=== PATIENT | female | born 1945 | race Caucasian/White ===

== ENCOUNTER → 2016-08-09 | Outpatient (CLI) | payer OTHER ==
[~2016-08-09] MED LIST: ALBUAER INH; ATV1 PO; BXN500 PO; CARB25TA12 PO; CARB50TA3 PO; CLAR500T34 PO; CYAN500T PO; DILT120C68 PO; ERGO500011 PO; ERGO50002 PO; FRS/40 PO; GABA-113 PO; LABE1TAB28 PO; LEVO175T PO; MELO7.5T5 PO; PANT40TA PO; RALO60TA30 PO; ROTI1DIS2 TOP; RXC5 PO
[2016-08-09 12:19] LABS: HEMATOCRIT 36.7 % (37-47); MEAN CELL VOLUME 94.8 fL (80-100); MEAN CORPUSCULAR HEMOGLOBIN 30.7 pg (25-34); MEAN CORPUSCULAR HGB CONC 32.4 g/dl (32-36); MEAN PLATELET VOLUME 9.1 fL (7.4-10.4); PLATELET COUNT 321 K/uL (130-400); RED BLOOD COUNT 3.87 M/uL (4.2-5.4); WHITE BLOOD COUNT 5.71 K/uL (4.8-10.8)
[2016-08-09 12:54] LABS: ALT/SGPT 15 U/L (12-78); BLOOD UREA NITROGEN 16 mg/dl (7-18); BUN/CREATININE RATIO 18.6 (10-20); CARBON DIOXIDE 28 mmol/L (21-32); CHLORIDE 107 mmol/L (98-107); CREATININE 0.88 mg/dl (0.60-1.20); GLUCOSE 87 mg/dl (70-99); POTASSIUM 3.5 mmol/L (3.5-5.1); SODIUM 144 mmol/L (136-145)
[2016-08-09 12:56] LABS: ALB/GLOB RATIO 1.1 (0.9-2); ALKALINE PHOSPHATASE 143 U/L (45-117); AST/SGOT 10 U/L (15-37)
[2016-08-09 13:05] LABS: URINE PROTIEN/CREAT RATIO 0.1 (0-0.2); URINE TOTAL PROTEIN 11.2 mg/dl (0-11.9)
[2016-08-09 13:06] LABS: CALCIUM 9.4 mg/dl (8.5-10.1)
[2016-08-09 13:30] LABS: URINE APPEARANCE CLEAR (CLEAR); URINE BILIRUBIN NEG (NEG); URINE COLOR YELLOW; URINE EPITHELIAL CELL AUTO >30 /lpf (0-5); URINE NITRITE NEG (NEG); URINE PH 5.5 (4.5-7.5); URINE SPECIFIC GRAVITY 1.018 (1.000-1.030); UROBILINOGEN NEG (NEG)
[2016-08-09 13:40] LABS: MANUAL MICROSCOPIC REQUIRED? NO; REVIEW REQ? NO
== END | disposition home or self-care (01) ==
LOC: C.LABBFT 08:54
PROVIDERS: ATTEND Internal Medicine Nephrology
DX: E21.3 Hyperparathyroidism, unspecified (principal); I10 Essential (primary) hypertension; N30.00 Acute cystitis without hematuria; N18.3 Chronic kidney disease, stage 3 (moderate); E55.9 Vitamin D deficiency, unspecified

== ENCOUNTER 2016-08-21 17:27 | Emergency (ER) | payer OTHER ==
[~2016-08-21 17:27] MED LIST changes: -CLAR500T34 PO; -ERGO500011 PO; -MELO7.5T5 PO
[2016-08-21 17:32] VITALS: TEMP 36.8
[2016-08-21] MEDS ORDERED: MELO7.5T5 PO (18:20)
[2016-08-21] MEDS ORDERED: ALBUAER INH (18:20)
[2016-08-21] MEDS ORDERED: ERGO500011 PO (18:20)
[2016-08-21] MEDS ORDERED: CLAR500T34 PO (18:20)
--- NOTE | 2016-08-21 18:20 | DIAGNOSTIC IMAGING REPORT ---
LEFT TIBIA AND FIBULA 2 VIEWS CLINICAL HISTORY: Twisting injury. Left leg pain. FINDINGS: AP and lateral views of the left tibia and fibula are obtained. No prior studies are available for comparison at the time of dictation. The skeletal structures are osteopenic. No fracture is seen. The knee and ankle joints are grossly maintained noting mild arthritic change. Mild soft tissue swelling is present around the ankle. IMPRESSION: There is no radiographic evidence of left tibial or fibular fracture. Electronically signed by: Gage Sr M.D. 08/21/2016 6:19 PM Dictated Date/Time: 08/21/2016 6:18 PM
--- NOTE | 2016-08-21 18:37 | EMERGENCY ROOM VISIT NOTE ---
ED Visit Note First contact with patient: 17:42 CHIEF COMPLAINT: Left lower leg injury last evening HISTORY OF PRESENT ILLNESS: Patient is a 70-year-old white female who presents the emergency department for evaluation of left lower leg pain after an injury last evening. She was kneeling on the ground, bathing her dog. She states that she leaned over the top, and pushed off on her left foot slightly. She states that she fell a pulling/tearing sensation in the anterior lateral aspect of the left lower leg. She describes pain in that same distribution, that is worse when she tries to bear weight. She applied ice, took Excedrin and used a walker. She is chronically on meloxicam for left shoulder disease. And has been taking this regularly for about 2 weeks. She reports that she is careful about what medications she takes because she has chronic kidney disease. She denies any knee or ankle joint pain. There is no numbness or tingling. She rates her discomfort an 8/10. She denies noticing any swelling or bruising. REVIEW OF SYSTEMS: Review of systems as per HPI. All other systems reviewed were negative. At least 6 systems reviewed. PMH: Electronic medical records are reviewed and summarized as above/below. See Problem List. SOCIAL HISTORY: Patient lives at home with her . Retired. Nonsmoker. PHYSICAL EXAM: Vital Signs: Reviewed Nurse's notes. MENTAL STATUS: Pleasant 70- year-old white female who is awake and alert and in no acute distress. Examination of the left lower leg does not demonstrate any obvious deformity. His skin is intact without ecchymosis or erythema. Trace pitting edema is noted in the dorsum of the foot and the ankle. She has some reproducible tenderness to palpation over the anterior and lateral aspect of the left lower leg. Posterior calf is soft and nontender. No palpable cords. The knee and ankle are normal to inspection and there is no swelling or tenderness of either. Knee and ankle range of motion are full. There is no pain or defect over the Achilles tendon insertion on the calcaneus. Distal pulses are easily palpable. Sensation light touch is intact. EMERGENCY DEPARTMENT COURSE: X-ray of the tibia/fibula does not show any fractures. Given the patient's described mechanism of injury and location of her discomfort, I suspect her injury is more muscle strain in nature. She was encouraged to continue to ice and rest the leg and use her walker for ambulation. She was offered, but declined prescription analgesia. She is encouraged to follow-up with orthopedics if her symptoms are not improving. Problem List Medical Problems: (1) CKD (chronic kidney disease), stage III Status: Chronic (2) Dyslipidemia Status: Chronic (3) Fibromyalgia Status: Chronic (4) GERD (gastroesophageal reflux disease) Status: Chronic (5) History of peptic ulcer Status: Chronic (6) HTN (hypertension) Status: Chronic (7) Hypothyroidism Status: Chronic (8) IBS (irritable bowel syndrome) Status: Chronic (9) Mild mitral regurgitation Status: Chronic (10) Mild pulmonary hypertension Status: Chronic (11) Moderate tricuspid regurgitation Status: Chronic (12) Multiple sclerosis Permanent Comment: optic neuropathy Status: Chronic (13) Osteoporosis Status: Chronic (14) Restless legs syndrome (RLS) Status: Chronic Surgical Problems: (1) H/O esophagogastroduodenoscopy Status: Chronic (2) H/O shoulder surgery Status: Chronic (3) S/P appendectomy Status: Chronic (4) S/p repair of cystocele and rectocele Status: Chronic (5) S/P STONEY-BSO Status: Chronic (6) S/P tonsillectomy Status: Chronic Current/Historical Medications Scheduled Carbidopa/Levodopa (Sinemet 25MG/100MG), 1 TAB PO TID Carbidopa/Levodopa (Sinemet Cr 50MG/200MG), 1 TAB PO HS Cyanocobalamin (Vitamin B-12), 500 MCG PO noon Ergocalciferol (Drisdol), PO MONTHLY Ergocalciferol (Vitamin D 58345 Unit), 1 TAB PO MONTHLY Furosemide (Lasix), 40 MG PO HS Gabapentin (Neurontin), 300 MG PO QID Labetalol (Normodyne), 400 MG PO BID Levothyroxine Sodium (Synthroid), 175 MCG PO DAILY Meloxicam (Mobic), 7.5 MG PO DAILY Pantoprazole (Protonix), 40 MG PO BID Raloxifene Hcl (Evista), 60 MG PO QAM Rotigotine (Neupro), TOP DAILY Scheduled PRN Albuterol Sulfate (Proventil Hfa), 2 PUFFS INH for Shortness of Breath Clarithromycin (Biaxin), 1 TAB PO for dental prophylaxis Allergies Coded Allergies: Penicillins (Verified Allergy, Severe, anaphylaxis, 08/21/16) Sulfa Antibiotics (Verified Allergy, Severe, ANAPHYLAXIS, 08/21/16) Pneumococcal Polysaccharides (Verified Allergy, Intermediate, rash at injection site, 08/21/16) Latex1 -Allergic Contact Dermititis (Verified Allergy, Unknown, , 08/21/16 ) Tetanus Toxoid (Verified Allergy, Unknown, redness at injection site, 08/21) age 10 SANIA Inhibitors (Verified Adverse Reaction, Mild, cough, 08/21/16) Aspirin (Verified Adverse Reaction, Mild, GI upset, 08/21/16) Vital Signs Date Time Temp Pulse Resp B/P Pulse Ox O2 Delivery O2 Flow Rate FiO2 08/21/16 18:52 73 16 167/98 97 08/21/16 17:32 36.8 78 20 159/94 95 Room Air Departure Information Impression Primary Impression: Leg strain Referrals Terrance Craig M.D. (PCP) Patient Instructions [facility] Additional Instructions Acetaminophen(Tylenol) may be used for fever or pain. Use 1000mg every six hours as needed. Avoid using more than 3000mg in a 24 hour period. This medication can be taken if you need to drive, work, or perform activities which may be dangerous when taking narcotic pain medication. Ice compresses for 20 minutes at a time four times daily for 2-3 days. Use your walker as instructed. Rest and elevate your injury. Continue current medications. Return to the ER immediately for any numbness, tingling, severe pain, extreme swelling in the extremity or as needed. Follow-up with your family doctor or with your orthopedic surgeon if your symptoms are not improving in the next 3-5 days.
[2016-08-21 18:52] VITALS: BP 167/98; PULSE 73; O2SAT 97
== END 2016-08-21 18:53 | disposition home or self-care (01) ==
LOC: C.EDB 17:29 → C.EDD 18:53
DX: S86.812A Strain of other muscle(s) and tendon(s) at lower leg level, left leg, initial encounter (principal); X50.9XXA Other and unspecified overexertion or strenuous movements or postures, initial encounter; M12.1 Kaschin-Beck disease; N18.3 Chronic kidney disease, stage 3 (moderate); E78.5 Hyperlipidemia, unspecified; M79.7 Fibromyalgia; K21.9 Gastro-esophageal reflux disease without esophagitis; Z87.11 Personal history of peptic ulcer disease; I10 Essential (primary) hypertension; E03.9 Hypothyroidism, unspecified; K58.9 Irritable bowel syndrome, unspecified; I34.0 Nonrheumatic mitral (valve) insufficiency; I07.1 Rheumatic tricuspid insufficiency; G35 Multiple sclerosis; M81.0 Age-related osteoporosis without current pathological fracture; G25.81 Restless legs syndrome

== ENCOUNTER → 2016-12-30 | Outpatient (CLI) | payer OTHER ==
[~2016-12-30] MED LIST changes: -ATV1 PO; -BXN500 PO; +CLAR500T3 PO; -DILT120C68 PO; +ERGO1CAP41 PO; +MELO7.5T5 PO; +RALO60TA12 PO; -RALO60TA30 PO; -RXC5 PO
== END | disposition home or self-care (01) ==
LOC: C.CPL 10:43
DX: G56.02 Carpal tunnel syndrome, left upper limb (principal)

== ENCOUNTER → 2017-07-11 | Outpatient (CLI) | payer OTHER ==
[~2017-07-11] MED LIST changes: -CLAR500T3 PO; +CLAR500T38 PO; -ERGO1CAP41 PO; +ERGO500011 PO; -RALO60TA12 PO; +RALO60TA30 PO
[2017-07-11 12:50] LABS: HEMATOCRIT 36.3 % (37-47); HEMOGLOBIN 11.9 g/dL (12.0-16.0); MEAN CELL VOLUME 91.2 fL (80-100); MEAN CORPUSCULAR HEMOGLOBIN 29.9 pg (25-34); MEAN CORPUSCULAR HGB CONC 32.8 g/dl (32-36); PLATELET COUNT 360 K/uL (130-400); RED CELL DISTRIBUTION WIDTH CV 14.7 % (11.5-14.5); WHITE BLOOD COUNT 6.63 K/uL (4.8-10.8)
[2017-07-11 14:27] LABS: ALBUMIN 3.9 gm/dl (3.4-5.0); ALT/SGPT 17 U/L (12-78); AST/SGOT 12 U/L (15-37); BLOOD UREA NITROGEN 17 mg/dl (7-18); CARBON DIOXIDE 27 mmol/L (21-32); CREATININE 0.91 mg/dl (0.60-1.20); GLUCOSE 91 mg/dl (70-99); POTASSIUM 3.6 mmol/L (3.5-5.1); SODIUM 140 mmol/L (136-145)
[2017-07-11 14:30] LABS: ALKALINE PHOSPHATASE 153 U/L (45-117); TOTAL PROTEIN 7.6 gm/dl (6.4-8.2)
== END | disposition home or self-care (01) ==
LOC: C.LABBFT 09:20
PROVIDERS: ATTEND Internal Medicine Nephrology
DX: E21.3 Hyperparathyroidism, unspecified (principal); I10 Essential (primary) hypertension; N18.3 Chronic kidney disease, stage 3 (moderate); E55.9 Vitamin D deficiency, unspecified

== ENCOUNTER 2019-05-22 07:05 | Observation (INO) ==
[2019-05-22] MEDS ORDERED: HEPARIN (PORCINE) 1000 UNIT/ML 10 ML (CATH LAB USE ONLY) ONE ×2 (08:10→10:27)
[2019-05-22] MEDS ORDERED: NiCARDipine HCL INJ 2.5 MG/ML 10 ML AMP ONE (08:10)
[2019-05-22] MEDS ORDERED: MIDAZOLAM HCL 1 MG/ML 2ML VIAL ONE ×2 (08:11→10:01)
[2019-05-22] MEDS ORDERED: fentaNYL citrate 100 MCG/2 ML VIAL ONE ×2 (08:11→10:01)
[2019-05-22] MEDS ORDERED: NITROGLYCERIN/D5W 100MCG/ML 20ML SYR ONE ×2 (08:11→09:58)
--- NOTE | 2019-05-22 08:35 | History & Physical Bridge Note ---
Date of Service May 22, 2019 History & Physical Bridge Note I have examined the patient, reviewed the History & Physical and in the interval since the performance of the History & Physical I have noted the following changes of clinical significance: no changes noted
--- NOTE | 2019-05-22 08:37 | Pre Anesthesia Assessment ---
Date of Service May 22, 2019 Pre Sedation Assessment Vital Signs Temp Pulse Pulse Resp BP Pulse Ox 05/23/19 11:06 36.6 C 67 17 115/77 98 05/23/19 08:00 98 H 05/23/19 07:50 36.5 C 76 12 145/82 H 99 05/23/19 03:15 36.7 C 73 18 152/82 H 96 05/22/19 23:24 36.4 C L 79 18 134/78 94 05/22/19 22:20 94 H 05/22/19 20:29 74 05/22/19 19:37 36.6 C 78 19 168/89 H 96 05/22/19 15:57 36.3 C L 66 16 160/76 H 97 05/22/19 14:45 65 05/22/19 13:44 36.4 C L 63 18 157/77 H 94 05/22/19 13:09 65 18 149/82 H 95 05/22/19 12:36 68 18 154/81 H 94 05/22/19 12:11 67 18 147/79 H 94 05/22/19 12:00 69 05/22/19 11:44 36.3 C L 67 18 147/82 H 92 05/22/19 11:28 68 18 133/72 94 Cardiovascular RRR, no murmur, no edema Respiratory normal respiratory effort, lungs clear to auscultation Pre-Sedation Airway Assessment Smoking Status: Never smoker Hx Sleep Apnea: No Short, Thick Neck: No Thyromental Distance: > or= 3.5 Finger Breadths Oral Cavity: + WNL Mallampati Class: II ASA: ASA3 NPO Status Date of Last Intake of Fluids: 05/21/19 Time of Last Intake of Fluids: 20:00 Date of Last Intake of Solid Food: 05/21/19 Time of Last Intake of Solid Foods: 20:00 Procedure Planning Contraindications for Sedation: none Current Medications Reviewed: Yes Notes The planned sedation has been discussed with the patient. Informed Consent was obtained. I have identified the patient, determined the appropriateness of sedation and have assessed the patient immediately prior to the procedure. All medicine(s) and interventions are by my order.
[2019-05-22] MEDS ORDERED: LIDOCAINE HCL 1% 20 ML VIAL ONE (08:41)
--- NOTE | 2019-05-22 09:48 | Post Anesthesia Assessment ---
Date of Service May 22, 2019 Post Sedation Assessment Vital Signs Temp Pulse Pulse Resp BP Pulse Ox 05/23/19 11:06 36.6 C 67 17 115/77 98 05/23/19 08:00 98 H 05/23/19 07:50 36.5 C 76 12 145/82 H 99 05/23/19 03:15 36.7 C 73 18 152/82 H 96 05/22/19 23:24 36.4 C L 79 18 134/78 94 05/22/19 22:20 94 H 05/22/19 20:29 74 05/22/19 19:37 36.6 C 78 19 168/89 H 96 05/22/19 15:57 36.3 C L 66 16 160/76 H 97 05/22/19 14:45 65 05/22/19 13:44 36.4 C L 63 18 157/77 H 94 05/22/19 13:09 65 18 149/82 H 95 05/22/19 12:36 68 18 154/81 H 94 05/22/19 12:11 67 18 147/79 H 94 05/22/19 12:00 69 05/22/19 11:44 36.3 C L 67 18 147/82 H 92 05/22/19 11:28 68 18 133/72 94 Recovery Score Activity: Moves 4 extremities Respiration: Deep Breath/Cough Circulation: +/-20% PreAnes Value Oxygen Saturation: > 92% On Room Air Discharge Sedation Level of Care: Phase I Post Sedation Plan On clinical assessment, the patient appears to have tolerated the sedation without complications. Patient is recovering as anticipated. Patient will continue to be monitored by nursing and may be discharged when sedation discharge criteria are met per below protocol. Upon Completions of procedure up to 15 minutes continue every 5 minute vital signs and the P.A.R. score; then discharge to a Phase I or Fast Track to Phase II per the following guidelines: * Discharge Patient to appropriate Phase II area if PAR is 8 or greater or return to pre- procedure baseline. The post - procedure orders will be as directed. * If PAR score is less than 8 or not return to pre-procedure baseline then patient will follow Phase I monitoring till PAR is reached for Phase II. The Phase I may be done in procedure room or may call to secure a Phase I area. * If naloxone or flumazenil are used for reversal, hold in Phase I for continued monitoring from when last reversal dose was given for a minimum of 60 minutes or longer pending the nurse and/or physician discretion of patient condition before discharge to Phase II. Please call the Sedation Physician to re-evaluate and complete post-note for discharge to Phase II area. Do NOT discharge from procedure sedation or Phase 1 until post- sedation evaluation note is complete by procedure /sedation MD Sedation Discharge Instructions to be given to the patient at discharge to home.
--- NOTE | 2019-05-22 09:59 | Cardiac Catheterization ---
Cardiac Cath Procedure Full Procedure Date May 22, 2019 Pre-Procedure Diagnosis Pre-Procedure Diagnosis: Angina and Positive Stress Test AUC Score AUC Score: 7 Post-Procedure Diagnosis Post-Procedure Diagnosis: Severe CAD and Elevated Intracardiac Pressures Procedure(s) Performed Procedure(s) Performed: Coronary Angiography and Left Heart Cath Loading Unit Operator Crimping Keny Nava DO Early [employer] Director(s) Bob GREEN COFFEE BLENDER Estimated Blood Loss Estimated Blood Loss: 5cc Medication(s) Medication(s): Fentanyl, Lidocaine 1% and Versed Summary of Findings Severe LAD and RCA stenosis. Hemodynamics Rest Ao:: 131/50/94 Final Ao: 126/56/87 LV: 131/-3/ Recommendations Recommendations: PCI without planned CABG Specimens Specimens: None Radiation Exposure (mGy) 750 Contrast (mls) 80 Fluids (cc crystalloids) Fluids (cc crystalloids): 50 Nss Anesthesia Moderate sedation. Start 0851. End 0935. Sedation Monitor: Ida THIBODEAUX Procedural Complication(s) None Disposition Patient remained in Cold Work Operator for PCI of the LAD and RCA I attest to the content of the Intraoperative Record and any orders documented therein. Any exceptions are noted below. ACC Data: Cold Work Operator Cardiac Status Clinical evaluation leading to the procedure CAD Presenation: Positive Stress Test Anginal Classification: CCS III Heart Failure: No Coronary Anatomy Dominant: Right Left Main (% Stenosis): Proximal (20%) LAD (% Stenosis): Proximal (diffuse 60%) and Mid (80%) D1 (% Stenosis): Ostial (50%) Circumflex (% Stenosis): Normal OM1 (% Stenosis): Proximal (50%) RCA (% Stenosis): Proximal (40%) and Mid (diffuse 40-50% followed by discrete 80%) R PDA (% Stenosis): Normal R PL1 (% Stenosis): Normal R PL2 (% Stenosis): Proximal Ramus (% Stenosis): Proximal (30%) Diagnostic Physicians Name: Keny Nava DO Status: Elective Closure Device Percutaneous Entry Location: Femoral (Unable to obtain access via radial approach due to spasm. Sheath could not be fully advanced with poor blood return.) Recommendations: PCI without planned CABG Intraprocedure Events Significant Disection: No Perforation: No
[2019-05-22] MEDS ORDERED: CLOPIDOGREL BISULFATE 300 MG TAB ONE (10:52)
[2019-05-22] MEDS ORDERED: NITROGLYCERIN SL 0.4 MG/TAB TAB SL PRN (10:59)
[2019-05-22] MEDS ORDERED: ONDANSETRON INJ 2 MG/ML 2 ML VIAL IV PRN (10:59)
[2019-05-22] MEDS ORDERED: ALBUTEROL HFA 8 GM INHALER INH PRN (11:08)
[2019-05-22] MEDS ORDERED: BENZONATATE 100 MG CAPSULE PO PRN (11:23)
[2019-05-22] MEDS ORDERED: SIMETHICONE 80 MG CHEW PO PRN (11:23)
--- NOTE | 2019-05-22 11:29 | Cardiac Catheterization ---
[facility] Data: Stone Gluer Cardiac Status Clinical evaluation leading to the procedure CAD Presenation: Positive Stress Test Anginal Classification: CCS III Heart Failure: No Cardiogenic Shock within 24 Hours: No Cardiac Arrest within 24 Hours: No Imaging Studies Past 6 Months: Yes Stress Studies Past 6 Months: Yes Stress Testing w/SPECT MPI: Yes - Positive and Risk/Extent of Ischemia (Low) Diagnostic Physicians Name: Juan Pablo Girard MD Closure Device Percutaneous Entry Location: Radial Closure Device: Radial Band Recommendations: PCI without planned CABG PCI Indication: + Stress Test Lesion Segment Name: Proximal to mid LAD Culprit Artery: Yes Stenosis Prior to Rx (%): 70 Chronic Total Occlusion: No IVUS: No Pre-Procedure CLARICE Flow: 3 Previously Treated Lesion: No Lesion Complexity: Non-High/Non-C Lesion Length (mm): 30 Thrombus Present: No Bifurcation Lesion: Yes Guidewire Across Lesion: Stenosis Post-Procedure (%): 0 Post-Procedure CLARICE Flow: 3 Devices(s) Deployed: Yes Yes Intraprocedure Events Significant Disection: No Perforation: No Cardiac Cath Procedure Full Procedure Date May 22, 2019 Pre-Procedure Diagnosis Pre-Procedure Diagnosis: Angina and Positive Stress Test AUC Score AUC Score: 7 Post-Procedure Diagnosis Post-Procedure Diagnosis: Severe CAD and Successful PCI Procedure(s) Performed Procedure(s) Performed: Drug Eluting Stent and IVUS Business Travel Consultant Juan Pablo Girard MD Estimated Blood Loss Estimated Blood Loss: 5c Medication(s) Medication(s): Clopidogrel, Fentanyl, Lidocaine 1% and Versed Summary of Findings Indication: Accelerating angina, abnormal stress test Access: 6 Fr right common femoral artery Catheters: EBU 3.5 guide Findings: For full details of patient's coronary angiography please cath report dictated by Dr. Nava. Briefly, patient found to have severe multi-vessel disease including diffuse proximal LAD disease and 70% focal mid LAD disease at takeoff of second diagonal. Decision to proceed with PCI. -- PCI -- Antithrombotic therapy: Heparin, clopidogrel Procedure: Left main cannulated with EBU 3.5 guide BMW wire passed across lesion into distal vessel IVUS used to assess severity of disease (MLA 2.4), degree of calcification and length of disease. Disease noted to extend almost back to LAD ostium. Mild calcification. Mid LAD stented with 2.5 x 18 mm Wero drug-eluting stent Second GABRIELA placed from ostium and overlapped with proximal aspect of initial stent (3.0 x 26 mm Inola). Stents post-dilated with 3.5 noncompliant balloon IC vasodilators administered for spasm Post procedure CLARICE 3 flow, stent well expanded with minimal residual stenosis and no apparent cardiac complications. Arterial Closure: TR band Summary: 1. Successful PCI of proximal to mid LAD with 2 overlapping drug-eluting stents (3.0 x 26, 2.5 x 18 Wero; postdilated with 3.5 NC) Recommendations: To PCU for continued monitoring Loaded with clopidogrel 600 mg in oven laborer Continue dual-antiplatelet therapy for at least 6 Continue statin, and ASCVD risk factor modification Consult cardiac Rehab Plan for staged PCI of RCA in the next week or 2. Hemodynamics Rest Ao:: 127/44/94 Final Ao: 125/51/86 LV: -- Recommendations Recommendations: PCI without planned CABG Specimens Specimens: None Radiation Exposure (mGy) 2323 Contrast (mls) 125 Fluids (cc crystalloids) Fluids (cc crystalloids): 150 Drains Drains: none Anesthesia Moderate sedation Procedural Complication(s) None Disposition PCU I attest to the content of the Intraoperative Record and any orders documented therein. Any exceptions are noted below. [facility] Card Cath Procedure Codes Therapeutic Services & Ancillary Proc Procedure 1: Cardiovascular Tx and Anc Procedures: 24258 IV Ultrasound (Coronary or Graft) Moderate Sedation Procedure 1: Sedation/Anesthesia: 60751 Mod Sedation by a different physician ;Init15 Min Child Age 5&Up Procedure 2: Sedation/Anesthesia: 90404 Mod Sedation by a different physician;Ea Additional 15 Minutes Stenting Procedure 1: Cardiovascular Stent Procedures: 20500 Perc transcatheter placement of intracoronary stent(s), with ang PG Care Time/CCT Total # of Minutes Spent Total Time Spent with Patient: Total time spent is greater than 50% in coordination of care (as documented) at patient's floor/unit and/or counseling patient:
[2019-05-22] MEDS ORDERED: SODIUM CHLORIDE 0.9% 1000ML 1,000 ML IV SCH (12:00)
[2019-05-22] MEDS: CARBIDOPA/LEVODOPA 25/100MG TAB PO SCH ×2 (14:13→20:40)
[2019-05-22] MEDS: PANTOprazole 40 MG TAB PO SCH (20:38)
[2019-05-22] MEDS: LABETALOL HCL 200 MG TAB PO SCH (20:39)
[2019-05-22] MEDS ORDERED: CARBIDOPA/LEVODOPA 50/200MG EXT REL TAB PO SCH (21:00)
[2019-05-22] MEDS ORDERED: GABAPENTIN 300 MG CAP PO SCH (21:00)
[2019-05-22] MEDS ORDERED: ROTIGOTINE TD SCH (21:00)
[2019-05-23] MEDS ORDERED: LEVOTHYROXINE SODIUM 175 MCG TABLET PO SCH (06:30)
[2019-05-23] MEDS: CARBIDOPA/LEVODOPA 25/100MG TAB PO SCH (07:49)
[2019-05-23] MEDS: PANTOprazole 40 MG TAB PO SCH (07:49)
[2019-05-23] MEDS: LABETALOL HCL 200 MG TAB PO SCH (07:49)
[2019-05-23 07:55] LABS: Basophils # (auto) 0.04 K/uL (0-0.2); Basophils % (auto) 0.6 %; Eosinophils % (auto) 4.2 %; Hematocrit (blood only) 33.7 % (37-47); Hemoglobin 11.2 g/dL (12.0-16.0); Immature Granulocytes # (auto) 0.01 K/uL (0.00-0.02); Immature Granulocytes % (auto) 0.1 %; Lymphocytes # (auto) 1.96 K/uL (1.2-3.4); Lymphocytes % (auto) 27.6 %; Mean Corpuscular Hemoglobin 29.9 pg (25-34); Mean Corpuscular Hgb Conc 33.2 g/dL (32-36); Mean Corpuscular Volume 90.1 fL (80-100); Mean Platelet Volume 9.1 fL (7.4-10.4); Monocytes # (auto) 0.64 K/uL (0.11-0.59); Neutrophils # (auto) 4.16 K/uL (1.4-6.5); Neutrophils % (auto) 58.5 %; Platelet Count 294 K/uL (130-400); RDW Coefficient of Variation 13.7 % (11.5-14.5); RDW Standard Deviation 45.5 fL (36.4-46.3); Red Blood Count 3.74 M/uL (4.2-5.4); White Blood Count 7.11 K/uL (4.8-10.8)
[2019-05-23 08:21] LABS: BUN Creatinine Ratio 14.5 (10-20); Calcium 9.4 mg/dl (8.5-10.1); Creatinine Clr Calc Pharmacy 64.4 ml/min; Est GFR (African American) 88.9; Est GFR (Non-African American) 76.7; Potassium 3.2 mmol/L (3.5-5.1)
[2019-05-23] MEDS ORDERED: CLOPIDOGREL BISULFATE 75 MG TAB PO SCH (09:00)
[2019-05-23] MEDS ORDERED: ASPIRIN 81 MG ECTAB PO SCH (09:00)
[2019-05-23] MEDS ORDERED: FUROSEMIDE 40 MG TAB PO SCH (09:00)
[2019-05-23] MEDS ORDERED: CYANOCOBALAMIN 500 MCG TABLET (VITAMIN B-12) PO SCH (09:00)
[2019-05-23] MEDS ORDERED: RALOXIFENE HCL 60 MG TAB PO SCH (09:00)
[2019-05-23] MEDS ORDERED: GABAPENTIN 300 MG CAP PO SCH (09:00)
[2019-05-23] MEDS ORDERED: AMLODIPINE BESYLATE 5 MG TAB PO SCH (09:00)
[2019-05-23] MEDS ORDERED: ATORVASTATIN 40 MG TAB PO SCH (10:45)
[2019-05-23] MEDS ORDERED: POTASSIUM CHLORIDE 20 MEQ TABCR PO STA (10:46)
[2019-05-23] MEDS ORDERED: ENOXAPARIN INJ 40 MG/0.4 ML SYR SQ SCH (11:00)
--- NOTE | 2019-05-23 11:23 | Cardiology Progress Note ---
Date of Service May 23, 2019 Assessment & Plan (1) Status post insertion of drug-eluting stent into left anterior descending (LAD) artery: (2) Abnormal nuclear stress test: (3) CAD (coronary artery disease), eagle coronary artery: (4) Chronic kidney disease, stage II (mild): (5) Dyslipidemia: (6) Hypokalemia: (7) Statin intolerance: Recommend dual antiplatelet therapy for minimum of 6 months post percutaneous intervention. Residual RCA stenosis noted. Patient will be discha rged home and scheduled for staged PCI of the right coronary artery within the next week. Continue isosorbide monohydrate as previously ordered. Post catheterization activity restrictions discussed. Patient reports history of statin intolerance including simvastatin, atorvastatin, and rosuvastatin. Agreeable to rechallenge with pravastatin 20 mg daily. Supplement potassium with 40 mEq x 1 now. I will add 20 KCL mEq daily due to use of Lasix for control of chronic lower extremity edema. Repeat basic metabolic panel in 1 week. All questions answered to patient satisfaction. Subjective Patient seen and examined the bedside. Feeling well this morning. No dysrhythmias on telemetry. Reports soreness and ecchymosis of her right wrist and forearm. Mild groin discomfort noted. Denies chest pain or unusual shortness of breath. Tolerating current medications. A.m. labs demonstrate mild hypokalemia. Review of Systems Review of Systems: All systems reviewed & are unremarkable except as noted in HPI & below Physical Exam Constitutional: well developed, well nourished and + obese Respiratory: normal respiratory effort, lungs clear to auscultation Cardiovascular: Rate/Rhythm: regular rate and regular rhythm Heart Sounds: normal S1 and normal S2; no murmur and no cardiac rub Vessels: no JVD Extremities: + edema (1+ bilateral pedal and ankle edema) Musculoskeletal: no cyanosis or clubbing, extremities motor strength 5/5 Right anterior wrist ecchymosis. Radial pulses palpable. Mild right groin ecchymosis. No hematoma Skin: no rashes, warm and dry Neurologic: CN's II-XI intact bilaterally and moves all extremities; no focal motor deficits Psychiatric: A+Ox3, euthymic affect Results & Data Vital Signs (Past 12 Hours) Vital Signs Temp Pulse Pulse Resp BP Pulse Ox 05/23/19 11:06 36.6 C 67 17 115/77 98 05/23/19 08:00 98 H 05/23/19 07:50 36.5 C 76 12 145/82 H 99 05/23/19 03:15 36.7 C 73 18 152/82 H 96 05/22/19 23:24 36.4 C L 79 18 134/78 94 (1) CAD (coronary artery disease), eagle coronary artery Associated angina: with stable angina Elim Ira vs. transplanted heart: eagle heart Qualified Code(s): I25.118 - Atherosclerotic heart disease of eagle coronary artery with other forms of angina pectoris
--- NOTE | 2019-05-23 11:40 | Discharge Summary ---
Date of Service May 23, 2019 Admission HPI Per Admitting Provider Abnormal Lexiscan nuclear stress test. Diagnostic left heart catheterization recommended. Patient referred by Dr. Bolivar. Principal Diagnosis Coronary artery disease involving left anterior descending and right coronary artery. Discharge Exam Constitutional well developed, well nourished and + obese ENMT Mallampati Class: II Respiratory normal respiratory effort, lungs clear to auscultation Cardiovascular RRR, no murmur, no edema Rate/Rhythm: regular rate and regular rhythm Heart Sounds: normal S1 and normal S2; no murmur and no cardiac rub Vessels: no JVD Extremities: + edema (1+ bilateral pedal and ankle edema) Musculoskeletal no cyanosis or clubbing, extremities motor strength 5/5 Skin no rashes, warm and dry Neurologic CN's II-XI intact bilaterally and moves all extremities; no focal motor deficits Psychiatric A+Ox3, euthymic affect Discharge Data Allergies Allergy/AdvReac Type Severity Reaction Status Date / Time Penicillins Allergy Severe anaphylaxis Verified 03/31/19 01:20 Sulfa (Sulfonamide Allergy Severe ANAPHYLAXIS Verified 03/31/19 01:20 Antibiotics) pneumococcal vaccine Allergy Intermediate rash at Verified 03/31/19 01:20 injection site adhesive tape Allergy Mild redness/pru Verified 03/31/19 01:20 ritis latex Allergy Unknown Verified 03/31/19 01:20 tetanus toxoid, adsorbed Allergy Unknown redness at Verified 03/31/19 01:20 injection site SANIA Inhibitors AdvReac Mild cough Verified 03/31/19 01:20 aspirin AdvReac Mild GI upset Verified 03/31/19 01:20 Consultations 05/22/19 11:00 Consult Cardiac Rehabilitation Routine Procedures Performed Operation Date: 05/22/19 08:00 Actual Procedures s Cineradiography w/Routine Exam - Keny Nava, DO p Cath, Left with Cors and Vent - Keny Nava, DO s IVUS Coronary Single Vessel - Sudhakar Girard MD s Drug Eluting Stent SGl Vessel - Sudhakar Girard MD s Placement Art Occlusive Device - Sudhakar Girard MD Ordered Studies 05/22/19 07:53 CL Cath Imgs for PACS use only Routine 05/22/19 12:24 CL IVUS Coronary Single Vessel Routine Hospital Course (1) Status post insertion of drug-eluting stent into left anterior descending (LAD) artery: (2) Abnormal nuclear stress test: (3) CAD (coronary artery disease), [place] coronary artery: (4) Chronic kidney disease, stage II (mild): (5) Dyslipidemia: (6) Hypokalemia: (7) Statin intolerance: Recommend dual antiplatelet therapy for minimum of 6 months post percutaneous intervention. Residual RCA stenosis noted. Patient will be discharged home and scheduled for staged PCI of the right coronary artery within the next week. Continue isosorbide monohydrate as previously ordered. Post catheterization activity restrictions discussed. Patient reports history of statin intolerance including simvastatin, atorvastatin, and rosuvastatin. Agreeable to rechallenge with pravastatin 20 mg daily. Supplement potassium with 40 mEq x 1 now. I will add 20 KCL mEq daily due to use of Lasix for control of chronic lower extremity edema. Repeat basic metabolic panel in 1 week. All questions answered to patient satisfaction. Total Time Total Time Spent Total Time Spent (In Minutes): 30 Total Time Includes: Examination of the Patient, Discharge Planning and Medication Reconciliation Discharge Plan Discharge Items Reason For Visit: PST PCI Discharge Diagnosis: Abnormal nuclear stress test status post drug-eluting stent to the left anterior descending artery x2. Residual RCA stenosis for planned staged percutaneous intervention within the next week. Condition on Discharge: Good Activity: Per Instructions section Non-emergency contact: Staff Pharmacist Call non-emergency contact if: your symptoms worsen, your pain is worsening and your pain is unusual for you Follow-up/Referrals: Terrance Craig MD [Primary Care Provider] - Diet: Heart Healthy Addtl Attending Provider Instructions: ACTIVITY RECOMMENDATIONS: It is common to feel weak and fatigue for a few days. * Do not drive or operate any motorized equipment for the next three days. * Limit stair usage (2 or 3 trips a day only) for the next three days. * Do not lift anything heavier than 10 pounds for the next three days. * Do not engage in vigorous exercise or any sports for the next five days. * You may shower the day after your procedure, but do not immerse the area for three days. Cleanse the site gently with soap and water. SPECIAL CARE INSTRUCTIONS: * You may replace the pressure dressing or band-aid the morning after the procedure. * After your procedure, it is normal to have a small bruise or small lump at the site. Examine your site daily for any change in the bruise or lump, redness, swelling, drainage or numbness. Notify your doctor if any change. BLEEDING: * If there is a small amount of bleeding at the site, lie down and apply firm pressure with a clean cloth for ten minutes. When the bleeding stops, lie quietly keeping the procedure limb straight for six hours. Notify your doctor as soon as possible. * If the bleeding does not stop after ten minutes or if there is a large amount of bleeding or spurting, call 911 immediately. Continue to lie down and hold firm pressure until help arrives. SKIN IRRITATION: * You may experience some redness and/or swelling in the area where radiation was administered. If any skin irritation occurs, please contact your family physician. FOLLOW UP VISIT: Keep any scheduled doctor appointments. Pending Studies at Discharge: Yes Studies:: Repeat basic metabolic panel in 1 week. Stand-Alone Forms: My [facility] [employer], Smoking Cessation Medications and DC Order Prescriptions: New isosorbide mononitrate 30 mg Tablet Extended Release 24 Hr 30 mg PO QAM Qty: 30 RF: 0 pravastatin 20 mg Tablet 20 mg PO DAILY@1700 Qty: 30 RF: 1 potassium chloride [Klor-Con M20] 20 mEq Tablet,Er Particles/Crystals 20 meq PO QAM Qty: 30 RF: 1 clopidogrel 75 mg Tablet 75 mg PO QAM Qty: 30 RF: 1 aspirin [Ecotrin Low Strength] 81 mg Tablet,Delayed Release (Dr/Ec) 81 mg PO QAM Qty: 30 RF: 2 Continued clarithromycin 500 mg tablet 500 mg PO .COMPLEX RF: 0 raloxifene 60 mg tablet 60 mg PO DAILY RF: 0 furosemide 40 mg tablet 40 mg PO DAILY Qty: 180 RF: 0 labetalol 200 mg tablet 400 mg PO BID Qty: 360 RF: 0 carbidopa-levodopa 50-200 mg tablet extended release 1 tab PO HS RF: 0 carbidopa-levodopa 25-100 mg tablet 1 tab PO TID RF: 0 gabapentin 300 mg capsule 300 mg PO DIRECTED RF: 0 pantoprazole 40 mg tablet,delayed release (DR/EC) 40 mg PO BID RF: 0 cyanocobalamin (vitamin B-12) 100 mcg tablet 1,000 mcg PO DAILY RF: 0 rotigotine 4 mg/24 hour patch 24 hour 1 patch TD DAILY RF: 0 levothyroxine 175 mcg Tablet 175 mcg PO DAILY RF: 0 amlodipine 2.5 mg Tablet 10 mg PO DAILY RF: 0 albuterol sulfate 90 mcg/actuation Hfa Aerosol Inhaler 2 puff INHALATION QID PRN (Reason: sob/wheezing) RF: 0 ergocalciferol (vitamin D2) 50,000 unit capsule 50,000 units PO WK RF: 0 benzonatate 100 mg Capsule 100 mg PO TID PRN (Reason: Cough) RF: 0 Premarin 0.625 mg/gram Cream 0.625 mg VAGINAL DAILY RF: 0 simethicone 80 mg Tablet,Chewable 80 mg PO BID PRN (Reason: Abdominal Distention) RF: 0 Krames/Other Patient Handouts: CAD Admission Data Admit Date/Time: 05/22/19 10:58 Attending Provider: Keny Nava Admit Provider: Sudhakar Girard Primary Care Provider: Terrance Craig
[2019-05-23] MEDS ORDERED: PRAVASTATIN SOD 20 MG TAB PO SCH (17:00)
[2019-05-24] MEDS ORDERED: POTASSIUM CHLORIDE 20 MEQ TABCR PO SCH (09:00)
[2019-05-24] MEDS ORDERED: ISOSORBIDE MONO EXTENDED REL 30 MG TABCR PO SCH (09:00)
== END 2019-05-23 13:00 | disposition home or self-care (01) ==
LOC: 2S 07:05 → CC 07:05

== ENCOUNTER 2021-01-18 20:04 | Inpatient (IN) ==
[2021-01-18 21:23] LABS: Hematocrit (blood only) 36.9 % (37-47); Hemoglobin 12.4 g/dL (12.0-16.0); Mean Corpuscular Hemoglobin 29.6 pg (25-34); Mean Corpuscular Hgb Conc 33.6 g/dL (32-36); Mean Corpuscular Volume 88.1 fL (80-100); Mean Platelet Volume 8.7 fL (7.4-10.4); Platelet Count 394 K/uL (130-400); RDW Coefficient of Variation 15.4 % (11.5-14.5); RDW Standard Deviation 49.9 fL (36.4-46.3); Red Blood Count 4.19 M/uL (4.2-5.4); White Blood Count 12.15 K/uL (4.8-10.8)
[2021-01-18 21:25] LABS: Appearance Urine Clear (Clear); Bacteria Urine Automated Negative (Negative); Bilirubin Urine Negative (Negative); Blood Urine Negative (Negative); Color Urine Yellow; Glucose Urine UA Negative (Negative); Ketones Urine Negative (Negative); Leukocyte Esterase Urine 2+ (Negative); Nitrite Urine Negative (Negative); Protein Urine Negative (Negative); RBC Urine Automated 0-4 /hpf (0-4); Specific Gravity Urine 1.007 (1.000-1.030); Urobilinogen Urine Negative (Negative); WBC Urine Automated >30 /hpf (0-5); pH Urine 7.5 (4.5-7.5)
[2021-01-18 21:39] LABS: BUN Creatinine Ratio 13.6 (10-20); Blood Urea Nitrogen 15 mg/dl (7-18); Calcium 9.5 mg/dl (8.5-10.1); Carbon Dioxide 29 mmol/L (21-32); Chloride 104 mmol/L (98-107); Est GFR (African American) 56.1 ml/min; Est GFR (Non-African American) 48.4 ml/min; Glucose 136 mg/dl (70-99); Potassium 3.3 mmol/L (3.5-5.1); Sodium 140 mmol/L (136-145)
[2021-01-18] MEDS ORDERED: cefTRIAXone SODIUM 1,000 MG/50 ML BAG IV STA (22:10)
[2021-01-18] MEDS ORDERED: SODIUM CHLORIDE 0.9% 500 ML IV ONE (22:10)
[2021-01-18] MEDS ORDERED: ACETAMINOPHEN 1,000 MG/100 ML VIAL IV STA (22:15)
--- NOTE | 2021-01-18 22:45 | Emergency Department Note ---
History of Present Illness General Chief complaint: Flank Pain Stated complaint: L SIDE FLANK PAIN Time Seen by Provider: 01/18/21 22:08 History of Present Illness Maximum Pain Intensity: 10 This 75-year-old presents to the ER complaining of urinary symptoms and left flank pain Location: Left flank and abdomen Quality: Achy Severity: Moderate Duration: Today Timing: Today Context: Patient was concerned and came in Modifying factors: better with rest; worse with activity Patient denies chest pain, dyspnea, fevers, nausea, vomiting, diarrhea. Home Medications Medication Instructions Recorded Confirmed Type carbidopa 25 mg-levodopa 100 mg 1 tab PO TID tab 01/16/19 11/06/20 History tablet carbidopa ER 50 mg-levodopa 200 mg 1 tab PO HS tab 01/16/19 11/06/20 History tablet,extended release clarithromycin 500 mg tablet 500 mg PO .COMPLEX tab 01/16/19 11/06/20 History furosemide 40 mg tablet 40 mg PO BID #180 tab 01/16/19 11/06/20 History gabapentin 300 mg capsule 300 mg PO DIRECTED cap 01/16/19 11/06/20 History pantoprazole 40 mg tablet,delayed 40 mg PO BID tab 01/16/19 11/06/20 History release raloxifene 60 mg tablet 60 mg PO DAILY tab 01/16/19 11/06/20 History rotigotine 4 mg/24 hour 1 patch TD DAILY ea 01/16/19 11/06/20 History transdermal 24 hour patch albuterol sulfate 90 mcg/actuation 2 puff INHALATION QID PRN 03/31/19 11/06/20 History aerosol inhaler levothyroxine 175 mcg tablet 175 mcg PO DAILY 03/31/19 11/06/20 History conjugated estrogens 0.625 mg/gram 0.625 mg VAGINAL DAILY 05/22/19 11/06/20 History vaginal cream (Premarin) aspirin 81 mg tablet,delayed 81 mg PO QAM #30 tab 05/23/19 11/06/20 Rx release (Ecotrin Low Strength) isosorbide mononitrate 30 mg 30 mg PO QAM #30 tab 05/23/19 11/06/20 Rx tablet,extended release 24 hr pravastatin 20 mg tablet 20 mg PO DAILY@1700 #30 tab 05/23/19 11/06/20 Rx ergocalciferol (vitamin D2) 1,250 50,000 unit PO .COMPLEX #21 cap 03/27/20 11/06/20 Rx mcg (50,000 unit) capsule labetalol 200 mg tablet 400 mg PO BID #360 tab 08/01/20 11/06/20 Rx alirocumab 75 mg/mL subcutaneous 75 mg SUBCUT Q14D 10/07/20 11/06/20 History pen injector (Praluent Pen) amlodipine 5 mg tablet 5 mg PO DAILY #90 tab 10/08/20 11/06/20 Rx spironolactone 25 mg tablet 25 mg PO DAILY tab 11/06/20 11/06/20 History Allergies Allergy/AdvReac Type Severity Reaction Status Date / Time Penicillins Allergy Severe anaphylaxis Verified 11/06/20 13:19 Sulfa (Sulfonamide Allergy Severe ANAPHYLAXIS Verified 11/06/20 13:19 Antibiotics) pneumococcal vaccine Allergy Intermediate rash at Verified 11/06/20 13:19 injection site adhesive tape Allergy Mild redness/pru Verified 11/06/20 13:19 ritis latex Allergy Unknown Verified 11/06/20 13:19 tetanus toxoid, adsorbed Allergy Unknown redness at Verified 11/06/20 13:19 injection site SANIA Inhibitors AdvReac Mild cough Verified 11/06/20 13:19 aspirin AdvReac Mild GI upset Verified 11/06/20 13:19 Past Med/Surg History Medical History (Updated 01/19/21 @ 01:18 by Anna Santana PA-C) Chronic kidney disease, stage II (mild) Dyslipidemia Fibromyalgia GERD (gastroesophageal reflux disease) History of peptic ulcer HTN (hypertension) Hypothyroidism IBS (irritable bowel syndrome) Mild mitral regurgitation Moderate tricuspid regurgitation Multiple sclerosis "optic neuropathy" Osteoporosis Vitamin D deficiency Surgical History History of heart artery stent S/P appendectomy S/P STONEY-BSO Family History Other No pertinent family history in first degree relatives Social History Smoking Status: Never smoker Second Hand Exposure: No; Hx Alcohol Use: No Hx Substance Use: No Preferred Language: [place] Communication Ability: Effective Beliefs That Will Affect Care: None Current Living Situation: Spouse current occupation: N/A Feels Safe at Home: Yes Assistive Devices: Glasses Review of Systems A total of 10 systems reviewed and were otherwise negative Physical Exam Vital Signs Vital Signs - 24 hr 01/18/21 20:18 01/18/21 22:33 01/19/21 00:30 Temperature 36.5 C Temperature Source Temporal Artery Scan Pulse Rate 76 Pulse Rate [Finger] 67 66 Respiratory Rate 16 16 20 Blood Pressure 142/84 H Blood Pressure [Right Arm] 156/84 H 154/92 H Blood Pressure Mean 103 Blood Pressure Mean [Right Arm] 108 112 Blood Pressure Position Sitting Blood Pressure Position [Right Arm] Lying Pulse Oximetry 97 96 98 Oxygen Delivery Method Room Air Sepsis Recent Fever Within 48 Hours No Sepsis New/Unexplained Change in Mental Status No Sepsis Action Taken by Nursing No Action Required 01/19/21 01:12 Temperature Temperature Source Pulse Rate Pulse Rate [Finger] 78 Respiratory Rate 16 Blood Pressure Blood Pressure [Right Arm] 173/82 H Blood Pressure Mean Blood Pressure Mean [Right Arm] 112 Blood Pressure Position Blood Pressure Position [Right Arm] Pulse Oximetry 98 Oxygen Delivery Method Room Air Sepsis Recent Fever Within 48 Hours Sepsis New/Unexplained Change in Mental Status Sepsis Action Taken by Nursing VITALS: Vitals are noted on the nurse's note and reviewed by myself. Vital signs stable. GENERAL: Pleasant female ambulating without difficulties, in no acute distress, nondiaphoretic, well-developed well-nourished. SKIN: The skin was without rashes, erythema, edema, or bruising. There is no tenting of the skin. Capillary reflex less than 2 seconds. HEAD: Normocephalic atraumatic. EARS: External auditory canals clear, EYES: Pupils equal round and reactive to light and accommodation. Conjunctivae without injection, sclerae without icterus. Extraocular movements intact. NOSE: Patent, turbinates without inflammation or discharge. MOUTH: Mucous membranes moist. Pharynx without erythema or exudate. Uvula midline. Airway patent. Tongue does not deviate. NECK: Supple without nuchal rigidity. No lymphadenopathy. No thyromegaly. Cervical spine is nontender. No JVD. HEART: Regular rate and rhythm LUNGS: Clear to auscultation bilaterally without wheezes, rales or rhonchi. No retractions or accessory muscle use. ABDOMEN: Positive bowel sounds x 4. Normal tympanic percussion. Soft, nontender, without masses or organomegaly. Ulna sign negative. No guarding or rebound tenderness. Left CVA tenderness MUSCULOSKELETAL: No muscle atrophy, erythema, or edema noted. NEURO: Patient was alert and oriented to person place and time. Normal sensation to light and sharp touch. No focal neurological deficits. Course Administered Medications Discontinued Medications Carbidopa/Levodopa (Carbidopa/Levodopa 50/200mg Ext Rel Tab) 1 tab PO NOW STA Stop: 01/19/21 00:23 Last Admin: 01/19/21 01:10 Dose: 1 tab Documented by: [id number] Ceftriaxone Sodium (Rocephin) 1,000 mg in 50 mls @ 100 mls/hr IV NOW STA Stop: 01/18/21 22:39 Last Infusion: 01/18/21 23:36 Dose: 0 mls/hr Documented by: [id number] Admin: 01/18/21 23:06 Dose: 100 mls/hr Documented by: [id number] Sodium Chloride (Nss) 500 mls @ 999 mls/hr IV .Q31M ONE Stop: 01/18/21 22:40 Last Infusion: 01/18/21 23:52 Dose: 0 mls/hr Documented by: [id number] Admin: 01/18/21 22:26 Dose: 999 mls/hr Documented by: [id number] Acetaminophen (Ofirmev) 1,000 mg in 100 mls @ 400 mls/hr IV NOW STA Stop: 01/18/21 22:29 Last Infusion: 01/18/21 23:00 Dose: 0 mls/hr Documented by: [id number] Admin: 01/18/21 22:26 Dose: 400 mls/hr Documented by: [id number] Ioversol (Optiray 320 100ml) 94 ml IV ONCE ONE Stop: 01/18/21 22:51 Last Admin: 01/18/21 22:50 Dose: 1 ml Documented by: [id number] Labetalol HCl (Labetalol Hcl 100 Mg Tab) 400 mg PO NOW ONE Stop: 01/19/21 00:23 Last Admin: 01/19/21 01:09 Dose: 400 mg Documented by: [id number] Potassium Chloride (Potassium Chloride Crtab 20 Meq Tabcr) 40 meq PO NOW STA Stop: 01/19/21 00:49 Last Admin: 01/19/21 01:10 Dose: 40 meq Documented by: [id number] Medical Decision Making Medical Records Attestation: I reviewed the patient's medical records. Home Medications Current Medication List: was personally reviewed by me Laboratory Data Attestation: I reviewed the patient's lab results. Result diagrams: 01/18/21 21:10 01/18/21 21:10 Lab Results 01/18/21 01/18/21 01/18/21 Range/Units 21:10 21:10 21:10 WBC 12.15 H (4.8-10.8) K/uL RBC 4.19 L (4.2-5.4) M/uL Hgb 12.4 (12.0-16.0) g/dL Hct 36.9 L (37-47) % MCV 88.1 (80-100) fL MCH 29.6 (25-34) pg MCHC 33.6 (32-36) g/dL RDW Std Deviation 49.9 H (36.4-46.3) fL RDW Coeff of Clari 15.4 H (11.5-14.5) % Plt Count 394 (130-400) K/uL MPV 8.7 (7.4-10.4) fL Sodium 140 (136-145) mmol/L Potassium 3.3 L (3.5-5.1) mmol/L Chloride 104 (98-107) mmol/L Carbon Dioxide 29 (21-32) mmol/L Anion Gap 7.0 (3-11) BUN 15 (7-18) mg/dl Creatinine 1.10 (0.6-1.2) mg/dl Est Cr Clr Drug Dosing Not Reportable Est GFR ( Amer) 56.1 ml/min Est GFR (Non-Af Amer) 48.4 ml/min BUN/Creatinine Ratio 13.6 (10-20) Glucose 136 H (70-99) mg/dl Lactate (0.4-2.0) mmol/L Calcium 9.5 (8.5-10.1) mg/dl Magnesium 2.6 H (1.8-2.4) mg/dl Urine Color Yellow Urine Appearance Clear (Clear) Urine pH 7.5 (4.5-7.5) Ur Specific Hundred 1.007 (1.000-1.030) Urine Protein Negative (Negative) Urine Glucose (UA) Negative (Negative) Urine Ketones Negative (Negative) Urine Blood Negative (Negative) Urine Nitrite Negative (Negative) Urine Bilirubin Negative (Negative) Urine Urobilinogen Negative (Negative) Ur Leukocyte Esterase 2+ H (Negative) Urine WBC (Auto) >30 H (0-5) /hpf Urine RBC (Auto) 0-4 (0-4) /hpf U Hyaline Cast (Auto) 1-5 (0-5) /lpf U Epithel Cells (Auto) 5-10 H (0-5) /lpf Urine Bacteria (Auto) Negative (Negative) COVID-19 Eval Order 01/19/21 01/19/21 Range/Units 00:13 00:28 WBC (4.8-10.8) K/uL RBC (4.2-5.4) M/uL Hgb (12.0-16.0) g/dL Hct (37-47) % MCV (80-100) fL MCH (25-34) pg MCHC (32-36) g/dL RDW Std Deviation (36.4-46.3) fL RDW Coeff of Clari (11.5-14.5) % Plt Count (130-400) K/uL MPV (7.4-10.4) fL Sodium (136-145) mmol/L Potassium (3.5-5.1) mmol/L Chloride (98-107) mmol/L Carbon Dioxide (21-32) mmol/L Anion Gap (3-11) BUN (7-18) mg/dl Creatinine (0.6-1.2) mg/dl Est Cr Clr Drug Dosing Est GFR ( Amer) ml/min Est GFR (Non-Af Amer) ml/min BUN/Creatinine Ratio (10-20) Glucose (70-99) mg/dl Lactate 0.8 (0.4-2.0) mmol/L Calcium (8.5-10.1) mg/dl Magnesium (1.8-2.4) mg/dl Urine Color Urine Appearance (Clear) Urine pH (4.5-7.5) Ur Specific Hundred (1.000-1.030) Urine Protein (Negative) Urine Glucose (UA) (Negative) Urine Ketones (Negative) Urine Blood (Negative) Urine Nitrite (Negative) Urine Bilirubin (Negative) Urine Urobilinogen (Negative) Ur Leukocyte Esterase (Negative) Urine WBC (Auto) (0-5) /hpf Urine RBC (Auto) (0-4) /hpf U Hyaline Cast (Auto) (0-5) /lpf U Epithel Cells (Auto) (0-5) /lpf Urine Bacteria (Auto) (Negative) COVID-19 Eval Order Covid19 at [facility] Imaging Data Attestation: I personally reviewed and interpreted this imaging study as follows: MDM Narrative Prior records/ancillary studies reviewed. Triage Nursing notes reviewed. Additional history obtained from family. The patient's history was concerning for abdominal pain. Differential diagnosis: Etiologies such as appendicitis, diverticulitis, PUD, biliary pathology, UTI, pancreatitis, obstruction, mesenteric ischemia, aortic pathology, infections, inflammatory bowel disease, renal colic, as well as others were entertained. Physical examination findings: As above. ER treatment provided: An order was placed for continuous cardiac monitoring. The monitor shows a rate of 60-100 with a sinus rhythm. IV fluids, Tylenol, Rocephin On reassessment the patient felt better. Diagnostics interpreted by me: The labs revealed leukocytosis, urine concerning for infection and sent for culture. Prior urine culture was reviewed NUSRAT CASPER (Sylvie) 75 F 1945 [place] [address] / Director: Jovan Greene M.D. Clinical Laboratory Report Name: NUSRAT CASPER Acct: [id number] Status: [place]P [place] 1945 [facility] [place]: [place]11[place]18 Age: 75 Sex: F Dis Date: Loc: Lab [place] Spec: [id number] Collected: 09/11/18 Received: 09/11/[address]: Lobo Wagner MD Copy To: Terrance Craig MD Source: Urine,Clean Catch OV Order: Ordered: Urine Culture Queries: [facility] Req Number [id number] Procedure Result Verified Site Urine Culture Final 09/13/18 Organism 1 Escherichia coli [place] Count >100,000 CFU/ml Sens Sensitivities to Follow E coli RX M.I.C. --- --------- Amikacin S <=16 Ampicillin S <=8 Amp/Sul S <=8/4 Cefazolin S <=8 Cefepime S <=4 Cefotaxime S <=2 Cefoxitin S <=8 Ceftriaxone S <=1 Cefuroxime S <=4 Ciprofloxacin S <=1 Ertapenem S <=1 Gentamicin S <=4 Imipenem S <=1 Levofloxacin S <=2 Nitrofurantoin S <=32 Tobramycin S <=4 Trimeth/Sulfa S <=2/38 Pip/Tazo S <=16 S = SENSITIVE I = INTERMEDIATE R = RESISTANT Imaging studies: Preliminary Findings Only See Final Report For Complete Findings CT ABDOMEN & PELVIS With Contrast: Stone measuring 10 x 4 mm within the left mid ureter. Moderate to severe hydronephrosis in the left kidney which is atrophic. Hiatal hernia. Hysterectomy. Radiologist: Conrad Delgado MD Consultation: A consultation was placed with the hospitalist. The case was discussed and diagnostics were reviewed. The patient was evaluated in the ER for further treatment. Exam and history seem consistent with pyelonephritis with infected stone. Patient was started on antibiotics. Medicine was consulted. She will be admitted. Prior urine culture was reviewed. Patient is agreeable. By the evaluation outlined above emergent etiologies such as appendicitis, diverticulitis, PUD, biliary pathology, pancreatitis, obstruction, mesenteric ischemia, aortic pathology, inflammatory bowel disease, as well as others were deemed relatively unlikely. The pt informed about the findings as listed above. All questions were answered and pleased with the treatment. The chart was completed utilizing [employer] Speech voice recognition software. Grammatical errors, random word insertions, pronoun errors, and incomplete sentences are an occassional consequence of this system due to software limitations, ambient noise, and hardware issues. Any formal questions or concerns about the content, text, or information contained within the body of this dictation should be directly addressed to the physician resident assistant for clarification. Impression & Plan Acute pyelonephritis, Renal colic on left side Discharge Plan Visit Data Chief Complaint: Flank Pain Stated Complaint: L SIDE FLANK PAIN ED Provider: Sushil Hayden ED Midlevel Provider: Anna Santana Discharge Problem: Acute pyelonephritis, Renal colic on left side Patient Disposition: Admitted As Inpatient Condition: Good Forms Stand Alone Forms: [facility], Virtual Emergency Department, Important Visit Information Prescriptions Prescriptions: No Action labetalol 200 mg tablet 400 mg PO BID Qty: 360 RF: 3 amlodipine 5 mg tablet 5 mg PO DAILY Qty: 90 RF: 3 clarithromycin 500 mg tablet 500 mg PO .COMPLEX RF: 0 raloxifene 60 mg tablet 60 mg PO DAILY RF: 0 furosemide 40 mg tablet 40 mg PO BID Qty: 180 RF: 0 carbidopa-levodopa 50-200 mg tablet extended release 1 tab PO HS RF: 0 carbidopa-levodopa 25-100 mg tablet 1 tab PO TID RF: 0 gabapentin 300 mg capsule 300 mg PO DIRECTED RF: 0 pantoprazole 40 mg tablet,delayed release (DR/EC) 40 mg PO BID RF: 0 rotigotine 4 mg/24 hour patch 24 hour 1 patch TD DAILY RF: 0 ergocalciferol (vitamin D2) 1,250 mcg (50,000 unit) capsule 50,000 unit PO .COMPLEX Qty: 21 RF: 0 Praluent Pen 75 mg/mL pen injector 75 mg subcut Q14D RF: 0 spironolactone 25 mg tablet 25 mg PO DAILY RF: 0 levothyroxine 175 mcg Tablet 175 mcg PO DAILY RF: 0 albuterol sulfate 90 mcg/actuation Hfa Aerosol Inhaler 2 puff INHALATION QID PRN (Reason: sob/wheezing) RF: 0 Premarin 0.625 mg/gram Cream 0.625 mg VAGINAL DAILY RF: 0 isosorbide mononitrate 30 mg Tablet Extended Release 24 Hr 30 mg PO QAM Qty: 30 RF: 0 pravastatin 20 mg Tablet 20 mg PO DAILY@1700 Qty: 30 RF: 1 aspirin [Ecotrin Low Strength] 81 mg Tablet,Delayed Release (Dr/Ec) 81 mg PO QAM Qty: 30 RF: 2 Referrals Referrals: Terrance Craig MD [Primary Care Provider] -
[2021-01-18] MEDS ORDERED: OPTIRAY 320 100ml IV ONE (22:50)
--- NOTE | 2021-01-18 23:51 | Emergency Department Note ---
ED Visit Note Patient was seen and evaluated at the bedside w/ Elida Santaan PA-C. Please see their note for history, physical, details, and disposition. Patient did present with flank plain and pyelonephritis associated ureteral stone. Patient was admitted to the medicine service. .
[2021-01-19] MEDS ORDERED: CARBIDOPA/LEVODOPA 50/200MG EXT REL TAB PO STA (00:22)
[2021-01-19] MEDS ORDERED: LABETALOL HCL 100 MG TAB PO ONE (00:22)
[2021-01-19] MEDS ORDERED: POTASSIUM CHLORIDE CRTAB 20 MEQ TABCR PO STA (00:48)
[2021-01-19 01:11] LABS: Magnesium 2.6 mg/dl (1.8-2.4)
[2021-01-19] MEDS ORDERED: MoRPHine SULFATE 4 MG/ML 1 ML CARP\\VIAL IV STA (01:18)
[2021-01-19 01:43] LABS: Alanine Aminotransferase 12 U/L (12-78); Alkaline Phosphatase 148 U/L (45-117); Aspartate Aminotransferase 11 U/L (15-37); Bilirubin Direct 0.1 mg/dl (0-0.2); Bilirubin,Total 0.6 mg/dl (0.2-1); Total Protein 7.9 gm/dl (6.4-8.2)
--- NOTE | 2021-01-19 01:57 | History & Physical Report ---
Date of Service January 19, 2021 Assessment & Plan (1) Asymptomatic hypertensive urgency: Plan: Secondary to left renal colic secondary to obstructive uropathy (possible predisposition by hyperparathyroidism) No sepsis for now hx CAD status post stent hyperlipidemia on statin Rx hypothyroidism, recent outpatient TSH noted to be low multiple sclerosis/restless leg syndrome, at baseline Hyperglycemia rule out DM Medical telemetry given uncontrolled BP Facilitate home BP meds Analgesia Strain urine Urology consult Re: Obstructive uropathy N.p.o. until patient seen by urology in a.m. 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 Recheck TSH Check hemoglobin A1c DVT prophylaxis. Lovenox subcu Full code Patient requests for her to be updated of plan of care. Mr. Jd Wang, contact #[phone]. Text document was generated using [employer] voice recognition software. It may contain grammatical or spelling errors. Kindly contact undersigned for clarification of any documentation item in question. History of Present Illness Chief Complaint: Left flank pain Primary Care Provider: Terrance Craig MD History obtained from patient and records. Medical history significant for CAD status post stent, hypertension, hype rlipidemia, hyperparathyroidism, hypothyroidism, multiple sclerosis, restless leg syndrome, fibromyalgia. Last confinement under cardiology service last May 2019 abnormal nuclear stress test. Drug-eluting stent placed with note of LAD lesion on cardiac catheterization. Last week, patient noted intermittent achiness on the left flank which patient ignored. No fever, no chills, no hematuria. Last night after dinner patient noted more intense discomfort of the left flank. No chest pain, no shortness of breath. Patient brought by to the ER for evaluation. Patient given Ceftriaxone for possible UTI. SBP 170s at the highest at 1 point at the ER. 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 Allergies Allergy/AdvReac Type Severity Reaction Status Date / Time Penicillins Allergy Severe anaphylaxis Verified 01/19/21 01:43 Sulfa (Sulfonamide Allergy Severe ANAPHYLAXIS Verified 01/19/21 01:43 Antibiotics) pneumococcal vaccine Allergy Intermediate rash at Verified 01/19/21 01:43 injection site adhesive tape Allergy Mild redness/pru Verified 01/19/21 01:43 ritis latex Allergy Unknown Verified 01/19/21 01:43 tetanus toxoid, adsorbed Allergy Unknown redness at Verified 01/19/21 01:43 injection site SANIA Inhibitors AdvReac Mild cough Verified 01/19/21 01:43 aspirin AdvReac Mild GI upset Verified 01/19/21 01:43 Home Medications Medication Instructions Recorded Confirmed Type carbidopa 25 mg-levodopa 100 mg 1 tab PO TID tab 01/16/19 01/19/21 History tablet carbidopa ER 50 mg-levodopa 200 mg 1 tab PO HS tab 01/16/19 01/19/21 History tablet,extended release clarithromycin 500 mg tablet 500 mg PO .COMPLEX tab 01/16/19 01/19/21 History furosemide 40 mg tablet 40 mg PO BID #180 tab 01/16/19 01/19/21 History pantoprazole 40 mg tablet,delayed 40 mg PO BID tab 01/16/19 01/19/21 History release raloxifene 60 mg tablet 60 mg PO DAILY tab 01/16/19 01/19/21 History albuterol sulfate 90 mcg/actuation 2 puff INHALATION QID PRN 03/31/19 01/19/21 History aerosol inhaler levothyroxine 175 mcg tablet 175 mcg PO DAILY 03/31/19 01/19/21 History conjugated estrogens 0.625 mg/gram 0.625 mg VAGINAL .MON & THUR 05/22/19 01/19/21 History vaginal cream (Premarin) aspirin 81 mg tablet,delayed 81 mg PO QAM #30 tab 05/23/19 01/19/21 Rx release (Ecotrin Low Strength) isosorbide mononitrate 30 mg 30 mg PO QAM #30 tab 05/23/19 01/19/21 Rx tablet,extended release 24 hr pravastatin 20 mg tablet 20 mg PO DAILY@1700 #30 tab 05/23/19 01/19/21 Rx ergocalciferol (vitamin D2) 1,250 50,000 unit PO .COMPLEX #21 cap 03/27/20 01/19/21 Rx mcg (50,000 unit) capsule labetalol 200 mg tablet 400 mg PO BID #360 tab 08/01/20 01/19/21 Rx alirocumab 75 mg/mL subcutaneous 75 mg SUBCUT Q14D 10/07/20 01/19/21 History pen injector (Praluent Pen) amlodipine 5 mg tablet 5 mg PO DAILY #90 tab 10/08/20 01/19/21 Rx spironolactone 25 mg tablet 25 mg PO DAILY tab 11/06/20 01/19/21 History rotigotine 6 mg/24 hour 1 patch TOPICAL DAILY 01/19/21 01/19/21 History transdermal 24 hour patch (Neupro) Past Med/Surg History Medical History (Updated 01/19/21 @ 11:52 by Rodney Irizarry MD) Chronic kidney disease, stage II (mild) Dyslipidemia Fibromyalgia GERD (gastroesophageal reflux disease) History of peptic ulcer HTN (hypertension) Hypothyroidism IBS (irritable bowel syndrome) Mild mitral regurgitation Moderate tricuspid regurgitation Multiple sclerosis "optic neuropathy" Osteoporosis Vitamin D deficiency Surgical History History of heart artery stent S/P appendectomy S/P STONEY-BSO Family History Other No pertinent family history in first degree relatives Social History Smoking Status: Never smoker Second Hand Exposure: No; Hx Alcohol Use: No Hx Substance Use: No Preferred Language: Pashto Communication Ability: Effective Beliefs That Will Affect Care: None Current Living Situation: Spouse current occupation: N/A Other Information That Helps Us Care for You: No Feels Safe at Home: Yes Assistive Devices: Cane Review of Systems Review of Systems: As per HPI, all 10 systems reviewed, all other ROS negative Physical Exam Physical Exam: GENERAL: Comfortable, pleasant, obese, no respiratory distress SKIN: Normal color, warm HEENT: [place] palpebral conjunctivae, no ptosis, dry buccal mucosa NECK : Supple, no tenderness CHEST : CTA, no tenderness HEART : RRR, no obvious murmurs ABDOMEN: Some distention, no abdominal tenderness BACK : Minimal left flank tenderness EXTREMITIES : Minimal LE swelling, no LE tenderness, no other conspicuous deformities noted NEUROLOGIC : Coherent, no facial asymmetry, no other gross focality Results & Data Results & Data ([facility]) Vital Signs (Past 12 Hours) Vital Signs Temp Pulse Pulse Resp BP BP Pulse Ox 01/19/21 01:12 78 16 173/82 H 98 01/19/21 00:30 66 20 154/92 H 98 01/18/21 22:33 67 16 156/84 H 96 01/18/21 20:18 36.5 C 76 16 142/84 H 97 Laboratory Results Laboratory Results WBC 12.15 K/uL (4.8-10.8) H 01/18/21 21:10 RBC 4.19 M/uL (4.2-5.4) L 01/18/21 21:10 Hgb 12.4 g/dL (12.0-16.0) 01/18/21 21:10 Hct 36.9 % (37-47) L 01/18/21 21:10 MCV 88.1 fL (80-100) 01/18/21 21:10 MCH 29.6 pg (25-34) 01/18/21 21:10 MCHC 33.6 g/dL (32-36) 01/18/21 21:10 RDW Std Deviation 49.9 fL (36.4-46.3) H 01/18/21 21:10 RDW Coeff of Clari 15.4 % (11.5-14.5) H 01/18/21 21:10 Plt Count 394 K/uL (130-400) 01/18/21 21:10 MPV 8.7 fL (7.4-10.4) 01/18/21 21:10 Sodium 140 mmol/L (136-145) 01/18/21 21:10 Potassium 3.3 mmol/L (3.5-5.1) L 01/18/21 21:10 Chloride 104 mmol/L (98-107) 01/18/21 21:10 Carbon Dioxide 29 mmol/L (21-32) 01/18/21 21:10 Anion Gap 7.0 (3-11) 01/18/21 21:10 BUN 15 mg/dl (7-18) 01/18/21 21:10 Creatinine 1.10 mg/dl (0.6-1.2) 01/18/21 21:10 Est Cr Clr Drug Dosing Not Reportable 01/18/21 21:10 Est GFR ( Amer) 56.1 ml/min 01/18/21 21:10 Est GFR (Non-Af Amer) 48.4 ml/min 01/18/21 21:10 BUN/Creatinine Ratio 13.6 (10-20) 01/18/21 21:10 Glucose 136 mg/dl (70-99) H 01/18/21 21:10 Lactate 0.8 mmol/L (0.4-2.0) 01/19/21 00:13 Calcium 9.5 mg/dl (8.5-10.1) 01/18/21 21:10 Magnesium 2.6 mg/dl (1.8-2.4) H 01/18/21 21:10 Total Bilirubin 0.6 mg/dl (0.2-1) 01/18/21 21:10 Direct Bilirubin 0.1 mg/dl (0-0.2) 01/18/21 21:10 AST 11 U/L (15-37) L 01/18/21 21:10 ALT 12 U/L (12-78) 01/18/21 21:10 Alkaline Phosphatase 148 U/L (45-117) H 01/18/21 21:10 Total Protein 7.9 gm/dl (6.4-8.2) 01/18/21 21:10 Albumin 4.0 gm/dl (3.4-5.0) 01/18/21 21:10 Urine Color Yellow 01/18/21 21:10 Urine Appearance Clear (Clear) 01/18/21 21:10 Urine pH 7.5 (4.5-7.5) 01/18/21 21:10 Ur Specific [place] 1.007 (1.000-1.030) 01/18/21 21:10 Urine Protein Negative (Negative) 01/18/21 21:10 Urine Glucose (UA) Negative (Negative) 01/18/21 21:10 Urine Ketones Negative (Negative) 01/18/21 21:10 Urine Blood Negative (Negative) 01/18/21 21:10 Urine Nitrite Negative (Negative) 01/18/21 21:10 Urine Bilirubin Negative (Negative) 01/18/21 21:10 Urine Urobilinogen Negative (Negative) 01/18/21 21:10 Ur Leukocyte Esterase 2+ (Negative) H 01/18/21 21:10 Urine WBC (Auto) >30 /hpf (0-5) H 01/18/21 21:10 Urine RBC (Auto) 0-4 /hpf (0-4) 01/18/21 21:10 U Hyaline Cast (Auto) 1-5 /lpf (0-5) 01/18/21 21:10 U Epithel Cells (Auto) 5-10 /lpf (0-5) H 01/18/21 21:10 Urine Bacteria (Auto) Negative (Negative) 01/18/21 21:10 COVID-19 Eval Order Covid19 at [facility] 01/19/21 00:28 SARS-CoV-2 (PCR) NEGATIVE (Negative) 01/19/21 00:[address] abdomen pelvis initial read: Stone measuring 10 x 4 mmwithin the left mid ureter. Moderate to severe hydronephrosis in the left kidneywhich is atrophic. Hiatal hernia. Hysterectomy.
[2021-01-19 02:03] LABS: Thyroid Stimulating Hormone 0.158 uIu/ml (0.300-4.500)
[2021-01-19] MEDS ORDERED: MoRPHine SULFATE 4 MG/ML 1 ML CARP\\VIAL IV PRN (02:03)
[2021-01-19] MEDS ORDERED: PROMETHAZINE HCL 12.5 MG in SODIUM CHLORIDE 0.9% 50 ML IV PRN (02:03)
[2021-01-19 02:17] LABS: T4 Free Thyroxine 1.58 ng/dl (0.8-1.6)
[2021-01-19] MEDS ORDERED: ACETAMINOPHEN 325 MG TAB PO PRN (03:20)
[2021-01-19] MEDS: oxyCODONE HCL IR 5 MG TAB (IMMEDIATE RELEASE) PO PRN ×2 (04:13→09:23)
[2021-01-19] MEDS ORDERED: PROMETHAZINE 12.5 MG/50.5 ML NSS IV ONE (04:16)
[2021-01-19] MEDS: POTASSIUM CHLORIDE 40 MEQ in LACTATED RINGER'S 1,000 ML IV SCH ×2 (04:32→23:18)
[2021-01-19] MEDS: LEVOTHYROXINE SODIUM 175 MCG TABLET PO SCH (06:08)
[2021-01-19 06:09] LABS: Basophils # (auto) 0.04 K/uL (0-0.2); Basophils % (auto) 0.3 %; Eosinophils % (auto) 2.5 %; Hematocrit (blood only) 34.2 % (37-47); Hemoglobin 11.1 g/dL (12.0-16.0); Immature Granulocytes # (auto) 0.02 K/uL (0.00-0.02); Immature Granulocytes % (auto) 0.2 %; Lymphocytes # (auto) 2.67 K/uL (1.2-3.4); Lymphocytes % (auto) 22.3 %; Mean Corpuscular Hemoglobin 29.1 pg (25-34); Mean Corpuscular Hgb Conc 32.5 g/dL (32-36); Mean Corpuscular Volume 89.8 fL (80-100); Mean Platelet Volume 8.7 fL (7.4-10.4); Monocytes % (auto) 8.4 %; Neutrophils # (auto) 7.93 K/uL (1.4-6.5); Neutrophils % (auto) 66.3 %; Platelet Count 307 K/uL (130-400); RDW Coefficient of Variation 15.4 % (11.5-14.5); RDW Standard Deviation 50.7 fL (36.4-46.3); Red Blood Count 3.81 M/uL (4.2-5.4); White Blood Count 11.96 K/uL (4.8-10.8)
[2021-01-19 06:28] LABS: BUN Creatinine Ratio 13.5 (10-20); Creatinine Clr Calc Pharmacy 47.2 ml/min; Est GFR (African American) 70.5 ml/min; Est GFR (Non-African American) 60.9 ml/min; Potassium 3.7 mmol/L (3.5-5.1)
[2021-01-19 08:12] LABS: Estimated Average Glucose 128 mg/dl; Hemoglobin A1C 6.1 % (4.5-5.6)
--- NOTE | 2021-01-19 08:48 | CT Scan Report ---
ABDOMEN AND PELVIS CT WITH IV CONTRAST CT DOSE: 298.56 mGy.cm HISTORY: flank pain uti TECHNIQUE: Multiaxial CT images of the abdomen and pelvis were performed following the use of intrave nous contrast. A dose lowering technique was utilized adhering to the principles of ALARA. COMPARISON STUDY: None. FINDINGS: Bibasilar linear densities consistent with subsegmental atelectasis. L5-S1 posterior decomp ression and fusion with pedicle screws and rods. Levoscoliosis of the lumbar spine. There is a large hiatus hernia containing the majority of the stomach. The liver, spleen, adrenal glands, and pancreas are unremarkable. The main portal vein is patent. No retroperitoneal lymphadenopathy. Calcified plaq ue within the normal caliber abdominal aorta. Mild pelvic floor collapse. Normal right kidney. Modera te atrophy/scarring seen within the left kidney with a punctate cortical calcification. There is a 10 x 4 mm obstructing stone within the mid left ureter on image 188 resulting in moderate left hydronep hrosis. Mild pelvic floor collapse. Prior hysterectomy. The bladder is unremarkable. No bowel wall th ickening or obstruction. The appendix is surgically absent. No retroperitoneal lymphadenopathy. IMPRESSION: 1. A 10 x 4 mm projecting stent within the mid left ureter resulting in moderate left hydronephrosis. 2. No bowel wall thickening or obstruction. 3. Large hiatus hernia. 4. Additional findings as described above ACT 112: Negative or not required by law. Electronically signed by: Rodney Ramirez M.D. 01/19/2021 8:47 AM
[2021-01-19] MEDS: CARBIDOPA/LEVODOPA 25/100MG TAB PO SCH ×3 (09:23→22:38)
[2021-01-19] MEDS: ISOSORBIDE MONO EXTENDED REL 30 MG TABCR PO SCH (09:24)
[2021-01-19] MEDS: PANTOprazole 40 MG TAB PO SCH ×2 (09:24→22:39)
[2021-01-19] MEDS: LABETALOL HCL 200 MG TAB PO SCH ×2 (09:24→23:16)
[2021-01-19] MEDS: ENOXAPARIN INJ 40 MG/0.4 ML SYR SQ SCH (09:25)
[2021-01-19] MEDS: ASPIRIN 81 MG ECTAB PO SCH (09:25)
[2021-01-19] MEDS: amLODIPine BESYLATE 5 MG TAB PO SCH (09:25)
[2021-01-19] MEDS ORDERED: ePHEDrine sulfate 50 MG/ML AMP IV PRN (09:43)
[2021-01-19] MEDS ORDERED: ATROPINE SULFATE 0.1 MG/ML 10ML SYR IV PRN (09:43)
[2021-01-19] MEDS ORDERED: PHENYLEPHRINE 100MCG/ML 5ML SYR IV PRN (09:43)
[2021-01-19] MEDS ORDERED: ONDANSETRON INJ 2 MG/ML 2 ML VIAL IV PRN (09:43)
[2021-01-19] MEDS ORDERED: fentaNYL citrate 100 MCG/2 ML VIAL IV PRN (09:43)
[2021-01-19] MEDS ORDERED: HYDROmorphone INJ 1 MG/ML SYRINGE IV PRN (09:43)
[2021-01-19] MEDS ORDERED: LABETALOL HCL IV 5 MG/ML 20ML IV PRN (09:43)
--- NOTE | 2021-01-19 09:43 | Urology Consultation ---
Date of Consultation January 19, 2021 Assessment & Plan (1) Left ureteral calculus: (2) Renal colic on left side: 75 year-old female patient, with multiple comorbidities, admitted with intractable left flank pain secondary to obstructing 10 mm calculus within the mid left ureter. -Patient afebrile. -Labs reviewed - white count mildly elevated, creatinine normal. -Urinalysis not overly suspicious for infection, culture pending. -Continue with supportive care and pain control. -Strain all urine. -Keep NPO. Findings reviewed with Dr. Valerio. Given her intractable left flank pain in the context of an obstructing 10 mm left mid ureteral stone, will proceed with OR for cystoscopy, left retrograde pyelogram and left stent placement. Risks and benefits of procedure discussed and to be reviewed with patient by Dr. Valerio. OR notified. Preoperative CXR and EKG ordered. COVID-19 negative. Will cover with IV Ciprofloxacin preoperatively. ATTENDING NOTE: independently evaluated and assessed. Agree with above. Risks and benefits discussed at length for procedure. These include bleeding, infection, injury to surrounding tissues or organs, and risks associated with anesthesia. Patient states understanding and agrees to proceed. Will sign consent and pr oceed. Plan for cystoscopy with left stent. History of Present Illness Reason for Consultation: obstructing ureteral calculus Attending Physician: Fabio Scales MD History of Present Illness 75 year-old female patient, with past medical history significant for CAD status post stent, hypertension, hyperlipidemia, hyperparathyroidism, hypothyroidism, multiple sclerosis, restless leg syndrome, renal stones, and fibromyalgia, presented to the emergency room with acute left flank pain. She reports pain in her back has been present for several months but acutely worsening over the past week, localized to left flank area. Denies associated fevers or chills. No reported nausea or vomiting. Imaging in ER noted obstructing left ureteral calculus and she was admitted to medicine service for further evaluation. Urology consulted for management of obstructing left ureteral calculus. Patient did follow with urology "many years ago". Denies known history of stones. Does note history of cystocele with repair. Chart review: Afebrile Wbc 11.96 Hgb 11.1 Creatinine 0.91 Urinalysis +2 leukocytes, >30 wbc, 0-4 rbc, negative bacteria, negative nitrates Urine culture pending Patient received IV Rocephin 01/18 at 2306 Imaging - CT abd/pelvis IMPRESSION: 1. A 10 x 4 mm obstructing stone within the mid left ureter resulting in moderate left hydronephrosis. 2. No bowel wall thickening or obstruction. 3. Large hiatus hernia. Patient seen and examined at bedside. She is awake, alert, appears mildly uncomfortable. Currently rates pain in left flank 8 out of 10. Does report dysuria. Denies hematuria. States she has been experiencing urinary frequency/urgency. Feels she does not always empty her bladder. Does note pessary is not currently in place. Denies nausea or vomiting. Denies fevers or chills. No stone passage since she has been in ER. Has been NPO since midnight. Denies additional urologic concerns today. Allergies Allergy/AdvReac Type Severity Reaction Status Date / Time Penicillins Allergy Severe anaphylaxis Verified 01/19/21 01:43 Sulfa (Sulfonamide Allergy Severe ANAPHYLAXIS Verified 01/19/21 01:43 Antibiotics) pneumococcal vaccine Allergy Intermediate rash at Verified 01/19/21 01:43 injection site adhesive tape Allergy Mild redness/pru Verified 01/19/21 01:43 ritis latex Allergy Unknown Verified 01/19/21 01:43 tetanus toxoid, adsorbed Allergy Unknown redness at Verified 01/19/21 01:43 injection site SANIA Inhibitors AdvReac Mild cough Verified 01/19/21 01:43 aspirin AdvReac Mild GI upset Verified 01/19/21 01:43 Home Medications Medication Instructions Recorded Confirmed Type carbidopa 25 mg-levodopa 100 mg 1 tab PO TID tab 01/16/19 01/19/21 History tablet carbidopa ER 50 mg-levodopa 200 mg 1 tab PO HS tab 01/16/19 01/19/21 History tablet,extended release clarithromycin 500 mg tablet 500 mg PO .COMPLEX tab 01/16/19 01/19/21 History furosemide 40 mg tablet 40 mg PO BID #180 tab 01/16/19 01/19/21 History pantoprazole 40 mg tablet,delayed 40 mg PO BID tab 01/16/19 01/19/21 History release raloxifene 60 mg tablet 60 mg PO DAILY tab 01/16/19 01/19/21 History albuterol sulfate 90 mcg/actuation 2 puff INHALATION QID PRN 03/31/19 01/19/21 History aerosol inhaler levothyroxine 175 mcg tablet 175 mcg PO DAILY 03/31/19 01/19/21 History conjugated estrogens 0.625 mg/gram 0.625 mg VAGINAL .MON & THUR 05/22/19 01/19/21 History vaginal cream (Premarin) aspirin 81 mg tablet,delayed 81 mg PO QAM #30 tab 05/23/19 01/19/21 Rx release (Ecotrin Low Strength) isosorbide mononitrate 30 mg 30 mg PO QAM #30 tab 05/23/19 01/19/21 Rx tablet,extended release 24 hr pravastatin 20 mg tablet 20 mg PO DAILY@1700 #30 tab 05/23/19 01/19/21 Rx ergocalciferol (vitamin D2) 1,250 50,000 unit PO .COMPLEX #21 cap 03/27/20 01/19/21 Rx mcg (50,000 unit) capsule labetalol 200 mg tablet 400 mg PO BID #360 tab 08/01/20 01/19/21 Rx alirocumab 75 mg/mL subcutaneous 75 mg SUBCUT Q14D 10/07/20 01/19/21 History pen injector (Praluent Pen) amlodipine 5 mg tablet 5 mg PO DAILY #90 tab 10/08/20 01/19/21 Rx spironolactone 25 mg tablet 25 mg PO DAILY tab 11/06/20 01/19/21 History rotigotine 6 mg/24 hour 1 patch TOPICAL DAILY 01/19/21 01/19/21 History transdermal 24 hour patch (Neupro) Patient History Medical History (Updated 01/19/21 @ 11:52 by Rodney Irizarry MD) Chronic kidney disease, stage II (mild) Dyslipidemia Fibromyalgia GERD (gastroesophageal reflux disease) History of peptic ulcer HTN (hypertension) Hypothyroidism IBS (irritable bowel syndrome) Mild mitral regurgitation Moderate tricuspid regurgitation Multiple sclerosis "optic neuropathy" Osteoporosis Vitamin D deficiency Surgical History History of heart artery stent S/P appendectomy S/P STONEY-BSO Family History Other No pertinent family history in first degree relatives Social History Smoking Status: Never smoker Second Hand Exposure: No; Hx Alcohol Use: No Hx Substance Use: No Preferred Language: Kittitian Communication Ability: Effective Beliefs That Will Affect Care: None Current Living Situation: Spouse current occupation: N/A Other Information That Helps Us Care for You: No Feels Safe at Home: Yes Assistive Devices: Cane Review of Systems Constitutional: as per Subjective / HPI; no fever and no chills Eyes: no problem reported Ear, Nose, Mouth, Throat: no dizziness Respiratory: no cough and no dyspnea Cardiovascular: no chest pain and no edema Gastrointestinal: as per Subjective / HPI Musculoskeletal: as per Subjective / HPI Neurologic: no dizziness Endocrine: no fatigue Hematologic / Lymphatic: no easy bleeding and no easy bruising Physical Exam Constitutional: well developed and well nourished; not ill appearing and + uncomfortable ENMT: Ears: no external ear abnormality Nose: no external nose abnormality Neck: normal visual inspection and trachea midline Respiratory: normal respiratory effort and able to speak in complete sentences; no respiratory distress and no audible wheezes Cardiovascular: Extremities: no calf tenderness and no edema Gastrointestinal (Abdomen): Inspection/Auscultation: abdomen normal to inspection; abdomen not distended Percussion/Palpation: abdomen soft; abdomen nontender and no guarding Musculoskeletal: Moves all extremities without difficulty. Skin: No visible rashes, lesions, or wounds noted. Neurologic: moves all extremities and awake Psychiatric: Orientation: alert, oriented x 3 and cooperative Genitourinary: no CVA tenderness Results & Data ([facility]) Vital Signs (Past 12 Hours) Vital Signs Temp Pulse Resp BP Pulse Ox Pulse Ox 01/19/21 08:00 36.5 C 64 18 135/69 95 95 01/19/21 04:33 62 20 145/89 H 97 01/19/21 04:32 97 01/19/21 04:30 36.8 C 60 16 145/89 H 96 01/19/21 03:22 62 14 128/73 96 01/19/21 01:12 78 16 173/82 H 98 01/19/21 00:30 66 20 154/92 H 98 01/18/21 22:33 67 16 156/84 H 96 PG Care Time/CCT Total # of Minutes Spent Total Time Spent with Patient: Total time spent is greater than 50% in coordination of care (as documented) at patient's floor/unit and/or counseling patient: Coding Level of Care Code 06737 Initial Inpt Care Lvl 3 Diagnoses Renal colic on left side N23 Left ureteral calculus N20.1
--- NOTE | 2021-01-19 10:25 | XRay Report ---
XR chest 2V PA/lateral HISTORY: 75 years-old Female preop preoperative exam. No acute chest complaints COMPARISON: CT abdomen and pelvis 01/18/2021, chest radiograph 03/31/2019, 10/15/2015. TECHNIQUE: PA and lateral views of the chest FINDINGS: Cardiac silhouette is mildly enlarged. Coronary arterial stent. Moderate hiatal hernia. Mild linear s ubsegmental linear scarring/atelectasis of the left lung base. No pneumothorax, pleural effusion or o vert pulmonary edema. Degenerative changes of the shoulders and spine. Mild mid thoracic compression deformities are favored to be chronic. Sigmoidal thoracolumbar scoliosis. IMPRESSION: 1. No acute processes of the chest. 2. Moderate hiatal hernia. ACT 112: Negative or not required by law. The above report was generated using voice recognition software. It may contain grammatical, syntax o r spelling errors. Electronically signed by: Flavio Valero M.D. 01/19/2021 10:23 AM
[2021-01-19] MEDS ORDERED: PROPOFOL IV EMULSION 10 MG/ML 20 ML VIAL IV ONE (11:49)
[2021-01-19] MEDS ORDERED: MIDAZOLAM HCL 1 MG/ML 2ML VIAL ONE (11:49)
[2021-01-19] MEDS ORDERED: ONDANSETRON INJ 2 MG/ML 2 ML VIAL ONE (11:49)
[2021-01-19] MEDS ORDERED: fentaNYL citrate 100 MCG/2 ML VIAL ONE (11:50)
--- NOTE | 2021-01-19 11:52 | Anesthesiology Consultation ---
Date of Service January 19, 2021 Assessment & Plan (1) Encounter for pre-operative examination: Chart Review Chart Review: Acceptable Risk for Surgery and Patient NOT seen in Pre Admission Testing Consults Requested none History Surgery Operation Date: 01/19/21 11:50 Proposed Procedures p Cystoscopy, Left Retrograde Pyelogram, Stent Placement - Lobo Valerio, Height/Weight Height: 5 ft 1 in Weight: 72.6 kg Allergies Allergy/AdvReac Type Severity Reaction Status Date / Time Penicillins Allergy Severe anaphylaxis Verified 01/19/21 01:43 Sulfa (Sulfonamide Allergy Severe ANAPHYLAXIS Verified 01/19/21 01:43 Antibiotics) pneumococcal vaccine Allergy Intermediate rash at Verified 01/19/21 01:43 injection site adhesive tape Allergy Mild redness/pru Verified 01/19/21 01:43 ritis latex Allergy Unknown Verified 01/19/21 01:43 tetanus toxoid, adsorbed Allergy Unknown redness at Verified 01/19/21 01:43 injection site SANIA Inhibitors AdvReac Mild cough Verified 01/19/21 01:43 aspirin AdvReac Mild GI upset Verified 01/19/21 01:43 Medications Home Medications Medication Instructions Recorded Confirmed Last Taken carbidopa 25 mg-levodopa 100 mg 1 tab PO TID tab 01/16/19 01/19/21 05/31/19 tablet carbidopa ER 50 mg-levodopa 200 mg 1 tab PO HS tab 01/16/19 01/19/21 05/30/19 tablet,extended release clarithromycin 500 mg tablet 500 mg PO .COMPLEX tab 01/16/19 01/19/21 Unknown furosemide 40 mg tablet 40 mg PO BID #180 tab 01/16/19 01/19/21 05/30/19 pantoprazole 40 mg tablet,delayed 40 mg PO BID tab 01/16/19 01/19/21 05/31/19 release raloxifene 60 mg tablet 60 mg PO DAILY tab 01/16/19 01/19/21 05/31/19 albuterol sulfate 90 mcg/actuation 2 puff INHALATION QID PRN 03/31/19 01/19/21 Unknown aerosol inhaler levothyroxine 175 mcg tablet 175 mcg PO DAILY 03/31/19 01/19/21 05/31/19 conjugated estrogens 0.625 mg/gram 0.625 mg VAGINAL .MON & THUR 05/22/19 01/19/21 05/30/19 vaginal cream (Premarin) aspirin 81 mg tablet,delayed 81 mg PO QAM #30 tab 05/23/19 01/19/21 05/31/19 release (Ecotrin Low Strength) isosorbide mononitrate 30 mg 30 mg PO QAM #30 tab 05/23/19 01/19/21 05/31/19 tablet,extended release 24 hr pravastatin 20 mg tablet 20 mg PO DAILY@1700 #30 tab 05/23/19 01/19/21 05/30/19 ergocalciferol (vitamin D2) 1,250 50,000 unit PO .COMPLEX #21 cap 03/27/20 01/19/21 Unknown mcg (50,000 unit) capsule labetalol 200 mg tablet 400 mg PO BID #360 tab 08/01/20 01/19/21 Unknown alirocumab 75 mg/mL subcutaneous 75 mg SUBCUT Q14D 10/07/20 01/19/21 Unknown pen injector (Praluent Pen) amlodipine 5 mg tablet 5 mg PO DAILY #90 tab 10/08/20 01/19/21 Unknown spironolactone 25 mg tablet 25 mg PO DAILY tab 11/06/20 01/19/21 Unknown rotigotine 6 mg/24 hour 1 patch TOPICAL DAILY 01/19/21 01/19/21 Unknown transdermal 24 hour patch (Neupro) Active Medications Generic Name Dose Route Start Last Admin Trade Name Eladioq PRN Reason Stop Dose Admin Amlodipine Besylate 5 mg 01/19/21 09:00 01/19/21 09:25 Amlodipine Besylate 5 Mg Tab PO 02/18/21 08:59 5 mg DAILY MELLISSA Administration Aspirin 81 mg 01/19/21 09:00 01/19/21 09:25 Aspirin 81 Mg Ectab PO 02/18/21 08:59 81 mg QAM MELLISSA Administration Carbidopa/Levodopa 1 tab 01/19/21 08:00 01/19/21 09:23 Carbidopa/Levodopa 25/100mg Tab PO 02/18/21 07:59 1 tab TIDM MELLISSA Administration Enoxaparin Sodium 40 mg 01/19/21 09:00 01/19/21 09:25 Enoxaparin Inj 40 Mg/0.4 Ml Syr SQ 02/18/21 08:59 40 mg QAM MELLISSA Administration Potassium Chloride 40 meq/ 1,020 mls @ 75 mls/hr 01/19/21 02:03 01/19/21 04:32 Lactated Ringer's IV 02/18/21 02:02 75 mls/hr .[id number] MELLISSA Administration Promethazine HCl 12.5 mg/ 50.5 mls @ 202 mls/hr 01/19/21 02:03 01/19/21 04:34 Sodium Chloride IV 02/18/21 02:02 Infused Q6H PRN Infusion Nausea And Vomiting Isosorbide Mononitrate 30 mg 01/19/21 09:00 01/19/21 09:24 Isosorbide [place] Extended Rel 30 Mg Tabcr PO 02/18/21 08:59 30 mg QAM MELLISSA Administration Labetalol HCl 400 mg 01/19/21 09:00 01/19/21 09:24 Labetalol Hcl 200 Mg Tab PO 02/18/21 08:59 400 mg BID MELLISSA Administration Levothyroxine Sodium 175 mcg 01/19/21 06:30 01/19/21 06:08 Levothyroxine Sodium 175 Mcg Tablet PO 02/18/21 06:29 175 mcg DAILYBB MELLISSA Administration Miscellaneous 1 ea 01/19/21 08:00 01/19/21 09:25 Neupro~Order Awaiting Action N/A 02/18/21 07:59 1 ea QS MELLISSA Administration Oxycodone HCl 5 - 10 mg 01/19/21 02:03 01/19/21 09:23 Oxycodone Hcl Ir 5 Mg Tab (Immediate Release) PO 02/02/21 02:02 10 mg QID PRN Administration Pain Pantoprazole Sodium 40 mg 01/19/21 09:00 01/19/21 09:24 Pantoprazole 40 Mg Tab PO 02/18/21 08:59 40 mg BID MELLISSA Administration NPO Date Last Intake of Fluids: 01/19/21 Time Last Intake of Fluids: 09:00 Last Intake of Fluids Comment: water Date Last Intake of Solids: 01/18/21 Time Last Intake of Solids: 15:00 Past Medical History Medical History (Updated 01/19/21 @ 11:52 by Rodney Irizarry MD) Chronic kidney disease, stage II (mild) Dyslipidemia Fibromyalgia GERD (gastroesophageal reflux disease) History of peptic ulcer HTN (hypertension) Hypothyroidism IBS (irritable bowel syndrome) Mild mitral regurgitation Moderate tricuspid regurgitation Multiple sclerosis "optic neuropathy" Osteoporosis Vitamin D deficiency Past Family History Family History Other No pertinent family history in first degree relatives Past Surgical History Surgical History History of heart artery stent S/P appendectomy S/P STONEY-BSO Social History Smoking Status: Never smoker Hx Alcohol Use: No Hx Substance Use: No substance use type: does not use Physical Exam Vital Signs Last Vital Signs Temp 36.5 C 01/19/21 08:00 Pulse 64 01/19/21 08:00 Resp 18 01/19/21 08:00 BP 135/69 01/19/21 08:00 Pulse Ox 95 01/19/21 08:00 Testing Laboratory Results 01/19/21 05:46 01/19/21 05:46 Hemoglobin A1c 6.1 % (4.5-5.6) H 01/18/21 21:10 Urine Color Yellow 01/18/21 21:10 Urine Appearance Clear (Clear) 01/18/21 21:10 Urine pH 7.5 (4.5-7.5) 01/18/21 21:10 Ur Specific Hernandez 1.007 (1.000-1.030) 01/18/21 21:10 Urine Protein Negative (Negative) 01/18/21 21:10 Urine Glucose (UA) Negative (Negative) 01/18/21 21:10 Urine Ketones Negative (Negative) 01/18/21 21:10 Urine Nitrite Negative (Negative) 01/18/21 21:10 Ur Leukocyte Esterase 2+ (Negative) H 01/18/21 21:10 Urine WBC (Auto) >30 /hpf (0-5) H 01/18/21 21:10 Urine RBC (Auto) 0-4 /hpf (0-4) 01/18/21 21:10 U Hyaline Cast (Auto) 1-5 /lpf (0-5) 01/18/21 21:10 U Epithel Cells (Auto) 5-10 /lpf (0-5) H 01/18/21 21:10 Urine Bacteria (Auto) Negative (Negative) 01/18/21 21:10 Chest X-Ray Date: 01/19/21 XR chest 2V PA/lateral HISTORY: 75 years-old Female preop preoperative exam. No acute chest complaints COMPARISON: CT abdomen and pelvis 01/18/2021, chest radiograph 03/31/2019, 10/15/2015. TECHNIQUE: PA and lateral views of the chest FINDINGS: Cardiac silhouette is mildly enlarged. Coronary arterial stent. Moderate hiatal hernia. Mild linear subsegmental linear scarring/atelectasis of the left lung base. No pneumothorax, pleural effusion or overt pulmonary edema. Degenerative changes of the shoulders and spine. Mild mid thoracic compression deformities are favored to be chronic. Sigmoidal thoracolumbar scoliosis. IMPRESSION: 1. No acute processes of the chest. 2. Moderate hiatal hernia. ACT 112: Negative or not required by law. The above report was generated using voice recognition software. It may contain grammatical, syntax or spelling errors. Electronically signed by: Flavio Valero M.D. 01/19/2021 10:23 AM Dictated: 01/19/21 1021Transcribed: 01/19/21 1021
[2021-01-19] MEDS ORDERED: CIPROFLOXACIN 400MG / 200ML D5W IV ONE (11:59)
--- NOTE | 2021-01-19 13:22 | Operative Report ---
PG Post Operative Report Pre & Post Diagnosis Left Ureteral Stone Same Operation Date: 01/19/21 11:50 <No data on this case meets the specified criteria> I identified the patient and participated in the time-out.: Yes Procedure Cystoscopy with left retrograde pyelogram, aspiration of urine, and stent placement. Operation Date: 01/19/21 11:50 <No data on this case meets the specified criteria> Surgeon Lobo Valerio, II, DO Custom Protection Officer None Estimated Blood Loss 1 Findings Consistent with Post-Op Diagnosis Stent placed in good position. Specimens Urine Left renal pelvis. Drains 6 Fr Multilength Anesthesia Type MAC Complications none Disposition Disposition: Recovery Room Indications Patient with obstruction. Risks and benefits discussed at length. Description of Procedure Patient was consented and brought back to the operating room. Patient was placed under anesthesia in the supine position and moved to the dorsal lithotomy position. Patient was prepped and draped in the regular sterile fashion. A time out was completed. A 30degree Cystoscope was placed into the bladder and the entire bladder was examined. The UO's were identified. The UO was cannulized with a catheter, urine was aspirated, and a retrograde pyelogram was completed. A wire was then placed. With the wire in place, a 6 Fr Double J stent was placed. It was confirmed with fluoroscopy. With the stent in place, the bladder was emptied. The scope was removed. The patient was cleaned, aroused from anesthesia, and transferred to the pacu in stable condition having tolerated the procedure well with no complications. I was present and participated in all aspects of the procedure. The patient will be monitored in the PACU until transferred. Plan to maintain stent until treatment. Likely treat in 1-2 weeks. Transfer back to floor. I attest to the content of the Intraoperative Record and any orders documented therein. Any exceptions are noted below.
[2021-01-19] MEDS ORDERED: DIATRIZOATE MEGLUMINE 30% 100ML VIAL INSTIL ONE (13:30)
--- NOTE | 2021-01-19 13:59 | Anesthesiology Progress Note ---
Date of Service January 19, 2021 Anesthesia Post Procedure Vital Signs Vital Signs: Temp Pulse Pulse Pulse Resp BP BP 01/19/21 13:45 37.1 C 66 16 102/54 L 01/19/21 13:35 58 L 12 94/51 L 01/19/21 13:28 36.4 C L 62 12 104/55 L 01/19/21 11:34 36.5 C 66 18 115/59 L 01/19/21 08:00 36.5 C 64 18 135/69 01/19/21 04:33 62 20 145/89 H 01/19/21 04:32 01/19/21 04:30 36.8 C 60 16 145/89 H 01/19/21 03:22 62 14 128/73 01/19/21 01:12 78 16 173/82 H 01/19/21 00:30 66 20 154/92 H 01/18/21 22:33 67 16 156/84 H 01/18/21 20:18 36.5 C 76 16 142/84 H Pulse Ox Pulse Ox 01/19/21 13:45 97 01/19/21 13:35 99 01/19/21 13:28 94 01/19/21 11:34 96 01/19/21 08:00 95 95 01/19/21 04:33 97 01/19/21 04:32 97 01/19/21 04:30 96 01/19/21 03:22 96 01/19/21 01:12 98 01/19/21 00:30 98 01/18/21 22:33 96 01/18/21 20:18 97 Transfer of Care Handoff Completed per policy Notes Mental Status: alert / awake / arousable Patient Amnestic to Procedure: Yes Nausea / Vomiting: adequately controlled Pain: adequately controlled Airway Patency, RR, SpO2: stable & adequate BP & HR: stable & adequate Hydration State: stable & adequate Anesthetic Complications: no major complications apparent and Pt Satisfied with anesthetic care
--- NOTE | 2021-01-19 14:08 | Fluoroscopy Report ---
FL retrograde includes kub CLINICAL HISTORY: LT CYSTO/RETRO/STENT COMPARISON STUDY: None. FLUOROSCOPY TIME: 17 seconds. FINDINGS: 2 fluoroscopic spot images of the abdomen and pelvis demonstrate retrograde opacification o f the left renal collecting system followed by placement of a ureteral stent. The stent appears in go od position. IMPRESSION: Fluoroscopy provided for left ureteral stent placement which appears in good position. ACT 112: Negative or not required by law. Electronically signed by: Rodney Ramirez M.D. 01/19/2021 2:07 PM
[2021-01-19] MEDS ORDERED: PRAVASTATIN SOD 20 MG TAB PO SCH (17:00)
--- NOTE | 2021-01-19 18:23 | Communication Note ---
Date of Service: January 19, 2021 75-year-old lady with PMH of CAD s/p stent, HTN, HLD, hyperparathyroidism, hypothyroidism, multiple sclerosis, restless leg syndrome and fibromyalgia pr esented 01/18 to our ED with left flank pain. CT abdomen pelvis in the ED showed 10 to 4 mm obstructing stone within the mid left ureter. Urology was consulted, status post cystoscopy with left retrograde pyelogram, aspiration of urine and stent placement 01/19. Patient reporting improvement in her left flank pain. Patient denied any history of burning or pain while passing urine prior to this episode. Will monitor over [employer] with no telemetry. Blood pressure under control. Patient will need outpatient follow-up with urology in 1 to 2 weeks upon discharge. Upon examination GENERAL: Alert and oriented x3. NAD, on RA. HEENT: No pallor, no icterus. Pupils equal, round and reactive to light. Oral mucosa moist. NECK: No JVD, no neck masses. HEART: S1 and S2 heard. Regular rate and rhythm. Systolic murmur over aortic and pulmonic area, no gallop. RESPIRATORY SYSTEM: Normal AP diameter. No accessory muscle use. No wheezing, no crackles. ABDOMEN: Soft, bowel sounds present, nontender, no distention. CENTRAL NERVOUS SYSTEM: Alert and oriented x3. No facial droop. Speech is clear. Obeys simple commands. Moves extremities. EXTREMITIES: 1+ edema, no erythema seen.
[2021-01-19] MEDS ORDERED: CARBIDOPA/LEVODOPA 50/200MG EXT REL TAB PO SCH (21:00)
[2021-01-20] MEDS ORDERED: CIPROFLOXACIN / D5W 400 MG/200 ML BAG IV SCH (06:00)
[2021-01-20] MEDS: LEVOTHYROXINE SODIUM 175 MCG TABLET PO SCH (06:24)
[2021-01-20 07:10] LABS: Hematocrit (blood only) 32.5 % (37-47); Hemoglobin 10.4 g/dL (12.0-16.0); Mean Corpuscular Hemoglobin 29.3 pg (25-34); Mean Corpuscular Volume 91.5 fL (80-100); Mean Platelet Volume 8.6 fL (7.4-10.4); Platelet Count 284 K/uL (130-400); RDW Coefficient of Variation 15.8 % (11.5-14.5); RDW Standard Deviation 53.2 fL (36.4-46.3); Red Blood Count 3.55 M/uL (4.2-5.4); White Blood Count 9.85 K/uL (4.8-10.8)
--- NOTE | 2021-01-20 08:21 | Urology Progress Note ---
Date of Service January 20, 2021 Assessment & Plan (1) Left ureteral calculus: (2) Renal colic on left side: Plan: 75 year-old female patient, with multiple comorbidities, admitted with intractable left flank pain secondary to obstructing 10 mm calculus within the m id left ureter. -POD#1 cystoscopy with left retrograde pyelogram, aspiration of urine, and left stent placement. -Patient clinically progressing as expected. -She remains afebrile. -Labs reviewed - white count returned to normal, creatinine stable. -Urine culture 10/10 with three types of organisms present, all moderate counts. -Repeat urine culture from kidney aspirate pending. -Patient did pass a large stone overnight, stone analysis ordered. -KUB ordered for this AM. -Okay to discharge home from perspective. -Recommend home with pain control, Flomax, PRN Pyridium, and short course ant ibiotic therapy. Await final culture. -Will arrange outpatient follow-up with urology service for continued care/stone management/stent removal. -Expected clinical course reviewed with patient, all questions answered. Thank you for allowing us to participate in the acute care of Mrs. Wang. Please reconsult us with additional questions, concerns or changes in patient status. Admission and Anticipated Discharge Date Admission Date: January 19, 2021 Subjective POD#1 cystoscopy with left retrograde pyelogram, aspiration of urine, and left stent placement. Patient with clinical improvement post procedure. Left flank pain has improved although she does have some continued discomfort. Pain tolerable with PO pain medication. She did pass a large stone overnight, will be sent for analysis. Notes dysuria, denies hematuria. Reports urinary urgency/frequency. Denies abdominal pain. Denies fevers or chills. Denies nausea or vomiting. Has been on clear liquid diet, requesting to be advanced to solid foods. Chart review: Afebrile Wbc 9.85 Hgb 10.4 Creatinine 0.91 Urine culture 10/10 with three types of organisms present, all moderate counts. Repeat collection recommended. Repeat culture from aspirate during procedure pending. Patient not currently on antibiotic therapy. Denies additional urologic concerns today. Review of Systems Constitutional: as per Subjective / HPI; no fever and no chills Gastrointestinal: as per Subjective / HPI; no nausea and no vomiting Genitourinary: as per Subjective / HPI Physical Exam Constitutional: well developed and well nourished; no acute distress and not ill appearing Respiratory: normal respiratory effort and able to speak in complete sentences; no respiratory distress and no audible wheezes Gastrointestinal (Abdomen): Inspection/Auscultation: abdomen normal to inspection; abdomen not distended Psychiatric: Orientation: alert, oriented x 3 and cooperative Affect: euthymic affect Genitourinary: Large elongated stone in specimen cup noted. Results & Data ([facility]) Vital Signs (Past 12 Hours) Vital Signs Temp Pulse Pulse Resp BP Pulse Ox 01/20/21 07:46 36.9 C 67 18 125/76 96 01/20/21 02:37 36.7 C 62 16 114/71 95 01/19/21 22:00 36.9 C 69 16 134/72 95 01/19/21 21:00 36.9 C 75 16 133/76 97 PG Care Time/CCT Total # of Minutes Spent Total Time Spent with Patient: Total time spent is greater than 50% in coordination of care (as documented) at patient's floor/unit and/or counseling patient: Coding Level of Care Code 64506 Subseq Hosp Care Lvl 2 Diagnoses Left ureteral calculus N20.1 Renal colic on left side N23
[2021-01-20] MEDS: LABETALOL HCL 200 MG TAB PO SCH (09:00)
[2021-01-20] MEDS: PANTOprazole 40 MG TAB PO SCH (09:00)
[2021-01-20] MEDS: CARBIDOPA/LEVODOPA 25/100MG TAB PO SCH ×2 (09:00→11:36)
[2021-01-20] MEDS: ASPIRIN 81 MG ECTAB PO SCH (09:00)
[2021-01-20] MEDS: amLODIPine BESYLATE 5 MG TAB PO SCH (09:01)
[2021-01-20] MEDS: ISOSORBIDE MONO EXTENDED REL 30 MG TABCR PO SCH (09:01)
[2021-01-20] MEDS: ENOXAPARIN INJ 40 MG/0.4 ML SYR SQ SCH (09:01)
--- NOTE | 2021-01-20 11:21 | XRay Report ---
KUB CLINICAL HISTORY: Left ureteral stone, assess for passage COMPARISON STUDY: CT of the abdomen and pelvis January 18, 2021. FINDINGS: 4 mm calculus within the upper pole of the left kidney is noted. A left ureteral stent is i n place. There is a possible 3 mm calculus/fragment within the proximal left ureter adjacent to the s tent. Evaluation difficult given stool. No evidence for a bowel obstruction. Postoperative findings w ithin the lumbosacral spine are noted. IMPRESSION: 1. Left ureteral stent in place. Possible 3 mm calculus/fragment within the proximal left ureter. 2. 4 mm left renal calculus. ACT 112: Negative or not required by law. Electronically signed by: Estevan Menjivar M.D. 01/20/2021 11:19 AM
--- NOTE | 2021-01-20 18:54 | Discharge Summary ---
Date of Service January 20, 2021 Admission HPI Per Admitting Provider History obtained from patient and records. Medical history significant for CAD status post stent, hypertension, hyperlipidemia, hyperparathyroidism, hypothyroidism, multiple sclerosis, restless leg syndrome, fibromyalgia. Last confinement under cardiology service last May 2019 abnormal nuclear stress test. Drug-eluting stent placed with note of LAD lesion on cardiac catheterization. Last week, patient noted intermittent achiness on the left flank which patient ignored. No fever, no chills, no hematuria. Last night after dinner patient noted more intense discomfort of the left flank. No chest pain, no shortness of breath. Patient brought by to the ER for evaluation. Patient given Ceftriaxone for possible UTI. SBP 170s at the highest at 1 point at the ER. 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 Admission Exam Per Admitting Provider GENERAL: Comfortable, pleasant, obese, no respiratory distress SKIN: Normal color, warm HEENT: [place] palpebral conjunctivae, no ptosis, dry buccal mucosa NECK : Supple, no tenderness CHEST : CTA, no tenderness HEART : RRR, no obvious murmurs ABDOMEN: Some distention, no abdominal tenderness BACK : Minimal left flank tenderness EXTREMITIES : Minimal LE swelling, no LE tenderness, no other conspicuous deformities noted NEUROLOGIC : Coherent, no facial asymmetry, no other gross focality Principal Diagnosis Left ureteral stone Left ureteral colic Discharge Exam GENERAL: Alert and oriented x3. NAD, on RA. HEENT: No pallor, no icterus. Pupils equal, round and reactive to light. Oral mucosa moist. NECK: No JVD, no neck masses. HEART: S1 and S2 heard. Regular rate and rhythm. Systolic murmur over aortic and pulmonic area, no gallop. RESPIRATORY SYSTEM: Normal AP diameter. No accessory muscle use. No wheezing, no crackles. ABDOMEN: Soft, bowel sounds present, nontender, no distention. CENTRAL NERVOUS SYSTEM: Alert and oriented x3. No facial droop. Speech is clear. Obeys simple commands. Moves extremities. EXTREMITIES: 1+ edema, no erythema seen. Discharge Data Allergies Allergy/AdvReac Type Severity Reaction Status Date / Time Penicillins Allergy Severe anaphylaxis Verified 01/19/21 01:43 Sulfa (Sulfonamide Allergy Severe ANAPHYLAXIS Verified 01/19/21 01:43 Antibiotics) pneumococcal vaccine Allergy Intermediate rash at Verified 01/19/21 01:43 injection site adhesive tape Allergy Mild redness/pru Verified 01/19/21 01:43 ritis latex Allergy Unknown Verified 01/19/21 01:43 tetanus toxoid, adsorbed Allergy Unknown redness at Verified 01/19/21 01:43 injection site SANIA Inhibitors AdvReac Mild cough Verified 01/19/21 01:43 aspirin AdvReac Mild GI upset Verified 01/19/21 01:43 Consultations 01/19/21 00:27 ED Decision to Admit Stat 01/19/21 03:20 Consult Urology Routine Procedures Performed Operation Date: 01/19/21 11:50 Actual Procedures p Left Ureteral Stent Placement(Left) - Lobo Valerio DO s Cystoscopy, Left Retrograde Pyelogram,(Left) - Lobo Valerio DO Ordered Studies 01/18/21 22:05 CT abd pelvis IV con only Urgent 01/19/21 [place] retrograde includes kub Routine Hospital Course (1) Left ureteral calculus: (2) Renal colic on left side: 75-year-old lady with PMH of CAD s/p stent, HTN, HLD, hyperparathyroidism, hypothyroidism, multiple sclerosis, restless leg syndrome and fibromyalgia presented 01/18 to our ED with left flank pain. CT abdomen pelvis in the ED showed 10 to 4 mm obstructing stone within the mid left ureter. Urology was consulted, underwent cystoscopy with left retrograde pyelogram, aspiration of urine and stent placement on 01/19. Patient reporting improvement in her left flank pain. Patient denied any history of burning or pain while passing urine prior to this episode. Because of urological intervention, patient discharged on short course of antibiotic and advised to follow-up with primary care physician on the results of kidney aspirate urinary culture. Also patient advised to follow-up with primary care physician within a week time. Patient will need outpatient follow-up with urology in 1 to 2 weeks upon discharge. At the time of discharge, patient reported significant improvement in her left flank pain and developed no acute events while in hospital stay. Following instructions were communicated to the patient at time discharge: Follow-up with your urinary culture [from kidney aspirate] results with your PCP in 2 to 3 days. You will be discharged on antibiotic for 5 days pending evaluation and dose readjustment upon final results of a urinary culture. Follow-up with your PCP within a week time. Follow-up with urology in 1 to 2 weeks. Take medications as prescribed. Total Time Total Time Spent Total Time Spent (In Minutes): 40 Discharge Plan Discharge Items Patient Disposition: Home - Self-Care Reason For Visit: HTN URG, OBSTRUCTIVE UROPATHY Discharge Diagnosis: Left renal colic Left ureteral calculus Condition on Discharge: Good Activity: Resume your previous activity Non-emergency contact: Primary Care Provider Call non-emergency contact if: you have any medication questions, your symptoms worsen, your pain is worsening and your rectal temperature is above 100.4 Follow-up/Referrals: Lobo Valerio DO [Physician] - (Office will call the patient for hospital f/u visit per Pilar.) Terrance Craig MD [Primary Care Provider] - (Date & Time 01/27/2021 11:00 AM Provider Terrance Craig MD [facility] ) Diet: Regular Addtl Attending Provider Instructions: Follow-up with your urinary culture [from kidney aspirate] results with your PCP in 2 to 3 days. You will be discharged on antibiotic for 5 days pending evaluation and dose readjustment upon final results of a urinary culture. Follow-up with your PCP within a week time. Follow-up with urology in 1 to 2 weeks. Take medications as prescribed. Pending Studies at Discharge: Yes (Kidney aspirate urine culture results pending.) Stand-Alone Forms: My [place] [facility], Opioid Pain Management, Smoking Cessation Medications and DC Order Prescriptions: New acetaminophen 325 mg Tablet 650 mg PO Q6H PRN (Reason: pain) 7 Days Qty: 56 RF: 0 tamsulosin [Flomax] 0.4 mg capsule 0.4 mg PO DAILY Qty: 30 RF: 0 ciprofloxacin HCl [Cipro] 500 mg tablet 500 mg PO BID 5 Days Qty: 10 RF: 0 Continued labetalol 200 mg tablet 400 mg PO BID Qty: 360 RF: 3 amlodipine 5 mg tablet 5 mg PO DAILY Qty: 90 RF: 3 clarithromycin 500 mg tablet 500 mg PO .COMPLEX RF: 0 raloxifene 60 mg tablet 60 mg PO DAILY RF: 0 furosemide 40 mg tablet 40 mg PO BID Qty: 180 RF: 0 carbidopa-levodopa 50-200 mg tablet extended release 1 tab PO HS RF: 0 carbidopa-levodopa 25-100 mg tablet 1 tab PO TID RF: 0 pantoprazole 40 mg tablet,delayed release (DR/EC) 40 mg PO BID RF: 0 ergocalciferol (vitamin D2) 1,250 mcg (50,000 unit) capsule 50,000 unit PO .COMPLEX Qty: 21 RF: 0 Praluent Pen 75 mg/mL pen injector 75 mg subcut Q14D RF: 0 spironolactone 25 mg tablet 25 mg PO DAILY RF: 0 levothyroxine 175 mcg Tablet 175 mcg PO DAILY RF: 0 albuterol sulfate 90 mcg/actuation Hfa Aerosol Inhaler 2 puff INHALATION QID PRN (Reason: sob/wheezing) RF: 0 Premarin 0.625 mg/gram Cream 0.625 mg VAGINAL .MON & THUR RF: 0 isosorbide mononitrate 30 mg Tablet Extended Release 24 Hr 30 mg PO QAM Qty: 30 RF: 0 pravastatin 20 mg Tablet 20 mg PO DAILY@1700 Qty: 30 RF: 1 aspirin [Ecotrin Low Strength] 81 mg Tablet,Delayed Release (Dr/Ec) 81 mg PO QAM Qty: 30 RF: 2 Neupro 6 mg/24 hour patch 24 hour 1 patch topical DAILY RF: 0 Discharge Orders: Discharge Order (Routine); Ordered 01/20/21 Ordered By: Fabio Bravo/Other Patient Handouts: A1C, Prediabetes, 5 Steps for Eating Healthier Admission Data Admit Date/Time: 01/19/21 12:51 Attending Provider: Fabio Scales Admit Provider: Rafa Tomlin Primary Care Provider: Terrance Craig Other Providers: Rafa Tomlin ; Tan Stewart ; Blake Hagen ; Sudhakar Hearn ; Alma Prince ; Lobo Valerio ; Yancy Garner ; Arline Daigle ; Jacqui Diaz ; Jake Alonso ; Keny Sharma ; Chana Bush ; Marianne Diaz ; Steve Meyer Other Interventions: Discharge Summary Assessment (RN) Last Done: 01/20/21 13:07
[2021-01-25 05:45] LABS: Component 2 DNR; Source URETERAL STONE
== END 2021-01-20 14:47 | disposition home or self-care (01) | DRG 661 ==
LOC: ED 20:04 → EDINP 01-19 01:59 → PACUINP 01-19 12:52 → 3E 01-19 19:19

== ENCOUNTER 2023-06-08 06:28 | Inpatient (IN) ==
--- NOTE | 2023-05-25 10:32 | PAT Medication Instructions ---
Medication Instructions Date of Service May 25, 2023 Home Medications Medication Instructions Recorded aspirin 81 mg tablet,delayed 81 mg PO QAM #30 tabs 05/23/19 release (Ecotrin Low Strength) isosorbide mononitrate 30 mg 30 mg PO QAM #30 tabs 05/23/19 tablet,extended release 24 hr pravastatin 20 mg tablet 20 mg PO DAILY@1700 #30 tabs 05/23/19 labetalol 200 mg tablet 400 mg (2 x 200 mg) PO BID #360 02/02/23 tabs carbidopa 25 mg-levodopa 100 mg tablet 1 tab PO TID clarithromycin 500 mg tablet 500 mg PO UD PRN dental procedures furosemide 40 mg tablet 40 mg PO BID pantoprazole 40 mg tablet,delayed release 40 mg PO BID raloxifene 60 mg tablet (Evista) 60 mg PO QDL albuterol sulfate 90 mcg/actuation aerosol inhaler 2 puff inhalation QID PRN sob/wheezing conjugated estrogens 0.625 mg/gram vaginal cream (Premarin) 0.625 mg vaginal 2XWK aspirin 81 mg tablet,delayed release (Ecotrin Low Strength) 81 mg PO QAM isosorbide mononitrate 30 mg tablet,extended release 24 hr 30 mg PO QAM pravastatin 20 mg tablet 20 mg PO DAILY@1700 spironolactone 25 mg tablet 25 mg PO QAM rotigotine 6 mg/24 hour transdermal 24 hour patch (Neupro) 1 patch topical HS carbidopa ER 50 mg-levodopa 200 mg tablet,extended release 1 tab PO HS epinephrine 0.3 mg/0.3 mL injection, auto-injector (EpiPen) 0.3 mg IM Q4H PRN Other levothyroxine 150 mcg capsule 150 mcg PO UD nitroglycerin 0.4 mg sublingual tablet 0.4 mg sublingual Q5M PRN labetalol 200 mg tablet 400 mg (2 x 200 mg) PO BID amlodipine 2.5 mg tablet 2.5 mg PO QAM calcitriol 0.25 mcg capsule 0.25 mcg PO QAM evolocumab 140 mg/mL subcutaneous pen injector (Repatha SureClick) 140 mg subcut UD gabapentin 600 mg tablet 600 mg PO BID Continue as directed clarithromycin 500 mg tablet 500 mg PO UD PRN dental procedures (if needed) epinephrine 0.3 mg/0.3 mL injection, auto-injector (EpiPen) 0.3 mg IM Q4H PRN (if needed) levothyroxine 150 mcg capsule 150 mcg PO UD nitroglycerin 0.4 mg sublingual tablet 0.4 mg sublingual Q5M PRN (if needed) ASK your prescriber and surgeon conjugated estrogens 0.625 mg/gram vaginal cream (Premarin) 0.625 mg vaginal 2XWK evolocumab 140 mg/mL subcutaneous pen injector (Repatha SureClick) 140 mg subcut UD raloxifene 60 mg tablet (Evista) 60 mg PO QDL DO NOT take the morning of surgery furosemide 40 mg tablet 40 mg PO BID spironolactone 25 mg tablet 25 mg PO QAM calcitriol 0.25 mcg capsule 0.25 mcg PO QAM Take morning of surgery With a small sip of water, OTHERWISE NOTHING TO EAT OR DRINK AFTER MIDNIGHT: carbidopa 25 mg-levodopa 100 mg tablet 1 tab PO TID pantoprazole 40 mg tablet,delayed release 40 mg PO BID albuterol sulfate 90 mcg/actuation aerosol inhaler 2 puff inhalation QID PRN sob/wheezing (use if needed; please bring with you to hospital day of surgery if possible) aspirin 81 mg tablet,delayed release (Ecotrin Low Strength) 81 mg PO QAM (unless surgeon directed otherwise) isosorbide mononitrate 30 mg tablet,extended release 24 hr 30 mg PO QAM labetalol 200 mg tablet 400 mg (2 x 200 mg) PO BID amlodipine 2.5 mg tablet 2.5 mg PO QAM gabapentin 600 mg tablet 600 mg PO BID Take evening before surgery carbidopa 25 mg-levodopa 100 mg tablet 1 tab PO TID furosemide 40 mg tablet 40 mg PO BID pantoprazole 40 mg tablet,delayed release 40 mg PO BID albuterol sulfate 90 mcg/actuation aerosol inhaler 2 puff inhalation QID PRN sob/wheezing (if needed) pravastatin 20 mg tablet 20 mg PO DAILY@1700 rotigotine 6 mg/24 hour transdermal 24 hour patch (Neupro) 1 patch topical HS carbidopa ER 50 mg-levodopa 200 mg tablet,extended release 1 tab PO HS labetalol 200 mg tablet 400 mg (2 x 200 mg) PO BID gabapentin 600 mg tablet 600 mg PO BID Other Notes If you have any questions please call us at [phone] or [phone] or [phone] or [phone]
--- NOTE | 2023-05-30 08:46 | Anesthesiology Consultation ---
Date of Service May 30, 2023 Assessment & Plan (1) Encounter for pre-operative examination: - patient states is always given nebulizer treatment prior to surgery. - cardiology office visit 02/09/23 [facility]: "...CAD S/P PCI with GABRIELA to the prox/mid LAD x2 on 05/22/19, with repeat PCI to the RCA on 05/31 with 1 GABRIELA with diffuse coronary athero sclerosus...Main issues from a cardiac standpoint in her mid day edema of the lower extremities. No fevers chills or unexplained infections no acute weight gain no dyspnea. No orthopnea...Reduce amlodipine to 2.5 mg per day. Increase isosorbide mononitrate to 60 mg per day for additional blood pressure control and aid in pulmonary pressures..." Case discussed in detail with Dr. Berger including reported no dyspnea at cardio visit. He advised patient is acceptable to proceed at current status not requiring further evaluation or testing from his standpoint. - Outpatient joint assessment: Patient is currently scheduled for inpatient pathway. If re-evaluated and patient/surgeon requests outpatient pathway, p atient is not recommended candidate for outpatient joint program from anesthesia standpoint. Chart Review Chart Review: Acceptable Risk for Surgery and Patient seen in Pre Admission Testing Teaching & Discussion Pre-Anesthesia Teaching/Discussion Notes: Instructed NPO after midnight before surgery, except medications with 15 cc of water. Medication instructions provided according to the PAT guidelines. History Surgery Operation Date: 06/08/23 13:00 Proposed Procedures p Left Total Hip Arthroplasty - David Betancourt MD Height/Weight Height: 5 ft Weight: 62.596 kg Allergies Allergy/AdvReac Type Severity Reaction Status Date / Time bee venom protein (honey bee) Allergy Severe Verified 05/30/23 09:02 Penicillins Allergy Severe Anaphylaxis Verified 05/25/23 09:05 Sulfa (Sulfonamide Allergy Severe Anaphylaxis Verified 05/25/23 09:05 Antibiotics) latex Allergy Intermediate Localized Verified 05/25/23 09:05 rash pneumococcal vaccine Allergy Intermediate Rash at Verified 05/25/23 09:05 injection site [id number] Reductase Allergy Intermediate muscle Verified 05/25/23 09:05 Inhibitor pain/sick to stomach tetanus toxoid, adsorbed Allergy Intermediate Redness at Verified 05/25/23 09:05 injection site adhesive tape Allergy Mild Redness, Verified 05/25/23 09:05 pruritis atorvastatin AdvReac Intermediate myalgias Verified 05/30/23 10:37 SANIA Inhibitors AdvReac Mild Cough Verified 05/25/23 09:05 aspirin AdvReac Mild GI upset Verified 05/30/23 09:01 salicylates AdvReac Mild nausea/vomi Verified 05/25/23 09:05 tting Medications Home Medications Medication Instructions Recorded Confirmed Last Taken carbidopa 25 mg-levodopa 100 mg 1 tab PO TID 01/16/19 05/25/23 02/16/21 05:30 tablet clarithromycin 500 mg tablet 500 mg PO UD PRN dental procedures 01/16/19 05/25/23 Unknown furosemide 40 mg tablet 40 mg PO BID #180 tabs 01/16/19 05/25/23 02/15/21 18:00 pantoprazole 40 mg tablet,delayed 40 mg PO BID 01/16/19 05/25/23 02/16/21 05:30 release raloxifene 60 mg tablet (Evista) 60 mg PO QDL 01/16/19 05/25/23 02/15/21 12:00 albuterol sulfate 90 mcg/actuation 2 puff inhalation QID PRN 03/31/19 05/25/23 Unknown aerosol inhaler sob/wheezing conjugated estrogens 0.625 mg/gram 0.625 mg vaginal 2XWK 05/22/19 05/25/23 05/30/19 vaginal cream (Premarin) aspirin 81 mg tablet,delayed 81 mg PO QAM #30 tabs 05/23/19 05/25/23 02/15/21 08:00 release (Ecotrin Low Strength) isosorbide mononitrate 30 mg 30 mg PO QAM #30 tabs 05/23/19 05/25/23 02/16/21 05 :30 tablet,extended release 24 hr pravastatin 20 mg tablet 20 mg PO DAILY@1700 #30 tabs 05/23/19 05/25/23 02/15/21 18:00 spironolactone 25 mg tablet 25 mg PO QAM 11/06/20 05/25/23 02/15/21 12:00 rotigotine 6 mg/24 hour 1 patch topical HS 01/19/21 05/25/23 02/15/21 21:00 transdermal 24 hour patch (Neupro) carbidopa ER 50 mg-levodopa 200 mg 1 tab PO HS 11/10/21 05/25/23 Unknown tablet,extended release epinephrine 0.3 mg/0.3 mL 0.3 mg IM Q4H PRN Other 11/10/21 05/25/23 Unknown injection, auto-injector (EpiPen) levothyroxine 150 mcg capsule 150 mcg PO UD 11/10/21 05/25/23 Unknown nitroglycerin 0.4 mg sublingual 0.4 mg sublingual Q5M PRN Other 11/10/21 05/25/23 Unknown tablet labetalol 200 mg tablet 400 mg (2 x 200 mg) PO BID #360 02/02/23 05/25/23 Unkno wn tabs amlodipine 2.5 mg tablet 2.5 mg PO QAM 05/25/23 05/25/23 Unknown calcitriol 0.25 mcg capsule 0.25 mcg PO QAM 05/25/23 05/25/23 Unknown evolocumab 140 mg/mL subcutaneous 140 mg subcut UD 05/25/23 05/25/23 Unknown pen injector (Lenore Ramirezick) gabapentin 600 mg tablet 600 mg PO BID 05/25/23 05/25/23 Unknown Past Medical History Medical History Moderate pulmonary hypertension Allergy to perfume Atrophic kidney, acquired Asthma Kidney disease, chronic, stage III (GFR 30-59 ml/min) History of kidney stones Chronic anemia CAD (coronary artery disease) Hiatal hernia Spinal stenosis Moderate tricuspid regurgitation Dyslipidemia Restless legs syndrome (RLS) Multiple sclerosis GERD (gastroesophageal reflux disease) Osteoporosis Fibromyalgia History of peptic ulcer IBS (irritable bowel syndrome) HTN (hypertension) Hypothyroidism Patient denies h/o stroke, seizures, heart failure, DM, blood clots/DVTs or blood transfusions. Exercise / Class Metabolic Activity III < 4 Walking/Shop/Light housework (occasional shortness of breath with usual activities on flat surfaces-ongoing x years-gradually worsening over the past year; denies chest discomfort; ambulates with rolling walker) Past Family History Family History Sister FHx: colon cancer Uncle FHx: colon cancer Other No family history of adverse response to anesthesia No pertinent family history in first degree relatives Past Surgical History Surgical History History of bladder surgery History of cystoscopy History of colonoscopy History of carpal tunnel release S/P epidural steroid injection S/P lumbar spinal fusion S/P arthroscopy of right shoulder S/P shoulder replacement History of cardiac cath S/P ureteral stent placement History of heart artery stent H/O esophagogastroduodenoscopy S/P tonsillectomy S/P appendectomy S/P STONEY-BSO Past Anesthesia History No Family Hx of Anesthesia Complications and Other (patient reports is always administered nebulizer treatment prior to surgery) History of PONV No Hx of Motion Sickness and History of PONV (denies needing scop patch) Social History Smoking Status: Never smoker Do You Dip or Chew Tobacco: No Hx Alcohol Use: Yes alcohol intake frequency: holidays/special occasions only substance use type: does not use Review of Systems Patient denies chest pain, snoring, witnessed apneas, fever, chills, cough, wheezing, or palpitations. Physical Exam Vital Signs Vitals BP 162/81 P 68 TEMP 98.3 SP02 96% on RA RESP 17 Physical Patient resting comfortably in chair in no acute distress, alert and oriented, responding appropriately throughout visit Full cervical extension range of motion without pain TMD 3.5 finger breadths Mallampati Score 2 Dentition: one broken tooth-left lower side and right upper side permanent bridge; denies loose teeth, caps/crowns, or implants Lungs: normal respiratory effort. Good air movement, clear throughout to auscultation, no adventitious breath sounds Cardiac: regular rate and rhythm, no murmurs noted Carotid arteries: negative bruit bilat Lab Results Anesthesia Preop Results Results Anesthesia Widget: WBC 7.81 K/ul (4.8-10.8) 05/30/23 Hgb 10.6 g/dl (12.0-16.0) L 05/30/23 Hct 32.8 % (37.0-47.0) L 05/30/23 Plt 342 K/uL (130-400) 05/30/23 Na 140 mmol/L (136-145) 05/23/23 K 3.7 mmol/L (3.5-5.1) 05/23/23 Cl 103 mmol/L (98-107) 05/23/23 CO2 31 mmol/L (21-32) 05/23/23 BUN 15 mg/dl (6-23) 05/23/23 Creat 0.87 mg/dl (0.6-1.2) 05/23/23 Glucose Level 93 mg/dl (70-99(Fasting)) 05/23/23 PT 10.8 Seconds (9.0-12.0) 05/30/23 PTT 26 Seconds (21-31) 05/30/23 INR 1.0 (0.9-1.1) 05/30/23 Urine Color Yellow 05/23/23 Urine Appearance Clear (Clear) 05/23/23 Urine pH 6.5 (4.5-7.5) 05/23/23 Urine Specific [place] 1.012 (1.000-1.030) 05/23/23 Urine Protein Negative (Negative) 05/23/23 Urine Glucose (UA) Negative (Negative) 05/23/23 Urine Ketones Negative (Negative) 05/23/23 Urine Blood Negative (Negative) 05/23/23 Urine Nitrite Negative (Negative) 05/23/23 Urine Bilirubin Negative (Negative) 05/23/23 Urine Urobilinogen Negative (Negative) 05/23/23 Urine Leukocyte Esterase Trace (Negative) H 05/23/23 Urine WBC (Auto) 1-5 /hpf (0-5) 05/23/23 Urine RBC (Auto) 0-4 /hpf (0-4) 05/23/23 Urine Hyaline Casts (Auto) 1-5 /lpf (0-5) 05/23/23 Urine Epithelial Cells (Auto) 20-30 /lpf (0-5) H 05/23/23 Urine Bacteria (Auto) Negative (Negative) 05/23/23 Blood Type B Positive 05/30/23 Antibody Screen NEGATIVE 05/30/23 Testing Electrocardiogram Date: 08/18/22 NSR, rate 68 bpm Chest X-Ray Date: 01/18/23 No acute cardiopulmonary findings. Hiatal hernia. Echocardiogram Date: 01/12/23 EF 60-64% Borderline cLVH Normal LV wall motion Severely enlarged LA Moderately enlarged RA Moderate mitral regurgitation Moderate to severe tricuspid regurgitation Moderate pulmonary hypertension, PASP 48 mmHg
[2023-06-08] MEDS ORDERED: BUPIVACAINE 0.5 % 5 MG/1 ML PF 10ML VIAL ONE (06:32)
--- NOTE | 2023-06-08 06:54 | History & Physical Bridge Note ---
Date of Service June 08, 2023 History & Physical Bridge Note I have examined the patient, reviewed the History & Physical and in the interval since the performance of the History & Physical I have noted the following changes of clinical significance: no changes noted
[2023-06-08] MEDS: VANCOMYCIN HCL 1,000 MG/270 ML BAG IV SCH (07:27)
[2023-06-08] MEDS: LR 60ML/HR IV SCH (07:27)
[2023-06-08] MEDS: LR 500ML BOLUS, THEN 15ML/HR IV SCH (07:27)
[2023-06-08] MEDS: ACETAMINOPHEN 500 MG TAB PO SCH ×2 (07:43→15:09)
[2023-06-08] MEDS: dexAMETHasone**PF** 10 MG/ML VIAL IV SCH (07:43)
[2023-06-08] MEDS: CeleBREX 200 MG CAP PO SCH (07:43)
[2023-06-08] MEDS: METOCLOPRAMIDE HCL 10 MG TABLET PO SCH (07:44)
[2023-06-08] MEDS: FAMOTIDINE 20 MG TAB PO SCH (07:44)
[2023-06-08] MEDS: Scopolamine 1 MG TDSY TD SCH (07:45)
[2023-06-08] MEDS ORDERED: PROPOFOL IV EMULSION 10 MG/ML 20 ML VIAL IV ONE (08:01)
[2023-06-08] MEDS ORDERED: DEXAMETHASONE SOD INJ 4 MG/ML VIAL ONE (08:01)
[2023-06-08] MEDS ORDERED: ONDANSETRON INJ 2 MG/ML 2 ML VIAL ONE ×2 (08:01→09:50)
[2023-06-08] MEDS ORDERED: MIDAZOLAM HCL 1 MG/ML 2ML VIAL ONE (08:02)
[2023-06-08] MEDS ORDERED: fentaNYL citrate PF 100 MCG/2 ML VIAL ONE (08:02)
[2023-06-08] MEDS: ALBUTEROL 0.083% NEBU SOLN 3 ML VIAL INH STA (08:13)
[2023-06-08] MEDS ORDERED: ATROPINE SULFATE 0.1 MG/ML 10ML SYR IV PRN (08:20)
[2023-06-08] MEDS ORDERED: PROMETHAZINE HCL 6.25 MG in SODIUM CHLORIDE 0.9% 50 ML IV PRN (08:20)
[2023-06-08] MEDS ORDERED: ePHEDrine sulfate 50 MG/ML AMP IV PRN (08:20)
[2023-06-08] MEDS ORDERED: HYDROmorphone INJ 1 MG/ML SYRINGE IV PRN (08:20)
[2023-06-08] MEDS: TRANEXAMIC ACID 1,000 MG **IV Pre-op IV SCH (08:25)
[2023-06-08] MEDS: ONDANSETRON INJ 2 MG/ML 2 ML VIAL ONE (08:29)
[2023-06-08] MEDS: ONDANSETRON INJ 2 MG/ML 2 ML VIAL IV STA (08:30)
[2023-06-08] MEDS ORDERED: DexMEDEtomidine HCL IV 100 MCG/ML VIAL IV ONE (09:10)
[2023-06-08] MEDS: BUPIVACAINE/EPINEPHRINE 0.5% MPF 1:200,000 30 ML VIAL ONE (10:13)
[2023-06-08] MEDS: VANCOMYCIN HCL 1000MG/20ML VIAL ONE (10:14)
--- NOTE | 2023-06-08 11:08 | Operative Report ---
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 She had a bunch of cartilage and fibrous debris in her acetabulum. Moderate-sized joint effusion. Diffuse osteopenia. Specimens Left femoral head sent for pathology. Anesthesia Type Spinal MAC Complications none Disposition Accompanied Patient To Recovery: No Indications Patient is a 68-year-old female is had a several month history of a markedly progressive left hip pain discomfort unresponsive conservative measures. X-rays show complete collapse of her femoral head. She was markedly debilitated by the pain and discomfort having trouble to be mobilizing with assistance devices. She elected proceed with total hip arthroplasty. Description of Procedure Operative implants consist of: 1 Biomet G7 size 50 mm acetabular shell. 2. 6.5 cancellous acetabular screws 1 of 35 mm in length and 1 of 25 mm length. 3. Reydon hole hi lo driver. 4. Highly cross-linked polyethylene liner with a 50 mm outer diameter and 36 mm inner diameter. 5. DePuy [place] size 2 standard offset cemented femoral stem. 6. +5/36 mm ceramic articular ball. The patient was taken the operating, identified, placed on the operating table in the supine position. All contact areas were appropriately padded. IV antibiotics 5 by anesthesia team. Spinal anesthetic had been implemented holding area. A Silverman catheter was placed in sterile fashion. The patient then placed in the right lateral decubitus position. An axillary roll was placed. Distal Birkett position was used for positioning. Left hip and leg were then prepped and draped in usual sterile fashion. A posterolateral approach to the left hip was then performed to a curvilinear incision centered over the greater trochanter. Sharp dissection was carried through subcutaneous tissue down to level the IT band gluteal fascia. The IT band gluteal fascia incised longitudinally in line with skin incision. The underlying greater bursa was excised. The piriformis Rotators along with the posterior hip joint capsule were then released from the posterior aspect the hip as a single layer. Hip was internally rotated and dislocated. Femoral neck osteotomy cut was made with Final Cut about a centimeter above the lesser trochanter. Femoral head was removed and sent for pathology. The femur was retracted anteriorly. Attention drawn to the acetabulum. The acetabular labrum was excised. The pulmonary fat was excised. There was a bunch debris in the acetabular was needed to be excised. Sequential reaming the acetabular was then performed again with size 43 and progressing up to 49. We reamed a little bit with a 50 reamer and then placed a 50 mm Biomet G7 acetabular shell in about 40 degrees lateral opening and 20 degrees of anteversion. It was fixed with two 6.5 cancellous acetabular screws. Trial liner was placed. Attention drawn the femur. The proximal femur was entered with a ESCAPESwithYOU cutter followed by canal finder. I then broached beginning with size 1 and progressing to a 2. We got pretty good fit in the 2. We trialed the hip and the +5 articular ball provide full stability in full extension and external rotation and flexion to 90 degrees int marlee Pena over 50 degrees. Soft tissue tension seemed appropriate. Her leg lengths seemed equal. We elect to place these implants. All trial implants were removed. An apex hole hi lo driver was placed. Highly cross-linked polyethylene liner was placed. I cement restrictor was placed 14 cm down the canal. The canal was irrigated and cleaned. A double batch [place] G cement was mixed and injected in the canal. A size 2 standard offset cemented femoral stem was placed. Once the cement hardened a +5/36 mm ceramic articular ball was placed. Hip was located and once again found to be stable. Attention drawn after closing. Wound was irrigated coconuts pulsatile lavage solution. I did did inject locally with 60 cc of half percent Marcaine with epinephrine. The posterior capsule and extra rotators were then repaired through drill holes in the posterior trochanter with #2 Tycron suture. The IT band gluteal fascia then closed in 1 PDS suture in a running fashion. Subcutaneous tissues then closed with 2 layers the deep layer #1 Vicryl suture and subcutaneous tissues with 2 Dexon suture in a buried interrupted fashion. Skin was closed skin grayson. The leg was then cleaned and dried and a Prevena VAC dressing was applied. Patient was then transferred to the recovery room in stable condition. Patient tolerated the procedure well and there were no complications. Huy Melendez, my physician video production assistant, was present for the entire procedure. His assistance was essential and required for appropriate patient positioning, prepping and draping, surgical exposure, performing the technical details of the operation, placement the implants, closure of the wound, and placement of the sterile bandage. I attest to the content of the Intraoperative Record and any orders documented therein. Any exceptions are noted below.
[2023-06-08] MEDS ORDERED: MAGNESIUM HYDROXIDE SUSP 30 ML UDC PO PRN (13:03)
[2023-06-08] MEDS ORDERED: ONDANSETRON INJ 2 MG/ML 2 ML VIAL IV PRN (13:03)
[2023-06-08] MEDS ORDERED: NO NSAIDS SCH (13:03)
[2023-06-08] MEDS ORDERED: CLARITHROMYCIN 500 MG TAB PO PRN (13:03)
[2023-06-08] MEDS ORDERED: VANCOMYCIN CONSULT ACTIVE PRN (13:03)
[2023-06-08] MEDS ORDERED: bisacodyL 10 MG SUPP PR PRN (13:03)
[2023-06-08] MEDS ORDERED: NALOXONE HCL 0.4 MG/1 ML VIAL/CARP IV PRN (13:03)
[2023-06-08] MEDS ORDERED: NON-FORMULARY MEDICATION (Evolocumab [Repatha Sureclick] 140 mg/mL Pen Injector) SQ SCH (13:03)
[2023-06-08] MEDS ORDERED: ALUMINUM/MAGNESIUM SUSP 30 ML UDC PO PRN (13:03)
[2023-06-08] MEDS ORDERED: ALBUTEROL HFA 8 GM INHALER INH PRN (13:03)
[2023-06-08] MEDS ORDERED: NITROGLYCERIN SL 0.4 MG/TAB TAB SL PRN (13:03)
[2023-06-08] MEDS ORDERED: METOCLOPRAMIDE HCL INJ 5 MG/ML 2 ML VIAL IV PRN (13:03)
[2023-06-08] MEDS ORDERED: EPINEPHrine ADULT AUTO-INJECT 0.3 MG SYR IM PRN (13:03)
[2023-06-08] MEDS: SODIUM CHLORIDE 0.9% 1,000 ML IV SCH (13:47)
[2023-06-08] MEDS: [UNRECOGNIZED DRUG - OTHER] SCH (13:55)
--- OUTSIDE RECORDS SUMMARY | 2023-06-08 14:32 | External Medical Summary | Summary of Care ---
Author Name Unknown Organization [facility] Address [address] [place] [address] Phone [phone] Care Team Providers Care Sap Senior Developer Name Role Phone Terrance Craig MD Primary Care Provider [phone] Reason for Visit * Reason Comments eRx-Medication Refill Encounter Details Date Type Department Care Team (Late st Contact Info) Description 06/07/2023 Refill Neurology [facility] [address] [place] [address] Valentina Gilbert MD [address] [place] [address] RLS (restless legs syndrome) Allergies Active Allergy Reactions Criticality Noted Date Comments Laron Inhibitors Cough 09/04/2009 lisinopril Atorvastatin Muscle pain 05/17/2019 Latex Rash Medium 11/07/2018 Penicillins Edema airway,Hives High 01/07/1999 Pneumococcal Polysaccharides Edema Other 08/29/2008 Local swelling at injection site only Rosuvastatin Muscle pain 05/17/2019 Salicylates Nausea/vomiting 01/07/1999 Simvastatin Muscle pain 05/17/2019 Sulfa Antibiotics Hives 01/07/1999 Tetanus Toxoid Edema airway High 09/09/2010 Wound Dressing Adhesive 02/26/2022 Bandaids Yellow Jacket Venom 12/08/2020 documented as of this encounter (statuses as of 06/07/2023) Medications Medication Sig Dispensed Refills Start Date End Date Status LABETALOL HCL 200 MG PO TABSIndications:Hy pertensive heart disease 2 tablets twice daily 360 Tab 3 1 Active aspirin enteric coated 81 MG TBEC Take 1 Tablet by mouth in the morning. 0 Active Albuterol Sulfate (ALBUTEROL HFA) 108 (90 BASE) MCG/ACT inhaler Inhale 2 Puffs by mouth 4 times a day. 54 g 3 0 Active Premarin 0.625 MG/GM Vaginal Cream (Estrogens, Conjugated) Administer 0.5 g into the vagina once a day Tuesday and only. Use 0.5 g with applicator at bedtime 42.5 g 6 1 Active Calcitriol 0.25 MCG Oral Capsule (Rocaltrol) Take 1 Capsule by mouth in the morning. 0 Active Raloxifene HCl 60 MG Oral Tablet (Evista)Indication s:Generalized osteoarthritis TAKE 1 TABLET DAILY 90 Tablet 3 3 Active Nitroglycerin 0.4 MG Sublingual Tablet Sublingual (Nitrostat)Indicat ions:S/P angioplasty with stent,Coronary artery disease involving tanana coronary artery of tanana heart without angina pectoris,HTN, goal below 140/90 Place 1 Tablet under the tongue every 5 minutes as needed for Pain, Chest. up to 3 doses in 15 minutes 100 Tablet 5 3 Active Spironolactone 25 MG Oral Tablet (Aldactone)Indicat ions:HTN, goal below 140/90,S/P angioplasty with stent,Coronary artery disease involving tanana coronary artery of tanana heart without angina pectoris Take 1 Tablet by mouth in the morning. 90 Tablet 3 3 Active Gabapentin 300 MG Oral Capsule (Neurontin) Take 2 Capsules by mouth 2 times a day. Take 600mg at noon and 600mg 90 minutes before bed. 360 Capsule 3 3 Active Levothyroxine Sodium 150 MCG Oral Tablet (Levoxyl)Indicatio ns:Hypothyroidism, unspecified type TAKE 1 TABLET DAILY; AT LEAST 30 MINUTES PRIOR TO BREAKFAST OR OTHER MEDICATIONS. 90 Tablet 3 3 Active Pantoprazole Sodium 40 MG Oral Tablet Delayed Release (Protonix) TAKE 1 TABLET EVERY MORNINGAND 1 TABLET BEFORE BEDTIME 180 Tablet 1 3 Active Naloxone HCl 4 MG/0.1ML Nasal Liquid (Narcan Nasal) Administer 1 spray into 1 nostril for suspected opioid overdose. Seek immediate medical attention. [email or web address] 1 Each 3 3 Active Isosorbide Mononitrate ER 30 MG Oral Tablet Extended Release 24 Hour (Imdur)Indications :Dyslipidemia, goal LDL below 70,HTN, goal below 140/90,S/P angioplasty with stent,Coronary artery disease involving tanana coronary artery of tanana heart without angina pectoris Take 2 Tablets by mouth in the morning. 180 Tablet 3 3 Active amLODIPine Besylate 2.5 MG Oral Tablet (Norvasc) Take 1 Tablet by mouth in the morning. 90 Tablet 11 3 Active Furosemide 40 MG Oral Tablet (Lasix) TAKE 1 TABLET TWICE A DAY 180 Tablet 1 3 Active Clarithromycin 500 MG Oral Tablet (Biaxin)Indication s:Mitral valve disorder TAKE 1 TABLET 1 HOUR BEFORE DENTIST 3 Tablet 2 3 Active oxyCODONE HCl 5 MG Oral Tablet (Oxy IR)Indications:Ost eoarthrosis, hip,Avascular necrosis (HCC) Take 1 Tablet by mouth every 6 hours as needed for Pain, Breakthrough. 12 Tablet 0 3 Active traMADol HCl 50 MG Oral Tablet (Ultram)Indication s:Osteoarthrosis, hip,Avascular necrosis (HCC) Take 1 Tablet by mouth every 6 hours as needed for Pain, Severe. Alternating with oxy for pain control 30 Tablet 0 3 Active Nirmatrelvir&Riton avir 300/100 20 x 150 MG & 10 x 100MG Oral Tablet Therapy Pack (Paxlovid (300/100)) Take 2 pink tablets of Nirmatrelvir and 1 white tablet of Ritonavir two times a day by mouth. 30 Tablet 0 3 Active Nirmatrelvir&Riton avir 300/100 20 x 150 MG & 10 x 100MG Oral Tablet Therapy Pack (Paxlovid (300/100))Indicati ons:COVID-19 virus infection Take 2 pink tablets of Nirmatrelvir and 1 white tablet of Ritonavir two times a day by mouth. 30 Tablet 0 3 Active Repatha SureClick 140 MG/ML Subcutaneous Solution Auto-injector (evolocumab) Inject 140 mg (1 pen) under the skin every 14 days. Remove from refrigerator 30 minutes prior to injection. 6 mL 3 4 Active EPINEPHrine 0.3 MG/0.3ML Injection Solution Auto-injector (Autoinjector) FOR A SEVERE REACTION: PLACE ORANGE END AGAINST THE OUTER THIGH, PRESS FIRMLY, HOLD IN PLACE FOR 10 SECONDS AND GO TO THE EMERGENCY ROOM. 2 Each 2 4 Active Carbidopa-Levodopa ER 50-200 MG Oral Tablet Extended Release (Sinemet CR) TAKE 1 TABLET DAILY 90 Tablet 3 4 Active Carbidopa-Levodopa 25-100 MG Oral Tablet (Sinemet) Take 1 Tablet by mouth in the morning and 1 Tablet at noon and 1 Tablet before bedtime. 270 Tablet 1 4 Active Pravastatin Sodium 20 MG Oral Tablet (Pravachol)Indicat ions:Dyslipidemia, goal LDL below 70,HTN, goal below 140/90,S/P angioplasty with stent,Coronary artery disease involving tanana coronary artery of tanana heart without angina pectoris Take 1 Tablet by mouth in the morning. 90 Tablet 3 4 Active Neupro 6 MG/24HR Transdermal Patch 24 Hour (Rotigotine)Indica tions:RLS (restless legs syndrome) APPLY 1 PATCH ONCE DAILY 90 Patch 1 4 Active Neupro 6 MG/24HR Transdermal Patch 24 Hour (Rotigotine)Indica tions:RLS (restless legs syndrome) APPLY 1 PATCH ONCE DAILY 90 Patch 1 3 06/07/19 24 Discontinued Hospital, Clinic, or Other Facility Administered Medication Ordered Dose Route Frequency Start Date End Date Status albuterol sulfate (PROVENTIL) (2.5 MG/3ML) 0.083% inhalation solution 2.5 mgIndications:Wheeze,BRIONES (dyspnea on exertion) 2.5 mg NEBULIZER Q4H PRN 03/27/2017 Act anthony documented as of this encounter (statuses as of 06/07/2023) Active Problems Problem Noted Date Diagnosed Date ANDRÉS (stress urinary incontinence, female) 2021 Advanced directives, counseling/discussion 10/31 Chronic kidney disease, stage 3a 10/20/2020 Overview: Per CKD protocol Coronary artery disease invo lving tanana coronary artery of tanana heart without angina pectoris 06/11/2019 S/P angioplasty with stent 06/11/2019 Vaginal vault prolapse, posthysterectomy 019 Cystocele, lateral 11/08/2018 Hyperparathyroidism, unspecified 10/24/2018 HTN, goal below 140/90 10/24/2018 Fibromyalgia 10/03/2016 Restless leg syndrome 03/24/2012 Dyslipidemia, goal LDL below 70 09/23/2011 Esophageal reflux 02/27/2007 Multiple sclerosis 02/27/2007 Osteoporosis 05/25/2004 GENERAL OSTEOARTHROSIS 09/18/2002 Chronic allergic rhinitis 09/22/1999 Hypothyroidism CLASSICAL MIGRAINE WITHOU MENTION OF INTRACTABLE MIGRAINE documented as of this encounter (statuses as of 06/07/2023) Resolved Problems Problem Noted Date Diagnosed Date Resolved Date Prediabetes 03/23/2021 09/24/2021 Overview: Per Prediabetes protocol Coronary artery disease invo lving tanana coronary artery of tanana heart with angina pectoris 06/16/2020 05/28/2022 Stage 2 chronic kidney disease 10/08/2019 10/23/2020 Overview: Per CKD protocol Rectocele 11/08/2018 12/08/2018 Hypertensive kidney disease with chronic kidney disease stage III 10/24/2018 10/08/2019 ADVANCE DIRECTIVE INFORMATION 08/11/2018 10/24/2018 Overview: No, Advance Directive brochure given to patient at prior appointment. Kidney disease, chronic, sta ge III (GFR 30-59 ml/min) 02/24/2015 04/22/2016 Overview: Per CKD protocol #1 HTN, goal below 150/90 06/18/201410/24 Senile cataract 09/09/2010 10/24/2018 Adverse reaction to tetanus vaccine 09/09/2010 09/17/2016 Examination following surgery 11/10/2009 09/17/2016 HTN, goal below 130/80 03/04/200906/18 Overview: Modified per HTN protocol #16. Multiple sclerosis 11/13/2007 9 Overview: Resolved per Duplicate Protocol #2. 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 DYSFUNCT EUSTACHIAN TUBE, BILATERAL 09/22/1999 09/10/2016 HYPERTENSION NOS 03/04/2009 Overview: Modified per HTN protocol #16. Irritable bowel syndrome 12/2016 documented as of this encounter (statuses as of 06/07/2023) Immunizations Name Administration Dates Next Due COVID-19 mRNA, LNP-s, No Pre serve, 2-Dose Series (Moderna) 03/11/2021,06/12/2020,05/17/2020 Covid-19, Mrna, Lnp-s, Pf, B ivalent, 30 Mcg, IM, 12 yrs and above (Pfizer) 02/17/2022 Pneumococcal Conjugate Vacc, 13 Valent (Prevnar) 03/26/2015 Pneumococcal Polysaccharide PPV23 (Pneumovax) 08/27/2008 Season Influenza, Quad, PF, Adjuvanted, 65+ Yrs, IM (FLUAD) 01/25/2020 Seasonal Influenza, PF, 6 M & above, IM , (FluLaval or Fluzone) 01/09/2019,12/26/2017 Seasonal Influenza, Quadriva lent Hd (Fluzone Hd) 01/03/2023,12/17/2021,01/05/2021 Seasonal Influenza, Quadriva lent, No Preserve, IM 12/27/2016,01/14/2016,01/23/2015 01/13/2017 Seasonal Influenza, Split, I IV3, With Preserve, Inj 01/07/2014,01/25/2013,12/25/2011,01/09,01/19/2010,01/22/2009,02/09/20 07,02/10/2006 Varicella Zoster Vaccine (Adult) 09/13/2007 Zoster Vaccine Recombinant (Shingrix) 12/30/2019 ,10/27/2019 documented as of this encounter Social History Tobacco Use Types Packs/Day Years Used Date Smoking Tobacco: Never Smokeless Tobacco: Never Comments:No passive smoke ex posures Alcohol Use Standard Drinks/Week Comments No 0 (1 standard drink = 0.6 oz pur e alcohol) PHQ-2 Answer Date Recorded PHQ Adult Total Score 0 09/16/2022 Hunger Vital Sign Answer Date Recorded Within the past 12 months, y ou worried that your food would run out before you got the money to buy more. Never true 09/17/19 23 Within the past 12 months, t he food you bought just didn't last and you didn't have money to get more. Never true 09/16/2022 Sex and Gender Information Value Date Recorded Sex Assigned at Female 10/08/2021 7:46 PM EDT Gender Identity Female 10/08/2021 7:46 PM EDT Sexual Orientation Straight 10/24/2018 8: 15 AM EDT Job Start Date Occupation Industry Not on file Not on file Not on file documented as of this encounter Functional Status Functional Status Response Date of Assess ment Are you deaf or do you have serious difficulty h earing? No 03/02/2022 Are you blind or do you have serious difficulty seeing, even when wearing glasses? No 03/02/2022 Do you have serious difficul ty walking or climbing stairs? (5 years old or older) No 03/03/2022 Do you have difficulty dress ing or bathing? (5 years old or older) No 03/02/2022 Because of a physical, menta l, or emotional condition, do you have difficulty doing errands alone such as visiting a doctor s office or shopping? (15 years old or older) No 03/02/20 Cognitive Status Response Date of Assessm ent Because of a physical, menta l, or emotional condition, do you have serious difficulty concentrating, remembering, or making decisions? (5 years old or older) No 03/02/2022 documented as of this encounter Miscellaneous Notes * Telephone Encounter - Jai Nelson, [facility] - 06/07/2023 11:31 AM EST Signed Prescriptions: Disp Refills Neupro 6 MG/24HR Transdermal Patch 24 Hour*90 Pat*1 Sig: APPLY 1PATCH ONCE DAILYAuthorizing Provider: VALENTINA GILBERT User: JAI NELSON-------- * Telephone Encounter - Ophelia Falk two - 06/07/2023 4:14 AM ESTPending Prescriptions: Disp Refills Neupro 6 MG/24HR Transdermal Patch 24 Hour*90 Pat*1 Sig: APPLY 1 PATCH ONCE DAILY * Telephone Encounter - Ophelia Falk two - 06/07/2023 4:11 AM EST Did you pend patient's preferred pharmacy and medication before forwarding?yes [facility]acy[id number] Pending Prescriptions: Disp Refills Neupro 6 MG/24HR Transdermal Patch 24 Layo*90 Pat*1 Sig: APPLY 1 PATCH ONCE DAILY Last Visit: 01/03/2023 (in office), Visit date not found (telemedicine) Next Visit: 01/05/2024 If no future appointments scheduled, and last appointment is greater than a year ago, please schedule patient for a follow-up appointment Last date the medication was ordered: 12/27/2022 Is this request for a controlled substance?No Urine Drug Screen: Results for orders placed or performed in visit on 03/19/23 TOXICOLOGY, URINE SCREEN W/ CONFIRMATION Result Value Amphetamines Screen, U Negative Benzodiazepines Screen, U Negative Cannabinoids Screen, U Negative Cocaine Metabolite Screen, U Negative Fentanyl Screen, U Negative Hydrocodone Screen, U Negative Methadone Metabolite Screen, U Negative Morphine/Codeine Screen, U Negative Oxycodone Screen, U Negative Narrative Cutoff Concentrations: Drug Level Amphetamines 500 ng/mL Benzodiazepines 100 ng/mL Cannabinoids 50 ng/mL Cocaine Metabolite 150 ng/mL Fentanyl 1 ng/mL Hydrocodone / Hydromorphone 300 ng/mL Methadone Metabolite 100 ng/mL Morphine / Codeine 300 ng/mL Oxycodone / Oxymorphone 100 ng/mL Screening results are presumptive and can only be used for medical purposes. Positive screening results are reflexed to confirmatory testing. *Note: Due to a large number of results and/or encounters for the requested time period, some results have not been displayed. A complete set of results can be found in Results Review. Patient Phone Numbers Labs: Lab Results Component Value Date/Time CREAT 0.9 01/28/2023 01:32 PM CREAT 1.00 05/10/2022 12:00 AM CREAT 1.0 02/08/2020 11:37 AM POTASSIUM 4.3 01/28/2023 01:32 PM POTASSIUM 3.9 05/10/2022 12:00 AM POTASSIUM 4.1 02/08/2020 11:37 AM TSH 0.53 08/18/2022 02:16 PM TSH 0.27 01/01/2020 04:36 PM LDLCALC 56 09/28/2022 10:15 AM LDLCALC 141 (H) 03/28/2020 10:24 AM LDLDIRECT 64 08/18/2022 02:16 PM LDLDIRECT NOT APPLICABLE 03/28/2020 10:24 AM LDLDIRECT 161 (H) 11/14/2019 02:20 PM ALT 9 (L) 01/28/2023 01:32 PM ALT 13 02/08/2020 11:37 AM HGBA1C 5.5 08/18/2021 08:24 AM documented in this encounter Plan of Treatment Upcoming Encounters Date Type Department Care Team (Late st Contact Info) Description 08/11/2023 9:30 AM EDT Office Visit Cardiology, [address] [place] [address] Lani Ling, [place] [address] [place] [address] 08/16/2023 1:00 PM EDT Office Visit [facility] [address] [place] [phone] Pau Coyle DO [address] [place] [address] 10/07/2023 9:20 AM EDT Office Visit [facility] [address] [facility] [place] [phone] Terrance Craig MD [address] [place] [address] 01/05/2024 10:00 AM EDT Office Visit Neurology [facility] [address] [facility] [place], [place] [address] Valentina Gilbert MD [address] [facility] [place], [place] [address] Scheduled Procedures Name Priority Associated Diagnoses Date/Ti me COLONOSCOPY FLEXIBLE PROXIMA L DIAGNOSTIC Recall Family history of colorectal cancer Health Maintenance Due Date Last Done Comments Hepatitis C Screening 08/25/1963 COVID-19 Vaccine ( season) 2022 02/17/2022, 03/11/2021, 06/12/2020, Additional history exists COLONOSCOPY-EVERY 5 YRS AGES 18-100 01/23/2023 01/23/2018, 01/23/2018, 12/29/2012, Additional history exists *NEPHROLOGY REFERRAL DUE TO RESISTANT HTN 03/27/2023 CKD PHOS USE SMARTSET 29412 05/10/202304/13, 12/11/2019, 09/11/2018, Additional history exists GFR 07/30/2023 01/28/2023, 01/09, 11/03/2022, Additional history exists Albumin/Creatinine Ratio 08/19/2023 023, 03/13/2018, 01/22/2009 TSH 08/19/2023 08/18/2022, 08/09, 06/30/2021, Additional history exists Depression Screening 09/17/2023 09/16/2022 CKD HGB USE SMARTSET 26821 01/29/202401/28, 01/28/2023, 05/10/2022, Additional history exists Pneumococcal Vaccine: 65+ Years Completed 03/26/2015, 08/27/2008, 03/26/2003, Additional history exists Zoster Vaccines Completed 12/30/2019, 10/09, 09/13/2007 Influenza Vaccine (FLU shot) Completed , 12/17/2021, 01/05/2021, Additional history exists GARDASIL-HPV IMMUNIZATION SERIES Aged Out No longer eligible based on patient's age to complete this topic Hepatitis B Aged Out No longer eligi ble based on patient's age to complete this topic MENINGOCOCCAL (MENACTRA/MENVEO) Aged Out No longer eligible based on patient's age to complete this topic documented as of this encounter Medical Devices Implanted Type Area Business Specialist Device Identifier Shelf Expiration Date Model / Serial / Lot Yunior Jang [id number] - [id number] Implanted:Qty: 1 on 11/10/2009 at OR [facility] Right: Shoulder [employer] 09/09/2010 [id number] / / [id number] System Anchorsure 2 Sutures - [id number] Implanted:Qty: 1 on 11/07/2018 by Lobo Sweeney, DO at OR [facility] N/A: Vagina [employer] 04/12/2020 A-SURE / / [id number] Suture Anchorsure 2pk - [id number] Implanted:Qty: 1 on 11/07/2018 by Lobo Sweeney, DO at OR [facility] N/A: Vagina [employer] 06/26/2020 [id number] / / [id number] 8cm X 12cm Alpha Dermis Implanted:Qty: 1 on 11/07/2018 by Lobo Sweeney, DO at OR [facility] N/A: Vagina [employer] SWE[employer] MAY 03/10/2023 [id number] / [id number] / [id number] Sling Desara 1.1cm X 45cm - [id number] Implanted:Qty: 1 on 03/02/2022 by Milagros Olguin MD at OR [facility] [place] N/A: Urethra [employer] 10/22/2024 WAYLON-[id number] / / [id number] Y-Mesh 26 X 4 X 3 Cm - [id number] Implanted:Qty: 1 on 03/02/2022 by Milagros Olguin MD at OR [facility] [place] N/A: Pelvis [employer] 10/06/2026 [id number] / / [id number] Description:used for sacroco lpopexy documented as of this encounter Visit Diagnoses Diagnosis RLS (restless legs syndrome) Restless legs syndrome (RLS) documented in this encounter Advance Directives Latest Code Status on File Code Status Date Activated Date Inactivated Comments Full Code 03/02/2022 3:34 PM 03/03/2022 4:53 PM Thi s order reflects the patients wishes and were consensually agreed upon. Question Answer Comments Discussion of Advance Directives occurred with: Patient Code Status History Code Status Date Activated Date Inactivated Comments Full Code 11/07/2018 11:26 AM 11/08/2018 3:05 PM This order reflects the patients wishes and were consensually agreed upon. Full Code 11/10/2009 8:57 AM 11/10/2009 4:30 PM This or gladys reflects the patients wishes and were consensually agreed upon. Full Code 11/10/2009 7:03 AM 11/10/2009 8:57 AM This o rder reflects the patients wishes and were consensually agreed upon. Care Teams Sap Senior Developer Relationship Specialty Start Date End Date Terrance Craig MD [address] [place] [address] PCP - General 06/06/03 documented as of this encounter
--- OUTSIDE RECORDS SUMMARY | 2023-06-08 14:33 | External Medical Summary | Summary of Care ---
Author Name Unknown Organization [facility] Address [address] [place] [address] Phone [phone] Care Team Providers Care B2B Sales Representative Name Role Phone Terrance Craig MD Primary Care Provider [phone]- [phone] Reason for Visit * Reason Comments Status Check Return in 6 months Encounter Details Date Type Department Care Team (Latest Contact Info) Description 03/24/2023 2:20 PM EST Office Visit [facility] [address] [place] [address] Terrance Craig MD [address] [place] [address] Primary osteoarthritis of one hip, left*; Acquired hypothyroidism; Coronary artery disease involving [place] coronary artery of [place] heart without angina pectoris; HTN, goal below 140/90; Chronic kidney disease, stage 3a ([facility]); Age-related osteoporosis without current pathological fracture; Multiple sclerosis ([facility]) Allergies Active Allergy Reactions Criticality Noted Date [...] as of this encounter (statuses as of 06/06/2023) Medications Medication Sig Dispensed Refills Start Date [...] ions:S/P angioplasty with stent,Coronary artery disease involving [place] coronary artery of [place] heart without angina pectoris,HTN, goal below 140/90 Place 1 Tablet under the tongue every 5 minutes as needed for Pain, Chest. up to 3 doses in 15 minutes 100 Tablet 5 3 Active Spironolactone 25 MG Oral Tablet (Aldactone)Indicat ions:HTN, goal below 140/90,S/P angioplasty with stent,Coronary artery disease involving [place] coronary artery of [place] heart without angina pectoris Take 1 Tablet [...] OTHER MEDICATIONS. 90 Tablet 3 3 Active Neupro 6 MG/24HR Transdermal Patch 24 Hour (Rotigotine)Indica tions:RLS (restless legs syndrome) APPLY 1 PATCH ONCE DAILY 90 Patch 1 3 Active Pantoprazole Sodium 40 MG Oral Tablet Delayed Release (Protonix) TAKE 1 TABLET EVERY MORNINGAND 1 TABLET BEFORE BEDTIME 180 Tablet 1 3 Active Naloxone HCl 4 MG/0.1ML Nasal Liquid (Narcan Nasal) Administer 1 spray into 1 nostril for suspected opioid overdose. Seek immediate medical attention. [email or web address]? [email or web address] 1 Each 3 3 Active Isosorbide Mononitrate ER 30 MG Oral Tablet Extended Release 24 Hour (Imdur)Indications :Dyslipidemia, goal LDL below 70,HTN, goal below 140/90,S/P angioplasty with stent,Coronary artery disease involving [place] coronary artery of [place] heart without angina pectoris Take 2 Tablets [...] pain control 30 Tablet 0 3 Active Pravastatin Sodium 20 MG Oral Tablet (Pravachol)Indicat ions:Dyslipidemia, goal LDL below 70,HTN, goal below 140/90,S/P angioplasty with stent,Coronary artery disease involving [place] coronary artery of [place] heart without angina pectoris Take 1 Tablet by mouth in the morning. 90 Tablet 3 3 024 Discontinued(Re fill) Carbidopa-Levodopa ER 50-200 MG Oral Tablet Extended Release (Sinemet CR) TAKE 1 TABLET DAILY 90 Tablet 3 3 024 Discontinued Praluent 150 MG/ML Subcutaneous Solution Auto-injector (Alirocumab) INJECT UNDER THE SKIN 1 SYRINGE EVERY 14 DAYS . 6 mL 3 3 024 Discontinued(Fo rmulary/Cost) EpiPen 2-Evan 0.3 MG/0.3ML Injection Solution Auto-injector For a severe reaction: Place orange end against the outer thigh, press firmly, hold in place for 10 seconds and go to the Emergency room. 2 Each 2 3 024 Discontinued Carbidopa-Levodopa 25-100 MG Oral Tablet (Sinemet) TAKE 1 TABLET 3 TIMES A DAY 270 Tablet 1 3 024 Discontinued Hospital, Clinic, or Other Facility Administered Medication Ordered Dose Route Frequency Start Date End Date Status albuterol sulfate (PROVENTIL) (2.5 MG/3ML) 0.083% inhalation solution 2.5 mgIndications:Wheeze,BRIONES (dyspnea on exertion) 2.5 mg NEBULIZER Q4H PRN 03/27/2017 Act anthony documented as of this encounter (statuses as of 06/06/2023) Active Problems Problem Noted Date Diagnosed Date ANDRÉS (stress urinary incontinence, female) 2021 Advanced directives, counseling/discussion 10/31 Chronic kidney disease, stage 3a 10/20/2020 Overview: Per CKD protocol Coronary artery disease invo lving [place] coronary artery of [place] heart without angina pectoris 06/11/2019 S/P angioplasty [...] as of this encounter (statuses as of 06/06/2023) Resolved Problems Problem Noted Date Diagnosed Date Resolved Date Prediabetes 03/23/2021 09/24/2021 Overview: Per Prediabetes protocol Coronary artery disease invo lving [place] coronary artery of [place] heart with angina pectoris 06/16/2020 05/28/2022 Stage [...] HYPERTENSIVE CEREBROVASC DISEASE NEC 12/08/2004 02/27/2007 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 DYSFUNCT EUSTACHIAN TUBE, BILATERAL 09/22/1999 09/10/2016 HYPERTENSION NOS 03/04/2009 Overview: Modified per HTN protocol #16. Irritable bowel syndrome 12/2016 documented as of this encounter (statuses as of 06/06/2023) Immunizations Name Administration Dates Next Due COVID-19 mRNA, LNP-s, No Pre serve, 2-Dose Series (Moderna) 03/11/2021,06/12/2020,05/17/2020 Covid-19, Mrna, Lnp-s, Pf, B ivalent, 30 Mcg, IM, 12 yrs and above (Pfizer) 02/17/2022 Pneumococcal Conjugate Vacc, 13 Valent (Prevnar) 03/26/2015 Pneumococcal Polysaccharide PPV23 (Pneumovax) 08/27/2008,03/26/2003,06/06/1990 Season Influenza, Quad, PF, Adjuvanted, 65+ Yrs, IM (FLUAD) 01/25/2020 Seasonal Influenza, PF, 6 M & above, IM , (FluLaval or Fluzone) 01/09/2019,12/26/2017 Seasonal Influenza, Quadriva lent Hd (Fluzone Hd) 01/03/2023,12/17/2021,01/05/2021 Seasonal Influenza, Quadriva lent, No Preserve, IM 12/27/2016,01/14/2016,01/23/2015 01/13/2017 Seasonal Influenza, Split, I IV3, With Preserve, Inj 01/07/2014,01/25/2013,12/25/2011,01/09,01/19/2010,01/22/2009,02/09/20 07,02/10/2006,02/02/2005,02/19/2002,1 04/11/2000 Varicella Zoster Vaccine (Adult) 09/13/2007 Zoster Vaccine Recombinant (Shingrix) 12/30/2019 ,10/27/2019 documented as of this encounter Social History Tobacco Use Types Packs/Day Years Used Date Smoking Tobacco: Never Smokeless Tobacco: Never Tobacco Cessation:Counseling Given: Not Answered Comments:No passive smoke exposures Alcohol Use Standard Drinks/Week Comments No 0 (1 standard drink = 0.6 oz pur e alcohol) PHQ-2 Answer Date Recorded PHQ Adult Total Score 0 09/16/2022 Hunger Vital Sign Answer Date Recorded Within the past 12 months, y ou worried that your food would run out before you got the money to buy more. Never true 09/17/19 Within the past 12 months, t he [...] on file documented as of this encounter Last Filed Vital Signs Vital Sign Reading Time Taken Comments Blood Pressure 148/80 03/24/2023 2:05 PM EST Pulse 73 03/24/2023 2:05 PM EST Temperature 36.4 C (97.5 F) 03/24/2023 2:05 PM ES T Respiratory Rate 18 03/24/2023 2:05 PM EST Oxygen Saturation 97% 03/24/2023 2:05 PM EST Inhaled Oxygen Concentration - - Weight 65.3 kg (144 lb) 03/24/2023 2:05 PM EST Height 152.4 cm (5') 03/24/2023 2:05 PM EST Body Mass Index 28.12 03/24/2023 2:05 PM EST documented in this encounter Functional Status Functional Status Response [...] No 03/02/2022 documented as of this encounter Progress Notes * Terrance Craig MD - 03/24/2023 2:53 PM EST [facility] - [facility] - back, PT Subjective: Sylvie Wang is a 77 year old female here today for Chief Complaint Patient presents with Status Check Return in 6 months Pt presents for routine recheck. She has been found to have changes in the left hip with OA and femoral head collapse. She is scheduled to see Dr Betancourt in a week. Started on pain meds over the weekend. She reports some improvement with back pain with dry needling from PT. She is scheduled for interventional pain management procedure in Apr. Reviewed most recent cardiology notes. 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 COLONOSCOPY, DIAGNOSTIC (RECTUM) 12/29/2012 COLONOSCOPY FLEXIBLE PROXIMAL DIAGNOSTIC performed by Jose Moe MD at ENDOSCOPY [facility] COLONOSCOPY, DIAGNOSTIC (RECTUM) 01/23/2018 normal, repeat 5 yrs/COLONOSCOPY FLEXIBLE PROXIMAL DIAGNOSTIC performed by Jose Moe MD at ENDOSCOPY [facility] EGD, FLEXIBLE, DIAGNOSTIC 10/09/2014 Mildly tortouous distal esophagus/ESOPHAGOGASTRODUODENOSCOPY (EGD), FLEXIBLE, TRANSORAL, DIAGNOSTICperformed by Rosa Maria Sanchez MD at ENDOSCOPY [facility] EGD, FLEXIBLE, W/BIOPSY 03/23/07 mild stomach irritation INJECT DX/THER SUBSTANCE INTERLAMINAR LUMBAR/SACRAL W IMAGE GUIDE 03/20/2018 INJECTION SPINE LUMBAR OR SACRAL performed by Shiraz B Cousins, DO at OR [facility] INJECT DX/THER SUBSTANCE INTERLAMINAR LUMBAR/SACRAL W IMAGE GUIDE 06/19/2020 INJECTION SPINE LUMBAR OR SACRAL performed by Shiraz Lay, DO at OR [facility] INJECT DX/THER SUBSTANCE INTERLAMINAR LUMBAR/SACRAL W IMAGE GUIDE 08/07/2020 INJECTION SPINE LUMBAR OR SACRAL performed by Shiraz Lay, DO at OR [facility] INJECT DX/THER SUBSTANCE INTERLAMINAR LUMBAR/SACRAL W IMAGE GUIDE 01/08/2021 INJECTION SPINE LUMBAR OR SACRAL performed by Shiraz Lay, DO at OR [facility] INJECT DX/THER SUBSTANCE INTERLAMINAR LUMBAR/SACRAL W IMAGE GUIDE 11/11/2021 INJECTION SPINE LUMBAR OR SACRAL performed by Shiraz Lay, DO at OR [facility] INJECT DX/THER SUBSTANCE INTERLAMINAR LUMBAR/SACRAL W IMAGE GUIDE 07/21/2022 INJECTION SPINE LUMBAR OR SACRAL performed by Shiraz Lay, DO at OR [facility] INJECTION LUMBAR/SACRAL 03/25/2015 INJECTION SPINE LUMBAR OR SACRAL performed by Shiraz Lay, DO at OR [facility] INJECTION LUMBAR/SACRAL 04/08/2015 INJECTION SPINE LUMBAR OR SACRAL [facility] LAPAROSCOPY,SURG,COLPOPEXY N/A 03/02/2022 ROBOTIC LAPAROSCOPY SURGICAL COLPOPEXY performed by Milagros Olguin MD at OR [facility] LUMBAR / SACRAL EPIDURAL, SINGLE LEVEL 10/20/2022 INJECTION TRANSFORAMINAL EPIDURAL LUMBAR OR SACRAL performed by Shiraz Lay DO at OR [facility] PARAVAGINAL DEFECT REPAIR, VAGINAL N/A 11/07/2018 PARAVAGINAL DEFECT REPAIR VAGINAL APPROACH performed by Lobo Sweeney DO at OR [facility] PELVIC FLOOR DEFECT RPR,MESH,EACH N/A 11/07/2018 INSERTION OF MESH FOR REPAIR PELVIC FLOOR DEFECT performed by Lobo Sweeney DO at OR [facility] REMOVAL OF APPENDIX REMOVAL OF TONSILS, UNDER AGE 12 AGE 5 REPAIR BLADDER & VAGINA, CYSTOCELE N/A 03/02/2022 ANTERIOR COLPORRAPHY, REPAIR CYSTOCELE, CYSTO performed by Milagros Olguin MD at OR [facility] REPAIR BLADDER DEFECT N/A 03/02/2022 VAGINAL SLING PROCEDURE FOR STRESS INCONTINENCE performed by Milagros Olguin MD at OR [facility] REPAIR OF VAGINA CYSTOCELE AND RECTOCELE REPAIR OF VAGINAL PROLAPSE N/A 11/07/2018 COLPOPEXY VAGINAL EXTRA PERITONEAL APPROACH performed by Lobo Sweeney DO at OR [facility] REPAIR RECTUM & VAGINA, RECTOCELE N/A 11/07/2018 POSTERIOR COLPORRHAPHY performed by Lobo Sweeney DO at OR [facility] SACROILIAC JOINT INJECT W/GUIDANCE 01/27/2022 INJECTION SACROILIAC JOINT performed by Shiraz Lay DO at OR [facility] SHOULDER ARTHROSCOPY SURGERY 11/10/2009 ARTHROSCOPY SHOULDER DISTAL CLAVICLE RESECTION performed by iNchole LLOYD at OR [facility] SHOULDER ARTHROSCOPY/DECOMPRESSION 11/10/2009 ARTHROSCOPY SHOULDER SUBACROMIAL DECOMPRESSION performed by Nichole LLOYD at OR [facility] SPINE SURGERY PROCEDURE NEC 2015 TOTAL HYSTERECTOMY 1969 STONEY, BSO Review of patient's allergies indicates: Allergen Reactions Penicillins Edema airway and Hives Tetanus Toxoid Edema airway Latex Rash Laron Inhibitors Cough lisinopril Atorvastatin Muscle pain Pneumovax [Pneumococcal Polysaccharides] Edema Other Local swelling at injection site only Rosuvastatin Muscle pain Salicylates Nausea/vomiting Simvastatin Muscle pain Sulfa Antibiotics Hives Wound Dressing Adhesive Bandaids Yellow Jacket Venom Current Outpatient Medications Medication Sig Dispense Refill LABETALOL HCL 200 MG PO TABS 2 tablets twice daily 360 Tab 3 aspirin enteric coated 81 MG TBEC Take 1 Tablet by mouth in the morning. Albuterol Sulfate (ALBUTEROL HFA) 108 (90 BASE) MCG/ACT inhaler Inhale 2 Puffs by mouth 4 times a day. 54 g 3 Premarin 0.625 MG/GM Vaginal Cream (Estrogens, Conjugated) Administer 0.5 g into the vagina once a day Tuesday and only. Use 0.5 g with applicator at bedtime 42.5 g 6 Calcitriol 0.25 MCG Oral Capsule (Rocaltrol) Take 1 Capsule by mouth in the morning. Pravastatin Sodium 20 MG Oral Tablet (Pravachol) Take 1 Tablet by mouth in the morning. 90 Tablet 3 Carbidopa-Levodopa ER 50-200 MG Oral Tablet Extended Release (Sinemet CR) TAKE 1 TABLET DAILY 90 Tablet 3 Praluent 150 MG/ML Subcutaneous Solution Auto-injector (Alirocumab) INJECT UNDER THE SKIN 1 SYRINGEEVERY 14 DAYS . 6 mL 3 Raloxifene HCl 60 MG Oral Tablet (Evista) TAKE 1 TABLET DAILY 90 Tablet 3 EpiPen 2-Evan 0.3 MG/0.3ML Injection Solution Auto-injector For a severe reaction: Place orange end against the outer thigh, press firmly, hold in place for 10 seconds and go to the Emergency room. 2 Each 2 Nitroglycerin 0.4 MG Sublingual Tablet Sublingual (Nitrostat) Place 1 Tablet under the tongue every5 minutes as needed for Pain, Chest. up to 3 doses in 15 minutes 100 Tablet 5 Spironolactone 25 MG Oral Tablet (Aldactone) Take 1 Tablet by mouth in the morning. 90 Tablet 3 Gabapentin 300 MG Oral Capsule (Neurontin) Take 2 Capsules by mouth 2 times a day. Take 600mg at noon and 600mg 90 minutes before bed. 360 Capsule 3 Carbidopa-Levodopa 25-100 MG Oral Tablet (Sinemet) TAKE 1 TABLET 3 TIMES A DAY 270 Tablet 1 Levothyroxine Sodium 150 MCG Oral Tablet (Levoxyl) TAKE 1 TABLET DAILY; AT LEAST 30 MINUTES PRIOR TO BREAKFAST OR OTHER MEDICATIONS. 90 Tablet 3 Neupro 6 MG/24HR Transdermal Patch 24 Hour (Rotigotine) APPLY 1 PATCH ONCE DAILY 90 Patch 1 Pantoprazole Sodium 40 MG Oral Tablet Delayed Release (Protonix) TAKE 1 TABLET EVERY MORNINGAND 1 TABLET BEFORE BEDTIME 180 Tablet 1 Naloxone HCl 4 MG/0.1ML Nasal Liquid (Narcan Nasal) Administer 1 spray into 1 nostril for suspectedopioid overdose. Seek immediate medical attention. [email or web address]://[email or web address]/[email or web address]?[email or web address] 1 Each 3 Isosorbide Mononitrate ER 30 MG Oral Tablet Extended Release 24 Hour (Imdur) Take 2 Tablets by mouth in the morning. 180 Tablet 3 amLODIPine Besylate 2.5 MG Oral Tablet (Norvasc) Take 1 Tablet by mouth in the morning. 90 Tablet 11 Furosemide 40 MG Oral Tablet (Lasix) TAKE 1 TABLET TWICE A DAY 180 Tablet 1 Clarithromycin 500 MG Oral Tablet (Biaxin) TAKE 1 TABLET 1 HOUR BEFORE DENTIST 3 Tablet 2 oxyCODONE HCl 5 MG Oral Tablet (Oxy IR) Take 1 Tablet by mouth every 6 hours as needed for Pain, Breakthrough. 12 Tablet 0 traMADol HCl 50 MG Oral Tablet (Ultram) Take 1 Tablet by mouth every 6 hours as needed for Pain, Severe. Alternating with oxy for pain control 30 Tablet 0 Current Facility-Administered Medications Medication Dose Route Frequency Provider Last Rate Last Admin albuterol sulfate (PROVENTIL) (2.5 MG/3ML) 0.083% inhalation solution 2.5 mg 2.5 mg Nebulizer Q4H PRN Terrance Craig MD 2.5 mg at 04/22/17 1349 Objective: BP 148/80 | Pulse 73 | Temp 36.4 C (97.5 F) (Temporal Artery) | Resp 18 | Ht 1.524 m(5') | Wt 65.3 kg (144 lb) | SpO2 97% | BMI 28.12 kg/m | BSA 1.66 m GEN: NAD HEENT: Benign NECK: Supple with no LAD, TM, JVD CHEST: CTA B CV: RRR ABD: Soft, NT/ND, No HSM, NABS EXT: No c,c,e Assessment and Plan: Primary osteoarthritis of one hip, left (Primary) -upcoming eval by orthopaedics. -pt is anticipating upcoming hip replacement. She is requesting a hospital bed for the post-operative period. Her surgery will require position of the left leg to alleviate pain in a manner that is not feasible in an ordinary bed. Acquired hypothyroidism Coronary artery disease involving [place] coronary artery of [place] heart without angina pectoris HTN, goal below 140/90 Chronic kidney disease, stage 3a (HCC) Age-related osteoporosis without current pathological fracture Multiple sclerosis (HCC) -stable, continue current treatments Follow Up: Return in about 6 months (around 09/23/2023) for recheck. | For: recheck 36 min with pt and documentation Terrance Craig MD documented in this encounter Nursing Notes * Yarelis Smith LPN - 03/24/2023 2:05 PM EST The patient has been properly identified by confirmation of name and date of . Chief Complaint Patient presents with Status Check Return in 6 months documented in this encounter Plan of Treatment Upcoming Encounters Date Type Department Care Team (Late st Contact Info) Description 06/07/2023 10:40 AM EST Office Visit [facility] [address] [place] [facility] [place] [address] Toy Marrero MD [address] [place] [address] 08/11/2023 9:30 AM EDT Office Visit Cardiology, [facility] [address] [place] [address] Lani Ling PA-C [address] [place] [address] 08/16/2023 1:00 PM EDT Office Visit Sleep Disorders [facility] [address] [facility] [phone] Pau Coyle DO [address] [place] [address] 10/07/2023 9:20 AM EDT Office Visit [facility] [address] [place] [facility] [place] [address] Terrance Craig MD [address] [place] [address] 01/05/2024 10:00 AM EDT Office Visit Neurology [facility] [address] [facility] [place], [place] [address] Valentina Gilbert MD [address] [place] [address] Scheduled Procedures Name Priority Associated Diagnoses Date/Ti me COLONOSCOPY FLEXIBLE PROXIMA L DIAGNOSTIC Recall Family history of colorectal cancer Health Maintenance Due Date Last Done Comments Hepatitis C Screening 08/25/1963 COVID-19 Vaccine (2022- season) 2022 02/17/2022, 03/11/2021, 06/12/2020, Additional history exists COLONOSCOPY-EVERY 5 YRS AGES 18-100 01/23/2023 01/23/2018, 01/23/2018, 12/29/2012, Additional history exists *NEPHROLOGY REFERRAL DUE TO RESISTANT HTN 03/27/2023 CKD PHOS USE SMARTSET 99506 05/10/202304/13, 12/11/2019, 09/11/2018, Additional history exists GFR 07/30/2023 01/28/2023, 01/09, 11/03/2022, Additional history exists Albumin/Creatinine Ratio 08/19/2023 023, 03/13/2018, 01/22/2009 TSH 08/19/2023 08/18/2022, 08/09, 06/30/2021, Additional history exists Depression Screening 09/17/2023 09/16/2022 CKD HGB USE SMARTSET 80722 01/29/202401/28, 01/28/2023, 05/10/2022, Additional history exists Pneumococcal [...] this encounter Medical Devices Implanted Type Area Store Receiver Device Identifier Shelf Expiration Date Model / Serial / Lot Corkscrew Aut Anch [id number] - [id number] Implanted:Qty: 1 on 11/10/2009 at OR [facility] Right: Shoulder [employer] 09/09/2010 [id number] / / [id number] System Anchorsure 2 Sutures - [id number] Implanted:Qty: 1 on 11/07/2018 by Lobo Sweeney DO at OR [facility] N/A: Vagina [employer] 04/12/2020 A-SURE / / [id number] Suture Anchorsure 2pk - [id number] Implanted:Qty: 1 on 11/07/2018 by Lobo Sweeney DO at OR [facility] N/A: Vagina [employer] 06/26/2020 [id number] / / [id number] 8cm X 12cm [place] Dermis Implanted:Qty: 1 on 11/07/2018 by Lobo Sweeney DO at OR [facility] N/A: Vagina [employer] SWE[employer] MAY 03/10/2023 [id number] / [id number] / [id number] Sling Desara 1.1cm X 45cm - [id number] Implanted:Qty: 1 on 03/02/2022 by Milagros Olguin MD at OR [facility] N/A: Urethra [employer] 10/22/2024 [id number] / / [id number] Y-Mesh 26 X 4 X 3 Cm - [id number] Implanted:Qty: 1 on 03/02/2022 by Milagros Olguin MD at OR [facility] N/A: Pelvis [employer] 10/06/2026 [id number] / / [id number] Description:used for [place] lpopexy documented as of this encounter Visit Diagnoses Diagnosis Primary osteoarthritis of one hip, left- Primary Acquired hypothyroidism Unspecified hypothyroidism Coronary artery disease involving [place] coronary artery of [place] heart without angina pectoris HTN, goal below 140/90 Unspecified essential hypertension Chronic kidney disease, stage 3a (HCC) Age-related osteoporosis without current pathological fracture Senile osteoporosis Multiple sclerosis (HCC) Multiple sclerosis documented in this encounter Advance Directives Latest [...] 11/10/2009 7:03 AM 11/10/2009 8:57 AM This or gladys reflects the patients wishes and were consensually agreed upon. Care Teams B2B Sales Representative Relationship Specialty Start Date End Date Terrance Craig MD [address] [place] [address] PCP - General 06/06/03 documented as of this encounter"
--- OUTSIDE RECORDS SUMMARY | 2023-06-08 14:33 | External Medical Summary | Summary of Care ---
Author Name Unknown Organization [facility] Address [address] [place] [address] Phone [phone] Care Team Providers Care Communications Supervisor Name Role Phone Terrance Craig MD Primary Care Provider [phone]- [phone] Reason for Visit * Reason Onset Date Comments Medication Refill 05/31/2023 Encounter Details Date Type Department Care Team (Late st Contact Info) Description 05/31/2023 Refill Neurology [facility] [place] [address] [place] [address] Valentina Gilbert MD [address] [place] [facility] [place] [address] Allergies Active Allergy Reactions Criticality Noted Date [...] as of this encounter (statuses as of 06/01/2023) Medications Medication Sig Dispensed Refills Start Date End Date Status LABETALOL HCL 200 MG PO TABSIndications:Hyp ertensive heart disease 2 tablets twice daily 360 [...] Active Raloxifene HCl 60 MG Oral Tablet (Evista)Indications :Generalized osteoarthritis TAKE 1 TABLET DAILY 90 Tablet 3 3 Active Nitroglycerin 0.4 MG Sublingual Tablet Sublingual (Nitrostat)Indicati ons:S/P angioplasty with stent,Coronary artery disease involving [place] coronary artery of [place] heart without angina pectoris,HTN, goal below 140/90 Place 1 Tablet under the tongue every 5 minutes as needed for Pain, Chest. up to 3 doses in 15 minutes 100 Tablet 5 3 Active Spironolactone 25 MG Oral Tablet (Aldactone)Indicati ons:HTN, goal below 140/90,S/P angioplasty with stent,Coronary artery disease involving [place] coronary artery of [place] heart without angina pectoris Take 1 Tablet by mouth in the morning. 90 Tablet 3 3 Active Gabapentin 300 MG Oral Capsule (Neurontin) Take 2 Capsules by mouth 2 times a day. Take 600mg at noon and 600mg 90 minutes before bed. 360 Capsule 3 3 Active Levothyroxine Sodium 150 MCG Oral Tablet (Levoxyl)Indication s:Hypothyroidism, unspecified type TAKE 1 TABLET DAILY; AT LEAST 30 MINUTES PRIOR TO BREAKFAST OR OTHER MEDICATIONS. 90 Tablet 3 3 Active Neupro 6 MG/24HR Transdermal Patch 24 Hour (Rotigotine)Indicat ions:RLS (restless legs syndrome) APPLY 1 PATCH ONCE DAILY 90 Patch 1 3 Active Pantoprazole Sodium 40 MG Oral Tablet Delayed Release (Protonix) TAKE 1 TABLET EVERY MORNINGAND 1 TABLET BEFORE BEDTIME 180 Tablet 1 3 Active Naloxone HCl 4 MG/0.1ML Nasal Liquid (Narcan Nasal) Administer 1 spray into 1 nostril for suspected opioid overdose. Seek immediate medical attention. [email or web address] 1 Each 3 3 Active Isosorbide Mononitrate ER 30 MG Oral Tablet Extended Release 24 Hour (Imdur)Indications: Dyslipidemia, goal LDL below 70,HTN, goal below 140/90,S/P angioplasty with stent,Coronary artery disease involving [place] coronary artery of [place] heart without angina pectoris Take 2 Tablets by mouth in the morning. 180 Tablet 3 3 Active amLODIPine Besylate 2.5 MG Oral Tablet (Norvasc) Take 1 Tablet by mouth in the morning. 90 Tablet 11 3 Active Furosemide 40 MG Oral Tablet (Lasix) TAKE 1 TABLET TWICE A DAY 180 Tablet 1 3 Active Clarithromycin 500 MG Oral Tablet (Biaxin)Indications :Mitral valve disorder TAKE 1 TABLET 1 HOUR BEFORE DENTIST 3 Tablet 2 3 Active oxyCODONE HCl 5 MG Oral Tablet (Oxy IR)Indications:Oste oarthrosis, hip,Avascular necrosis (HCC) Take 1 Tablet by mouth every 6 hours as needed for Pain, Breakthrough. 12 Tablet 0 3 Active traMADol HCl 50 MG Oral Tablet (Ultram)Indications :Osteoarthrosis, hip,Avascular necrosis (HCC) Take 1 Tablet by mouth every 6 hours as needed for Pain, Severe. Alternating with oxy for pain control 30 Tablet 0 3 Active Nirmatrelvir&Ritona vir 300/100 20 x 150 MG & 10 x 100MG Oral Tablet Therapy Pack (Paxlovid (300/100)) Take 2 pink tablets of Nirmatrelvir and 1 white tablet of Ritonavir two times a day by mouth. 30 Tablet 0 3 Active Nirmatrelvir&Ritona vir 300/100 20 x 150 MG & 10 x 100MG Oral Tablet Therapy Pack (Paxlovid (300/100))Indicatio ns:COVID-19 virus infection Take 2 pink tablets of [...] Active Pravastatin Sodium 20 MG Oral Tablet (Pravachol)Indicati ons:Dyslipidemia, goal LDL below 70,HTN, goal below 140/90,S/P angioplasty with stent,Coronary artery disease involving [place] coronary artery of [place] heart without angina pectoris Take 1 Tablet by mouth in the morning. 90 Tablet 3 4 Active Carbidopa-Levodopa 25-100 MG Oral Tablet (Sinemet) TAKE 1 TABLET 3 TIMES A DAY 270 Tablet 1 4 05/31/19 24 Discontinu ed(Refill) Hospital, Clinic, or Other Facility Administered Medication Ordered Dose Route Frequency Start Date End Date Status albuterol sulfate (PROVENTIL) (2.5 MG/3ML) 0.083% inhalation solution 2.5 mgIndications:Wheeze,BRIONES (dyspnea on exertion) 2.5 mg NEBULIZER Q4H PRN 03/27/2017 Act anthony documented as of this encounter (statuses as of 06/01/2023) Active Problems Problem Noted Date Diagnosed Date ANDRÉS (stress urinary incontinence, female) 2021 Advanced directives, counseling/discussion 10/31 Chronic kidney disease, stage 3a 10/20/2020 Overview: Per CKD protocol Coronary artery disease invo lving yering[place] coronary artery of [place] heart without angina pectoris 06/11/2019 S/P angioplasty [...] as of this encounter (statuses as of 06/01/2023) Resolved Problems Problem Noted Date Diagnosed Date Resolved Date Prediabetes 03/23/2021 09/24/2021 Overview: Per Prediabetes protocol Coronary artery disease invo lving y[place] coronary artery of [place] heart with angina pectoris 06/16/2020 05/28/2022 Stage [...] HYPERTENSIVE CEREBROVASC DISEASE NEC 12/08/2004 02/27/2007 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 DYSFUNCT EUSTACHIAN TUBE, BILATERAL 09/22/1999 09/10/2016 HYPERTENSION NOS 03/04/2009 Overview: Modified per HTN protocol #16. Irritable bowel syndrome 12/2016 documented as of this encounter (statuses as of 06/01/2023) Immunizations Name Administration Dates Next Due COVID-19 [...] encounter Miscellaneous Notes * Telephone Encounter - Valentina Gilbert MD - 06/01/2023 10:02 AM ESTSigned Prescriptions: Disp Refills Carbidopa-Levodopa 25-100 MG Oral Tablet (*270 Ta*1 Sig: Take 1 Tablet by mouth in the morning and 1 Tablet at noon and 1 Tablet before bedtime. Authorizing Provider: VALENTINA GILBERT * Telephone Encounter - Brenda Dennison, ApnaPaisa - 06/01/2023 9:30 AM EST Pending Prescriptions: Disp Refills Carbidopa-Levodopa 25-100 MG Oral Tablet (*270 Ta*1 Sig: Take 1Tablet by mouth in the morning and 1 Tablet at noon and 1 Tablet before bedtime. documented in this encounter Plan of Treatment Upcoming Encounters Date Type Department Care Team (Late st Contact Info) Description 06/03/2023 9:00 AM EST Telemedicine [facility], [facility] [address] [address] Kristine Pinzon PA-C [address] [address] 08/11/2023 9:30 AM EDT Office Visit Cardiology, [facility] [address] [address] Lani Ling PA-C [address] [place] [address] 08/16/2023 1:00 PM EDT Office Visit Sleep Disorders Ctr [facility] [address] [phone] Pau Coyle, DO [address] [place] [address] 10/07/2023 9:20 AM EDT Office Visit [facility] [address] [place] [facility] [place] [phone] Terrance Craig MD [address] [place] [address] 01/05/2024 10:00 AM EDT Office Visit Neurology [facility] [address] [facility] [place] [address] Valent[facility] [address] [facility] [address] Scheduled Procedures Name Priority Associated Diagnoses Date/Ti [...] RESISTANT HTN 03/27/2023 CKD PHOS USE SMARTSET 34770 05/10/202304/13, 12/11/2019, 09/11/2018, Additional history exists GFR 07/30/2023 01/28/2023, 01/09, 11/03/2022, Additional history exists Albumin/Creatinine Ratio 08/19/2023 023, 03/13/2018, 01/22/2009 TSH 08/19/2023 08/18/2022, 08/09, 06/30/2021, Additional history exists Depression Screening 09/17/2023 09/16/2022 CKD HGB USE SMARTSET 80016 01/29/202401/28, 01/28/2023, 05/10/2022, Additional history exists Pneumococcal [...] this encounter Medical Devices Implanted Type Area Speeder Operator Device Identifier Shelf Expiration Date Model / Serial / Lot Yunior Jang [id number] - [id number] Implanted:Qty: 1 on 11/10/2009 at OR [facility] Right: Shoulder [employer] 09/09/2010 [id number] / / [id number] System Anchorsure 2 Sutures - [id number] Implanted:Qty: 1 on 11/07/2018 by Lobo Sweeney DO at OR [facility] N/A: Vagina [employer] 04/12/2020 A-SURE / / [id number] Suture Anchorsure 2pk - [id number] Implanted:Qty: 1 on 11/07/2018 by Lobo Sweeney DO at OR [facility] N/A: Vagina [employer] 06/26/2020 A-SURE02 / / [id number] 8cm X 12cm [place] Dermis Implanted:Qty: 1 on 11/07/2018 by Lobo Sweeney DO at OR [facility] N/A: Vagina COLOPLAST SWEEN MAY 03/10/2023 [id number] / [id number] / [id number] Sling Desara 1.1cm X 45cm - [id number] Implanted:Qty: 1 on 03/02/2022 by Milagros Olguin MD at [place] [facility] N/A: Urethra [employer] 10/22/2024 WAYLON-DS01 / / [id number] Y-Mesh 26 X 4 X 3 Cm - [id number] Implanted:Qty: 1 on 03/02/2022 by Milagros Olguin MD at [place] [facility] N/A: Pelvis [employer] 10/06/2026 [id number] / / [id number] Description:used for sacroco lpopexy documented as of this encounter Advance Directives Latest Code Status [...] and were consensually agreed upon. Care Teams Communications Supervisor Relationship Specialty Start Date End Date Terrance Craig MD [address] [place] [address] PCP - General 06/06/03 documented as of this encounter
--- OUTSIDE RECORDS SUMMARY | 2023-06-08 14:33 | External Medical Summary | Summary of Care ---
Author Name Unknown Organization [facility] Address [address] [place] [address] Phone [phone] Care Team Providers Care Horse Doctor Name Role Phone Terrance Craig MD Primary Care Provider [phone]- [phone] Reason for Visit * Reason Onset Date Comments Order Request 06/01/2023 Encounter Details Date Type Department Care Team (Late st Contact Info) Description 06/01/2023 Telephone [facility] [address] [place] [address] Terrance Craig MD [address] [place] [address] Order Request Allergies Active Allergy Reactions Criticality Noted Date [...] as of this encounter (statuses as of 06/03/2023) Medications Medication Sig Dispensed Refills Start Date End Date Status LABETALOL HCL 200 MG PO TABSIndications:Hype rtensive heart disease 2 tablets twice daily 360 Tab 3 09/04/2010 Active aspirin enteric coated 81 MG TBEC Take 1 Tablet by mouth in the morning. 0 Active Albuterol Sulfate (ALBUTEROL HFA) 108 (90 BASE) MCG/ACT inhaler Inhale 2 Puffs by mouth 4 times a day. 54 g 3 10/08/2019 Active Premarin 0.625 MG/GM Vaginal Cream (Estrogens, Conjugated) Administer 0.5 g into the vagina once a day Tuesday and only. Use 0.5 g with applicator at bedtime 42.5 g 6 12/29/2020 Active Calcitriol 0.25 MCG Oral Capsule (Rocaltrol) Take 1 Capsule by mouth in the morning. 0 Active Raloxifene HCl 60 MG Oral Tablet (Evista)Indications: Generalized osteoarthritis TAKE 1 TABLET DAILY 90 Tablet 3 07/05/2022 Active Nitroglycerin 0.4 MG Sublingual Tablet Sublingual (Nitrostat)Indicatio ns:S/P angioplasty with stent,Coronary artery disease involving [place] coronary artery of [place] heart without angina pectoris,HTN, goal below 140/90 Place 1 Tablet under the tongue every 5 minutes as needed for Pain, Chest. up to 3 doses in 15 minutes 100 Tablet 5 09/16/2022 Active Spironolactone 25 MG Oral Tablet (Aldactone)Indicatio ns:HTN, goal below 140/90,S/P angioplasty with stent,Coronary artery disease involving mechoop[place] coronary artery of [place] heart without angina pectoris Take 1 Tablet by mouth in the morning. 90 Tablet 3 10/18/2022 Active Gabapentin 300 MG Oral Capsule (Neurontin) Take 2 Capsules by mouth 2 times a day. Take 600mg at noon and 600mg 90 minutes before bed. 360 Capsule 3 11/19/2022 Active Levothyroxine Sodium 150 MCG Oral Tablet (Levoxyl)Indications :Hypothyroidism, unspecified type TAKE 1 TABLET DAILY; AT LEAST 30 MINUTES PRIOR TO BREAKFAST OR OTHER MEDICATIONS. 90 Tablet 3 12/21/2022 Active Neupro 6 MG/24HR Transdermal Patch 24 Hour (Rotigotine)Indicati ons:RLS (restless legs syndrome) APPLY 1 PATCH ONCE DAILY 90 Patch 1 12/27/2022 Active Pantoprazole Sodium 40 MG Oral Tablet Delayed Release (Protonix) TAKE 1 TABLET EVERY MORNINGAND 1 TABLET BEFORE BEDTIME 180 Tablet 1 01/07/2023 Active Naloxone HCl 4 MG/0.1ML Nasal Liquid (Narcan Nasal) Administer 1 spray into 1 nostril for suspected opioid overdose. Seek immediate medical attention. [email or web address] 1 Each 3 01/28/2023 Active Isosorbide Mononitrate ER 30 MG Oral Tablet Extended Release 24 Hour (Imdur)Indications:D yslipidemia, goal LDL below 70,HTN, goal below 140/90,S/P angioplasty with stent,Coronary artery disease involving mechoop[place] coronary artery of [place]op[place] heart without angina pectoris Take 2 Tablets by mouth in the morning. 180 Tablet 3 02/09/2023 Active amLODIPine Besylate 2.5 MG Oral Tablet (Norvasc) Take 1 Tablet by mouth in the morning. 90 Tablet 11 02/09/2023 Active Furosemide 40 MG Oral Tablet (Lasix) TAKE 1 TABLET TWICE A DAY 180 Tablet 1 02/16/2023 Active Clarithromycin 500 MG Oral Tablet (Biaxin)Indications: Mitral valve disorder TAKE 1 TABLET 1 HOUR BEFORE DENTIST 3 Tablet 2 02/24/2023 Active oxyCODONE HCl 5 MG Oral Tablet (Oxy IR)Indications:Osteo arthrosis, hip,Avascular necrosis (HCC) Take 1 Tablet by mouth every 6 hours as needed for Pain, Breakthrough. 12 Tablet 0 03/19/2023 Active traMADol HCl 50 MG Oral Tablet (Ultram)Indications: Osteoarthrosis, hip,Avascular necrosis (HCC) Take 1 Tablet by mouth every 6 hours as needed for Pain, Severe. Alternating with oxy for pain control 30 Tablet 0 03/19/2023 Active Nirmatrelvir&Ritonav ir 300/100 20 x 150 MG & 10 x 100MG Oral Tablet Therapy Pack (Paxlovid (300/100)) Take 2 pink tablets of Nirmatrelvir and 1 white tablet of Ritonavir two times a day by mouth. 30 Tablet 0 04/01/2023 Active Nirmatrelvir&Ritonav ir 300/100 20 x 150 MG & 10 x 100MG Oral Tablet Therapy Pack (Paxlovid (300/100))Indication s:COVID-19 virus infection Take 2 pink tablets of Nirmatrelvir and 1 white tablet of Ritonavir two times a day by mouth. 30 Tablet 0 04/01/2023 Active Repatha SureClick 140 MG/ML Subcutaneous Solution Auto-injector (evolocumab) Inject 140 mg (1 pen) under the skin every 14 days. Remove from refrigerator 30 minutes prior to injection. 6 mL 3 04/13/2023 Active EPINEPHrine 0.3 MG/0.3ML Injection Solution Auto-injector (Autoinjector) FOR A SEVERE REACTION: PLACE ORANGE END AGAINST THE OUTER THIGH, PRESS FIRMLY, HOLD IN PLACE FOR 10 SECONDS AND GO TO THE EMERGENCY ROOM. 2 Each 2 04/23/2023 Active Carbidopa-Levodopa ER 50-200 MG Oral Tablet Extended Release (Sinemet CR) TAKE 1 TABLET DAILY 90 Tablet 3 05/16/2023 Active Carbidopa-Levodopa 25-100 MG Oral Tablet (Sinemet) Take 1 Tablet by mouth in the morning and 1 Tablet at noon and 1 Tablet before bedtime. 270 Tablet 1 06/01/2023 Active Pravastatin Sodium 20 MG Oral Tablet (Pravachol)Indicatio ns:Dyslipidemia, goal LDL below 70,HTN, goal below 140/90,S/P angioplasty with stent,Coronary artery disease involving [place] coronary artery of [place] heart without angina pectoris Take 1 Tablet by mouth in the morning. 90 Tablet 3 05/31/2023 Active Hospital, Clinic, or Other Facility Administered Medication Ordered Dose Route Frequency Start Date End Date Status albuterol sulfate (PROVENTIL) (2.5 MG/3ML) 0.083% inhalation solution 2.5 mgIndications:Wheeze,BRIONES (dyspnea on exertion) 2.5 mg NEBULIZER Q4H PRN 03/27/2017 Act anthony documented as of this encounter (statuses as of 06/03/2023) Active Problems Problem Noted Date Diagnosed Date ANDRÉS (stress urinary incontinence, female) 2021 Advanced directives, counseling/discussion 10/31 Chronic kidney disease, stage 3a 10/20/2020 Overview: Per CKD protocol Coronary artery disease invo lving mechoop[place] coronary artery of [place] heart without angina pectoris 06/11/2019 S/P angioplasty [...] as of this encounter (statuses as of 06/03/2023) Resolved Problems Problem Noted Date Diagnosed Date Resolved Date Prediabetes 03/23/2021 09/24/2021 Overview: Per Prediabetes protocol Coronary artery disease invo lving [place]cho[place] coronary artery of [place] heart with angina pectoris 06/16/2020 05/28/2022 Stage [...] per HTN protocol #16. Multiple sclerosis 11/13/2007 Overview: Resolved per Duplicate Protocol #2. 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 DYSFUNCT EUSTACHIAN TUBE, BILATERAL 09/22/1999 09/10/2016 HYPERTENSION NOS 03/04/2009 Overview: Modified per HTN protocol #16. Irritable bowel syndrome 12/2016 documented as of this encounter (statuses as of 06/03/2023) Immunizations Name Administration Dates Next Due COVID-19 [...] encounter Miscellaneous Notes * Telephone Encounter - Alma Villegas OSA - 06/03/2023 8:48 AM EST Done. 06/03/2023 * Telephone Encounter - Fabby Herman OSA - 06/02/2023 5:44 PM EST Patient called and I gave her the message there are no appt showing. She is having the surgery on and needs the bed by then. Please call her with an appt time if that is what she needs. * Telephone Encounter - Anita Tipton LPN - 06/02/2023 12:30 PM EST Please assist pt with scheduling appt to discuss * Telephone Encounter - Terrance Craig MD - 06/01/2023 5:20 PM EST She will need OV to discuss. Will need to provide the [facility] office notes that indicate that she meets medicare guidelines. * Telephone Encounter - Anita Tipton LPN - 06/01/2023 3:09 PM EST Okay for DME? * Telephone Encounter - Smitha Martinez OSA - 06/01/2023 2:50 PM EST An order was requested for this patient. Name of Requesting Provider: Patient Order Requested: hospital bed Diagnosis/Reason for Request: surgery If order request is for Mammogram: Is the patient having any breast symptoms? N/A Is there a chance of ? N/A Has the patient had any breast problems in the past? NA What location AND department does the patient wish to have their order completed at? [facility] Fax Number, if applicable: If the caller is not a current patient, please advise the patient to call their current PCP to havethe order's prior to being seen in our office. The patient was informed that our providers would not order anything (medication, labs, etc.) prior to being seen. documented in this encounter Plan of Treatment Upcoming Encounters Date Type Department Care Team (Late st Contact Info) Description 06/07/2023 10:40 AM EST [facility] [place] [address] [facility] [phone] Toy Marrero MD [address] [place] [facility] [place] [address] 08/11/2023 9:30 AM EDT Office Visit Cardiology, [facility] [address] [facility] [place] [address] Lani Ling PA-C [address] [place] [address] 08/16/2023 1:00 PM EDT Office Visit Sleep Disorders Ctr [facility] [address] [place] [phone] Pau Coyle DO [address] [place] [address] 10/07/2023 9:20 AM EDT [facility] [place] [address] [facility] [address] Terrance Craig MD [address] [facility] [id number] 01/05/2024 10:00 AM EDT Office Visit Neurology [place] [address] [facility] [address] [place] [address] Valentina Gilbert MD [address] [place] [address] Scheduled Procedures Name Priority Associated Diagnoses Date/Ti [...] RESISTANT HTN 03/27/2023 CKD PHOS USE SMARTSET 05306 05/10/202304/13, 12/11/2019, 09/11/2018, Additional history exists GFR 07/30/2023 01/28/2023, 01/09, 11/03/2022, Additional history exists Albumin/Creatinine Ratio 08/19/2023 023, 03/13/2018, 01/22/2009 TSH 08/19/2023 08/18/2022, 08/09, 06/30/2021, Additional history exists Depression Screening 09/17/2023 09/16/2022 CKD HGB USE SMARTSET 37394 01/29/202401/28, 01/28/2023, 05/10/2022, Additional history exists Pneumococcal [...] this encounter Medical Devices Implanted Type Area Customer Service Sales Consultant Device Identifier Shelf Expiration Date Model / Serial / Lot Yunior Jang [id number] - [id number] Implanted:Qty: 1 on 11/10/2009 at OR [facility] Right: Shoulder [employer] 09/09/2010 AR-1925BF / / [id number] System Anchorsure 2 Sutures - [id number] Implanted:Qty: 1 on 11/07/2018 by Lobo Sweeney, DO at OR [facility] N/A: Vagina [employer] 04/12/2020 A-SURE / / [id number] Suture Anchorsure 2pk - [id number] Implanted:Qty: 1 on 11/07/2018 by Lobo Sweeney, DO at OR [facility] N/A: Vagina [employer] 06/26/2020 A-SURE02 / / [id number] 8cm X 12cm [place] Dermis Implanted:Qty: 1 on 11/07/2018 by Lobo Sweeney, DO at OR [facility] N/A: Vagina COLOPLAST SWEEN MAY 03/10/2023 [id number] / [id number] / [id number] Sling Desara 1.1cm X 45cm - [id number] Implanted:Qty: 1 on 03/02/2022 by Milagros Olguin MD at OR [facility] N/A: Urethra [employer] 10/22/2024 WAYLON-DS01 / / [id number] Y-Mesh 26 X 4 X 3 Cm - [id number] Implanted:Qty: 1 on 03/02/2022 by Milagros Olguin MD at OR [facility] N/A: Pelvis [employer] 10/06/2026 WAYLON-VLY26 [id number] / / [id number] Description:used for sacroco lpopexy documented as of [...] and were consensually agreed upon. Care Teams Horse Doctor Relationship Specialty Start Date End Date Terrance Craig MD [address] [place] [address] PCP - General 06/06/03 documented as of this encounter
--- OUTSIDE RECORDS SUMMARY | 2023-06-08 14:33 | External Medical Summary | Summary of Care ---
Author Name Unknown Organization [facility] Address [address] [place] [address] Phone [phone] Care Team Providers Care On Car Supervisor Name Role Phone Terrance Craig MD Primary Care Provider [phone] Reason for Visit * Reason Comments Lumbar Pain W/radiation Encounter Details Date Type Department Care Team (Late st Contact Info) Description 06/03/2023 9:00 AM [facility] Telemedicine Interventional [facility], [facility] [address] [place] [id number] Kristine Pinzon PA-C [address] [place] [phone] Lumbar radicular pain*; Spinal stenosis of lumbar region with neurogenic claudication; History of lumbar fusion Allergies Active Allergy Reactions Criticality Noted Date [...] ns:S/P angioplasty with stent,Coronary artery disease involving red [place] coronary artery of [place] heart without angina pectoris,HTN, goal below 140/90 Place 1 Tablet under the tongue every 5 minutes as needed for Pain, Chest. up to 3 doses in 15 minutes 100 Tablet 5 09/16/2022 Active Spironolactone 25 MG Oral Tablet (Aldactone)Indicatio ns:HTN, goal below 140/90,S/P angioplasty with stent,Coronary artery disease involving red lake coronary artery of [place] heart without angina pectoris Take 1 Tablet [...] suspected opioid overdose. Seek immediate medical attention. [email or web address] 1 Each 3 01/28/2023 Active Isosorbide Mononitrate ER 30 MG Oral Tablet Extended Release 24 Hour (Imdur)Indications:D yslipidemia, goal LDL below 70,HTN, goal below 140/90,S/P angioplasty with stent,Coronary artery disease involving red [place] coronary artery of [place] heart without angina pectoris Take 2 Tablets [...] 140/90,S/P angioplasty with stent,Coronary artery disease involving [place] coronary artery of [place] heart without angina pectoris Take 1 Tablet [...] CKD protocol Coronary artery disease invo lving red lake coronary artery of [place] heart without angina pectoris 06/11/2019 S/P angioplasty [...] Prediabetes protocol Coronary artery disease invo lving red lake coronary artery of [place] heart with angina pectoris 06/16/2020 05/28/2022 Stage [...] HYPERTENSIVE CEREBROVASC DISEASE NEC 12/08/2004 02/27/2007 ABN TRAFFIC SIGNAL SUPERVISOR MAINTENANCE FUNCT STUDY NOS 12/08/200402/09 FIBROMYALGIA 09/18/2002 10/03/2016 [...] as of this encounter Progress Notes * Kristine Pinzon PA-C - 06/03/2023 9:04 AM EST Name: Sylvie Wang Date: 06/03/2023 After connecting to the patient via telephone, the patient was identified by name and date of . Patient was then informed that this was a telephone call only visit. The patient agreed to participate. Visit Disposition: Routine follow-up Total call duration seven minutes. HPI: Sylvie Wang is a 77 year old female known to the Pain Management clinic presents for follow up after left L4 TF MARY on 04/22/23. Admits no pain reduction and unfortunately felt the injection was very painful. She does not want to pursue further injections. Also notes upcoming XI next week with Dr. Betancourt. Notes soreness in lumbosacral area when sitting. Baseline LE weakness. Denies progressive LE radicular pain or paresthesia. Denies bowel/bladder dysfunction. Hx TF MARY, caudal MARY and SI joint injections. 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 ([facility])06/16/2020 Cystocele, lateral 11/08/2018 Dyslipidemia, goal LDL below 70 09/23/2011 FIBROMYALGIA Generalized osteoarthritis GERD (gastroesophageal reflux disease) HTN, goal to be determined Hyperparathyroidism, unspecified ([facility]) 10/24/2018 Hypothyroidism Irritable bowel syndrome Migraine with aura Multiple sclerosis ([facility]) Optic neuropathy Osteoporosis Other cataract 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 COLONOSCOPY, DIAGNOSTIC (RECTUM) 12/29/2012 COLONOSCOPY FLEXIBLE PROXIMAL DIAGNOSTIC performed by Jose Moe MD at ENDOSCOPY [facility] COLONOSCOPY, DIAGNOSTIC (RECTUM) 01/23/2018 normal, repeat 5 yrs/COLONOSCOPY FLEXIBLE PROXIMAL DIAGNOSTIC performed by Jose Moe MD at ENDOSCOPY [facility] EGD, FLEXIBLE, DIAGNOSTIC 10/09/2014 Mildly tortouous distal esophagus/ESOPHAGOGASTRODUODENOSCOPY (EGD), FLEXIBLE, TRANSORAL, DIAGNOSTICperformed by Rosa Maria Sanchez MD at ENDOSCOPY [facility] EGD, FLEXIBLE, W/BIOPSY 03/23/07 mild stomach [...] by Shiraz Lay, DO at OR [facility] LAPAROSCOPY,SURG,COLPOPEXY N/A 03/02/2022 ROBOTIC LAPAROSCOPY SURGICAL COLPOPEXY performed by Milagros Olguin MD at OR [facility] LUMBAR / SACRAL EPIDURAL, SINGLE LEVEL 10/20/2022 INJECTION TRANSFORAMINAL EPIDURAL LUMBAR OR SACRAL performed by Shiraz Lay, DO at OR [facility] LUMBAR / SACRAL EPIDURAL, SINGLE LEVEL 04/22/2023 INJECTION TRANSFORAMINAL EPIDURAL LUMBAR OR SACRAL performed by Cuong Schwarz DO at OR [facility] PARAVAGINAL DEFECT REPAIR, VAGINAL N/A 11/07/2018 PARAVAGINAL DEFECT REPAIR VAGINAL APPROACH performed by Lobo Sweeney DO at OR [facility] PELVIC FLOOR DEFECT RPR,MESH,EACH N/A 11/07/2018 INSERTION OF MESH FOR REPAIR PELVIC FLOOR DEFECT performed by Lobo Sweeney DO at OR [facility] REMOVAL OF APPENDIX REMOVAL OF TONSILS, UNDER AGE 12 AGE 3 REPAIR BLADDER & VAGINA, CYSTOCELE N/A 03/02/2022 ANTERIOR COLPORRAPHY, REPAIR CYSTOCELE, CYSTO performed by Milagros Olguin MD at OR [facility] REPAIR BLADDER DEFECT N/A 03/02/2022 VAGINAL SLING PROCEDURE FOR STRESS INCONTINENCE performed by Milagros Olguin MD at OR [facility] REPAIR OF VAGINA CYSTOCELE AND RECTOCELE REPAIR OF VAGINAL PROLAPSE N/A 11/07/2018 COLPOPEXY VAGINAL EXTRA PERITONEAL APPROACH performed by Lobo Sweeney DO at OR [facility] REPAIR RECTUM & VAGINA, RECTOCELE N/A 11/07/2018 POSTERIOR COLPORRHAPHY performed by Lobo Sweeney DO at OR [facility] SACROILIAC JOINT INJECT W/GUIDANCE 01/27/2022 INJECTION SACROILIAC JOINT performed by Shiraz Lay DO at OR [facility] SHOULDER ARTHROSCOPY SURGERY 11/10/2009 ARTHROSCOPY SHOULDER DISTAL CLAVICLE RESECTION performed by Nichole LLOYD at OR [facility] SHOULDER ARTHROSCOPY/DECOMPRESSION 11/10/2009 ARTHROSCOPY SHOULDER SUBACROMIAL DECOMPRESSION performed by Nichole LLOYD at OR [facility] SPINE SURGERY PROCEDURE NEC 2015 TOTAL HYSTERECTOMY 1970 STONEY, BSO Current Outpatient Medications Medication Sig Dispense Refill [...] 1 Capsule by mouth in the morning. Raloxifene HCl 60 MG Oral Tablet (Evista) TAKE 1 TABLET DAILY 90 Tablet 3 Nitroglycerin 0.4 MG Sublingual Tablet Sublingual (Nitrostat) [...] 90 minutes before bed. 360 Capsule 3 Levothyroxine Sodium 150 MCG Oral Tablet (Levoxyl) [...] for suspectedopioid overdose. Seek immediate medical attention. [email or web address] 1 Each 3 Isosorbide Mononitrate ER 30 [...] oxy for pain control 30 Tablet 0 Nirmatrelvir&Ritonavir 300/100 20 x 150 MG & 10 x 100MG Oral Tablet Therapy Pack (Paxlovid (300/100)) Take 2 pink tablets of Nirmatrelvir and 1 white tablet of Ritonavir two times a day by mouth. 30 Tablet 0 Nirmatrelvir&Ritonavir 300/100 20 x 150 MG & 10 x 100MG Oral Tablet Therapy Pack (Paxlovid (300/100)) Take 2 pink tablets of Nirmatrelvir and 1 white tablet of Ritonavir two times a day by mouth. 30 Tablet 0 Repatha SureClick 140 MG/ML Subcutaneous Solution Auto-injector (evolocumab) Inject 140 mg (1 pen) under the skin every 14 days. Remove from refrigerator 30 minutes prior to injection. 6 mL 3 EPINEPHrine 0.3 MG/0.3ML Injection Solution Auto-injector (Autoinjector) FOR A SEVERE REACTION: PLACE ORANGE END AGAINST THE OUTER THIGH, PRESS FIRMLY, HOLD IN PLACE FOR 10 SECONDS AND GO TO THE EMERGENCY ROOM. 2 Each 2 Carbidopa-Levodopa ER 50-200 MG Oral Tablet Extended Release (Sinemet CR) TAKE 1 TABLET DAILY 90 Tablet 3 Carbidopa-Levodopa 25-100 MG Oral Tablet (Sinemet) Take 1 Tablet by mouth in the morning and 1 Tablet at noon and 1 Tablet before bedtime. 270 Tablet 1 Pravastatin Sodium 20 MG Oral Tablet (Pravachol) Take 1 Tablet by mouth in the morning. 90 Tablet 3 Current Facility-Administered Medications Medication Dose Route Frequency Provider Last Rate Last Admin albuterol sulfate (PROVENTIL) (2.5 MG/3ML) 0.083% inhalation solution 2.5 mg 2.5 mg Nebulizer Q4H PRN Terrance Craig MD 2.5 mg at 04/22/17 1349 Review of patient's allergies indicates: Allergen Reactions Penicillins Edema airway and Hives Tetanus Toxoid Edema airway Latex Rash Laron Inhibitors Cough lisinopril Atorvastatin Muscle pain Pneumovax [Pneumococcal Polysaccharides] Edema Other Local swelling at injection site only Rosuvastatin Muscle pain Salicylates Nausea/vomiting Simvastatin Muscle pain Sulfa Antibiotics Hives Wound Dressing Adhesive Bandaids Yellow Jacket Venom ASSESSMENT: Lumbar radicular pain Spinal stenosis with neurogenic claudication S/P lumbar decompression and fusion RECOMMENDATION: No relief with left L4 TF MARY. Declines further injections, unfortunately fel this last procedure as very painful. Denies progressive LE radicular pain, paresthesia or weakness. Upcoming XI due to AVN. Declines scheduling follow up. Total call duration seven minutes. Kristine Pinzon PA-C 06/03/2023 documented in this encounter Plan of Treatment Upcoming Encounters Date Type Department Care Team (Late st Contact Info) Description 06/07/2023 10:40 AM EST Office Visit [facility] Ana Padillaefonte [address] [place] [phone] Toy Marrero MD [address] [place] [phone] 08/11/2023 9:30 AM EDT Office Visit Cardiology, [facility] [address] [facility] [place] [address] Lani Ling, PAClaireC [address] [place] [address] 08/16/2023 1:00 PM EDT Office Visit [facility] [address] [place] [phone] Pau Coyle DO [address] [place] [phone] 10/07/2023 9:20 AM EDT Office Visit [facility] [address] [place] [phone] Terrance Craig MD [address] [place] [address] 01/05/2024 10:00 AM EDT Office Visit Neurology [facility] [address] [facility] [place] [address] Valentina Gilbetr MD [address] [facility] [place] [address] Scheduled Procedures Name Priority Associated Diagnoses Date/Ti [...] RESISTANT HTN 03/27/2023 CKD PHOS USE SMARTSET 97074 05/10/202304/13, 12/11/2019, 09/11/2018, Additional history exists GFR 07/30/2023 01/28/2023, 01/09, 11/03/2022, Additional history exists Albumin/Creatinine Ratio 08/19/2023 023, 03/13/2018, 01/22/2009 TSH 08/19/2023 08/18/2022, 08/09, 06/30/2021, Additional history exists Depression Screening 09/17/2023 09/16/2022 CKD HGB USE SMARTSET 57209 01/29/202401/28, 01/28/2023, 05/10/2022, Additional history exists Pneumococcal [...] this encounter Medical Devices Implanted Type Area Tractor Trailer Driver Device Identifier Shelf Expiration Date Model / Serial / Lot Yunior Jang [id number] - [id number] Implanted:Qty: 1 on 11/10/2009 at OR [facility] Right: Shoulder [employer] 09/09/2010 [id number] / / [id number] System Anchorsure 2 Sutures - [id number] Implanted:Qty: 1 on 11/07/2018 by Lobo Sweeney, DO at OR [facility] N/A: Vagina [employer] 04/12/2020 A-SURE / / [id number] Suture Anchorsure 2pk - [id number] Implanted:Qty: 1 on 11/07/2018 by Lobo Seweney, DO at OR [facility] N/A: Vagina [employer] 06/26/2020 [id number] / / [id number] 8cm X 12cm [place] Dermis Implanted:Qty: 1 on 11/07/2018 by Lobo Sweeney, DO at OR [facility] N/A: Vagina [employer] SWE[employer] MAY 03/10/2023 [id number] / [id number] / [id number] Sling Desara 1.1cm X 45cm - [id number] Implanted:Qty: 1 on 03/02/2022 by Milagros Olguin MD at OR [facility] N/A: Urethra [employer] 10/22/2024 [id number] / / [id number] Y-Mesh 26 X 4 X 3 Cm - [id number] Implanted:Qty: 1 on 03/02/2022 by Milagros Olguin MD at OR [facility] N/A: Pelvis [employer] 10/06/2026 [id number] / / [id number] Description:used for sacroco lpopexy documented as of this encounter Visit Diagnoses Diagnosis Lumbar radicular pain- Primary Thoracic or lumbosacral neuritis or radiculitis, unspecified Spinal stenosis of lumbar region with neurogenic claudication Spinal stenosis, lumbar region, with neurogenic claudication History of lumbar fusion documented in this encounter Advance Directives Latest [...] and were consensually agreed upon. Care Teams On Car Supervisor Relationship Specialty Start Date End Date Terrance Craig MD [address] [place] [address] PCP - General 06/06/03 documented as of this encounter
--- NOTE | 2023-06-08 15:28 | XRay Report ---
SINGLE VIEW PELVIS; SINGLE VIEW LEFT HIP CLINICAL HISTORY: Postoperative examination. FINDINGS: An AP portable view of the hips and pelvis with a crosstable lateral portable view of the l eft hip are compared to study dated 10/06/2021. A bipolar left hip arthroplasty is in near-anatomic al ignment. At least 2 cortical lag screws transfix the acetabular cup. No acute fracture is identified. There are expected postoperative changes overlying the left hip including skin clips, subcutaneous g as, and soft tissue swelling. Fusion hardware is noted at the lumbosacral junction. A Silverman catheter is in place. IMPRESSION: Expected postoperative findings status post left hip arthroplasty. No acute fracture is s een. ACT 112: Negative or not required by law. Electronically signed by: Gage Sr M.D. 06/08/2023 3:27 PM
[2023-06-08] MEDS: traMADol HCL 50 MG TABLET PO PRN (16:35)
[2023-06-08] MEDS: Scopolamine CHECK PATCH PLACEMENT SCH (16:39)
[2023-06-08] MEDS: TRANEXAMIC ACID / 0.7% NACL 1,000 MG/100 ML BAG IV SCH (17:21)
[2023-06-08] MEDS: ASCORBIC ACID 500 MG TAB PO SCH (17:27)
[2023-06-08] MEDS: FUROSEMIDE 40 MG TAB PO SCH (17:28)
[2023-06-08] MEDS: CARBIDOPA/LEVODOPA 25/100MG TAB PO SCH (17:28)
[2023-06-08] MEDS: PRAVASTATIN SOD 20 MG TAB PO SCH (17:28)
[2023-06-08] MEDS: [UNRECOGNIZED DRUG - REMARK] SCH (20:00)
[2023-06-08] MEDS: SENNA 8.6 MG TAB PO SCH (20:05)
[2023-06-08] MEDS: GABAPENTIN 600 MG TAB PO SCH (20:05)
[2023-06-08] MEDS: PANTOprazole 40 MG TAB PO SCH (20:05)
[2023-06-08] MEDS: LABETALOL HCL 200 MG TAB PO SCH (20:05)
[2023-06-08] MEDS: DOCUSATE SODIUM 100 MG CAP PO SCH (20:05)
[2023-06-08] MEDS: ASPIRIN 81 MG ECTAB PO SCH (20:06)
[2023-06-08] MEDS: ROTIGOTINE PATCH TD SCH (20:06)
[2023-06-08] MEDS: CARBIDOPA/LEVODOPA 50/200MG EXT REL TAB PO SCH (20:06)
[2023-06-08] MEDS: VANCOMYCIN HCL 1,000 MG in SODIUM CHLORIDE 0.9% 250 ML IV SCH (20:09)
[2023-06-08] MEDS: HYDROmorphone INJ 0.5 MG/0.5 ML SYR IV PRN ×2 (20:16→23:21)
[2023-06-08] MEDS ORDERED: SENNA 8.6 MG TAB PO SCH (21:00)
[2023-06-09] MEDS: LEVOTHYROXINE SODIUM 150 MCG TABLET PO SCH (06:19)
--- NOTE | 2023-06-09 07:14 | Surgery Progress Note ---
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 She is doing okay. Intermittent bouts of pain but that responds the pain medicine. Her hips located. She is neurologically intact. Plan: 1. DVT prophylaxis including thigh-high teds, SCDs, aspirin twice a day. 2. PT/OT. As she can fully weight-bear as tolerated. Needs to obey hip precautions. 3. Pain control doing okay with current pain regimen. 4. Disposition she is decided she wants to go to rehab. Will start working on that. She is orthopedically okay anytime for rehab once arrangements can be made. Admission and Anticipated Discharge Date Admission Date: June 08, 2023 Subjective 77-year-old female postop day 1 from a left hybrid total hip replacement. She is doing pretty well. Evidence of moderate amount of pain intermittently but the pain medicine seems to be working. No chest pain or shortness of breath. Not feeling dizzy or lightheaded. She is decided she wants to try to look into going to rehab. Physical Exam Physical Exam: Physical exam shows a pleasant elderly female. She is sitting up in her bedside chair and looks pretty comfortable. Examination left hip reveals the Prevena VAC dressing in place. Thigh is soft and supple. She is neurologically intact. Respiratory: normal respiratory effort, lungs clear to auscultation Cardiovascular: RRR, no murmur, no edema Gastrointestinal (Abdomen): normal bowel sounds, soft, nontender, no hepatosplenomegaly Results & Data Vital Signs (Past 12 Hours) Vital Signs Temp Pulse Resp BP Pulse Ox O2 Del Method 06/09/23 03:38 36.3 C L 67 18 150/79 H 94 Room Air 06/08/23 23:51 Room Air 06/08/23 23:16 36.3 C L 71 18 148/71 H 96 Room Air 06/08/23 19:43 36.5 C 72 18 154/79 H 94 Room Air Laboratory Results Lab results are pending PG Care Time/CCT Total # of Minutes Spent Total Time Spent with Patient: Total time spent is greater than 50% in coordination of care (as documented) at patient's floor/unit and/or counseling patient: Coding Level of Care Code 85294 Post Operative Follow-Up Diagnoses Status post left hip replacement Z96.642
[2023-06-09 07:17] LABS: Basophils # (auto) 0.03 K/uL (0.00-0.20); Basophils % (auto) 0.2 %; Eosinophils # (auto) 0.02 K/uL (0.00-0.50); Eosinophils % (auto) 0.2 %; Hematocrit (blood only) 28.3 % (37.0-47.0); Immature Granulocytes # (auto) 0.07 K/uL (0.01-0.20); Immature Granulocytes % (auto) 0.5 %; Lymphocytes % (auto) 21.4 %; Mean Corpuscular Hemoglobin 27.9 pg (25.0-34.0); Mean Corpuscular Hgb Conc 31.8 g/dL (32.0-36.0); Mean Corpuscular Volume 87.6 fL (80.0-100.0); Mean Platelet Volume 8.8 fL (9.4-12.4); Monocytes # (auto) 1.18 K/uL (0.11-0.59); Neutrophils % (auto) 68.7 %; Platelet Count 276 K/uL (130-400); RDW Coefficient of Variation 15.5 % (11.5-14.5); Red Blood Count 3.23 M/uL (4.20-5.40)
[2023-06-09 07:47] LABS: Calcium 8.8 mg/dl (8.6-10.3); Est GFR (African American) 87.9 ml/min; Est GFR (Non-African American) 75.8 ml/min; Potassium 3.6 mmol/L (3.5-5.1)
[2023-06-09] MEDS: amLODIPine BESYLATE 5 MG TAB PO SCH (08:02)
[2023-06-09] MEDS: CALCITRIOL 0.25 MCG CAPSULE PO SCH (08:03)
[2023-06-09] MEDS: MULTIVITAMIN TAB PO SCH (08:03)
[2023-06-09] MEDS: SPIRONOLACTONE 25 MG TAB PO SCH (08:03)
[2023-06-09] MEDS: ISOSORBIDE MONO EXTENDED REL 30 MG TABCR PO SCH (08:03)
[2023-06-09] MEDS: PREMARIN VAG CRM 14 APPLN/30 GM TUBE PV SCH (08:05)
--- OUTSIDE RECORDS SUMMARY | 2023-06-09 16:25 | External Medical Summary | Summary of Care ---
Author Name Unknown Organization [facility] Address [address] [place] [address] Phone [phone] Care Team Providers Care Universal Banker Name Role Phone Sonja Braun MD Primary Care Provider [phone] Reason for Visit * Reason Comments eRx-Medication Refill Encounter Details Date Type Department Care Team (Late st Contact Info) Description 06/07/2023 Refill [facility] [address] [place] [address] Sonja Braun MD [address] [place] [address] GENERAL OSTEOARTHROSIS Allergies Active Allergy Reactions Criticality Noted Date [...] as of this encounter (statuses as of 06/08/2023) Medications Medication Sig Dispensed Refills Start Date [...] by mouth in the morning. 0 Active Nitroglycerin 0.4 MG Sublingual Tablet Sublingual (Nitrostat)Indicat ions:S/P angioplasty with stent,Coronary artery disease involving [place] coronary artery of [place] heart without angina pectoris,HTN, goal below 140/90 Place 1 Tablet under the tongue every 5 minutes as needed for Pain, Chest. up to 3 doses in 15 minutes 100 Tablet 5 3 Active Spironolactone 25 MG Oral Tablet (Aldactone)Indicat ions:HTN, goal below 140/90,S/P angioplasty with stent,Coronary artery disease involving [place] coronary artery of [place] heart without angina pectoris Take 1 Tablet [...] suspected opioid overdose. Seek immediate medical attention. [email or web address] 1 Each 3 3 Active Isosorbide Mononitrate ER 30 MG Oral Tablet Extended Release 24 Hour (Imdur)Indications :Dyslipidemia, goal LDL below 70,HTN, goal below 140/90,S/P angioplasty with stent,Coronary artery disease involving [place] coronary artery of [place] heart without angina pectoris Take 2 Tablets [...] 140/90,S/P angioplasty with stent,Coronary artery disease involving [place] coronary artery of [place] heart without angina pectoris Take 1 Tablet by mouth in the morning. 90 Tablet 3 4 Active Raloxifene HCl 60 MG Oral Tablet (Evista)Indication s:Generalized osteoarthritis TAKE 1 TABLET DAILY 90 Tablet 3 4 Active Neupro 6 MG/24HR Transdermal Patch 24 Hour (Rotigotine)Indica tions:RLS (restless legs syndrome) APPLY 1 PATCH ONCE DAILY 90 Patch 1 4 Active Raloxifene HCl 60 MG Oral Tablet (Evista)Indication s:Generalized osteoarthritis TAKE 1 TABLET DAILY 90 Tablet 3 3 06/08/19 24 Discontinued Hospital, Clinic, or Other Facility Administered Medication Ordered Dose Route Frequency Start Date End Date Status albuterol sulfate (PROVENTIL) (2.5 MG/3ML) 0.083% inhalation solution 2.5 mgIndications:Wheeze,BRIONES (dyspnea on exertion) 2.5 mg NEBULIZER Q4H PRN 03/27/2017 Act anthony documented as of this encounter (statuses as of 06/08/2023) Active Problems Problem Noted Date Diagnosed Date ANDRÉS (stress urinary incontinence, female) 2021 Advanced directives, counseling/discussion 10/31 Chronic kidney disease, stage 3a 10/20/2020 Overview: Per CKD protocol Coronary artery disease invo lving [place] coronary artery of [place] heart without angina pectoris 06/11/2019 S/P angioplasty [...] as of this encounter (statuses as of 06/08/2023) Resolved Problems Problem Noted Date Diagnosed Date Resolved Date Prediabetes 03/23/2021 09/24/2021 Overview: Per Prediabetes protocol Coronary artery disease invo lving [place] coronary artery of [place] heart with angina pectoris 06/16/2020 05/28/2022 Stage [...] HYPERTENSIVE CEREBROVASC DISEASE NEC 12/08/2004 02/27/2007 ABN ICE CREAM SCOOPER FUNCT STUDY NOS 12/08/200402/09 FIBROMYALGIA 09/18/2002 10/03/2016 Mixed dyslipidemia 07/04/2002 12/200 9 Overview: Per Lipid Taxonomy. DYSFUNCT EUSTACHIAN TUBE, BILATERAL 09/22/1999 09/10/2016 HYPERTENSION NOS 03/04/2009 Overview: Modified per HTN protocol #16. Irritable bowel syndrome 12/2016 documented as of this encounter (statuses as of 06/08/2023) Immunizations Name Administration Dates Next Due COVID-19 [...] 7:46 PM EDT Sexual Orientation Straight 10/24/2018 8 :15 AM EDT Job Start Date Occupation Industry [...] encounter Miscellaneous Notes * Telephone Encounter - Sonja Braun MD - 06/08/2023 12:45 PM ESTSigned Prescriptions: Disp Refills Raloxifene HCl 60 MG Oral Tablet (Evista) 90 Tab*3 Sig: TAKE 1 TABLET DAILYAuthorizing Provider: SONJA BRAUN * Telephone Encounter - Anita Tipton LPN - 06/08/2023 9:04 AM ESTPending Prescriptions: Disp Refills Raloxifene HCl 60 MG Oral Tablet [Pharmacy*90 Tab*3 Sig: TAKE 1 TABLET DAILY * Telephone Encounter - Ophelia Falk - 06/07/2023 2:21 PM ESTPending Prescriptions: Disp Refills Raloxifene HCl 60 MG Oral Tablet [Pharmacy*90 Tab*3 Sig: TAKE 1TABLET DAILY documented in this encounter Plan of Treatment Upcoming Encounters Date Type Department Care Team (Late st Contact Info) Description 08/11/2023 9:30 AM EDT Office Visit Cardiology, [facility] [address] [address] Lani Ling PA-C [address] [address] 08/16/2023 1:00 PM EDT [facility] Visit [facility] [place] [address] [place] [phone] Pau Coyle, [address] [place] [address] 10/07/2023 9:20 AM EDT Office Visit [facility] [address] [place] [phone] Sonja Braun MD [address] [place] [address] 01/05/2024 10:00 AM EDT [facility] [address] [facility] [place] [address] Valentina Gilbert MD [address] [facility] [place] [address] Scheduled Procedures Name Priority Associated Diagnoses Date/Ti [...] RESISTANT HTN 03/27/2023 CKD PHOS USE SMARTSET 98966 05/10/202304/13, 12/11/2019, 09/11/2018, Additional history exists GFR 07/30/2023 01/28/2023, 01/09, 11/03/2022, Additional history exists Albumin/Creatinine Ratio 08/19/2023 023, 03/13/2018, 01/22/2009 TSH 08/19/2023 08/18/2022, 08/09, 06/30/2021, Additional history exists Depression Screening 09/17/2023 09/16/2022 CKD HGB USE SMARTSET 37901 01/29/202401/28, 01/28/2023, 05/10/2022, Additional history exists Pneumococcal [...] this encounter Medical Devices Implanted Type Area Handmade Tile Artist Device Identifier Shelf Expiration Date Model / Serial / Lot Yunior Hal Jang [id number] - [id number] Implanted:Qty: 1 on 11/10/2009 at OR [facility] Right: Shoulder [employer] 09/09/2010 [id number] / / [id number] System Anchorsure 2 Sutures - [id number] Implanted:Qty: 1 on 11/07/2018 by Lobo Sweeney DO at OR [facility] N/A: Vagina [employer] 04/12/2020 A-SURE / / [id number] Suture Anchorsure 2pk - [id number] Implanted:Qty: 1 on 11/07/2018 by Lobo Sweeney DO at OR [facility] N/A: Vagina [employer] 06/26/2020 [id number] / / [id number] 8cm X 12cm Angora Dermis Implanted:Qty: 1 on 11/07/2018 by Lobo Sweeney DO at OR [facility] N/A: Vagina [employer] MAY 03/10/2023 [id number] / [id number] / [id number] Sling Desara 1.1cm X 45cm - [id number] Implanted:Qty: 1 on 03/02/2022 by Milagros Olguin MD at OR [facility] [place] [facility] N/A: Urethra [employer] 10/22/2024 WAYLON-[id number] / / [id number] Y-Mesh 26 X 4 X 3 Cm - [id number] Implanted:Qty: 1 on 03/02/2022 by Milagros Olguin MD at OR [facility] [place] N/A: Pelvis [employer] 10/06/2026 [id number] / / [id number] Description:used for sacroco lpopexy documented as of this encounter Visit Diagnoses Diagnosis GENERAL OSTEOARTHROSIS Generalized osteoarthrosis, unspecified site documented in this encounter Advance Directives Latest [...] and were consensually agreed upon. Care Teams Universal [employer]er Relationship Specialty Start Date End Date Sonja Braun MD [address] [place] [address] PCP - General 06/06/03 documented as of this encounter
[2023-06-10 09:01] LABS: Basophils # (auto) 0.06 K/uL (0.00-0.20); Basophils % (auto) 0.5 %; Eosinophils # (auto) 0.24 K/uL (0.00-0.50); Eosinophils % (auto) 2.1 %; Hematocrit (blood only) 27.8 % (37.0-47.0); Hemoglobin 8.8 g/dl (12.0-16.0); Immature Granulocytes # (auto) 0.07 K/uL (0.01-0.20); Immature Granulocytes % (auto) 0.6 %; Lymphocytes # (auto) 2.62 K/uL (1.20-3.40); Lymphocytes % (auto) 22.6 %; Mean Corpuscular Hemoglobin 27.3 pg (25.0-34.0); Mean Corpuscular Hgb Conc 31.7 g/dL (32.0-36.0); Mean Corpuscular Volume 86.3 fL (80.0-100.0); Mean Platelet Volume 8.9 fL (9.4-12.4); Monocytes # (auto) 1.08 K/uL (0.11-0.59); Monocytes % (auto) 9.3 %; Neutrophils # (auto) 7.54 K/uL (1.40-6.50); Neutrophils % (auto) 64.9 %; Platelet Count 285 K/uL (130-400); RDW Coefficient of Variation 16.1 % (11.5-14.5); Red Blood Count 3.22 M/uL (4.20-5.40); White Blood Count 11.61 K/ul (4.8-10.8)
--- NOTE | 2023-06-10 11:10 | Surgery Progress Note ---
Date of Service June 10, 2023 Assessment & Plan (1) Status post left hip replacement: Plan: 77-year-old female postop day 2 from a left hybrid total hip replacement. She is doing pretty well. Pain seems to be controlled. She is neurologically intact. Hips located. Just, waiting for placement at this time. Plan: 1. DVT prophylaxis including thigh-high teds, SCDs, aspirin twice a day. 2. PT/OT. She can fully weight-bear as tolerated. Needs to obey hip precautions. 3. Pain control doing pretty well with current pain regimen. 4. Disposition plan to discharge to rehab. She is open to go to rehab or intermediate facility for a brief stay. manager environmental services working on this. She is medically stable for discharge once arrangements can be made. Admission and Anticipated Discharge Date Admission Date: June 08, 2023 Subjective 77-year-old female postop day 2 from a left hybrid total hip replacement. She is doing pretty well. Pains is stable. Is manageable. She is getting up and walking. No chest pain or shortness of breath. Not feeling dizzy or lightheaded. Physical Exam Physical Exam: Physical exam shows a pleasant elderly female. She is sitting up in her bedside chair looks pretty comfortable this morning. Examination left hip reveals the Prevena VAC dressing to be in place. Her thigh is soft and supple. Leg lengths are equal. Hips located. She is neurologically intact. Results & Data Vital Signs (Past 12 Hours) Vital Signs Temp Pulse Resp BP Pulse Ox O2 Del Method 06/10/23 07:44 36.9 C 68 17 105/61 94 Room Air Laboratory Results Hemoglobin is 8.8. Hematocrit 27.8. PG Care Time/CCT Total # of Minutes Spent Total Time Spent with Patient: Total time spent is greater than 50% in coordination of care (as documented) at patient's floor/unit and/or counseling patient: Coding Level of Care Code 33987 Post Operative Follow-Up Diagnoses Status post left hip replacement Z96.642
[2023-06-11 07:19] LABS: Basophils # (auto) 0.04 K/uL (0.00-0.20); Basophils % (auto) 0.5 %; Eosinophils # (auto) 0.24 K/uL (0.00-0.50); Eosinophils % (auto) 2.8 %; Hematocrit (blood only) 26.4 % (37.0-47.0); Hemoglobin 8.4 g/dl (12.0-16.0); Immature Granulocytes # (auto) 0.05 K/uL (0.01-0.20); Immature Granulocytes % (auto) 0.6 %; Lymphocytes # (auto) 1.95 K/uL (1.20-3.40); Lymphocytes % (auto) 23.1 %; Mean Corpuscular Hemoglobin 27.5 pg (25.0-34.0); Mean Corpuscular Hgb Conc 31.8 g/dL (32.0-36.0); Mean Corpuscular Volume 86.3 fL (80.0-100.0); Mean Platelet Volume 9.2 fL (9.4-12.4); Monocytes # (auto) 0.89 K/uL (0.11-0.59); Monocytes % (auto) 10.5 %; Neutrophils # (auto) 5.27 K/uL (1.40-6.50); Neutrophils % (auto) 62.5 %; Platelet Count 282 K/uL (130-400); RDW Standard Deviation 50.8 fL (36.4-46.3); Red Blood Count 3.06 M/uL (4.20-5.40); White Blood Count 8.44 K/ul (4.8-10.8)
--- NOTE | 2023-06-11 07:39 | Surgery Progress Note ---
Date of Service June 11, 2023 Assessment & Plan (1) Status post left hip replacement: Plan: 77-year-old female postop day 3 from a left total hip replacement. She is continue to gradually improve. She is anemic but without symptoms. Hips located. She is neurologically intact. We have been waiting for placement. Unfortunately she has been denied to rehab. No [facility] facility [facility] over the weekend. Plan: 1. DVT prophylaxis including thigh-high teds, SCDs, aspirin twice a day. 2. PT/OT. Weight-bear as tolerated. Left total hip protocol. 3. Pain control doing well with current pain regimen. 4. To wound management. She got a Prevena VAC dressing in place. That will stay on a total of 7 days. 5. Disposition we will wait for placement. She got denied rehab. No [place] facility beds over the weekend. I did discuss with her about going home with some home health. She is less painful than she was before surgery and get along okay then. I think she is getting along better now and she thinks she did before surgery. She is going to discuss with her family and make a decision. If she is discharged home she will be need to set up for some home health. Admission and Anticipated Discharge Date Admission Date: June 08, 2023 Subjective 77-year-old female postop day 3 from a left hybrid total hip replacement. She is doing quite bit better today. Pains continue to improve. She is mobilizing little bit better. Unfortunately she got denied to rehab. Physical Exam Physical Exam: Physical exam shows a pleasant elderly female. He is sitting up in her bedside chair looks comfortable. Examination left hip and leg reveals the Prevena VAC dressing to be in place. Leg lengths are equal. Thigh is soft and supple. She is neurologically intact. Results & Data Vital Signs (Past 12 Hours) Vital Signs Temp Pulse Pulse Resp BP Pulse Ox O2 Del Method 06/11/23 07:05 36.7 C 70 16 117/61 94 Room Air 06/10/23 21:25 Room Air 06/10/23 19:41 36.6 C 73 16 120/69 95 Room Air Laboratory Results Hemoglobin is 8.4. Hematocrit 26.4. PG Care Time/CCT Total # of Minutes Spent Total Time Spent with Patient: Total time spent is greater than 50% in coordination of care (as documented) at patient's floor/unit and/or counseling patient: Coding Level of Care Code 26956 Post Operative Follow-Up Diagnoses Status post left hip replacement Z96.642
[2023-06-12] MEDS ORDERED: LEVOTHYROXINE SODIUM 75 MCG TABLET PO SCH (06:30)
== END 2023-06-11 17:30 | disposition home health service (06) | DRG 470 ==
LOC: 3N 06:28 → ASU 06:28

== ENCOUNTER 2024-06-16 10:25 | Observation (INO) ==
[2024-06-16 11:15] LABS: Basophils # (auto) 0.05 K/uL (0.00-0.20); Basophils % (auto) 0.6 %; Eosinophils # (auto) 0.35 K/uL (0.00-0.50); Eosinophils % (auto) 3.9 %; Hemoglobin 12.2 g/dl (12.0-16.0); Immature Granulocytes # (auto) 0.04 K/uL (0.01-0.20); Immature Granulocytes % (auto) 0.4 %; Lymphocytes # (auto) 3.11 K/uL (1.20-3.40); Lymphocytes % (auto) 34.7 %; Mean Corpuscular Hemoglobin 30.8 pg (25.0-34.0); Mean Corpuscular Volume 93.4 fL (80.0-100.0); Mean Platelet Volume 9.4 fL (9.4-12.4); Monocytes # (auto) 0.65 K/uL (0.11-0.59); Monocytes % (auto) 7.3 %; Neutrophils # (auto) 4.75 K/uL (1.40-6.50); Neutrophils % (auto) 53.1 %; Platelet Count 250 K/uL (130-400); RDW Coefficient of Variation 13.6 % (11.5-14.5); RDW Standard Deviation 46.1 fL (36.4-46.3); Red Blood Count 3.96 M/uL (4.20-5.40); White Blood Count 8.95 K/ul (4.8-10.8)
[2024-06-16 11:33] LABS: Albumin Globulin Ratio 1.8 (0.9-2); Albumin Level 4.4 gm/dl (3.4-5.0); BUN Creatinine Ratio 39.8 (10-20); Calcium 9.5 mg/dl (8.6-10.3); Creatinine Clr Calc Pharmacy 42.7 ml/min; Globulin 2.5 gm/dl (2.5-4.0); Potassium 3.5 mmol/L (3.5-5.1); Total Protein 6.9 gm/dl (6.0-8.3)
[2024-06-16] MEDS: FAMOTIDINE 20MG IV PUSH 20 MG/5 ML SYR IV STA (11:46)
[2024-06-16] MEDS: OPTIRAY 320 100ml IV ONE (12:00)
[2024-06-16 12:04] LABS: Partial Thromboplastin Time 26 Seconds (21-31); Prothrombin Time 10.8 Seconds (9.0-12.0)
--- NOTE | 2024-06-16 12:06 | Emergency Department Note ---
Impression & Plan Acute upper gastrointestinal bleeding ED Provider Note NAME: NUSRAT CASPER AGE: 78 SEX: Female INFORMANT: Patient ED PROVIDER(S): Song Roblero MD CHIEF COMPLAINT: Melanotic stool PLAN: Disposition: Admitted Outpatient prescription management: none Referral: None MEDICAL DECISION MAKING: Patient presented because of melanotic stool. Rectal examination was heme positive. She had unremarkable CBC but chemistry panel did reveal an elevated BUN. The combination of the elevated BUN and her melanotic stool that was heme positive raise concerns for upper GI bleed. Patient was treated with Protonix bolus and drip as well as Pepcid. She underwent CT imaging which did not reveal any acute pathology. On reassessment the patient was doing well. Discussed further management in the hospital. Patient and in agreement. [facility] Patient was evaluated in the ER and admitted for further management. Care/management discussed with: none Level of care consideration(s): After review of the information above and other included data, I feel the patient requires escalation of care to admission Triage Nursing notes: reviewed and agree them. Vital Signs: reviewed and remarkable for mild hypertension Additional History obtained from: Patient's Chronic Medical/Social Conditions affecting care: CAD, aspirin use Prior/ Outside/ External records reviewed: none Differential Diagnosis: Diverticulosis, AVM, coagulopathy, colitis, inflammatory bowel disease, malignancy, Helga-Kincaid tear, esophagitis, peptic ulcer disease, variceal bleed, gastritis, epistaxis, fissure, hemorrhoids, as well as other pathologies. Diagnostics, independently interpreted by me: ECG: Twelve-lead ECG reveals a normal sinus rhythm at 66 bpm. Poor R wave progression anteriorly. No ST elevation. Cardiac Monitoring: Cardiac monitoring ordered by me: The patient was placed on continuous cardiac monitoring and observed. It revealed a normal sinus rhythm at 68 beats per minute without ectopy or evidence of dysrhythmia. Medical decision rules: none Imaging studies: CT scan of the abdomen pelvis is negative for any emergent pathology. No obstruction. HPI: 78 year old Female arrives for evaluation of melanotic stool. This started last night and is described as black stools. The patient also notes the following associated symptoms, right sided abdominal pain. The patient has taken no medication for relieving factors. Current pain is rated as moderate with palpation but much better at rest. Patient does take aspirin. Pt denies LOC, headache, fevers, chills, diaphoresis, visual changes, neck pain, chest pain, breathing difficulties, nausea, vomiting, back pain, hematochezia, urinary symptoms, numbness, weakness, lymphadenopathy, rash, or other complaints. PAST MEDICAL HISTORY: See Below, CAD, CKD PAST SURGICAL HISTORY: See Below, SOCIAL HISTORY: See Below, HOME MEDICATIONS: See Below ALLERGIES: See Below VITALS: See Below PHYSICAL EXAMINATION: GENERAL: Awake, alert, well-appearing, in no distress HENT: Normocephalic, atraumatic. Oropharynx unremarkable. EYES: Normal conjunctiva. Sclera non-icteric. NECK: Inspection normal. Non-tender. Supple. No nuchal rigidity. FROM. No masses. RESPIRATORY: Clear to auscultation. No wheezes. No rales. Normal respiratory effort. CARDIAC: Normal rate. Normal rhythm. No murmurs. No rubs. Extremities warm and well perfused. Pulses equal. No JVD. GI: Soft, non-distended. Right sided tenderness to palpation. No rebound or guarding. No masses. RECTAL: Melanotic stool. Hemoccult positive. MUSCULOSKELETAL: Atraumatic. Chest examination reveals no tenderness. The back is symmetrical on inspection without obvious abnormality. There is no CVA tenderness to palpation. No joint edema. LOWER EXTREMITIES: Calves are equal size bilaterally and non-tender. No edema. No discoloration. NEURO: Normal sensorium. No sensory or motor deficits noted. SKIN: No rash or jaundice noted. PROCEDURES: none CRITICAL CARE: none OBSERVATION NOTE: none Past Med/Surg History Problem List (Updated 06/16/24 @ 14:07 by Lindy Good PA-C) Acute upper gastrointestinal bleeding (Acute) Solitary kidney Statin intolerance CAD (coronary artery disease), [place] coronary artery Vitamin D deficiency Chronic kidney disease, stage II (mild) Lumbar stenosis with neurogenic claudication Mild pulmonary hypertension (Chronic) Moderate tricuspid regurgitation (Chronic) moderate-severe tricuspid regurgitation Mild mitral regurgitation (Chronic) Restless legs syndrome (RLS) (Chronic) S/P ureteral stent placement Dyslipidemia (Chronic) Multiple sclerosis (Chronic) Optic neuropathy, stable per pt GERD (gastroesophageal reflux disease) (Chronic) controlled, stable per pt Osteoporosis (Chronic) Fibromyalgia (Chronic) History of peptic ulcer (Chronic) IBS (irritable bowel syndrome) (Chronic) HTN (hypertension) (Chronic) controlled, stable per pt Hypothyroidism (Chronic) Medical History (Updated 06/16/24 @ 14:07 by Lindy Good PA-C) Pelvic floor dysfunction Encounter for pre-operative examination Moderate pulmonary hypertension Allergy to perfume Atrophic kidney, acquired left d/t hypertensive disease Asthma "mild">has not used inhaler in a while Kidney disease, chronic, stage III (GFR 30-59 ml/min) History of kidney stones over 1 yr ago Chronic anemia CAD (coronary artery disease) x 4 stents (05/2019) @ [place], Follows with Dr. Starks-nitro never used. Hiatal hernia Spinal stenosis Surgical History (Updated 06/16/24 @ 14:07 by Lindy Good PA-C) H/O esophagogastroduodenoscopy S/P tonsillectomy Status post left hip replacement Status post insertion of drug-eluting stent into left anterior descending (LAD) artery S/P appendectomy S/P STONEY-BSO History of bladder surgery bladder/rectal prolapse repair History of cystoscopy History of colonoscopy History of carpal tunnel release Left S/P epidural steroid injection S/P lumbar spinal fusion Dr Juares S/P arthroscopy of right shoulder S/P shoulder replacement left History of cardiac cath 05/22/19, 05/31/19 ([facility]) History of heart artery stent x 4 stents (05/2019) Family History Sister FHx: colon cancer Uncle FHx: colon cancer Other No family history of adverse response to anesthesia No pertinent family history in first degree relatives Social History Smoking Status: Never smoker Second Hand Exposure: Yes (as a child); Do You Dip or Chew Tobacco: No; Hx Alcohol Use: Yes Preferred Language: Mongolian Communication Ability: Effective Visual Impairment: No Limitations Hearing Ability: Normal Hotel Administrative Assistant Required: No Beliefs That Will Affect Care: None marital status: Current Living Situation: Spouse current occupational status: retired current occupation: N/A How many Children do You have: 4 Feels Safe at Home: Yes Diet: regular caffeine: Yes Physical Activity Frequency: Does not Exercise Seatbelt Use: always Do you think of yourself as: straight/heterosexual Gender Identity: Female Assistive Devices: Cane and Glasses Allergies Allergies Allergy/AdvReac Type Severity Reaction Status Date / Time bee venom protein (honey bee) Allergy Severe Anaphylaxis Verified 06/16/24 13:38 Penicillins Allergy Severe Anaphylaxis Verified 06/16/24 13:37 Sulfa (Sulfonamide Allergy Severe Anaphylaxis Verified 06/16/24 13:37 Antibiotics) latex Allergy Intermediate Localized Verified 06/16/24 13:37 rash pneumococcal vaccine Allergy Intermediate Rash at Verified 06/16/24 13:37 injection site [id number] Reductase Allergy Intermediate muscle Verified 06/16/24 13:37 Inhibitor pain/sick to stomach tetanus toxoid, adsorbed Allergy Intermediate Redness at Verified 06/16/24 13:37 injection site adhesive tape Allergy Mild Redness, Verified 06/16/24 13:37 pruritis atorvastatin AdvReac Intermediate myalgias Verified 06/16/24 13:37 SANIA Inhibitors AdvReac Mild Cough Verified 06/16/24 13:37 aspirin AdvReac Mild GI upset Verified 06/16/24 13:37 salicylates AdvReac Mild nausea/vomi Verified 06/16/24 13:37 tting Home Meds Home Medications Medication Instructions Recorded Confirmed carbidopa 25 mg-levodopa 100 mg 1 tab PO TID 01/16/19 06/16/24 tablet pantoprazole 40 mg tablet,delayed 40 mg PO BID 01/16/19 06/16/24 release raloxifene 60 mg tablet (Evista) 60 mg PO QDL 01/16/19 06/16/24 rotigotine 6 mg/24 hour 1 patch topical HS 01/19/21 06/16/24 transdermal 24 hour patch (Neupro) carbidopa ER 50 mg-levodopa 200 mg 1 tab PO HS 11/10/21 06/16/24 tablet,extended release epinephrine 0.3 mg/0.3 mL 0.3 mg IM Q4H PRN Other 11/10/21 06/16/24 injection, auto-injector (EpiPen) levothyroxine 150 mcg capsule See Rx Instructions .Route .COMPLEX 11/10/21 06/16/24 nitroglycerin 0.4 mg sublingual 0.4 mg sublingual Q5M PRN Chest 11/10/21 06/16/24 tablet Pain evolocumab 140 mg/mL subcutaneous 140 mg subcut Q14D 05/25/23 06/16/24 pen injector (Repatha SureClick) furosemide 40 mg tablet See Rx Instructions .Route 03/28/24 06/16/24 .COMPLEX #180 tabs acetaminophen 500 mg tablet 1,000 mg PO TID PRN pain 06/16/24 06/16/24 (Tylenol Extra Strength) aspirin 81 mg tablet,delayed 81 mg PO QAM 06/16/24 06/16/24 release (Chepe Low Dose Aspirin) gabapentin 300 mg capsule 600 mg PO BID 06/16/24 06/16/24 isosorbide mononitrate 30 mg 90 mg PO QAM 06/16/24 06/16/24 tablet,extended release 24 hr Previous Rx's Medication Instructions Recorded spironolactone 25 mg tablet 25 mg PO QAM #90 tabs 03/28/24 labetalol 200 mg tablet 400 mg (2 x 200 mg) PO BID #360 04/24/24 tabs Results & Data (ED) Vital Signs Vital Signs - 24 hr 06/16/24 10:32 06/16/24 10:47 06/16/24 10:54 Temperature 36.2 C L Temperature Source Temporal Artery Scan Pulse Rate 79 68 Pulse Rate [Apical] 77 Respiratory Rate 16 23 Respiratory Effort / Characteristics Non-Labored Spontaneous Respiratory Depth Normal Blood Pressure 193/93 H Blood Pressure [Right Arm] 181/81 H Blood Pressure Mean 126 Blood Pressure Mean [Right Arm] 114 Blood Pressure Position Sitting Blood Pressure Position [Right Arm] Pulse Oximetry 98 97 Oxygen Delivery Method Room Air Room Air Sepsis Recent Fever Within 48 Hours No Sepsis New/Unexplained Change in Mental Status N/A Sepsis Action Taken by Nursing No Action Required 06/16/24 11:42 06/16/24 12:33 06/16/24 13:00 Temperature Temperature Source Pulse Rate 71 67 74 Pulse Rate [Apical] Respiratory Rate 17 16 15 Respiratory Effort / Characteristics Respiratory Depth Blood Pressure 153/72 H 158/86 H 121/78 Blood Pressure [Right Arm] Blood Pressure Mean 99 110 101 Blood Pressure Mean [Right Arm] Blood Pressure Position Blood Pressure Position [Right Arm] Pulse Oximetry 97 96 97 Oxygen Delivery Method Room Air Room Air Room Air Sepsis Recent Fever Within 48 Hours Sepsis New/Unexplained Change in Mental Status Sepsis Action Taken by Nursing 06/16/24 14:00 06/16/24 14:44 Temperature Temperature Source Pulse Rate 65 Pulse Rate [Apical] 70 Respiratory Rate 16 16 Respiratory Effort / Characteristics Non-Labored Spontaneous Respiratory Depth Normal Blood Pressure 154/71 H Blood Pressure [Right Arm] 160/82 H Blood Pressure Mean 119 Blood Pressure Mean [Right Arm] 108 Blood Pressure Position Blood Pressure Position [Right Arm] Sitting Pulse Oximetry 97 97 Oxygen Delivery Method Room Air Room Air Sepsis Recent Fever Within 48 Hours Sepsis New/Unexplained Change in Mental Status Sepsis Action Taken by Nursing Laboratory Data 06/16/24 10:49 06/16/24 10:49 Lab Results 06/16/24 06/16/24 Range/Units 10:49 11:36 WBC 8.95 (4.8-10.8) K/ul RBC 3.96 L (4.20-5.40) M/uL Hgb 12.2 (12.0-16.0) g/dl Hct 37.0 (37.0-47.0) % MCV 93.4 (80.0-100.0) fL MCH 30.8 (25.0-34.0) pg MCHC 33.0 (32.0-36.0) g/dL RDW Std Deviation 46.1 (36.4-46.3) fL RDW Coeff of Clari 13.6 (11.5-14.5) % Plt Count 250 (130-400) K/uL MPV 9.4 (9.4-12.4) fL Immature Gran % (Auto) 0.4 % Neut % (Auto) 53.1 % Lymph % (Auto) 34.7 % Aurora % (Auto) 7.3 % Eos % (Auto) 3.9 % Baso % (Auto) 0.6 % Neut # (Auto) 4.75 (1.40-6.50) K/uL Lymph # (Auto) 3.11 (1.20-3.40) K/uL Aurora # (Auto) 0.65 H (0.11-0.59) K/uL Eos # (Auto) 0.35 (0.00-0.50) K/uL Baso # (Auto) 0.05 (0.00-0.20) K/uL Immature Gran # (Auto) 0.04 (0.01-0.20) K/uL PT 10.8 (9.0-12.0) Seconds INR 1.0 (0.9-1.1) APTT 26 (21-31) Seconds PTT Ratio 1.0 Sodium 141 (136-145) mmol/L Potassium 3.5 (3.5-5.1) mmol/L Chloride 106 (98-107) mmol/L Carbon Dioxide 27 (21-32) mmol/L Anion Gap 8 (3-11) BUN 33 H (6-23) mg/dl Creatinine 0.83 (0.6-1.2) mg/dl Est Cr Clr Drug Dosing 42.7 ml/min eGFR 71.22 BUN/Creatinine Ratio 39.8 H (10-20) Glucose 92 (70-99(Fasting)) mg/dl Calcium 9.5 (8.6-10.3) mg/dl Total Bilirubin 1.0 (0.2-1.0) mg/dl AST 19 (13-39) U/L ALT 4 L (7-52) U/L Alkaline Phosphatase 124 H (34-104) U/L Total Protein 6.9 (6.0-8.3) gm/dl Albumin 4.4 (3.4-5.0) gm/dl Globulin 2.5 (2.5-4.0) gm/dl Albumin/Globulin Ratio 1.8 (0.9-2) POC Stool Occult Blood Positive A (Negative) Blood Type B Positive Antibody Screen NEGATIVE Administered Medications Pantoprazole Sodium 40 mg/ (Dextrose) 100 mls @ 20 mls/hr IV Q5H [facility] Stop: 07/16/24 11:59 Last Admin: 06/16/24 13:06 Dose: 8 mg/hr, 20 mls/hr Documented By: BS Discontinued Medications Carbidopa/Levodopa (Carbidopa/Levodopa 25/100mg Tab) 1 tab PO NOW STA Stop: 06/16/24 13:11 Last Admin: 06/16/24 13:23 Dose: 1 tab Documented By: ENRICO Famotidine (Pepcid 20mg Iv Push) 20 mg in 5 mls @ 2.5 mls/min IV NOW STA Stop: 06/16/24 11:42 Last Admin: 06/16/24 11:46 Dose: 2.5 mls/min Documented By: ENRICO Pantoprazole Sodium 80 mg/ (Dextrose) 120 mls @ 480 mls/hr IV NOW ONE Stop: 06/16/24 11:55 Last Infusion: 06/16/24 13:06 Dose: Infused Documented By: Admin: 06/16/24 12:29 Dose: 480 mls/hr Documented By: ENRICO Ioversol (Optiray 320 100ml) 94 ml IV ONCE ONE Stop: 06/16/24 12:01 Last Admin: 06/16/24 12:00 Dose: 94 ml Documented By: AZAM Pantoprazole Sodium (Pantoprazole Bolus/Drip) 1 each IV NOW STA Stop: 06/16/24 11:42 Last Admin: 06/16/24 13:08 Dose: Not Given Documented By: MICAH Imaging Data Radiologist's Impression: Abdomen/Pelvis CT 06/16/24 11:[address] WITH IV CONTRAST CT DOSE: 531.31 mGy.cm HISTORY: upper gi bleed TECHNIQUE: Multiaxial CT images of the abdomen and pelvis were performed following the IV administration of 90 cc of Optiray, A dose lowering technique was utilized adhering to the principles of ALARA. COMPARISON STUDY: 01/19/2024 FINDINGS: There is a large hiatal hernia. ABDOMEN: Liver, gallbladder, spleen, pancreas, and adrenal glands are unremarkable. Stable atrophy of the left kidney. Kidneys show no hydronephrosis or calculi. There are scattered atherosclerotic calcifications. No abdominal aortic aneurysm. Pelvis: Urinary bladder is mildly distended. There is mild retained stool. No bowel inflammation or obstruction. No significant colonic diverticulosis or acute diverticulitis. No free fluid, free air, or abscess. No enlarged adenopathy. Osseous structures: Stable lumbar scoliosis and degenerative changes. There is instrumented fusion of L5-S1. Stable left hip prosthesis. No acute osseous findings. IMPRESSION: No acute findings. ACT 112: Negative or not required by law. The above report was generated using voice recognition software. It may contain grammatical, syntax or spelling errors. Electronically signed by: Blake Fuentes M.D. 06/16/2024 12:13 PM Discharge Plan Visit Data Chief Complaint: Rectal Bleed Stated Complaint: BLACK STOOL AND BLACK DIARRHEA, LUMP ON CHEST ED Provider: Song Roblero Discharge Problem: Acute upper gastrointestinal bleeding Discharge Instructions Interventions: ED Discharge Assessment Last Done: 06/16/24 14:45 Forms Stand Alone Forms: [employer] Prescriptions Prescriptions: No Action labetalol 200 mg tablet 400 mg PO BID Qty: 360 3RF raloxifene [Evista] 60 mg tablet 60 mg PO QDL carbidopa-levodopa 25-100 mg tablet 1 tab PO TID pantoprazole 40 mg tablet,delayed release (DR/EC) 40 mg PO BID carbidopa-levodopa 50-200 mg tablet extended release 1 tab PO HS levothyroxine 150 mcg capsule See Rx Instructions .ROUTE .COMPLEX Patient Comments: takes Tuesday thr Tuesday, on Tuesday takes 0.5 tablet Rx Instructions: Take 75mcg by mouth on Tuesday and 150mcg by mouth all other days nitroglycerin 0.4 mg tablet, sublingual 0.4 mg sublingual Q5M PRN (Reason: Chest Pain) Rx Instructions: do not exceed 3 doses per episode epinephrine [EpiPen] 0.3 mg/0.3 mL auto-injector 0.3 mg IM Q4H PRN (Reason: Other) furosemide 40 mg tablet See Rx Instructions .ROUTE .COMPLEX Qty: 180 Rx Instructions: Take 80mg by mouth every morning and 40mg by mouth around supper time (5:00pm - 6:00pm) spironolactone 25 mg tablet 25 mg PO QAM Qty: 90 3RF Neupro 6 mg/24 hour patch 24 hour 1 patch topical HS Rx Instructions: changes HS Repatha SureClick 140 mg/mL Pen Injector 140 mg SUBCUT Q14D Patient Comments: every 2 weeks>last took 05/24/23 Rx Instructions: Due Tuesday - gabapentin 300 mg capsule 600 mg PO BID Rx Instructions: Noon and before bedtime isosorbide mononitrate 30 mg tablet extended release 24 hr 90 mg PO QAM aspirin [Chepe Low Dose Aspirin] 81 mg tablet,delayed release (DR/EC) 81 mg PO QAM Patient Comments: post op Rx Instructions: Take to prevent blood clots. acetaminophen [Tylenol Extra Strength] 500 mg tablet 1,000 mg PO TID PRN (Reason: pain) Patient Comments: post op Referrals Referrals: Terrance Craig MD [Primary Care Provider] -
--- OUTSIDE RECORDS SUMMARY | 2024-06-16 12:09 | External Medical Summary | Summary of Care ---
Author Name Unknown Organization [facility] Address [address] [place] [address] Phone [phone] Care Team Providers Care Exhibits Manager Name Role Phone Terrance Craig MD Primary Care Provider [phone] Reason for Visit * Reason Comments Follow Up Patient is here for a 6 month follow up. Patient reports her blood pressure has been rising. She also reports she hears a swishing sound when walking on occasion. Has noticed it for about 6-8 months. Patient has an aching-like pain in L shoulder that has been occurring for 6-8 months. Has been using aspercreme with no relief. Patient reports she has also been feeling weak in her arms and legs. She would like to discuss skin tears and purple terry on her arms. Encounter Details Date Type Department Care Team (Late st Contact Info) Description 05/02/2024 12:00 PM EST Office Visit [facility] [address] [facility] [place] [id number] Terrance Craig MD [address] [facility] [place] [address] Chronic kidney disease, stage 3a (HCC)*; Risk and functional assessment; Bruit of left carotid artery; Myalgia; Purpura (HCC); Encounter for long-term (current) use of medications; Multiple sclerosis (HCC); Chronic heart failure with preserved ejection fraction (HCC); Coronary artery disease involving telida coronary artery of telida heart without angina pectoris; HTN, goal below 140/90; Fibromyalgia; GENERAL OSTEOARTHROSIS Allergies Active Allergy Reactions Criticality Noted Date Comments Laron Inhibitors Cough 09/04/2009 lisinopril Adhesive Tape Low 05/25/2023 Other Reaction(s): Redness, pruritis Atorvastatin Muscle pain 05/17/2019 Latex Rash Medium 11/07/2018 Penicillins Edema airway,Hives High 01/07/1999 Pneumococcal Polysaccharides Edema Other 08/29/2008 Local swelling at injection site only Rosuvastatin Muscle pain 05/17/2019 Salicylates Nausea/vomiting 01/07/1999 Simvastatin Muscle pain 05/17/2019 Sulfa Antibiotics Hives 01/07/1999 Tetanus Toxoid Edema airway High 09/09/2010 Wound Dressing Adhesive 02/26/2022 Bandaids Yellow Jacket Venom 12/08/2020 documented as of this encounter (statuses as of 05/21/2024) Medications LABETALOL HCL 200 MG PO TABSIndications:H ypertensive heart disease 2 tablets twice daily 360 Tab 3 011 Active aspirin enteric coated 81 MG TBEC Take 1 Tablet by mouth in the morning. Active Albuterol Sulfate (ALBUTEROL HFA) 108 (90 BASE) MCG/ACT inhaler Inhale 2 Puffs by mouth 4 times a day. 54 g 3 020 Active Calcitriol 0.25 MCG Oral Capsule (Rocaltrol) Take 1 Capsule by mouth in the morning. Active Naloxone HCl 4 MG/0.1ML Nasal Liquid (Narcan Nasal) Administer 1 spray into 1 nostril for suspected opioid overdose. Seek immediate medical attention. [email or web address] I 1 Each 3 023 Active Additional Information Patient not taking.Reported on 05/02/2024 Clarithromycin 500 MG Oral Tablet (Biaxin)Indicatio ns:Mitral valve disorder TAKE 1 TABLET 1 HOUR BEFORE DENTIST 3 Tablet 2 023 Active Additional Information Patient not taking.Reported on 05/02/2024 EPINEPHrine 0.3 MG/0.3ML Injection Solution Auto-injector (Autoinjector) FOR A SEVERE REACTION: PLACE ORANGE END AGAINST THE OUTER THIGH, PRESS FIRMLY, HOLD IN PLACE FOR 10 SECONDS AND GO TO THE EMERGENCY ROOM. 2 Each 2 024 Active Repatha SureClick 140 MG/ML Subcutaneous Solution Auto-injector (evolocumab)Indic ations:Hyperlipem ia, mixed Inject 140 mg (1 pen) under the skin every 14 days. 6 mL 3 4 3:14 PM EST Active Furosemide 40 MG Oral Tablet (Lasix) Take 2 tablets in the morning. Take 1 tablet in the afternoon 270 Tablet 3 024 Active Isosorbide Mononitrate ER 30 MG Oral Tablet Extended Release 24 Hour (Imdur)Indication s:Coronary artery disease involving telida coronary artery of telida heart without angina pectoris,Dyslipid emia, goal LDL below 70,HTN, goal below 140/90,S/P angioplasty with stent Take 3 Tablets by mouth in the morning. 270 Tablet 3 024 Active Spironolactone 25 MG Oral Tablet (Aldactone)Indica tions:HTN, goal below 140/90,S/P angioplasty with stent,Coronary artery disease involving telida coronary artery of telida heart without angina pectoris Take 1 Tablet by mouth in the morning. 90 Tablet 3 024 Active Raloxifene HCl 60 MG Oral Tablet (Evista)Indicatio ns:Generalized osteoarthritis TAKE 1 TABLET DAILY 90 Tablet 1 024 Active Pantoprazole Sodium 40 MG Oral Tablet Delayed Release (Protonix) TAKE 1 TABLET EVERY MORNINGAND 1 TABLET BEFORE BEDTIME 180 Tablet 1 024 Active Pravastatin Sodium 20 MG Oral Tablet (Pravachol)Indica tions:Dyslipidemi a, goal LDL below 70,HTN, goal below 140/90,S/P angioplasty with stent,Coronary artery disease involving telida coronary artery of telida heart without angina pectoris Take 1 Tablet by mouth in the morning. 90 Tablet 3 024 Active Levothyroxine Sodium 150 MCG Oral Tablet (Levoxyl)Indicati ons:Hypothyroidis m, unspecified type Take one half tab by mouth one day per week and a full tab all other days of the week 90 Tablet 3 024 Active Carbidopa-Levodop a 25-100 MG Oral Tablet (Sinemet) Take 1 Tablet by mouth in the morning and 1 Tablet at noon and 1 Tablet before bedtime. May take an additional pill once a day as needed. 360 Tablet 1 Active Gabapentin 300 MG Oral Capsule (Neurontin)Indica tions:RLS (restless legs syndrome) Take 2 Capsules by mouth 2 times a day. Take 600mg at noon and 600mg 90 minutes before bed. 360 Capsule Active Tobramycin 0.3 % Ophthalmic Solution (Aktob)Indication s:Bacterial conjunctivitis of both eyes Use 1 drop each eye 4-6 times throughout the day for at least 5 days. If redness is gone after that may use drops 3x daily for another 2 days then stop. Try to extend drops for 1-2 days past the redness/draina ge going away. 5 mL Active Additional Information Patient not taking.Reported on 05/02/2024 Neupro 6 MG/24HR Transdermal Patch 24 Hour (Rotigotine)Indic ations:RLS (restless legs syndrome) APPLY 1 PATCH ONCE DAILY 90 Patch 1 Active Nitroglycerin 0.4 MG Sublingual Tablet Sublingual (Nitrostat)Indica tions:S/P angioplasty with stent,Coronary artery disease involving telida coronary artery of telida heart without angina pectoris,HTN, goal below 140/90 DISSOLVE 1 TABLET UNDER THETONGUE EVERY 5 MINUTES NEEDED FOR CHEST PAIN, UP TO 3 DOSES IN 15 MINUTES 100 Tablet 1 024 Active predniSONE 10 MG Oral Tablet (Deltasone)Indica tions:Rash and nonspecific skin eruption Take 4 tabs for 2 days, 3 tabs for 2 days, 2 tabs for 2 days 1 tab for 2 days 20 Tablet Active Additional Information Patient not taking.Reported on 05/02/2024 Carbidopa-Levodop a ER 50-200 MG Oral Tablet Extended Release (Sinemet CR) TAKE 1 TABLET DAILY 90 Tablet 3 024 2024 Discontinued Hospital, Clinic, or Other Facility Administered Medication Ordered Dose Route Frequency Start Date End Date Status albuterol sulfate (PROVENTIL) (2.5 MG/3ML) 0.083% inhalation solution 2.5 mgIndications:Wheeze,BRIONES (dyspnea on exertion) 2.5 mg NEBULIZER Q4H PRN 03/27/2017 Act anthony documented as of this encounter (statuses as of 05/21/2024) Active Problems Problem Noted Date Diagnosed Date Chronic heart failure with preserved ejection fr action 09/29/2023 ANDRÉS (stress urinary incontinence, female) 2021 Advanced directives, counseling/discussion 10/31 Chronic kidney disease, stage 3a 10/20/2020 Overview: Per CKD protocol Coronary artery disease invo lving telida coronary artery of telida heart without angina pectoris 06/11/2019 S/P angioplasty [...] as of this encounter (statuses as of 05/21/2024) Resolved Problems Problem Noted Date Diagnosed Date Resolved Date Prediabetes 03/23/2021 09/24/2021 Overview: Per Prediabetes protocol Coronary artery disease invo lving telida coronary artery of telida heart with angina pectoris 06/16/2020 05/28/2022 Stage 2 chronic kidney disease 10/08/2019 10/23/2020 Overview: Per CKD protocol Rectocele 11/08/2018 12/08/2018 Hypertensive kidney disease with chronic kidney disease stage III 10/24/2018 10/08/2019 ADVANCE DIRECTIVE INFORMATION 08/11/2018 10/24/2018 Overview (11/13/2004): No, Advance Directive brochure given to patient at prior appointment. Kidney disease, chronic, sta ge III (GFR 30-59 ml/min) 02/24/2015 04/22/2016 Overview: Per CKD protocol #1 HTN, goal below 150/90 06/18/201410/24 Senile cataract 09/09/2010 10/24/2018 Adverse reaction to tetanus vaccine 09/09/2010 09/17/2016 Examination following surgery 11/10/2009 09/17/2016 HTN, goal below 130/80 03/04/200906/18 Overview (03/04/2009): Modified per HTN protocol #16. Multiple sclerosis 11/13/2007 9 Overview (05/09/2008): Resolved per Duplicate Protocol #2. Kidney disease, chronic, sta ge III (GFR 30-59 ml/min) 02/27/2007 07/25/2014 HYPERTENSIVE CEREBROVASC DISEASE NEC 12/08/2004 02/27/2007 ABN DATE NIGHT CAREGIVER FUNCT STUDY NOS 12/08/200402/09 FIBROMYALGIA 09/18/2002 10/03/2016 Mixed dyslipidemia 07/04/2002 9 Overview (03/26/2009): Per Lipid Taxonomy. DYSFUNCT EUSTACHIAN TUBE, BILATERAL 09/22/1999 09/10/2016 HYPERTENSION NOS 03/04/2009 Overview (03/04/2009): Modified per HTN protocol #16. Irritable bowel syndrome 12/2016 documented as of this encounter (statuses as of 05/21/2024) Immunizations Name Administration Dates Next Due COVID-19 mRNA, LNP-s, No Pre serve, 2-Dose Series (Moderna) 03/11/2021,06/12/2020,05/17/2020 Covid-19, Mrna, Lnp-s, Pf, B ivalent, 30 Mcg, IM, 12 yrs and above (Pfizer) 02/17/2022 Pneumococcal Conjugate Vacc, 13 Valent (Prevnar) 03/26/2015 Pneumococcal Polysaccharide PPV23 (Pneumovax) 08/27/2008 Season Influenza, Quad, PF, Adjuvanted, 65+ Yrs, IM (FLUAD) 01/25/2020 Seasonal Influenza Vac., MDV , IM, 0.5 mL (Fluzone) 01/07/2014,01/25/2013,12/25/2011,01/09,01/19/2010,01/22/2009,02/09/20 07,02/10/2006 Seasonal Influenza, High Dos e, Trivalent, PF, IM (Fluzone HD) 01/05/2024 Seasonal Influenza, PF, 6 M & above, IM , (FluLaval or Fluzone) 01/09/2019,12/26/2017 Seasonal Influenza, Quadriva lent Hd (Fluzone Hd) 01/03/2023,12/17/2021,01/05/2021 Seasonal Influenza, Quadriva lent, No Preserve, IM 12/27/2016,01/14/2016,01/23/2015 01/13/2017 Varicella Zoster Vaccine (Adult) 09/13/2007 Zoster Vaccine Recombinant (Shingrix) 12/30/2019 ,10/27/2019 documented as of this encounter Social History Tobacco Use Types Packs/Day Years Used Date Smoking Tobacco: Never Smokeless Tobacco: Never Comments:No passive smoke ex posures Alcohol Use Standard Drinks/Week Comments No 0 (1 standard drink = 0.6 oz pur e alcohol) PHQ-2 Answer Date Recorded PHQ Adult Total Score 0 05/02/2024 Hunger Vital Sign Answer Date Recorded Within the past 12 months, y ou worried that your food would run out before you got the money to buy more. Never true 09/17/19 23 Within the past 12 months, t he food you bought just didn't last and you didn't have money to get more. Never true 09/16/2022 Comments No Sex and Gender Information Value Date Recorded Sex Assigned at Female 10/08/2021 7:46 PM EDT Legal Sex Female 5:10 AM EST Gender Identity Female 10/08/2021 7:46 PM EDT Sexual Orientation Straight 10/24/2018 8: 15 AM EDT documented as of this encounter Last Filed Vital Signs Vital Sign Reading Time Taken Comments Blood Pressure 178/94 05/02/2024 12:29 PM EST Pulse 68 05/02/2024 12:29 PM EST Temperature 36.5 C (97.7 F) 05/02/2024 12:[address] Respiratory Rate 16 05/02/2024 12:29 PM EST Oxygen Saturation 98% 05/02/2024 12:29 PM EST Inhaled Oxygen Concentration - - Weight 63 kg (138 lb 14.4 oz) 05/02/2024 12:29 P M EST Height 162.6 cm (5' 4") 05/02/2024 12:29 PM EST Body Mass Index 23.84 05/02/2024 12:29 PM EST documented in this encounter Functional Status * Are you deaf or do you have serious difficulty hearing? Answer Date of Assessment Author No 03/02/2022 5:59 PM EST Oj Correa RN * Are you blind or do you have serious difficulty seeing, even when wearing glasses? Answer Date of Assessment Author No 03/02/2022 5:59 PM EST Oj Correa RN * Do you have serious difficulty walking or climbing stairs? (5 years old or older) Answer Date of Assessment Author No 03/03/2022 10:00 AM EST Drew Roberts RN * Do you have difficulty dressing or bathing? (5 years old or older) Answer Date of Assessment Author No 03/02/2022 5:59 PM EST Oj Correa RN * Because of a physical, mental, or emotional condition, do you have difficulty doing errands alone such as visiting a doctors office or shopping? (15 years old or older) Answer Date of Assessment Author No 03/02/2022 5:59 PM Oj Carrillo RN documented as of this encounter Mental Status * Because of a physical, mental, or emotional condition, do you have serious difficulty concentrating, remembering, or making decisions? (5 years old or older) Answer Entry Date Author No 03/02/2022 5:59 PM Oj Carrillo RN documented in this encounter Patient Instructions * Patient Instructions* Jacqui Villar, MED ASSIST - 05/02/2024 12:37 PM EST Patient Instructions - Fall Prevention (This education is for all patients over 65 regardless of symptoms) Remember to take your current medications as prescribed. In order to prevent falls, you are encouraged to: Exercise Utilize assistive/adaptive devices Avoid multifocal lenses when walking Avoid hazards in home Maintain a regular toileting schedule Any questions please contact our office. Preventing Falls in the Home (This education is for all patients over 65 regardless of symptoms) As you get older, falls are more likely. Thats because your reaction time slows. Your muscles and joints may also get stiffer, making them less flexible. Illness, medications, and vision changes can also affect your balance. A fall could leave you unable to live on your own. To make your home safer, follow these tips: Floors Put nonskid pads under area rugs Remove throw rugs Replace worn floor coverings Tack carpets firmly to each step on carpeted stairs. Put nonskid strips on the edges of uncarpeted stairs Keep floors and stairs free of clutter and cords Arrange furniture so there are clear pathways Clean up any spills right away Bathrooms Install grab bars in the tub or shower Apply nonskid strips or put a nonskid rubber mat in the tub or shower Sit on a bath chair to bathe Use bathmats with nonskid backing Lighting Keep a flashlight in each room Put a nightlight along the pathway between the bedroom and the bathroom [employer] Patient Education Copyright 2008 - 2010 [employer] except where otherwise noted Preventing Falls: Exercises to Improve Balance, Flexibility, Strength, and Staying Power (This education is for all patients over 65 regardless of symptoms) Certain types of exercises may help make you less likely to fall. Try the ones below. Or do other exercises that your healthcare provider suggests. Depending on your health, you may need to start slowly. Dont let that stop you. Even small amounts of exercise can help you. Be sure to talk to yourhealthcare provider before starting any exercise program. Improve Balance Many types of exercise can help improve balance. Nasir chi and yoga are good examples. Heres another one to try. You can do it anytime and almost anywhere. Stand next to a counter or solid support. Push yourself up onto your tiptoes. Hold for 5 seconds. If you start to lose your balance, hold on to the counter. Rest and repeat 5 times. Work up to holding for 20 to 30 seconds, if you can. Increase Flexibility Being more flexible makes it easier for you to move around safely. Try exercises like the seated hamstring stretch. Sit in a chair and put one foot on a stool. Straighten your leg and reach with both hands down either side of your leg. Reach as far down your leg as you can. Hold for about 20 seconds. Go back to the starting position. Then repeat 5 times. Switch legs. Build Strength Resistance exercises help build strength. You can do them without equipment. Or you can use weights, elastic bands, or special machines. One such exercise is called the biceps curl. You can hold a 1 pound weight or even a can of soup. Do this exercise at least 3 times a week. Strive for everyday. Sit up straight in a chair. Keep your elbow close to your body and your wrist straight. Bend your arm, moving your hand up to your shoulder. Then slowly lower your arm. Repeat 5 times. Switch to the other arm. Build Your Staying Power Aerobic exercises make your heart and lungs stronger so you can keep moving longer. Walking and swimming are two of the best types of exercises you can do. Using a stationary bike is great, too. Find an aerobic exercise that you enjoy. Start slowly and build up. Even 5 minutes is helpful. Aimfor a goal of 30 minutes, at least 3 times a week. You dont have to do 30 minutes in one session. Break it up and walk a little throughout the day. More Helpful Tips Start easy. Slowly work up to doing more. Talk with your healthcare provider about the best exercises for you. Call senior centers or health clubs about exercise programs. If needed, have a family member watch you walk every so often to check your stability. Exercise with a friend. Choose an activity you both enjoy. Try exercises that you can do anytime, anywhere. Here are two examples. Have someone with you when you first try these: Practice walking by placing one foot right in front of the other. Stand up and sit down 10 times. Repeat this throughout the day. [employer] Patient Education Copyright 2009 - 2010 [employer] except where otherwise noted. Preventing Falls: Moving Safely Using a Cane or Walker (This education is for all patients over 65 regardless of symptoms) Keep the cane away from your feet so you dont trip. A walking aid, such as a cane or walker, can help you stay more independent and avoid falls. Remember to keep your walking aid within easy reach when youre in a chair or in bed. And learn how to use it safely so you dont injure yourself. Using a Cane If you have a stronger side, hold the cane on that side. Get your balance. Move the cane and your weaker leg forward. Support your weight on both the cane and your weaker side. Step with your stronger leg. Start again from step 1. If youre using a folding walker, be sure you know how to lock it open. Check that its locked open before each use. Using a Walker Roll the walker (or lift it, if youre using one without wheels) forward about 12 inches. Step forward with your weaker leg first. Use the walker to help keep your balance. Bring your other foot forward to the center of the walker. Start again from step 1. Helpful Tips Check with your healthcare provider about the right walking aid to use. Ask about a walker with a seat attached. Check the tips of your cane or walker to make sure they have nonskid covers. Move slowly from room to room. Dont humphrey. Sit down to get dressed. Use a joanne pack or backpack to keep your hands free. Get help for jobs that mean climbing, even on a stepstool. [employer] Patient Education Copyright 2008 - 2010 [employer] except where otherwise noted. Urinary Incontinence Plan of Care Documentation: (This education is for all patients over 65 regardless of symptoms) Current medications reconciled. Patient encouraged to: Practice kegal exercises Provide education materials Use the restroom every 2 hours throughout the day Limit caffeine, alcohol, spicy foods and acidic foods Keep a bladder diary Limit fluid intake 3-4 hours before bed Lose weight Prevent constipation Take fluid pills at a time when you can get to the bathroom quickly Control sugar better if diabetic Limit fluid intake to 60 oz. per day Wear support stockings (TEDs)if you have edema Jacqui Villar, MED ASSIST 05/02/2024 Kegel Exercises Kegel exercises dont require special clothing or equipment. Theyre easy to learn and simple to do. And if you do them right, no one can tell youre doing them, so they can be done almost anywhere. Your doctor, nurse, or physical therapist can answer any questions you have and help you get started. A Weak Pelvic Floor The pelvic floor muscles may weaken due to aging, and vaginal childbirth, injury, surgery, chronic cough, or lack of exercise. If the pelvic floor is weak, your bladder and other pelvic organs may sag out of place. The urethra may also open too easily and allow urine to leak out. Kegel exercises can help you strengthen your pelvic floor muscles so they can better support the pelvic organs and control urine flow. How Kegel Exercises Are Done Try each of the Kegel exercises described below. When youre doing them, try not to move your leg, buttock, or stomach muscles. While youre urinating, try to stop the flow of urine. Start and stop it as often as you can. Contract as if you were stopping your urine stream, but do it when youre not urinating. Tighten your rectum as if trying not to pass gas. Contract your anus, but dont move your buttocks. Helpful Hints Do your Kegels as often as you can. The more you do them, the faster youll feel the results. Pick an activity you do often as a reminder. For instance, do your Kegels every time you sit down. Tighten your pelvic floor before you sneeze, get up from a chair, cough, laugh, or lift. This protects your pelvic floor from injury and can help prevent urine leakage. Try to hold each Kegel for a slow count to five. You probably wont be able to hold them for thatlong at first, but keep practicing. It will get easier as your pelvic floor gets stronger. Eventually, special weights that you place in your vagina may be recommended to help make your Kegels even more effective. [employer] Patient Education Copyright 2008 - 2010 [employer] except where otherwise noted. Here are some helpful tips for your urinary incontinence: (This education is for all patients over 65 regardless of symptoms) Practice Kegel exercises Use the restroom every 2 hours throughout the day Limit caffeine, alcohol, spicy foods, and acidic foods Keep a bladder diary Limit fluid intake 3-4 hours before bed Lose weight Prevent constipation Take fluid pills at a time when can get to the bathroom quickly Control sugar better if diabetic Limit fluid intake to 60 oz. per day Any questions, please feel free to contact our office. documented in this encounter Progress Notes * Terrance Craig MD - 05/02/2024 1:02 PM EST Subjective: Sylvie Wang is a 78 year old female here today for Chief Complaint Patient presents with Follow Up Patient is here for a 6 month follow up. Patient reports her blood pressure has been rising. She also reports she hears a swishing sound when walking on occasion. Has noticed it for about 6-8 months.Patient has an aching-like pain in L shoulder that has been occurring for 6-8 months. Has been using aspercreme with no relief. Patient reports she has also been feeling weak in her arms and legs. She would like to discuss skin tears and purple terry on her arms. Here for routine follow up. Tolerating current meds. Has had recent issues with BP being higher. Does follow with Dr Wagner. Has also heard a "swishing" sound in left ear and would like it checked. Has had increased weakness in arms and legs over the past few months. Does have history of pmr. Left shoulder pain for several months. Would like to discuss changes in skin - tears and purpura. Past Medical History: Diagnosis Date Chronic kidney disease, stage 3a ([facility]) 10/20/2020 Per CKD protocol Coronary artery disease involving telida coronary artery of telida heart with angina pectoris ([facility])06/16/2020 Cystocele, lateral 11/08/2018 Dyslipidemia, goal LDL below 70 09/23/2011 FIBROMYALGIA Generalized osteoarthritis GERD (gastroesophageal reflux disease) HTN, goal to be determined Hyperparathyroidism, unspecified ([facility]) 10/24/2018 Hypothyroidism Irritable bowel syndrome Migraine with aura Multiple sclerosis ([facility]) Optic neuropathy Osteoporosis Other cataract 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 COLONOSCOPY, DIAGNOSTIC (RECTUM) 12/29/2012 COLONOSCOPY FLEXIBLE PROXIMAL DIAGNOSTIC performed by Jose Moe MD at ENDOSCOPY [facility] COLONOSCOPY, DIAGNOSTIC (RECTUM) 01/23/2018 normal, repeat 5 yrs/COLONOSCOPY FLEXIBLE PROXIMAL DIAGNOSTIC performed by Jose Moe MD at ENDOSCOPY [facility] EGD, FLEXIBLE, DIAGNOSTIC 10/09/2014 Mildly tortouous distal esophagus/ESOPHAGOGASTRODUODENOSCOPY (EGD), FLEXIBLE, TRANSORAL, DIAGNOSTICperformed by Rosa Maria Sanchez MD at ENDOSCOPY [facility] EGD, FLEXIBLE, W/BIOPSY 03/23/07 mild stomach [...] performed by Milagros Olguin MD at OR [facility] LUMBAR / SACRAL EPIDURAL, SINGLE LEVEL 10/20/2022 INJECTION TRANSFORAMINAL EPIDURAL LUMBAR OR SACRAL performed by Shiraz Lay, DO at OR [facility] LUMBAR / SACRAL EPIDURAL, SINGLE LEVEL 04/22/2023 INJECTION TRANSFORAMINAL EPIDURAL LUMBAR OR SACRAL performed by Cuong Schwarz DO at OR [facility] PARAVAGINAL DEFECT REPAIR, VAGINAL N/A 11/07/2018 PARAVAGINAL DEFECT REPAIR VAGINAL APPROACH performed by Lobo Sweeney DO at OR [facility] PELVIC FLOOR DEFECT RPR,MESH,EACH N/A 11/07/2018 INSERTION OF MESH FOR REPAIR PELVIC FLOOR DEFECT performed by Lobo Sweeney DO at OR [facility] REMOVAL OF APPENDIX REMOVAL OF TONSILS, UNDER AGE 10 AGE 3 REPAIR BLADDER & VAGINA, CYSTOCELE N/A 03/02/2022 ANTERIOR COLPORRAPHY, REPAIR CYSTOCELE, CYSTO performed by Milagros Olguin MD at OR [facility] REPAIR BLADDER DEFECT N/A 03/02/2022 VAGINAL SLING PROCEDURE FOR STRESS INCONTINENCE performed by Milagros Olguni MD at OR [facility] REPAIR OF VAGINA CYSTOCELE AND RECTOCELE REPAIR OF VAGINAL PROLAPSE N/A 11/07/2018 COLPOPEXY VAGINAL EXTRA PERITONEAL APPROACH performed by Lobo Sweeney DO at OR [facility] REPAIR RECTUM & VAGINA, RECTOCELE N/A 11/07/2018 POSTERIOR COLPORRHAPHY performed by Lobo Sweeney DO at OR [facility] SACROILIAC JOINT INJECT W/GUIDANCE 01/27/2022 INJECTION SACROILIAC JOINT performed by Shiraz Lay DO at OR [facility] SHOULDER ARTHROSCOPY SURGERY 11/10/2009 ARTHROSCOPY SHOULDER DISTAL CLAVICLE RESECTION performed by Nichole LLOYD at OR [facility] SHOULDER ARTHROSCOPY/DECOMPRESSION 11/10/2009 ARTHROSCOPY SHOULDER SUBACROMIAL DECOMPRESSION performed by Nichole LLOYD at OR [facility] SPINE SURGERY PROCEDURE NEC 2015 TOTAL HYSTERECTOMY 1969 [facility] Review of patient's allergies indicates: Allergen Reactions Penicillins Edema airway and Hives Tetanus Toxoid Edema airway Latex Rash Laron Inhibitors Cough lisinopril Atorvastatin Muscle pain Pneumovax [Pneumococcal Polysaccharides] Edema Other Local swelling at injection site only Rosuvastatin Muscle pain Salicylates Nausea/vomiting Simvastatin Muscle pain Sulfa Antibiotics Hives Wound Dressing Adhesive Bandaids Yellow Jacket Venom Adhesive Tape Other Reaction(s): Redness, pruritis Current Outpatient Medications Medication Sig Dispense Refill LABETALOL HCL 200 MG PO TABS 2 tablets twice daily 360 Tab 3 aspirin enteric coated 81 MG TBEC Take 1 Tablet by mouth in the morning. Calcitriol 0.25 MCG Oral Capsule (Rocaltrol) Take 1 Capsule by mouth in the morning. EPINEPHrine 0.3 MG/0.3ML Injection Solution Auto-injector (Autoinjector) FOR A SEVERE REACTION: PLACE ORANGE END AGAINST THE OUTER THIGH, PRESS FIRMLY, HOLD IN PLACE FOR 10 SECONDS AND GO TO THE EMERGENCY ROOM. 2 Each 2 Repatha SureClick 140 MG/ML Subcutaneous Solution Auto-injector (evolocumab) Inject 140 mg (1 pen) under the skin every 14 days. 6 mL 3 Furosemide 40 MG Oral Tablet (Lasix) Take 2 tablets in the morning. Take 1 tablet in the afternoon 270 Tablet 3 Isosorbide Mononitrate ER 30 MG Oral Tablet Extended Release 24 Hour (Imdur) Take 3 Tablets by mouth in the morning. 270 Tablet 3 Spironolactone 25 MG Oral Tablet (Aldactone) Take 1 Tablet by mouth in the morning. 90 Tablet 3 Raloxifene HCl 60 MG Oral Tablet (Evista) TAKE 1 TABLET DAILY 90 Tablet 1 Pantoprazole Sodium 40 MG Oral Tablet Delayed Release (Protonix) TAKE 1 TABLET EVERY MORNINGAND 1 TABLET BEFORE BEDTIME 180 Tablet 1 Pravastatin Sodium 20 MG Oral Tablet (Pravachol) Take 1 Tablet by mouth in the morning. 90 Tablet 3 Levothyroxine Sodium 150 MCG Oral Tablet (Levoxyl) Take one half tab by mouth one day per week and a full tab all other days of the week 90 Tablet 3 Carbidopa-Levodopa 25-100 MG Oral Tablet (Sinemet) Take 1 Tablet by mouth in the morning and 1 Tablet at noon and 1 Tablet before bedtime. May take an additional pill once a day as needed. 360 Tablet1 Gabapentin 300 MG Oral Capsule (Neurontin) Take 2 Capsules by mouth 2 times a day. Take 600mg at noon and 600mg 90 minutes before bed. 360 Capsule 0 Neupro 6 MG/24HR Transdermal Patch 24 Hour (Rotigotine) APPLY 1 PATCH ONCE DAILY 90 Patch 1 Nitroglycerin 0.4 MG Sublingual Tablet Sublingual (Nitrostat) DISSOLVE 1 TABLET UNDER THETONGUE EVERY 5 MINUTES NEEDED FOR CHEST PAIN, UP TO 3 DOSES IN 15 MINUTES 100 Tablet 1 Albuterol Sulfate (ALBUTEROL HFA) 108 (90 BASE) MCG/ACT inhaler Inhale 2 Puffs by mouth 4 times a day. 54 g 3 Naloxone HCl 4 MG/0.1ML Nasal Liquid (Narcan Nasal) Administer 1 spray into 1 nostril for suspectedopioid overdose. Seek immediate medical attention. [email or web address]://[email or web address]/[email or web address] (Patient not taking: Reported on 03/07/2024) 1 Each 3 Clarithromycin 500 MG Oral Tablet (Biaxin) TAKE 1 TABLET 1 HOUR BEFORE DENTIST (Patient not taking:Reported on 05/02/2024) 3 Tablet 2 Tobramycin 0.3 % Ophthalmic Solution (Aktob) Use 1 drop each eye 4-6 times throughout the day for at least 5 days. If redness is gone after that may use drops 3x daily for another 2 days then stop. Try to extend drops for 1-2 days past the redness/drainage going away. (Patient not taking: Reported on 05/02/2024) 5 mL 0 predniSONE 10 MG Oral Tablet (Deltasone) Take 4 tabs for 2 days, 3 tabs for 2 days, 2 tabs for 2 days 1 tab for 2 days (Patient not taking: Reported on 05/02/2024) 20 Tablet 0 Carbidopa-Levodopa ER 50-200 MG Oral Tablet Extended Release (Sinemet CR) TAKE 1 TABLET DAILY 90 Tablet 1 Current Facility-Administered Medications Medication Dose Route Frequency Provider Last Rate Last Admin albuterol sulfate (PROVENTIL) (2.5 MG/3ML) 0.083% inhalation solution 2.5 mg 2.5 mg Nebulizer Q4H PRN Terrance Craig MD 2.5 mg at 04/22/17 1349 Objective: BP 178/94 | Pulse 68 | Temp 97.7 F (36.5 C) (Tympanic) | Resp 16 | Ht 5' 4" (1.626 m) | Wt 138 lb 14.4 oz (63 kg) | SpO2 98% | BMI 23.84 kg/m | BSA 1.69 m GEN: NAD HEENT: PERRLA, EOMI, conjunctiva not injected or icteric. EACs clear of obstruction, inflammation, drainage. TM's normal without erythema or lesion. No fluid or infection seen in middle ear space. Nares clear of obstruction, lesion, drainage. OP without tonsillar enlargement or exudate, MMM, no lesion. NECK: Supple with no LAD, TM, JVD. Left bruit CHEST: CTA B CV: RRR ABD: Soft, NT/ND, No HSM, NABS EXT: No c,c,e Assessment and Plan: Chronic kidney disease, stage 3a (HCC) (Primary) -continued follow up with nephrology and lab monitoring Risk and functional assessment Bruit of left carotid artery - VASC DUPLEX CAROTID BILAT Myalgia - ERYTHROCYTE SEDIMENTATION RATE (ESR); Future; Expected date: 05/02/2024 - CK; Future; Expected date: 05/02/2024 Purpura (HCC) - CBC; Future; Expected date: 05/02/2024 -likely age related - check cbc Encounter for long-term (current) use of medications - COMPREHENSIVE METABOLIC PANEL; Future; Expected date: 05/02/2024 - TSH WITH FREE T4 IF INDICATED; Future; Expected date: 05/02/2024 - VITAMIN B12; Future; Expected date: 05/02/2024 - MAGNESIUM; Future; Expected date: 05/02/2024 - ERYTHROCYTE SEDIMENTATION RATE (ESR); Future; Expected date: 05/02/2024 - CK; Future; Expected date: 05/02/2024 - CBC; Future; Expected date: 05/02/2024 Multiple sclerosis (HCC) -quiet, stable Chronic heart failure with preserved ejection fraction (HCC) Coronary artery disease involving telida coronary artery of telida heart without angina pectoris HTN, goal below 140/90 -continue current meds. Review increase in losartan with Dr Wagner Fibromyalgia -could be contributing to current symptoms. GENERAL OSTEOARTHROSIS Follow Up: Return in about 6 months (around 10/30/2024) for recheck. | For: recheck | Check-out note: Please make an appt for cards follow up with Sarina Ling - was to see Dr Starks this month - got delayed a year. Carotid artery vasc duplex 37 min with pt and chart review Terrance Craig MD documented in this encounter Nursing Notes * Jacqui Villar MED ASSIST - 05/02/2024 12:38 PM EST The patient has been properly identified by confirmation of name and date of . Chief Complaint Patient presents with Follow Up Patient is here for a 6 month follow up. Patient reports her blood pressure has been rising. She also reports she hears a swishing sound when walking on occasion. Has noticed it for about 6-8 months.Patient has an aching-like pain in L shoulder that has been occurring for 6-8 months. Has been using aspercreme with no relief. Patient reports she has also been feeling weak in her arms and legs. She would like to discuss skin tears and purple terry on her arms. documented in this encounter Plan of Treatment Upcoming Encounters Date Type Department Care Team (Late st Contact Info) Description 11/05/2024 7:40 AM EDT [facility] [address] [facility] [address] [address] [place] [phone] Terrance Craig MD [address] [place] [phone] 11/07/2024 8:30 AM EDT Office Visit Cardiology, [facility] [address] [place] [address] Lani Ling PA-C [address] [place] [phone] 05/02/2025 1:30 PM EST Office Visit Cardiology, [facility] [address] [place] [phone] Shan Starks MD [address] [place] [address] Scheduled Procedures Name Priority Associated Diagnoses Date/Ti me COLONOSCOPY FLEXIBLE PROXIMA L DIAGNOSTIC Recall Family history of colorectal cancer Health Maintenance Due Date Last Done Comments Adult Wellness Visit 08/25/2009 Colonoscopy 01/23/2023 01/23/2018, 01/09, 12/29/2012, Additional history exists COVID-19 Vaccine ( season) 2023 02/17/2022, 03/11/2021, 06/12/2020, Additional history exists *NEPHROLOGY REFERRAL DUE TO RESISTANT HTN 05/04/2024 Albumin/Creatinine Ratio 08/02/2024 024, 08/18/2022, 03/13/2018, Additional history exists CKD PHOS USE SMARTSET 87742 08/02/202407/11, 05/10/2022, 12/11/2019, Additional history exists GFR 10/30/2024 05/02/2024, 08/10, 08/03/2023, Additional history exists CKD HGB USE SMARTSET 65334 05/02/202505/02, 10/07/2023, 08/03/2023, Additional history exists Depression Screening 05/02/2025 05/02/2024 TSH 05/02/2025 05/02/2024, 07/11, 08/18/2022, Additional history exists Pneumococcal Vaccine: 50+ Years Completed 03/26/2015, 08/27/2008, 03/26/2003, Additional history exists RETIRED - COLONOSCOPY-EVERY 5 YRS AGES 18-100 Discontinued 01/23/2018, 01/23/2018, 12/29/2012, Additional history exists Zoster Vaccines Completed 12/30/2019, 10/09, 09/13/2007 Influenza Vaccine (FLU shot) Completed 01/05/2024, 01/03/2023, 12/17/2021, Additional history exists HPV (Gardasil) Vaccine Aged Out No lo nger eligible based on patient's age to complete this topic Hepatitis B Vaccine Aged Out No longe r eligible based on patient's age to complete this topic MENINGOCOCCAL (MENACTRA/MENVEO) Aged Out No longer eligible based on patient's age to complete this topic documented as of this encounter Medical Devices Implanted Type Area Cyber Security Analyst Device Identifier Shelf Expiration Date Model / Serial / Lot Yunior Jang [id number] - [id number] Implanted:Qty: 1 on 11/10/2009 at OR [facility] Right: Shoulder [employer] 09/09/2010 [id number] / / [id number] System Anchorsure 2 Sutures - [id number] Implanted:Qty: 1 on 11/07/2018 by Lobo Sweeney, DO at OR [facility] N/A: Vagina [employer] 04/12/2020 A-SURE / / [id number] Suture Anchorsure 2pk - [id number] Implanted:Qty: 1 on 11/07/2018 by Lobo Sweeney, DO at OR [facility] N/A: Vagina [employer] 06/26/2020 A-[id number] / / [id number] 8cm X 12cm Headrick Dermis Implanted:Qty: 1 on 11/07/2018 by Lobo Sweeney, DO at OR [facility] N/A: Vagina [employer] MAY 03/10/2023 [id number] / [id number] / [id number] Sling Desara 1.1cm X 45cm - [id number] Implanted:Qty: 1 on 03/02/2022 by Milagros Olguin MD at OR [facility] N/A: Urethra [employer] 10/22/2024 [id number] / / [id number] Y-Mesh 26 X 4 X 3 Cm - [id number] Implanted:Qty: 1 on 03/02/2022 by Milagros Olguin MD at OR [facility] N/A: Pelvis [employer] 10/06/2026 [id number] / / [id number] Description:used for sacroco lpopexy documented as of this encounter Procedures Procedure Name Priority Date/Time Associated Diagnosis Comments VASC DUPLEX CAROTID BILAT Routine 05/04/2024 3:16 PM EST Bruit of left carotid artery documented in this encounter Results * VASC DUPLEX CAROTID BILAT (05/04/2024 3:16 PM EST) Anatomical Region Laterality Modality Neck, Vascular Ultrasound Narrative 05/04/2024 9:28 PM EST VASCULAR LAB RESULTS DATE OF EXAM: 05/04/24 PRESENTING CONDITIONS: bruit left This is an interpretation of an exam performed at [facility]. PHYSICIAN REPORT Carotid Artery Duplex Examination Immediately before proceeding with the vascular lab procedure reported below, the identity of the patient, the correct exam and the correct procedural site were verified. Acosta scale and color flow Doppler imaging was performed for evaluation of the right carotid artery. Duplex examination of the right carotid artery identifies atherosclerotic plaque at the carotid bifurcation. The plaque is echogenic and appears to have an irregular surface. Color Doppler imaging was performed for evaluation of the right carotid bifurcation. Spectral analysis of the right internal carotid artery demonstrates peak systolic velocities of 52.9 cm/sec. Maximum end diastolic velocities are 17.1 cm/sec.. Peak right common carotid velocity is 56.3 cm/sec. The right internal carotid to common carotid ratio is 0.9. The right external carotid artery has a peak velocity of 62.6 centimeters per second. Acosta scale and color flow Doppler imaging was performed for the evaluation of the left carotid artery. Duplex examination of the left carotid artery identifies atherosclerotic plaque at the carotid bifurcation. The plaque is echogenic and appears to have an irregular surface. Color Doppler imaging was performed for the evaluation of the left carotid bifurcation. Spectral analysis of the left internal carotid artery demonstrates peak systolic velocities of 74.1 cm/sec. Maximum end diastolic velocities are 21.8 cm/sec. Peak left common carotid velocity is 64.8 cm/sec. The left internal carotid to common carotid ratio is 1.2. The left external carotid artery has a peak velocity of 84.1 centimeters per second. The right vertebral artery demonstrates antegrade flow. The left vertebral artery demonstrates antegrade flow. Impression: Right carotid artery duplex examination indicates evidence of less than 50% stenosis of the internal carotid artery. Left carotid artery duplex examination indicates evidence of less than 50% stenosis of the internal carotid artery. us Terrance Craig MD RAD VASCULAR Final Resu lt * CBC (05/02/2024 1:59 PM EST) Pathologist [facility] WBC 9.76 4.00 - 10.80 K/uL 05/02/2024 11:44 PM EST LABORATORY GM RBC 4.17 3.85 - 5.15 M/uL 05/02/2024 11:44 PM EST LABORATORY [facility] HGB 13.4 12.0 - 15.3 g/dL 05/02/2024 11:44 PM EST LABORATORY [facility] HCT 42.2 36.0 - 45.2 % 05/02/2024 11:44 PM EST LABORATORY [facility] MCV 101.2 81.5 - 97.5 fL 05/02/2024 11:44 PM EST LABORATORY [facility] MCH 32.1 27.0 - 34.0 pg 05/02/2024 11:44 PM EST LABORATORY [facility] MCHC 31.8 32.0 - 36.0 g/dL 05/02/2024 11:44 PM EST LABORATORY [facility] RDW 13.3 11.5 - 15.5 % 05/02/2024 11:44 PM EST LABORATORY [facility] PLT 292 140 - 400 K/uL 05/02/2024 11:44 PM EST LABORATORY [facility] MPV 10.0 6.6 - 11.1 fL 05/02/2024 11:44 PM EST LABORATORY [facility] nRBCs 0 <=0 /100 WBCs 05/02/2024 11:44 PM EST LABORATORY [facility] Blood Venous blood specimen / Unknown Venipuncture / Unknown 05/02/2024 1:59 PM EST 05/02/2024 1:59 PM EST Terrance Craig MD LAB BLOOD ORDERABLES Final Result Performing Organization Address [facility]/ZIP Co de Phone Number LABORATORY [facility] [address] [place] [address] * CK (05/02/2024 1:59 PM EST) CK 34 26 - 192 U/L 05/03/2024 12:16 AM EST LABORATORY [facility] Blood Venous blood specimen / Unknown Venipuncture / Unknown 05/02/2024 1:59 PM EST 05/02/2024 1:59 PM EST Terrance Craig MD LAB BLOOD ORDERABLES Final Result Performing Organization Address [facility] Co wi Phone Number LABORATORY [facility] [address] [place] [address] * ERYTHROCYTE SEDIMENTATION RATE (ESR) (05/02/2024 1:59 PM EST) ESR 5 <30 mm/hour 05/02/2024 10:47 PM EST LABORATORY [facility] Blood Venous blood specimen / Unknown Venipuncture / Unknown 05/02/2024 1:59 PM EST 05/02/2024 1:59 PM EST Terrance Craig MD LAB BLOOD ORDERABLES Final Result Performing Organization Address [facility] de Phone Number LABORATORY [facility] [address] [place] [address] * MAGNESIUM (05/02/2024 1:59 PM EST) Magnesium 2.5 1.5 - 2.6 mg/dL 05/03/2024 12:16 AM EST LABORATORY [facility] Blood Venous blood specimen / Unknown Venipuncture / Unknown 05/02/2024 1:59 PM EST 05/02/2024 1:59 PM EST us Terrance Craig MD LAB BLOOD ORDERABLES Final Result Performing Organization Address [facility] de Phone Number LABORATORY [facility] [address] [place] [address] * VITAMIN B12 (05/02/2024 1:59 PM EST) Pathologist [facility] Vitamin B12 294 232 - 1,245 pg/mL 05/03/2024 12:54 AM EST LABORATORY [facility] Blood Venous blood specimen / Unknown Venipuncture / Unknown 05/02/2024 1:59 PM EST 05/02/2024 1:59 PM EST Terrance Craig MD LAB BLOOD ORDERABLES Final Result Performing Organization Address [facility] Phone Number LABORATORY [facility] [address] [place] [address] * TSH WITH FREE T4 IF INDICATED (05/02/2024 1:59 PM EST) Pathologist [facility] TSH 1.46 0.27 - 4.20 uIU/mL 05/03/2024 12:54 AM EST LABORATORY [facility] Blood Venous blood specimen / Unknown Venipuncture / Unknown 05/02/2024 1:59 PM EST 05/02/2024 1:59 PM EST Terrance Craig MD LAB BLOOD ORDERABLES Final Result Performing Organization Address [facility] de Phone Number LABORATORY [facility] [address] [place] [address] * (ABNORMAL) COMPREHENSIVE METABOLIC PANEL (05/02/2024 1:59 PM EST) Pathologist [facility] BUN 10 6 - 20 mg/dL 05/03/2024 12:16 AM EST LABORATORY [facility] CREATININE 0.9 0.5 - 1.0 mg/dL 05/03/2024 12:16 AM EST LABORATORY [facility] EGFR 65 >=60 mL/min 05/03/2024 12:16 AM EST LABORATORY [facility] Comment:eGFR is calculated b ased on the CKD-EPI 2020 equation. SODIUM 144 135 - 146 mmol/L 05/03/2024 12:16 AM EST LABORATORY [facility] POTASSIUM 3.6 3.5 - 5.1 mmol/L 05/03/2024 12:16 AM EST LAB[facility]ATORY [facility] CHLORIDE 101 98 - 107 mmol/L 05/03/2024 12:16 AM EST LABORATORY [facility] CO2 31 22 - 32 mmol/L 05/03/2024 12:16 AM EST LAB[facility]ATORY [facility] ANION GAP 12 7 - 15 mmol/L 05/03/2024 12:16 AM EST LAB[facility]ATORY [facility] GLUCOSE 99 70 - 120 mg/dL 05/03/2024 12:16 AM EST LAB[facility]ATORY [facility] Albumin 4.3 3.8 - 5.0 g/dL 05/03/2024 12:16 AM EST LAB[facility]ATORY [facility] AST 16 10 - 35 U/L 05/03/2024 12:16 AM EST LABORATORY [facility] Alkaline Phosphatase 144(H) 35 - 130 U/L 05/03/2024 12:16 AM EST LABORATORY [facility] Bilirubin, Total 1.0 <=1.2 mg/dL 05/03/2024 12:16 AM EST LAB[facility]ATORY [facility] CALCIUM 9.8 8.4 - 10.2 mg/dL 05/03/2024 12:16 AM EST LAB[facility]ATORY [facility] Protein 6.2 6.0 - 8.3 g/dL 05/03/2024 12:16 AM EST LAB[facility]ATORY [facility] ALT 16 10 - 35 U/L 05/03/2024 12:16 AM EST LABORATORY [facility] Blood Venous blood specimen / Unknown Venipuncture / Unknown 05/02/2024 1:59 PM EST 05/02/2024 1:59 PM EST us Terrance Craig MD LAB BLOOD ORDERABLES Final Result LABORATORY [facility] [address] [place] [address] documented in this encounter Visit Diagnoses Diagnosis Chronic kidney disease, stage 3a (HCC)- Primary Risk and functional assessment Screening for unspecified condition Bruit of left carotid artery Other symptoms involving cardiovascular system Myalgia Mylagia and myositis, unspecified Purpura (HCC) Other nonthrombocytopenic purpuras Encounter for long-term (current) use of medications Encounter for long-term (current) use of other medications Multiple sclerosis (HCC) Multiple sclerosis Chronic heart failure with preserved ejection fraction (HCC) Coronary artery disease involving telida coronary artery of telida heart without angina pectoris HTN, goal below 140/90 Unspecified essential hypertension Fibromyalgia Mylagia and myositis, unspecified GENERAL OSTEOARTHROSIS Generalized osteoarthrosis, unspecified site documented in this encounter Advance Directives * Full Code (Latest Code Status on File) Date Activated Date Inactivated Comments 03/02/2022 3:34 PM 03/03/2022 4:53 PM This order reflects the patients wishes and were consensually agreed upon. Question Answer Comments Discussion of Advance Directives occurred with: Patient * Full Code Date Activated Date Inactivated Comments 11/07/2018 11:26 AM 11/08/2018 3:05 PM This order reflects the patients wishes and were consensually agreed upon. * Full Code Date Activated Date Inactivated Comments 11/10/2009 8:57 AM 11/10/2009 4:30 PM This order ref lects the patients wishes and were consensually agreed upon. * Full Code Date Activated Date Inactivated Comments 11/10/2009 7:03 AM 11/10/2009 8:57 AM This order ref lects the patients wishes and were consensually agreed upon. Care Teams Exhibits Manager Relationship Specialty Start Date End Date Terrance Craig MD [address] [place] [address] PCP - General Family Medicine 04/12/24 documented as of this encounter
--- OUTSIDE RECORDS SUMMARY | 2024-06-16 12:09 | External Medical Summary | Summary of Care ---
Author Name Unknown Organization [facility] Address [address] [place] [address] Phone [phone] Care Team Providers Care Executive Personal Assistant Name Role Phone Terrance Craig MD Primary Care Provider [phone]- [phone] Reason for Visit * Reason Onset Date Comments Precert Approved 05/29/2024 Repatha SureCli ck 140MG/ML auto-injectors Encounter Details Date Type Department Care Team (Late st Contact Info) Description 05/29/2024 Telephone Cardiology, [facility] [address] [place] [phone] Lani Ling PA-C [address] [place] [phone] Precert Approved (Repatha SureClick 140MG/... Allergies Active Allergy Reactions Criticality Noted Date [...] as of this encounter (statuses as of 05/31/2024) Medications LABETALOL HCL 200 MG PO TABSIndications:Hy pertensive heart disease 2 tablets twice daily 360 Tab 3 09/05/19 11 Active aspirin enteric coated 81 MG TBEC Take 1 Tablet by mouth in the morning. Active Albuterol Sulfate (ALBUTEROL HFA) 108 (90 BASE) MCG/ACT inhaler Inhale 2 Puffs by mouth 4 times a day. 54 g 3 10/08/19 20 Active Calcitriol 0.25 MCG Oral Capsule (Rocaltrol) Take 1 Capsule by mouth in the morning. Active Naloxone HCl 4 MG/0.1ML Nasal Liquid (Narcan Nasal) Administer 1 spray into 1 nostril for suspected opioid overdose. Seek immediate medical attention. [email or web address] 1 Each 3 01/29/20 23 Active Additional Information Patient not taking.Reported on 05/02/2024 Clarithromycin 500 MG Oral Tablet (Biaxin)Indication s:Mitral valve disorder TAKE 1 TABLET 1 HOUR BEFORE DENTIST 3 Tablet 2 02/25/20 23 Active Additional Information Patient not taking.Reported on 05/02/2024 EPINEPHrine 0.3 MG/0.3ML Injection Solution Auto-injector (Autoinjector) FOR A SEVERE REACTION: PLACE ORANGE END AGAINST THE OUTER THIGH, PRESS FIRMLY, HOLD IN PLACE FOR 10 SECONDS AND GO TO THE EMERGENCY ROOM. 2 Each 2 04/23/19 24 Active Repatha SureClick 140 MG/ML Subcutaneous Solution Auto-injector (evolocumab)Indica tions:Hyperlipemia , mixed Inject 140 mg (1 pen) under the skin every 14 days. 6 mL 3 02/29/2024 3:14 PM EST 07/20/19 24 Active Furosemide 40 MG Oral Tablet (Lasix) Take 2 tablets in the morning. Take 1 tablet in the afternoon 270 Tablet 3 08/26/19 24 Active Isosorbide Mononitrate ER 30 MG Oral Tablet Extended Release 24 Hour (Imdur)Indications :Coronary artery disease involving rincon coronary artery of rincon heart without angina pectoris,Dyslipide jenny, goal LDL below 70,HTN, goal below 140/90,S/P angioplasty with stent Take 3 Tablets by mouth in the morning. 270 Tablet 3 08/26/19 24 Active Spironolactone 25 MG Oral Tablet (Aldactone)Indicat ions:HTN, goal below 140/90,S/P angioplasty with stent,Coronary artery disease involving rincon coronary artery of rincon heart without angina pectoris Take 1 Tablet by mouth in the morning. 90 Tablet 3 10/03/19 24 Active Raloxifene HCl 60 MG Oral Tablet (Evista)Indication s:Generalized osteoarthritis TAKE 1 TABLET DAILY 90 Tablet 1 11/24/19 24 Active Pantoprazole Sodium 40 MG Oral Tablet Delayed Release (Protonix) TAKE 1 TABLET EVERY MORNINGAND 1 TABLET BEFORE BEDTIME 180 Tablet 1 11/24/19 24 Active Pravastatin Sodium 20 MG Oral Tablet (Pravachol)Indicat ions:Dyslipidemia, goal LDL below 70,HTN, goal below 140/90,S/P angioplasty with stent,Coronary artery disease involving rincon coronary artery of rincon heart without angina pectoris Take 1 Tablet by mouth in the morning. 90 Tablet 3 11/23/19 24 Active Levothyroxine Sodium 150 MCG Oral Tablet (Levoxyl)Indicatio ns:Hypothyroidism, unspecified type Take one half tab by mouth one day per week and a full tab all other days of the week 90 Tablet 3 12/09/19 24 Active Carbidopa-Levodopa 25-100 MG Oral Tablet (Sinemet) Take 1 Tablet by mouth in the morning and 1 Tablet at noon and 1 Tablet before bedtime. May take an additional pill once a day as needed. 360 Tablet 1 01/05/20 24 Active Gabapentin 300 MG Oral Capsule (Neurontin)Indicat ions:RLS (restless legs syndrome) Take 2 Capsules by mouth 2 times a day. Take 600mg at noon and 600mg 90 minutes before bed. 360 Capsule 02/14/20 24 Active Tobramycin 0.3 % Ophthalmic Solution (Aktob)Indications :Bacterial conjunctivitis of both eyes Use 1 drop each eye 4-6 times throughout the day for at least 5 days. If redness is gone after that may use drops 3x daily for another 2 days then stop. Try to extend drops for 1-2 days past the redness/drainag e going away. 5 mL 03/07/20 24 Active Additional Information Patient not taking.Reported on 05/02/2024 Neupro 6 MG/24HR Transdermal Patch 24 Hour (Rotigotine)Indica tions:RLS (restless legs syndrome) APPLY 1 PATCH ONCE DAILY 90 Patch 1 03/09/20 Active Nitroglycerin 0.4 MG Sublingual Tablet Sublingual (Nitrostat)Indicat ions:S/P angioplasty with stent,Coronary artery disease involving rincon coronary artery of rincon heart without angina pectoris,HTN, goal below 140/90 DISSOLVE 1 TABLET UNDER THETONGUE EVERY 5 MINUTES NEEDED FOR CHEST PAIN, UP TO 3 DOSES IN 15 MINUTES 100 Tablet 1 03/26/20 24 Active predniSONE 10 MG Oral Tablet (Deltasone)Indicat ions:Rash and nonspecific skin eruption Take 4 tabs for 2 days, 3 tabs for 2 days, 2 tabs for 2 days 1 tab for 2 days 20 Tablet 04/22/19 Active Additional Information Patient not taking.Reported on 05/02/2024 Carbidopa-Levodopa ER 50-200 MG Oral Tablet Extended Release (Sinemet CR) TAKE 1 TABLET DAILY 90 Tablet 1 05/07/19 Active Hospital, Clinic, or Other Facility Administered Medication Ordered Dose Route Frequency Start Date End Date Status albuterol sulfate (PROVENTIL) (2.5 MG/3ML) 0.083% inhalation solution 2.5 mgIndications:Wheeze,BRIONES (dyspnea on exertion) 2.5 mg NEBULIZER Q4H PRN 03/27/2017 Act anthony documented as of this encounter (statuses as of 05/31/2024) Active Problems Problem Noted Date Diagnosed Date Chronic heart failure with preserved ejection fr action 09/29/2023 ANDRÉS (stress urinary incontinence, female) 2021 Advanced directives, counseling/discussion 10/31 Chronic kidney disease, stage 3a 10/20/2020 Overview: Per CKD protocol Coronary artery disease invo lving rincon coronary artery of rincon heart without angina pectoris 06/11/2019 S/P angioplasty [...] as of this encounter (statuses as of 05/31/2024) Resolved Problems Problem Noted Date Diagnosed Date Resolved Date Prediabetes 03/23/2021 09/24/2021 Overview: Per Prediabetes protocol Coronary artery disease invo lving rincon coronary artery of rincon heart with angina pectoris 06/16/2020 05/28/2022 Stage [...] per HTN protocol #16. Multiple sclerosis 11/13/2007 Overview (05/09/2008): Resolved per Duplicate Protocol #2. Kidney disease, chronic, sta ge III (GFR 30-59 ml/min) 02/27/2007 07/25/2014 HYPERTENSIVE CEREBROVASC DISEASE NEC 12/08/2004 02/27/2007 ABN PNEUMATIC PRESS HAND FUNCT STUDY NOS 12/08/200402/09 FIBROMYALGIA 09/18/2002 10/03/2016 Mixed dyslipidemia 07/04/2002 9 Overview (03/26/2009): Per Lipid Taxonomy. DYSFUNCT EUSTACHIAN TUBE, BILATERAL 09/22/1999 09/10/2016 HYPERTENSION NOS 03/04/2009 Overview (03/04/2009): Modified per HTN protocol #16. Irritable bowel syndrome 12/2016 documented as of this encounter (statuses as of 05/31/2024) Immunizations Name Administration Dates Next Due COVID-19 [...] AM EDT documented as of this encounter Functional Status * Are you deaf or do you have serious difficulty hearing? Answer Date of Assessment Author No 03/02/2022 5:59 PM Oj Carrillo RN * Are you blind or do you have serious difficulty seeing, even when wearing glasses? Answer Date of Assessment Author No 03/02/2022 5:59 PM Oj Carrillo RN * Do you have serious difficulty walking or climbing stairs? (5 years old or older) Answer Date of Assessment Author No 03/03/2022 10:00 AM Drew Menezes RN * Do you have difficulty dressing or bathing? (5 years old or older) Answer Date of Assessment Author No 03/02/2022 5:59 PM Oj Carrillo RN * Because of a physical, mental, [...] Entry Date Author No 03/02/2022 5:59 PM EST Sunny, Oj ol J, RN documented in this encounter Miscellaneous Notes * Telephone Encounter - Veronica Montejo OSA - 05/31/2024 11:01 AM EST [facility] Authorization Submission Submission Information: Medication: Repatha SureClick 140MG/ML auto-injectors Portal used: [facility] Insurance: [employer] Medicare Authorization #/Umaña: [id number] [place] Veronica Montejo Medication Manager [employer] Systems [facility] 05/31/24,11:00 AM * Telephone Encounter - Malorie Rooney CPhT - 05/29/2024 10:52 AM EST New or re-auth: REAUT Patient needs a prior authorization for a medication through their [employer] ([facility])insurance. Medication: REPATHA Formulation: PEN Dosage: 140 MG ID: [id number] BIN:[id number] PCN:[id number] Target ship date is 06/04. Thank you very much, Malorie Rooney Cloud Automation Tester III [facility] 05/29/2024,10:53 AM documented in this encounter Plan of Treatment Upcoming Encounters Date Type Department Care Team (Late st Contact Info) Description 11/05/2024 7:40 AM EDT [facility] [address] [phone] Terrance Craig MD [address] [address] 11/07/2024 8:30 AM EDT Office Visit Cardiology, [facility] [address] [phone] Lani Ling PA-C [address] [place] [address] 05/02/2025 1:30 PM EST Office Visit Cardiology, [facility] [address] [place] [address] Shan Starks MD [address] [place] [phone] Scheduled Procedures Name Priority Associated Diagnoses Date/Ti [...] Additional history exists CKD PHOS USE SMARTSET 49286 08/02/202407/11, 05/10/2022, 12/11/2019, Additional history exists GFR 10/30/2024 05/02/2024, 08/10, 08/03/2023, Additional history exists CKD HGB USE SMARTSET 97190 05/02/202505/02, 10/07/2023, 08/03/2023, Additional history exists Depression [...] on patient's age to complete this topic Meningitis B Vaccine (Bexsero/Trumemba) Aged Out No longer eligible based on patient's age to complete this topic documented as of this encounter Medical Devices Implanted Type Area Medical Lead Device Identifier Shelf Expiration Date Model / Serial / Lot Yunior Jang [id number] X5 - [id number] Implanted:Qty: 1 on 11/10/2009 at OR [facility] Right: Shoulder [employer] 09/09/2010 AR-[id number] / / [id number] System Anchorsure 2 Sutures - [id number] Implanted:Qty: 1 on 11/07/2018 by Lobo Sweeney DO at OR [facility] N/A: Vagina [employer] 04/12/2020 A-SURE / / [id number] Suture Anchorsure 2pk - [id number] Implanted:Qty: 1 on 11/07/2018 by Lobo Sweeney DO at OR [facility] N/A: Vagina [employer] 06/26/2020 A-SURE02 / / [id number] 8cm X 12cm [place] Dermis Implanted:Qty: 1 on 11/07/2018 by Lobo Sweeney DO at OR [facility] N/A: Vagina COLOPLAST SWEEN MAY 03/10/2023 [id number] / [id number] / [id number] Sling Desara 1.1cm X 45cm - [id number] Implanted:Qty: 1 on 03/02/2022 by Milagros Olguin MD at OR [facility] N/A: Urethra [employer] 10/22/2024 WAYLON-DS01 / / [id number] Y-Mesh 26 X 4 X 3 Cm - [id number] Implanted:Qty: 1 on 03/02/2022 by Milagros Olguin MD at OR [facility] N/A: Pelvis [employer] 10/06/2026 WAYLON-[id number] / / [id number] Description:used for sacroco lpopexy documented as of this encounter Advance Directives * Full Code [...] and were consensually agreed upon. Care Teams Executive Personal Assistant Relationship Specialty Start Date End Date Terrance Craig MD [address] [address] PCP - General Family Medicine 04/12/24 documented as of this encounter
--- OUTSIDE RECORDS SUMMARY | 2024-06-16 12:10 | External Medical Summary ---
Author Name Unknown Address Unknown Organization K01:[facility] - [address] [place] [id number] Laboratory Report Ordering Provider Test Date Status KADE CASILLAS 05/02/2024 13:59:44 Final Observation Date Value Abnormality Reference (Units ) Status Magnesium 05/02/2024 13:59:44 2.5 1.5-2.6 (m g/dL) Final Performing Location [facility] - [address] [place] [address]
--- OUTSIDE RECORDS SUMMARY | 2024-06-16 12:10 | External Medical Summary | Summary of Care ---
Author Name Unknown Organization [facility] Address [address] [place] [address] Phone [phone] Care Team Providers Care Booth Cleaner Name Role Phone Terrance Craig MD Primary Care Provider +1- [phone] Reason for Visit * Reason Comments Outpatient Testing Encounter Details Date Type Department Care Team (Late st Contact Info) Description 05/02/2024 2:00 PM EST Laboratory Laboratory, [facility] [address] [place] [phone] [facility] [address] [place] [address] Encounter for long-term (current) use of medications; Myalgia; Purpura (HCC) Allergies Active Allergy Reactions Criticality Noted Date [...] as of this encounter (statuses as of 05/02/2024) Medications LABETALOL HCL 200 MG PO TABSIndications:Hy [...] suspected opioid overdose. Seek immediate medical attention. [email or web address] 1 Each 3 01/29/20 Active Additional Information Patient not taking.Reported on [...] ROOM. 2 Each 2 04/23/19 24 Active Carbidopa-Levodopa ER 50-200 MG Oral Tablet Extended Release (Sinemet CR) TAKE 1 TABLET DAILY 90 Tablet 3 05/16/19 24 Active Repatha SureClick 140 MG/ML Subcutaneous [...] 24 Hour (Imdur)Indications :Coronary artery disease involving elim ira coronary artery of elim ira heart without angina pectoris,Dyslipide jenny, goal LDL below 70,HTN, goal below 140/90,S/P angioplasty with stent Take 3 Tablets by mouth in the morning. 270 Tablet 3 08/26/19 24 Active Spironolactone 25 MG Oral Tablet (Aldactone)Indicat ions:HTN, goal below 140/90,S/P angioplasty with stent,Coronary artery disease involving elim ira coronary artery of elim ira heart without angina pectoris Take 1 Tablet [...] 140/90,S/P angioplasty with stent,Coronary artery disease involving elim ira coronary artery of elim ira heart without angina pectoris Take 1 Tablet [...] PATCH ONCE DAILY 90 Patch 1 03/09/20 24 Active Nitroglycerin 0.4 MG Sublingual Tablet Sublingual (Nitrostat)Indicat ions:S/P angioplasty with stent,Coronary artery disease involving elim ira coronary artery of elim ira heart without angina pectoris,HTN, goal below 140/90 [...] tab for 2 days 20 Tablet 04/22/19 25 Active Additional Information Patient not taking.Reported on 05/02/2024 Hospital, Clinic, or Other Facility Administered Medication Ordered Dose Route Frequency Start Date End Date Status albuterol sulfate (PROVENTIL) (2.5 MG/3ML) 0.083% inhalation solution 2.5 mgIndications:Wheeze,BRIONES (dyspnea on exertion) 2.5 mg NEBULIZER Q4H PRN 03/27/2017 Act anthony documented as of this encounter (statuses as of 05/02/2024) Active Problems Problem Noted Date Diagnosed Date Chronic heart failure with preserved ejection fr action 09/29/2023 ANDRÉS (stress urinary incontinence, female) 2021 Advanced directives, counseling/discussion 10/31 Chronic kidney disease, stage 3a 10/20/2020 Overview: Per CKD protocol Coronary artery disease invo lving elim ira coronary artery of elim ira heart without angina pectoris 06/11/2019 S/P angioplasty [...] as of this encounter (statuses as of 05/02/2024) Resolved Problems Problem Noted Date Diagnosed Date Resolved Date Prediabetes 03/23/2021 09/24/2021 Overview: Per Prediabetes protocol Coronary artery disease invo lving elim ira coronary artery of elim ira heart with angina pectoris 06/16/2020 05/28/2022 Stage [...] HYPERTENSIVE CEREBROVASC DISEASE NEC 12/08/2004 02/27/2007 ABN TOP HAT BODY MAKER FUNCT STUDY NOS 12/08/200402/09 FIBROMYALGIA 09/18/2002 10/03/2016 Mixed dyslipidemia 07/04/2002 9 Overview (03/26/2009): Per Lipid Taxonomy. DYSFUNCT EUSTACHIAN TUBE, BILATERAL 09/22/1999 09/10/2016 HYPERTENSION NOS 03/04/2009 Overview (03/04/2009): Modified per HTN protocol #16. Irritable bowel syndrome 12/2016 documented as of this encounter (statuses as of 05/02/2024) Immunizations Name Administration Dates Next Due COVID-19 [...] Oj Carrillo RN documented in this encounter Plan of Treatment Upcoming Encounters Date Type Department Care Team (Late st Contact Info) Description 05/04/2024 3:00 PM EST Imaging Vascular Lab, [facility] 2nd Floor, [place] [address] [place] [address] 11/05/2024 7:40 AM EDT [facility] [address] [place] [phone] Terr[facility] Craig MD [address] [facility] [place] [address] 11/07/2024 8:30 AM EDT Office Visit Cardiology, [facility] [address] [facility] [place] [address] Lani Ling PA-C [address] [place] [address] 05/02/2025 1:30 PM EST Office Visit Cardiology, [facility] [address] [place] [address] Shan Starks MD [address] [facility] [place] [phone] Pending Results Name Type Priority Associated Diagnoses Date /Time COMPREHENSIVE METABOLIC PANEL Lab Routine Encounter for long-term (current) use of medications 05/02/2024 1:59 PM EST TSH WITH FREE T4 IF INDICATED Lab Routine Encounter for long-term (current) use of medications 05/02/2024 1:59 PM EST VITAMIN B12 Lab Routine Encounter for long-term (current) use of medications 05/02/2024 1:59 PM EST MAGNESIUM Lab Routine Encounter for long-term (current) use of medications 05/02/2024 1:59 PM EST ERYTHROCYTE SEDIMENTATION RATE (ESR) Lab Routine Myalgia Encounter for long-term (current) use of medications 05/02/2024 1:59 PM EST CK Lab Routine Myalgia Encounter for long-term (current) use of medications 05/02/2024 1:59 PM EST CBC Lab Routine Purpura (HCC) Encounter for long-term (current) use of medications 05/02/2024 1:59 PM EST Scheduled Procedures Name Priority Associated Diagnoses Date/Ti me COLONOSCOPY FLEXIBLE PROXIMA L DIAGNOSTIC Recall Family history of colorectal cancer Health Maintenance Due Date Last Done Comments Adult Wellness Visit 08/25/2009 Colonoscopy 01/23/2023 01/23/2018, 01/09, 12/29/2012, Additional history exists COVID-19 Vaccine ( season) 2023 02/17/2022, 03/11/2021, 06/12/2020, Additional history exists GFR 03/01/2024 08/30/2023, 07/11, 01/28/2023, Additional history exists Albumin/Creatinine Ratio 08/02/2024 024, 08/18/2022, 03/13/2018, Additional history exists CKD PHOS USE SMARTSET 03094 08/02/202407/11, 05/10/2022, 12/11/2019, Additional history exists TSH 08/02/2024 08/03/2023, 08/09, 08/18/2021, Additional history exists CKD HGB USE SMARTSET 41218 10/06/202410/06, 08/03/2023, 08/03/2023, Additional history exists Depression Screening 05/02/2025 05/02/2024, 09/17/19 23 Pneumococcal Vaccine: 50+ Years Completed 03/26/2015, 08/27/2008, [...] this encounter Medical Devices Implanted Type Area Supervisor Riprap Placing Device Identifier Shelf Expiration Date Model / Serial / Lot Yunior Jang [id number] X5 - [id number] Implanted:Qty: 1 on 11/10/2009 at OR [facility] Right: Shoulder [employer] 09/09/2010 AR-1925BF / / [id number] System Anchorsure 2 Sutures - [id number] Implanted:Qty: 1 on 11/07/2018 by Lobo Sweeney DO at OR [facility] N/A: Vagina [employer] 04/12/2020 A-SURE / / [id number] Suture Anchorsure 2pk - [id number] Implanted:Qty: 1 on 11/07/2018 by Lobo Sweeney DO at OR [facility] N/A: Vagina [employer] 06/26/2020 A-SURE02 / / [id number] 8cm X 12cm [place] Dermis Implanted:Qty: 1 on 11/07/2018 by Lobo Sweeney DO at OR [facility] N/A: Vagina [employer]LAST SWEEN MAY 03/10/2023 [id number] / [id number] / [id number] Sling Desara 1.1cm X 45cm - [id number] Implanted:Qty: 1 on 03/02/2022 by Milagros Olguin MD at OR [facility] N/A: Urethra [employer] 10/22/2024 WAYLON-DS01 / / [id number] Y-Mesh 26 X 4 X 3 Cm - [id number] Implanted:Qty: 1 on 03/02/2022 by Milagros Olguin MD at OR [facility] N/A: Pelvis [employer] 10/06/2026 WAYLON-VLY26 [id number] / / [id number] Description:used for sacroco lpopexy documented as of this encounter Visit Diagnoses Diagnosis Encounter for long-term (current) use of medications Encounter for long-term (current) use of other medications Myalgia Mylagia and myositis, unspecified Purpura (HCC) Other nonthrombocytopenic purpuras documented in this encounter Advance Directives * [...] and were consensually agreed upon. Care Teams Booth Cleaner Relationship Specialty Start Date End Date Terrance Craig MD [address] [place] [address] PCP - General Family Medicine 04/12/24 documented as of this encounter
--- OUTSIDE RECORDS SUMMARY | 2024-06-16 12:10 | External Medical Summary ---
Author Name Unknown Address Unknown Organization K01:[facility]ATORY [facility] - [address] [place] [address] Laboratory Report Ordering Provider Test Date Status KADE CASILLAS 05/02/2024 13:59:44 Final Observation Date Value Abnormality Reference (Units ) Status TSH 05/02/2024 13:59:44 1.46 0.27-4.20 (uIU/mL) Final Performing Location [facility] [place] - [address] [place] [address]
--- OUTSIDE RECORDS SUMMARY | 2024-06-16 12:10 | External Medical Summary ---
Author Name Unknown Address Unknown Organization K01:LABORATORY [facility] - [address] [facility] [address] Laboratory Report Ordering Provider Test Date Status JESS CASILLASSAMANTHA 05/02/2024 13:59:44 Final Observation Date Value Abnormality Reference (Units ) Status BUN 05/02/2024 13:59:44 10 6-20 (mg/dL) Final Creatinine 05/02/2024 13:59:44 0.9 0.5-1.0 (mg/dL) Final Glomerular filtration rate/1.73 sq M.predicted [Volume Rate/Area] in Serum, Plasma or Blood by Creatinine-based formula (CKD-EPI) 05/02/2024 13:59:44 65 >=60 (mL/min) Final eGFR is calculated based on the CKD-EPI 2020 equation. Sodium 05/02/2024 13:59:44 144 135-146 (m mol/L) Final Potassium 05/02/2024 13:59:44 3.6 3.5-5.1 (m mol/L) Final Cl 05/02/2024 13:59:44 101 98-107 (mm ol/L) Final CO2 05/02/2024 13:59:44 31 22-32 (mmo l/L) Final Anion gap 05/02/2024 13:59:44 12 7-15 (mmol /L) Final Glucose 05/02/2024 13:59:44 99 70-120 (mg /dL) Final Albumin 05/02/2024 13:59:44 4.3 3.8-5.0 (g /dL) Final AST (Aspartate aminotransferase) 05/02/2024 13:59:44 16 10-35 (U/L) Fin al Alk Phos 05/02/2024 13:59:44 144 Above high normal 35 -130 (U/L) Final Bilirubin, Total 05/02/2024 13:59:44 1.0 <=1 .2 (mg/dL) Final Calcium 05/02/2024 13:59:44 9.8 8.4-10.2 ( mg/dL) Final Protein 05/02/2024 13:59:44 6.2 6.0-8.3 (g /dL) Final ALT (Alanine aminotransferase) 05/02/2024 13:59:44 16 10-35 (U/L) Adam bowden Performing Location LABORATORY [facility] - [address] [facility] [address]
--- OUTSIDE RECORDS SUMMARY | 2024-06-16 12:10 | External Medical Summary | Summary of Care ---
Author Name Unknown Organization [facility] Address [address] [place] [address] Phone [phone] Care Team Providers Care Green End Man Name Role Phone Terrance Craig MD Primary Care Provider [phone]- [phone] Reason for Visit * Reason Onset Date Comments Medication Pre-auth 04/23/2024 Encounter Details Date Type Department Care Team (Late st Contact Info) Description 04/23/2024 Telephone Neurology [facility] [address] [place] [address] Valentina Gilbert MD [address] [place] [address] Medication Pre-auth Allergies Active Allergy Reactions Criticality Noted Date [...] as of this encounter (statuses as of 04/23/2024) Medications LABETALOL HCL 200 MG PO TABSIndications:Hy pertensive heart disease 2 tablets twice daily 360 Tab 3 09/05/19 Active aspirin enteric coated 81 MG TBEC Take 1 Tablet by mouth in the morning. Active Albuterol Sulfate (ALBUTEROL HFA) 108 (90 BASE) MCG/ACT inhaler Inhale 2 Puffs by mouth 4 times a day. 54 g 3 10/08/19 Active Calcitriol 0.25 MCG Oral Capsule (Rocaltrol) Take 1 Capsule by mouth in the morning. Active Naloxone HCl 4 MG/0.1ML Nasal Liquid (Narcan Nasal) Administer 1 spray into 1 nostril for suspected opioid overdose. Seek immediate medical attention. [email or web address] 1 Each 3 01/29/20 Active Additional Information Patient not taking.Reported on 04/22/2024 Clarithromycin 500 MG Oral Tablet (Biaxin)Indication s:Mitral valve disorder TAKE 1 TABLET 1 HOUR BEFORE DENTIST 3 Tablet 2 02/25/20 23 Active Additional Information Patient not taking.Reported on 04/22/2024 EPINEPHrine 0.3 MG/0.3ML Injection Solution Auto-injector (Autoinjector) [...] 24 Hour (Imdur)Indications :Coronary artery disease involving [place] coronary artery of [place] heart without angina pectoris,Dyslipide jenny, goal LDL below 70,HTN, goal below 140/90,S/P angioplasty with stent Take 3 Tablets by mouth in the morning. 270 Tablet 3 08/26/19 24 Active Spironolactone 25 MG Oral Tablet (Aldactone)Indicat ions:HTN, goal below 140/90,S/P angioplasty with stent,Coronary artery disease involving [place] coronary artery of [place] heart without angina pectoris Take 1 Tablet [...] 140/90,S/P angioplasty with stent,Coronary artery disease involving [place] coronary artery of [place] heart without angina pectoris Take 1 Tablet [...] Active Additional Information Patient not taking.Reported on 04/22/2024 Neupro 6 MG/24HR Transdermal Patch 24 Hour (Rotigotine)Indica tions:RLS (restless legs syndrome) APPLY 1 PATCH ONCE DAILY 90 Patch 1 03/09/20 24 Active Nitroglycerin 0.4 MG Sublingual Tablet Sublingual (Nitrostat)Indicat ions:S/P angioplasty with stent,Coronary artery disease involving [place] coronary artery of [place] heart without angina pectoris,HTN, goal below 140/90 [...] 2 days 20 Tablet 04/22/19 25 Active Hospital, Clinic, or Other Facility Administered Medication Ordered Dose Route Frequency Start Date End Date Status albuterol sulfate (PROVENTIL) (2.5 MG/3ML) 0.083% inhalation solution 2.5 mgIndications:Wheeze,BRIONES (dyspnea on exertion) 2.5 mg NEBULIZER Q4H PRN 03/27/2017 Act anthony documented as of this encounter (statuses as of 04/23/2024) Active Problems Problem Noted Date Diagnosed Date Chronic heart failure with preserved ejection fr action 09/29/2023 ANDRÉS (stress urinary incontinence, female) 2021 Advanced directives, counseling/discussion 10/31 Chronic kidney disease, stage 3a 10/20/2020 Overview: Per CKD protocol Coronary artery disease invo lving [place] coronary artery of [place] heart without angina pectoris 06/11/2019 S/P angioplasty [...] as of this encounter (statuses as of 04/23/2024) Resolved Problems Problem Noted Date Diagnosed Date Resolved Date Prediabetes 03/23/2021 09/24/2021 Overview: Per Prediabetes protocol Coronary artery disease invo lving [place] coronary artery of [place] heart with angina pectoris 06/16/2020 05/28/2022 Stage [...] HYPERTENSIVE CEREBROVASC DISEASE NEC 12/08/2004 02/27/2007 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 DYSFUNCT EUSTACHIAN TUBE, BILATERAL 09/22/1999 09/10/2016 HYPERTENSION NOS 03/04/2009 Overview (03/04/2009): Modified per HTN protocol #16. Irritable bowel syndrome 12/2016 documented as of this encounter (statuses as of 04/23/2024) Immunizations Name Administration Dates Next Due COVID-19 [...] Oj Carrillo RN documented in this encounter Miscellaneous Notes * Telephone Encounter - Brenda Dennison, MED ASSIST - 04/23/2024 9:12 AM EST Neurology Pre-Cert Request Medication/Disease State Information: Medication: Neupro 6mg/24hr- apply 1 patch once daily Diagnosis (including ICD-10): RLS G25.81. Self-administered - route pre-cert request to [id number] Last office visit within the past year: yes See corresponding visit note(s) for additional supporting clinical information. Office Information: Prescriber: Valentina Gilbert MD documented in this encounter Plan of Treatment Upcoming Encounters Date Type Department Care Team (Late st Contact Info) Description 05/02/2024 12:00 PM EST Office Visit [facility] Maddock Kojo Salazar [address] [facility] [place] [phone] Terrance Craig MD [address] [facility] [place] [address] 05/02/2025 1:30 PM EST Office Visit Cardiology, [facility] [address] [place] [address] Shan Starks MD [address] [place] [address] Scheduled Procedures Name Priority Associated Diagnoses Date/Ti me COLONOSCOPY FLEXIBLE PROXIMA L DIAGNOSTIC Recall Family history of colorectal cancer Health Maintenance Due Date Last Done Comments Adult Wellness Visit 08/25/2009 Colonoscopy 01/23/2023 01/23/2018, 01/09, 12/29/2012, Additional history exists Depression Screening 09/17/2023 09/16/2022 COVID-19 Vaccine ( season) 2023 02/17/2022, 03/11/2021, 06/12/2020, Additional history exists GFR 03/01/2024 08/30/2023, 07/11, 01/28/2023, Additional history exists Albumin/Creatinine Ratio 08/02/2024 024, 08/18/2022, 03/13/2018, Additional history exists CKD PHOS USE SMARTSET 71838 08/02/202407/11, 05/10/2022, 12/11/2019, Additional history exists TSH 08/02/2024 08/03/2023, 08/09, 08/18/2021, Additional history exists CKD HGB USE SMARTSET 10563 10/06/202410/06, 08/03/2023, 08/03/2023, Additional history exists Pneumococcal Vaccine: 50+ Years [...] this encounter Medical Devices Implanted Type Area Reporting Coordinator Device Identifier Shelf Expiration Date Model / Serial / Lot Yunior Jang [id number] - [id number] Implanted:Qty: 1 on 11/10/2009 at OR [facility] Right: Shoulder [employer] 09/09/2010 AR-1925BF / / [id number] System Anchorsure 2 Sutures - [id number] Implanted:Qty: 1 on 11/07/2018 by Lobo Sweeney, DO at OR [facility] N/A: Vagina [employer] 04/12/2020 A-SURE / / [id number] Suture Anchorsure 2pk - [id number] Implanted:Qty: 1 on 11/07/2018 by Lobo Sweeney, DO at OR [facility] N/A: Vagina [employer] 06/26/2020 A-SURE02 / / [id number] 8cm X 12cm [place] Dermis Implanted:Qty: 1 on 11/07/2018 by Lobo Sweeney DO at OR [facility] N/A: Vagina COLOPLAST SWEEN MAY 03/10/2023 [id number] / [id number] / [id number] Sling Desara 1.1cm X 45cm - [id number] Implanted:Qty: 1 on 03/02/2022 by Milagros Olguin MD at OR [facility] N/A: Urethra [employer] 10/22/2024 WAYLON-DS01 / / [id number] Y-Mesh 26 X 4 X 3 Cm - [id number] Implanted:Qty: 1 on 03/02/2022 by Milagros Olguin MD at OR [facility] N/A: Pelvis [employer] 10/06/2026 WAYLON-[id number] / / [id number] Description:used for sacroco lpopexy documented as of [...] and were consensually agreed upon. Care Teams Green End Man Relationship Specialty Start Date End Date Terrance Craig MD [address] [address] PCP - General Family Medicine 04/12/24 documented as of this encounter
--- OUTSIDE RECORDS SUMMARY | 2024-06-16 12:10 | External Medical Summary | Summary of Care ---
Author Name Unknown Organization [facility] Address [address] [place] [address] Phone [phone] Care Team Providers Care Restaurant Management Internship Name Role Phone Terrance Craig MD Primary Care Provider +1- [phone] Reason for Visit * Reason Onset Date Comments Precert Approved 04/23/2024 NEUPRO Encounter Details Date Type Department Care Team (Late st Contact Info) Description 04/23/[address] [facility] [address] [place] [address] Valentina Gilbert MD [address] [place] [address] Precert Approved ( NEUPRO) Allergies Active Allergy Reactions Criticality Noted Date [...] as of this encounter (statuses as of 04/25/2024) Medications LABETALOL HCL 200 MG PO TABSIndications:Hy [...] suspected opioid overdose. Seek immediate medical attention. [email or web address] 1 Each 3 01/29/20 Active Additional Information [...] 24 Hour (Imdur)Indications :Coronary artery disease involving [place] coronary artery of [place] heart without angina pectoris,Dyslipide jenny, goal LDL below 70,HTN, goal below 140/90,S/P angioplasty with stent Take 3 Tablets by mouth in the morning. 270 Tablet 3 08/26/19 24 Active Spironolactone 25 MG Oral Tablet (Aldactone)Indicat ions:HTN, goal below 140/90,S/P angioplasty with stent,Coronary artery disease involving [place] coronary artery of [place] heart without angina pectoris Take 1 Tablet [...] 140/90,S/P angioplasty with stent,Coronary artery disease involving [place] coronary artery of [place] heart without angina pectoris Take 1 Tablet [...] ions:S/P angioplasty with stent,Coronary artery disease involving [place] coronary artery of [place] heart without angina pectoris,HTN, goal below 140/90 [...] as of this encounter (statuses as of 04/25/2024) Active Problems Problem Noted Date Diagnosed Date Chronic heart failure with preserved ejection fr action 09/29/2023 ANDRÉS (stress urinary incontinence, female) 2021 Advanced directives, counseling/discussion 10/31 Chronic kidney disease, stage 3a 10/20/2020 Overview: Per CKD protocol Coronary artery disease invo lving [place] coronary artery of [place] heart without angina pectoris 06/11/2019 S/P angioplasty [...] as of this encounter (statuses as of 04/25/2024) Resolved Problems Problem Noted Date Diagnosed Date Resolved Date Prediabetes 03/23/2021 09/24/2021 Overview: Per Prediabetes protocol Coronary artery disease invo lving [place] coronary artery of [place] heart with angina pectoris 06/16/2020 05/28/2022 Stage [...] HYPERTENSIVE CEREBROVASC DISEASE NEC 12/08/2004 02/27/2007 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 DYSFUNCT EUSTACHIAN TUBE, BILATERAL 09/22/1999 09/10/2016 HYPERTENSION NOS 03/04/2009 Overview (03/04/2009): Modified per HTN protocol #16. Irritable bowel syndrome 12/2016 documented as of this encounter (statuses as of 04/25/2024) Immunizations Name Administration Dates Next Due COVID-19 mRNA, LNP-s, No Pre serve, 2-Dose Series (Moderna) 03/11/2021,06/12/2020,05/17/2020 Covid-19, Mrna, Lnp-s, Pf, B ivalent, 30 Mcg, IM, 12 yrs and above (Pfizer) 02/17/2022 Pneumococcal Conjugate Vacc, 13 Valent (Prevnar) 03/26/2015 Pneumococcal Polysaccharide PPV23 (Pneumovax) 08/27/2008,03/26/2003,06/06/1990 Season Influenza, Quad, PF, Adjuvanted, 65+ Yrs, IM (FLUAD) 01/25/2020 Seasonal Influenza Vac., MDV , IM, 0.5 mL (Fluzone) 01/07/2014,01/25/2013,12/25/2011,01/09,01/19/2010,01/22/2009,02/09/20 07,02/10/2006,02/02/2005,02/19/2002,1 04/11/2000 Seasonal Influenza, High Dos e, Trivalent, PF, [...] Miscellaneous Notes * Telephone Encounter - Brenda Dennison MED ASSIST - 04/23/2024 9:12 AM EST Neurology Pre-Cert Request Medication/Disease State Information: Medication: Neupro 6mg/24hr- apply 1 patch once daily Diagnosis (including ICD-10): RLS G25.81. Self-administered - route pre-cert request to [id number] Last office visit within the past year: yes See corresponding visit note(s) for additional supporting clinical information. Office Information: Prescriber: Valentina Gilbert MD documented in this encounter Plan of Treatment Upcoming Encounters Date Type Department Care Team (Late st Contact Info) Description 05/02/2024 12:00 PM EST [facility] [address] [facility] [place] [phone] Terrance Craig MD [address] [facility] [place] [address] 05/02/2025 1:30 PM EST Office Visit Cardiology, [facility] [address] [place] [address] Shan Starks MD [address] [facility] [place] [address] Scheduled Procedures Name Priority Associated Diagnoses Date/Ti [...] Additional history exists CKD PHOS USE SMARTSET 78254 08/02/202407/11, 05/10/2022, 12/11/2019, Additional history exists TSH 08/02/2024 08/03/2023, 08/09, 08/18/2021, Additional history exists CKD HGB USE SMARTSET 58937 10/06/202410/06, 08/03/2023, 08/03/2023, Additional history exists Pneumococcal [...] this encounter Medical Devices Implanted Type Area Learning Developer Device Identifier Shelf Expiration Date Model / Serial / Lot Yunior Hal Laine [id number] X5 - [id number] Implanted:Qty: 1 on 11/10/2009 at OR [facility] Right: Shoulder [employer] 09/09/2010 AR-1925BF / / [id number] System Anchorsure 2 Sutures - [id number] Implanted:Qty: 1 on 11/07/2018 by Lobo Sweeney, DO at OR [facility] N/A: Vagina [employer] 04/12/2020 A-SURE / / [id number] Suture Anchorsure 2pk - [id number] Implanted:Qty: 1 on 11/07/2018 by Lobo Sweeney, DO at OR [facility] N/A: Vagina [employer] 06/26/2020 A-SURE02 / / [id number] 8cm X 12cm [place] Dermis Implanted:Qty: 1 on 11/07/2018 by Lobo Sweeney DO at OR [facility] N/A: Vagina COLOPLAST SWEEN MAY 03/10/2023 93-9812 / [id number] / [id number] Sling Desara 1.1cm X 45cm - [id number] Implanted:Qty: 1 on 03/02/2022 by Milagros Olguin MD at OR [facility] N/A: Urethra [employer] 10/22/2024 WAYLON-DS01 / / [id number] Y-Mesh 26 X 4 X 3 Cm - [id number] Implanted:Qty: 1 on 03/02/2022 by Milagros Olguin MD at OR [facility] N/A: Pelvis [employer] 10/06/2026 WAYLON-VLY26 [id number] / / [id number] Description:used for [place]roco lpopexy documented as of [...] and were consensually agreed upon. Care Teams Restaurant Management Internship Relationship Specialty Start Date End Date Terrance Craig MD [address] [place] [address] PCP - General Family Medicine 04/12/24 documented as of this encounter
--- OUTSIDE RECORDS SUMMARY | 2024-06-16 12:10 | External Medical Summary | Summary of Care ---
Author Name Unknown Organization [facility] Address [address] [place] [address] Phone [phone] Care Team Providers Care Sr. Strategic Sourcing Manager Name Role Phone Terrance Craig MD Primary Care Provider +1- [phone] Reason for Visit * Reason Onset Date Comments Precert In Process 04/23/2024 15 EVELINE SILV ERSCRIPTS NEUPRO Encounter Details Date Type Department Care Team (Late st Contact Info) Description 04/23/2024 Telephone Neurology [facility] [address] [place] [address] Valentina Gilbert MD [address] [place] [address] Precert In Process (15 EVELINE SILVERSCRIPTS... Allergies Active Allergy Reactions Criticality Noted Date [...] suspected opioid overdose. Seek immediate medical attention. [email or web address] 1 Each 3 01/29/20 Active Additional Information [...] 24 Hour (Imdur)Indications :Coronary artery disease involving [place] coronary artery of [place] heart without angina pectoris,Dyslipide jenny, goal LDL below 70,HTN, goal below 140/90,S/P angioplasty with stent Take 3 Tablets by mouth in the morning. 270 Tablet 3 08/26/19 24 Active Spironolactone 25 MG Oral Tablet (Aldactone)Indicat ions:HTN, goal below 140/90,S/P angioplasty with stent,Coronary artery disease involving [place] coronary artery of [place] heart without angina pectoris Take 1 Tablet [...] 140/90,S/P angioplasty with stent,Coronary artery disease involving [place] coronary artery of [place] heart without angina pectoris Take 1 Tablet [...] ions:S/P angioplasty with stent,Coronary artery disease involving [place] coronary artery of [place] heart without angina pectoris,HTN, goal below 140/90 [...] CKD protocol Coronary artery disease invo lving [place] coronary artery of [place] heart without angina pectoris 06/11/2019 S/P angioplasty [...] Prediabetes protocol Coronary artery disease invo lving [place] coronary artery of [place] heart with angina pectoris 06/16/2020 05/28/2022 Stage [...] HYPERTENSIVE CEREBROVASC DISEASE NEC 12/08/2004 02/27/2007 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 Self-administered - route pre-cert request to [id number] Last office visit within the past year: yes See corresponding visit note(s) for additional supporting clinical information. Office Information: Prescriber: Valentina Gilbert MD documented in this encounter Plan of Treatment Upcoming Encounters Date Type Department Care Team (Late st Contact Info) Description 05/02/2024 12:00 PM EST Office Visit [facility] [address] [place] [phone] Terrance Craig MD [address] [facility] [place] [address] 05/02/2025 1:30 PM EST Office Visit Cardiology, [facility] [address] [facility] [place] [address] Shan Starks MD [address] [facility] [place] [address] Scheduled Procedures Name Priority Associated Diagnoses Date/Ti [...] Additional history exists CKD PHOS USE SMARTSET 95873 08/02/2024 0407/2023, 05/10/2022, 12/11/2019, Additional history exists TSH 08/02/2024 08/03/2023, 08/09, 08/18/2021, Additional history exists CKD HGB USE SMARTSET 22304 10/06/202410/06, 08/03/2023, 08/03/2023, Additional history exists Pneumococcal [...] this encounter Medical Devices Implanted Type Area Director Foundation Device Identifier Shelf Expiration Date Model / Serial / Lot Rayarnavrazatyrese Hal Jang [id number] X5 - [id number] Implanted:Qty: 1 on 11/10/2009 at OR [facility] Right: Shoulder [employer] 09/09/2010 AR-1925BF / / [id number] System Anchorsure 2 Sutures - [id number] Implanted:Qty: 1 on 11/07/2018 by Lobo Sweeney, DO at OR [facility] N/A: Vagina [employer] 04/12/2020 A-SURE / / [id number] Suture Anchorsure 2pk - [id number] Implanted:Qty: 1 on 11/07/2018 by Lobo Sweeney, DO at OR [facility] N/A: Vagina [employer] 06/26/2020 A-SURE02 / / [id number] 8cm X 12cm [place] Dermis Implanted:Qty: 1 on 11/07/2018 by Lobo Sweeney DO at OR [facility] N/A: Vagina COLOPLAST SWEEN MAY 03/10/2023 93-9812 / [id number] / [id number] Sling Desara 1.1cm X 45cm - [id number] Implanted:Qty: 1 on 03/02/2022 by Milagros Olguin MD at OR [facility] N/A: Urethra [employer] 10/22/2024 WAYLON-DS01 / / [id number] Y-Mesh 26 X 4 X 3 Cm - [id number] Implanted:Qty: 1 on 03/02/2022 by Milagros Olguin MD at OR [facility] N/A: Pelvis [employer] 10/06/2026 WAYLON-VLY26 43 / / [id number] Description:used for [place]ro[place] lpopexy documented as of [...] and were consensually agreed upon. Care Teams Sr. Strategic Sourcing Manager Relationship Specialty Start Date End Date Terrance Craig MD [address] [place] [address] PCP - General Family Medicine 04/12/24 documented as of this encounter
--- OUTSIDE RECORDS SUMMARY | 2024-06-16 12:10 | External Medical Summary ---
Author Name Unknown Address Unknown Organization K01:LABORATORY [facility] - [address] [place] [address] Laboratory Report Ordering Provider Test Date Status KADE CASILLAS 05/02/2024 13:59:44 Final Observation Date Value Abnormality Reference (Units ) Status CK 05/02/2024 13:59:44 34 26-192 (U/ L) Final Performing Location LABORATORY [facility] - [address] [place] [address]
--- OUTSIDE RECORDS SUMMARY | 2024-06-16 12:10 | External Medical Summary | Summary of Care ---
Author Name Unknown Organization [facility] Address [address] [place] [address] Phone [phone] Care Team Providers Care Box Worker Name Role Phone Terrance Craig MD Primary Care Provider [phone] Encounter Details Date Type Department Care Team (Late st Contact Info) Description 01/05/2024 Telephone Neurology [facility] [place] [address] [place] [address] Valentina Gilbert MD [address] [facility] [address] Allergies Active Allergy Reactions Criticality Noted Date [...] as of this encounter (statuses as of 04/05/2024) Medications LABETALOL HCL 200 MG PO TABSIndications:H [...] suspected opioid overdose. Seek immediate medical attention. [email or web address] 1 Each 3 023 Active Additional Information Patient not taking.Reported on 03/07/2024 Clarithromycin 500 MG Oral Tablet (Biaxin)Indicatio ns:Mitral valve disorder TAKE 1 TABLET 1 HOUR BEFORE DENTIST 3 Tablet 2 023 Active Additional Information Patient not taking.Reported on 03/07/2024 EPINEPHrine 0.3 MG/0.3ML Injection Solution Auto-injector (Autoinjector) FOR A SEVERE REACTION: PLACE ORANGE END AGAINST THE OUTER THIGH, PRESS FIRMLY, HOLD IN PLACE FOR 10 SECONDS AND GO TO THE EMERGENCY ROOM. 2 Each 2 024 Active Carbidopa-Levodop a ER 50-200 MG Oral Tablet Extended Release (Sinemet CR) TAKE 1 TABLET DAILY 90 Tablet 3 024 Active Repatha SureClick 140 MG/ML Subcutaneous Solution Auto-injector (evolocumab)Indic ations:Hyperlipem ia, mixed Inject 140 mg (1 pen) under the skin every 14 days. 6 mL 3 02/29/20 24 3:14 PM EST 024 Active Furosemide 40 MG Oral Tablet (Lasix) Take 2 tablets in the morning. Take 1 tablet in the afternoon 270 Tablet 3 024 Active Isosorbide Mononitrate ER 30 MG Oral Tablet Extended Release 24 Hour (Imdur)Indication s:Coronary artery disease involving cantwell coronary artery of cantwell heart without angina pectoris,Dyslipid emia, goal LDL below 70,HTN, goal below 140/90,S/P angioplasty with stent Take 3 Tablets by mouth in the morning. 270 Tablet 3 024 Active Spironolactone 25 MG Oral Tablet (Aldactone)Indica tions:HTN, goal below 140/90,S/P angioplasty with stent,Coronary artery disease involving cantwell coronary artery of cantwell heart without angina pectoris Take 1 Tablet [...] 140/90,S/P angioplasty with stent,Coronary artery disease involving cantwell coronary artery of cantwell heart without angina pectoris Take 1 Tablet [...] a day as needed. 360 Tablet 1 024 Active Nitroglycerin 0.4 MG Sublingual Tablet Sublingual (Nitrostat)Indica tions:S/P angioplasty with stent,Coronary artery disease involving cantwell coronary artery of cantwell heart without angina pectoris,HTN, goal below 140/90 PLACE 1 TABLET UNDER THE TONGUE AND ALLOW TO DISSOLVE EVERY 5 MINUTES NEEDED FOR PAIN, CHEST. UP TO 3 DOSES IN 15 MINUTES. 100 Tablet 5 024 2023 Discontinued Gabapentin 300 MG Oral Capsule (Neurontin)Indica tions:RLS (restless legs syndrome) Take 2 Capsules by mouth 2 times a day. Take 600mg at noon and 600mg 90 minutes before bed. 360 Capsule 024 2023 Discontinued(R efill) Neupro 6 MG/24HR Transdermal Patch 24 Hour (Rotigotine)Indic ations:RLS (restless legs syndrome) APPLY 1 PATCH ONCE DAILY 90 Patch 024 2023 Discontinued Hospital, Clinic, or Other Facility Administered Medication Ordered Dose Route Frequency Start Date End Date Status albuterol sulfate (PROVENTIL) (2.5 MG/3ML) 0.083% inhalation solution 2.5 mgIndications:Wheeze,BRIONES (dyspnea on exertion) 2.5 mg NEBULIZER Q4H PRN 03/27/2017 Act anthony documented as of this encounter (statuses as of 04/05/2024) Active Problems Problem Noted Date Diagnosed Date Chronic heart failure with preserved ejection fr action 09/29/2023 ANDRÉS (stress urinary incontinence, female) 2021 Advanced directives, counseling/discussion 10/31 Chronic kidney disease, stage 3a 10/20/2020 Overview: Per CKD protocol Coronary artery disease invo lving cantwell coronary artery of cantwell heart without angina pectoris 06/11/2019 S/P angioplasty [...] as of this encounter (statuses as of 04/05/2024) Resolved Problems Problem Noted Date Diagnosed Date Resolved Date Prediabetes 03/23/2021 09/24/2021 Overview: Per Prediabetes protocol Coronary artery disease invo lving cantwell coronary artery of cantwell heart with angina pectoris 06/16/2020 05/28/2022 Stage [...] HYPERTENSIVE CEREBROVASC DISEASE NEC 12/08/2004 02/27/2007 ABN [employer]CT STUDY NOS 12/08/200402/09 FIBROMYALGIA 09/18/2002 10/03/2016 Mixed dyslipidemia 07/04/2002 9 Overview (03/26/2009): Per Lipid Taxonomy. DYSFUNCT EUSTACHIAN TUBE, BILATERAL 09/22/1999 09/10/2016 HYPERTENSION NOS 03/04/2009 Overview (03/04/2009): Modified per HTN protocol #16. Irritable bowel syndrome 12/2016 documented as of this encounter (statuses as of 04/05/2024) Immunizations Name Administration Dates Next Due COVID-19 [...] Encounter - Brenda Dennison MED ASSIST - 01/06/2024 9:28 AM EDT Let detailed v/m with instructions and med dose. * Telephone Encounter - Valentina Gilbert MD - 01/06/2024 9:12 AM EDT Please make patient aware that nephro so she can take riboflavin and magnesium. The doses are written in this encounter have her let us know if the headache does not improve * Telephone Encounter - Paula Bautista OSA - 01/05/2024 4:[address] Wagner's office returning call with response to question. Dr. Dr Wagner stating: " Pt GFR is 59 cc a minute, so it is okay to start Magnesium and B2 if needed". * Telephone Encounter - Brenda Dennison, MED ASSIST - 01/05/2024 1:25 PM EDT Spoke to Veena in nephrology- she is forwarding message to Dr Wagner to review and will return ourcall * Telephone Encounter - Valentina Gilbert MD - 01/05/2024 10:40 AM EDT Can you call Dr Wagner's office ([facility]) and have nurse ask if he has any objection to this pt taking magnesium 400 mg once a day and riboflavin 400 mg once a day documented in this encounter Plan of Treatment Upcoming Encounters Date Type Department Care Team (Late st Contact Info) Description 05/02/2024 12:00 PM EST [facility] [address] [facility] [place] [phone] Terrance Craig MD [address] [place] [address] 05/02/2025 1:30 PM EST Office Visit Cardiology, [facility] [address] [place] [address] Shan Starks MD [address] [place] [address] Scheduled Procedures Name Priority Associated Diagnoses Date/Ti [...] Additional history exists CKD PHOS USE SMARTSET 91951 08/02/202407/11, 05/10/2022, 12/11/2019, Additional history exists TSH 08/02/2024 08/03/2023, 08/09, 08/18/2021, Additional history exists CKD HGB USE SMARTSET 92612 10/06/202410/06, 08/03/2023, 08/03/2023, Additional history exists Pneumococcal [...] this encounter Medical Devices Implanted Type Area Appraiser Art Device Identifier Shelf Expiration Date Model / Serial / Lot Yunior Jang [id number] - [id number] Implanted:Qty: 1 on 11/10/2009 at OR [facility] Right: Shoulder [employer] 09/09/2010 [id number] / / [id number] System Anchorsure 2 Sutures - [id number] Implanted:Qty: 1 on 11/07/2018 by Lobo Sweeney DO at OR [facility] N/A: Vagina [employer] 04/12/2020 A-SURE / / [id number] Suture Anchorsure 2pk - [id number] Implanted:Qty: 1 on 11/07/2018 by Lobo Sweeney DO at OR [facility] N/A: Vagina [employer] 06/26/2020 [id number] / / [id number] 8cm X 12cm Weston Dermis Implanted:Qty: 1 on 11/07/2018 by Lobo Sweeney DO at OR [facility] N/A: Vagina [employer] MAY 03/10/2023 [id number] / [id number] / [id number] Sling Desara 1.1cm X 45cm - [id number] Implanted:Qty: 1 on 03/02/2022 by Milagros Olguin MD at [place] [facility] N/A: Urethra [employer] 10/22/2024 [id number] / / [id number] Y-Mesh 26 X 4 X 3 Cm - [id number] Implanted:Qty: 1 on 03/02/2022 by Milagros Olguin MD at [place] [facility] N/A: Pelvis [employer] 10/06/2026 [id number] / / [id number] Description:used for [place] lpopexy documented as of [...] and were consensually agreed upon. Care Teams Box Worker Relationship Specialty Start Date End Date Terrance Craig MD PCP - General 06/06/03 documented as of this encounter
--- OUTSIDE RECORDS SUMMARY | 2024-06-16 12:10 | External Medical Summary | Summary of Care ---
Author Name Unknown Organization [facility] Address [address] [place] [address] Phone [phone] Care Team Providers Care Industrial Education Teacher Name Role Phone Terrance Craig MD Primary Care Provider [phone] Reason for Visit * Reason Comments Edema Bilateral lower extr emity swelling Sore Throat Headache Rash Neck and left should er - red, slightly itchy, raised - lace like pattern Congestion Sinus congestion - m ucus Encounter Details Date Type Department Care Team (Late st Contact Info) Description 04/22/2024 8:15 AM EST Convenient Care Visit [facility] [address] [place] [address] Madeline Robbins CRNP [address] [place] [address] Viral URI*; Rash and nonspecific skin eruption; HTN, goal below 140/90 Allergies Active Allergy Reactions Criticality Noted Date [...] as of this encounter (statuses as of 04/22/2024) Medications LABETALOL HCL 200 MG PO TABSIndications:Hy [...] suspected opioid overdose. Seek immediate medical attention. [email or web address] 1 Each 3 01/29/20 Active Additional Information Patient not taking.Reported on 04/22/2024 Clarithromycin 500 MG Oral Tablet (Biaxin)Indication s:Mitral valve disorder TAKE 1 TABLET 1 HOUR BEFORE DENTIST 3 Tablet 2 02/25/20 Active Additional Information Patient not taking.Reported on [...] 6 mL 3 4 3:14 PM EST 07/20/19 24 Active Furosemide 40 MG Oral Tablet (Lasix) Take 2 tablets in the morning. Take 1 tablet in the afternoon 270 Tablet 3 08/26/19 24 Active Isosorbide Mononitrate ER 30 MG Oral Tablet Extended Release 24 Hour (Imdur)Indications :Coronary artery disease involving [place] coronary artery of [place] heart without angina pectoris,Dyslipide jenny, goal LDL below 70,HTN, goal below 140/90,S/P angioplasty with stent Take 3 Tablets by mouth in the morning. 270 Tablet 3 08/26/19 24 Active Spironolactone 25 MG Oral Tablet (Aldactone)Indicat ions:HTN, goal below 140/90,S/P angioplasty with stent,Coronary artery disease involving [place] coronary artery of [place] heart without angina pectoris Take 1 Tablet [...] 140/90,S/P angioplasty with stent,Coronary artery disease involving [place] coronary artery of [place] heart without angina pectoris Take 1 Tablet [...] ions:S/P angioplasty with stent,Coronary artery disease involving [place] coronary artery of [place] heart without angina pectoris,HTN, goal below 140/90 [...] 2 days 20 Tablet 04/22/19 25 Active predniSONE 10 MG Oral Tablet (Deltasone) Take 4 tabs for 2 days, 3 tabs for 2 days, 2 tabs for 2 days 1 tab for 2 days 20 Tablet 01/23/20 24 025 Discontin ued(Refil l) Hospital, Clinic, or Other Facility Administered Medication Ordered Dose Route Frequency Start Date End Date Status albuterol sulfate (PROVENTIL) (2.5 MG/3ML) 0.083% inhalation solution 2.5 mgIndications:Wheeze,BRIONES (dyspnea on exertion) 2.5 mg NEBULIZER Q4H PRN 03/27/2017 Act anthony documented as of this encounter (statuses as of 04/22/2024) Active Problems Problem Noted Date Diagnosed Date Chronic heart failure with preserved ejection fr action 09/29/2023 ANDRÉS (stress urinary incontinence, female) 2021 Advanced directives, counseling/discussion 10/31 Chronic kidney disease, stage 3a 10/20/2020 Overview: Per CKD protocol Coronary artery disease invo lving [place] coronary artery of [place] heart without angina pectoris 06/11/2019 S/P angioplasty [...] as of this encounter (statuses as of 04/22/2024) Resolved Problems Problem Noted Date Diagnosed Date Resolved Date Prediabetes 03/23/2021 09/24/2021 Overview: Per Prediabetes protocol Coronary artery disease invo lving [place] coronary artery of [place] heart with angina pectoris 06/16/2020 05/28/2022 Stage [...] HYPERTENSIVE CEREBROVASC DISEASE NEC 12/08/2004 02/27/2007 ABN GLAZIER STRUCTURAL GLASS FUNCT STUDY NOS 12/08/200402/09 FIBROMYALGIA 09/18/2002 10/03/2016 Mixed dyslipidemia 07/04/2002 9 Overview (03/26/2009): Per Lipid Taxonomy. DYSFUNCT EUSTACHIAN TUBE, BILATERAL 09/22/1999 09/10/2016 HYPERTENSION NOS 03/04/2009 Overview (03/04/2009): Modified per HTN protocol #16. Irritable bowel syndrome 12/2016 documented as of this encounter (statuses as of 04/22/2024) Immunizations Name Administration Dates Next Due COVID-19 [...] Sign Reading Time Taken Comments Blood Pressure 158/80 04/22/2024 8:53 AM EST Pulse 60 04/22/2024 8:23 AM EST Temperature 35.7 C (96.2 F) 04/22/2024 8:23 AM ES T Respiratory Rate 18 04/22/2024 8:23 AM EST Oxygen Saturation 96% 04/22/2024 8:23 AM EST Inhaled Oxygen Concentration - - Weight 63.5 kg (140 lb) 04/22/2024 8:23 AM EST Height 162.6 cm (5' 4") 04/22/2024 8:23 AM EST Body Mass Index 24.03 04/22/2024 8:23 AM EST documented in this encounter Functional Status * Are you deaf or do you have serious difficulty hearing? Answer Date of Assessment Author No 03/02/2022 5:59 PM EST Oj Correa, RN * Are you blind or do you have serious difficulty seeing, even when wearing glasses? Answer Date of Assessment Author No 03/02/2022 5:59 PM Ruben Carrillo RN * Do you have serious [...] this encounter Patient Instructions * Patient Instructions* Madeline Robbins CRNP - 04/22/2024 8:49 AM EST Start a daily nasal spray such as Flonase, Nasacort, OR Nasonex. They work best if used consistently. In addition to one of these medicated nasal sprays, use saline nasal spray to avoid dryness and thin out mucous. OTC nasal decongestants such as Afrin or Zyrtec can be used twice a day for a MAX of three days. Donot use for more than three days or rebound (worsening) congestion can occur. OTC cough suppressants as needed, including delsym, cough drops, honey. OTC expectorants such as Robitussin or Mucinex can help thin mucous. Continue supportive measures: Increase clear, non-sugary fluid intake. Get plenty of rest. Use a cool mist vaporizer or humidifier daily and you can take hot showers for steam therapy. Do warm salt water gargles and/or chloraseptic throat spray, throat lozenges (Cepacol) for any sorethroat. Honey, if not concerned about diabetes or elevated blood sugar levels, can also be very helpful forsorethroat. If you had a negative rapid strep test, we will inform you if your PCR ("the send out") comes back positive, and start you on antibiotics. Otherwise, you may assume the PCR was also negative. If you had a viral swab (e.g. COVID, Flu, RSV, or otherwise), we will notify you if you test positive. If you do not hear from us, assume your test was negative. Follow up with PCP or return if no improvement in a week, or sooner if worse. Go to the ED if any severe symptoms appear acutely documented in this encounter Progress Notes * Madeline Robbins CRNP - 04/22/2024 8:58 AM EST Images from the original note were not included. CONVENIENT CARE NOTE Nursing Notes: Lauren Che, MED ASSIST 04/22/24 0825 Signed Sylvie Wang is a 78 year old female who presents to walk-in clinic today complaining of Chief Complaint Patient presents with Edema Bilateral lower extremity swelling Sore Throat Headache Rash Neck and left shoulder - red, slightly itchy, raised - lace like pattern Congestion Sinus congestion - mucus Brief history:pt is here with bilateral lower extremity swelling. Rash - neck and left shoulder redslightly itchy raised in a lace like pattern. Sore throat and headache. Sinus congestion and has a lot of mucus. Onset/duration: yesterday. OTC treatments tried:chloraseptic Effectiveness: temporary relief Patient is accompanied by no one for today's visit. CC & HPI: Syvlie Wang is a 78 year old female with a PMH of CHF, HTN, CKD stage 3, and has one kidney who presents with sore throat, nasal congestion, headache, bilateral lower extremity swelling, and rash x 1 day. She denies any known sick contacts. She denies fever, sinus pressure, ear pain, n/v/d. She has used a chloraseptic throat spray with minor relief. She has been taking all her prescribed medications as directed including her Lasix and spironolactone. She closely monitors the salt in her diet and has not had added salt in her food lately. She denies dehydration but she does monitor her fluid intake. Her headache does not have any alarm features. It moves around in location. She did not check her blood pressure at home yesterday but generally monitors it regularly. She has not been wearing compression stockings although she does have them athome. She denies any new exposures including detergent, soap, lotions that could have caused her rash. The rash is erythematous and splotchy in nature. The rash is not pruritic or painful. ROS: Review of Systems Constitutional: Negative for fever. HENT: Positive for congestion, postnasal drip and sore throat. Negative for ear pain, sinus pressure and sinus pain. Respiratory: Positive for cough. Negative for shortness of breath and wheezing. Cardiovascular: Positive for leg swelling. Gastrointestinal: Negative for diarrhea, nausea and vomiting. Skin: Positive for rash. Patient denies additional complaints. PAST MEDICAL HISTORY: Patient Active Problem List Diagnosis Chronic allergic rhinitis GENERAL OSTEOARTHROSIS Osteoporosis Hypothyroidism CLASSICAL MIGRAINE WITHOU MENTION OF INTRACTABLE MIGRAINE Esophageal reflux Multiple sclerosis (HCC) Dyslipidemia, goal LDL below 70 Restless leg syndrome Fibromyalgia Hyperparathyroidism, unspecified (HCC) HTN, goal below 140/90 Vaginal vault prolapse, posthysterectomy Cystocele, lateral Advanced directives, counseling/discussion Coronary artery disease involving [place] coronary artery of [place] heart without angina pectoris S/P angioplasty with stent Chronic kidney disease, stage 3a (HCC) ANDRÉS (stress urinary incontinence, female) Chronic heart failure with preserved ejection fraction ([facility]) Past Surgical History: Procedure Laterality Date ARTHOHANDYW/ROTATOR CUFF 11/10/2009 ARTHROSCOPY SHOULDER ROTATOR CUFF performed by Nichole LLOYD at OR [facility] COLONOSCOPY 08/11 Normal - repeat 2012. COLONOSCOPY, DIAGNOSTIC (RECTUM) 12/29/2012 COLONOSCOPY FLEXIBLE PROXIMAL DIAGNOSTIC performed by Jose Moe MD at ENDOSCOPY [facility] COLONOSCOPY, DIAGNOSTIC (RECTUM) 01/23/2018 normal, repeat 5 yrs/COLONOSCOPY FLEXIBLE PROXIMAL DIAGNOSTIC performed by Jose Moe MD at ENDOSCOPY [facility] EGD, FLEXIBLE, DIAGNOSTIC 10/09/2014 Mildly tortouous distal esophagus/ESOPHAGOGASTRODUODENOSCOPY (EGD), FLEXIBLE, TRANSORAL, DIAGNOSTICperformed by Rosa Maria Sanchez MD at ENDOSCOPY [facility] EGD, FLEXIBLE, W/BIOPSY 03/23/07 mild stomach irritation [...] [facility] LUM[facility]/SACRAL 04/08/2015 INJECTION SPINE LUMBAR OR SACRAL performed by Orleans Martin Lay, DO at OR [facility] LAPAROSCOPY,SURG,COLPOPEXY N/A 03/02/2022 ROBOTIC LAPAROSCOPY SURGICAL COLPOPEXY performed by Milagros Olguin MD at OR [facility] LUMBAR / SACRAL EPIDURAL, SINGLE LEVEL 10/20/2022 INJECTION TRANSFORAMINAL EPIDURAL LUMBAR OR SACRAL performed [facility] Shiraz Lay, DO [facility] LUMBAR / SACRAL EPIDURAL, SINGLE LEVEL 04/22/2023 INJECTION TRANSFORAMINAL EPIDURAL LUMBAR OR SACRAL performed by Cuong Schwarz DO at OR [facility] PARAVAGINAL DEFECT REPAIR, VAGINAL N/A 11/07/2018 PARAVAGINAL DEFECT REPAIR VAGINAL APPROACH performed by Lobo Sweeney DO at OR [facility] PELVIC FLOOR DEFECT RPR,MESH,EACH N/A 11/07/2018 INSERTION OF MESH FOR REPAIR PELVIC FLOOR DEFECT performed by Lobo Sweeney DO at OR [facility] REMOVAL OF APPENDIX REMOVAL OF TONSILS, UNDER AGE 10 AGE 3 REPAIR BLADDER & VAGINA, CYSTOCELE N/A 03/02/2022 ANTERIOR COLPORRAPHY, REPAIR CYSTOCELE, CYSTO performed by Milagros Olguin MD at OR [facility] REPAIR BLADDER DEFECT N/A 03/02/2022 VAGINAL SLING PROCEDURE FOR STRESS INCONTINENCE performed by Mliagros Olguin MD at OR [facility] REPAIR OF VAGINA CYSTOCELE AND RECTOCELE REPAIR OF VAGINAL PROLAPSE N/A 11/07/2018 COLPOPEXY VAGINAL EXTRA PERITONEAL APPROACH performed by Lobo Sweeney DO at OR [facility] REPAIR RECTUM & VAGINA, RECTOCELE N/A 11/07/2018 POSTERIOR COLPORRHAPHY performed by Lobo Sweeney DO at OR [facility] SACROILIAC JOINT INJECT W/GUIDANCE 01/27/2022 INJECTION SACROILIAC JOINT performed by Shiraz Lay DO at OR [facility] SHOULDER ARTHROSCOPY SURGERY 11/10/2009 ARTHROSCOPY SHOULDER DISTAL CLAVICLE RESECTION performed by Nichole LLOYD at OR [facility] SHOULDER ARTHROSCOPY/DECOMPRESSION 11/10/2009 ARTHROSCOPY SHOULDER SUBACROMIAL DECOMPRESSION performed by Nichole LLOYD at OR [facility] SPINE SURGERY PROCEDURE NEC 2016 TOTAL HYSTERECTOMY 1969 [facility] Review of patient's allergies indicates: Allergen [...] 4 times a day. 54 g 3 Calcitriol 0.25 MCG Oral Capsule (Rocaltrol) Take [...] TAKE 1 TABLET DAILY 90 Tablet 3 Repatha SureClick 140 MG/ML Subcutaneous Solution Auto-injector [...] DOSES IN 15 MINUTES 100 Tablet 1 predniSONE 10 MG Oral Tablet (Deltasone) Take 4 tabs for 2 days, 3 tabs for 2 days, 2 tabs for 2 days 1 tab for 2 days 20 Tablet 0 Naloxone HCl 4 MG/0.1ML Nasal Liquid (Narcan Nasal) Administer 1 spray into 1 nostril for suspectedopioid overdose. Seek immediate medical attention. [email or web address] (Patient not taking: Reported on 04/22/2024) 1 Each 3 Clarithromycin 500 MG Oral Tablet (Biaxin) TAKE 1 TABLET 1 HOUR BEFORE DENTIST (Patient not taking:Reported on 04/22/2024) 3 Tablet 2 Tobramycin 0.3 % Ophthalmic Solution (Aktob) Use 1 drop each eye 4-6 times throughout the day for at least 5 days. If redness is gone after that may use drops 3x daily for another 2 days then stop. Try to extend drops for 1-2 days past the redness/drainage going away. (Patient not taking: Reported on 04/22/2024) 5 mL 0 Current Facility-Administered Medications Medication Dose Route Frequency Provider Last Rate Last Admin albuterol sulfate (PROVENTIL) (2.5 MG/3ML) 0.083% inhalation solution 2.5 mg 2.5 mg Nebulizer Q4H PRN Terrance Craig MD 2.5 mg at 04/22/17 1349 Family History Problem Relation Name Age of Onset Cancer Mother metastatic - unknown primary - age 97 Hypertension Mother Heart Disorder Father Hypertension Father Neurological Disorder Sister MS, alzheimers Stroke Sister from Hemorrhagic CVA Cancer Sister Colon Cancer Cancer Son Leukemia, LCG Allergies Son Nasal allergies Asthma Son Allergies Nephew Multiple nephews with allergies Allergies Niece Multiple nieces with nasal in food allergies Cancer Other Neice - Breast EXAM: BP 158/80 | Pulse 60 | Temp 35.7 C (96.2 F) (Tympanic) | Resp 18 | Ht 1.626 m (5' 4") | Wt 63.5 kg (140 lb) | SpO2 96% | BMI 24.03 kg/m | BSA 1.69 m Physical Exam Vitals and nursing note reviewed. Constitutional: General: She is not in acute distress. Appearance: She is not ill-appearing. HENT: Head: Normocephalic and atraumatic. Right Ear: Tympanic membrane normal. Left Ear: Tympanic membrane normal. Nose: Congestion present. Right Sinus: No maxillary sinus tenderness or frontal sinus tenderness. Left Sinus: No maxillary sinus tenderness or frontal sinus tenderness. Mouth/Throat: Mouth: Mucous membranes are moist. Pharynx: Posterior oropharyngeal erythema present. Eyes: Conjunctiva/sclera: Conjunctivae normal. Cardiovascular: Rate and Rhythm: Normal rate and regular rhythm. Heart sounds: Normal heart sounds. Pulmonary: Effort: Pulmonary effort is normal. No respiratory distress. Breath sounds: Normal breath sounds. No wheezing or rales. Chest: Musculoskeletal: Cervical back: Normal range of motion and neck supple. Right lower le+ Pitting Edema present. Left lower le+ Pitting Edema present. Lymphadenopathy: Cervical: No cervical adenopathy. Skin: Findings: Rash present. Neurological: General: No focal deficit present. Mental Status: She is alert. Psychiatric: Mood and Affect: Mood normal. ASSESSMENT & PLAN Problem List Items Addressed This Visit Circulatory HTN, goal below 140/90 Other Visit Diagnoses Viral URI - Primary Relevant Orders INFLUENZA A/B RSV SARS-COV2,PCR Rash and nonspecific skin eruption Relevant Medications predniSONE 10 MG Oral Tablet (Deltasone) - Congestion and sore throat consistent with viral etiology. Will test for Flu/Covid/RSV. Start symptomatic management as discussed in pt instructions. - Start prednisone taper for rash. Take with breakfast. - BP improved upon recheck but still above goal. Instructed patient to wear her compression stockings and elevate her legs. Resume regular home blood pressure monitoring. Follow up with PCP if blood pressure and edema do not improve. Patient has upcoming appointments with her PCP and cardiology 05/02. Rest of plan as stated in pt instructions below: Patient Goals for plan of care discussed in detail. All questions and concerns addressed. The pt verbalized understanding and agreement with plan. Patient Instructions Start a daily nasal spray such as Flonase, Nasacort, OR Nasonex. They work best if used consistently. In addition to one of these medicated nasal sprays, use saline nasal spray to avoid dryness and thin out mucous. OTC nasal decongestants such as Afrin or Zyrtec can be used twice a day for a MAX of three days. Donot use for more than three days or rebound (worsening) congestion can occur. OTC cough suppressants as needed, including delsym, cough drops, honey. OTC expectorants such as Robitussin or Mucinex can help thin mucous. Continue supportive measures: Increase clear, non-sugary fluid intake. Get plenty of rest. Use a cool mist vaporizer or humidifier daily and you can take hot showers for steam therapy. Do warm salt water gargles and/or chloraseptic throat spray, throat lozenges (Cepacol) for any sorethroat. Honey, if not concerned about diabetes or elevated blood sugar levels, can also be very helpful forsorethroat. If you had a negative rapid strep test, we will inform you if your PCR ("the send out") comes back positive, and start you on antibiotics. Otherwise, you may assume the PCR was also negative. If you had a viral swab (e.g. COVID, Flu, RSV, or otherwise), we will notify you if you test positive. If you do not hear from us, assume your test was negative. Follow up with PCP or return if no improvement in a week, or sooner if worse. Go to the ED if any severe symptoms appear acutely ERNESTO Saldivar [address] [address] documented in this encounter Nursing Notes * Lauren Che MED ASSIST - 04/22/2024 8:21 AM EST Sylvie Wang is a 78 year old female who presents to walk-in clinic today complaining of Chief Complaint Patient presents with Edema Bilateral lower extremity swelling Sore Throat Headache Rash Neck and left shoulder - red, slightly itchy, raised - lace like pattern Congestion Sinus congestion - mucus Brief history:pt is here with bilateral lower extremity swelling. Rash - neck and left shoulder redslightly itchy raised in a lace like pattern. Sore throat and headache. Sinus congestion and has a lot of mucus. Onset/duration: yesterday. OTC treatments tried:chloraseptic Effectiveness: temporary relief Patient is accompanied by no one for today's visit. documented in this encounter Plan of Treatment Upcoming Encounters Date Type Department Care Team (Late st Contact Info) Description 05/02/2024 12:00 PM EST [facility] [address] [id number] Terrance Craig MD [address] [place] [address] 05/02/2025 1:30 PM EST Office Visit Cardiology, [facility] [address] [place] [address] Sahn Starks MD [address] [place] [address] Pending Results Name Type Priority Associated Diagnoses Date /Time INFLUENZA A/B RSV SARS-COV2,PCR Lab Routine Viral URI 04/22/2024 9:05 AM EST Scheduled Orders Name Type Priority Associated Diagnoses Orde r Schedule INFLUENZA A/B RSV SARS-COV2,PCR Lab Routine Viral URI Expected: 04/22/2024, Expires: 04/22/2025 Scheduled Procedures Name Priority Associated Diagnoses Date/Ti [...] Additional history exists CKD PHOS USE SMARTSET 14591 08/02/202407/11, 05/10/2022, 12/11/2019, Additional history exists TSH 08/02/2024 08/03/2023, 08/09, 08/18/2021, Additional history exists CKD HGB USE SMARTSET 34331 10/06/202410/06, 08/03/2023, 08/03/2023, Additional history exists Pneumococcal [...] this encounter Medical Devices Implanted Type Area Import Customs Clearing Agent Device Identifier Shelf Expiration Date Model / Serial / Lot Yunior Hal Jang [id number] X5 - [id number] Implanted:Qty: 1 on 11/10/2009 at OR [facility] Right: Shoulder [employer] 09/09/2010 [id number] / / [id number] System Anchorsure 2 Sutures - [id number] Implanted:Qty: 1 on 11/07/2018 by Lobo Sweeney DO at OR [facility] N/A: Vagina [employer] 04/12/2020 A-SURE / / [id number] Suture Anchorsure 2pk - [id number] Implanted:Qty: 1 on 11/07/2018 by Lobo Sweeney DO at OR [facility] N/A: Vagina [employer] 06/26/2020 [id number] / / [id number] 8cm X 12cm [place] Dermis Implanted:Qty: 1 on 11/07/2018 by Lobo Sweeney DO at OR [facility] N/A: Vagina [employer] MAY 03/10/2023 [id number] / [id number] / [id number] Sling Desara 1.1cm X 45cm - [id number] Implanted:Qty: 1 on 03/02/2022 by Milagros Olguin MD at OR [facility] N/A: Urethra [employer] 10/22/2024 [id number] / / [id number] Y-Mesh 26 X 4 X 3 Cm - [id number] Implanted:Qty: 1 on 03/02/2022 by Milagros Olguin MD at OR [facility] N/A: Pelvis [employer] 10/06/2026 [id number] / / [id number] Description:used for sacroco lpopexy documented as of this encounter Visit Diagnoses Diagnosis Viral URI- Primary Acute upper respiratory infections of unspecified site Rash and nonspecific skin eruption Rash and other nonspecific skin eruption HTN, goal below 140/90 Unspecified essential hypertension documented in this encounter Advance Directives * [...] and were consensually agreed upon. Care Teams Industrial Education Teacher Relationship Specialty Start Date End Date Terrance Craig MD [address] [address] PCP - General Family Medicine 04/12/24 documented as of this encounter
--- OUTSIDE RECORDS SUMMARY | 2024-06-16 12:10 | External Medical Summary ---
Author Name Unknown Address Unknown Organization K01:[facility] [place] [address] [place] [id number] Laboratory Report Ordering Provider Test Date Status KADE CASILLAS 05/02/2024 13:59:44 Final Observation Date Value Abnormality Reference (Units ) Status Vitamin B12 05/02/2024 13:59:44 419 657-2006 (pg/mL) Final Performing Location LABORATORY [facility] - [address] [place] [address]
--- OUTSIDE RECORDS SUMMARY | 2024-06-16 12:10 | External Medical Summary ---
Author Name Unknown Address Unknown Organization K01:LABORATORY [facility] [place] [address] [facility] [address] Laboratory Report Ordering Provider Test Date Status KASSI THAKKAR 04/22/2024 09:05:15 Final Observation Date Value Abnormality Reference (Units ) Status SARS Coronavirus 2 04/22/2024 09:05:15 Negative N egative Final No SARS-CoV2 Coronavirus RNA detected by PCR (amplified probe).
This express test was developed and its performance characteristics determined by [facility]. It has not been cleared or approved by the U.S. Food and Drug Administration (FDA). FDA does not require this test to go thru premarket FDA review. This test is used for clinical purposes. It should not be regarded as investigational or for research. This laboratory is certified under the Clinical Laboratory Improvement Amendments (CLIA) as qualified to perform high complexity clinical laboratory testing.

This test is a nucleic acid amplification test (NAAT), a reverse transcriptase polymerase chain reaction (RT-PCR) test, or a Centers for Disease Control-acceptable equivalent. The test is performed in a high complexity Clinical Laboratory Improvement Amendments-(CLIA) certified laboratory. The test is acceptable for SARS-CoV-2 diagnosis, surveillance, and travel within the [place] and to most countries. Please check with local testing authorities about requirements before travel.

The validation of bronchial specimens, tracheal aspirates, and sputum for this assay was developed and performance characteristics determined by [facility]. The validation of alternate specimen types has not been cleared or approved by the U.S. Food and Drug Administration (FDA). It has been determined that such clearance is not necessary. Influenza virus A RNA [Prese nce] in Specimen by JUAN M with probe detection 04/22/2024 09:05:15 Negative Negative Final No Influenza A RNA detected by PCR (amplified probe) Influenza virus B RNA [Prese nce] in Specimen by JUAN M with probe detection 04/22/2024 09:05:15 Negative Negative Final No Influenza B RNA detected by PCR (amplified probe) Respiratory syncytial virus RNA [Identifier] in Specimen by JUAN M with probe detection 04/22/2024 09:05:15 Negative Negative Final No Respiratory Syncytial Vir us RNA detected by PCR (amplified probe) Performing Location LABORATORY [address] [place]. [facility] [address]
--- OUTSIDE RECORDS SUMMARY | 2024-06-16 12:10 | External Medical Summary | Summary of Care ---
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 Name Role Phone Terrance Craig MD Primary Care Provider [phone]- [phone] Reason for Visit * Reason Comments Outpatient Testing Encounter Details Date Type Department Care Team (Late st Contact Info) Description 08/03/2023 8:00 AM EDT Laboratory Laboratory, [place] DEPT CLOSED - 03/29/24 [address] [place] [address] [place], Laboratory [address] [place] [address] Chronic kidney disease, stage 3a (HCC); Other specified hypothyroidism; Hyperparathyroidism, unspecified (HCC); Mitral valve disorder Allergies Active Allergy Reactions Criticality Noted Date [...] as of this encounter (statuses as of 05/11/2024) Medications LABETALOL HCL 200 MG PO TABSIndications:H [...] suspected opioid overdose. Seek immediate medical attention. [email or web address] I 1 Each 3 023 Active Additional [...] 02/29/20 24 3:14 PM EST 024 Active Premarin 0.625 MG/GM Vaginal Cream (Estrogens, Conjugated) Administer 0.5 g into the vagina once a day Tuesday and only. Use 0.5 g with applicator at bedtime 42.5 g 6 021 2023 Discontinued Spironolactone 25 MG Oral Tablet (Aldactone)Indica tions:HTN, goal below 140/90,S/P angioplasty with stent,Coronary artery disease involving [place] coronary artery of [place] heart without angina pectoris Take 1 Tablet by mouth in the morning. 90 Tablet 3 023 2023 Discontinued Gabapentin 300 MG Oral Capsule (Neurontin) Take 2 Capsules by mouth 2 times a day. Take 600mg at noon and 600mg 90 minutes before bed. 360 Capsule 3 023 2023 Discontinued(R efill) Levothyroxine Sodium 150 MCG Oral Tablet (Levoxyl)Indicati ons:Hypothyroidis m, unspecified type TAKE 1 TABLET DAILY; AT LEAST 30 MINUTES PRIOR TO BREAKFAST OR OTHER MEDICATIONS. 90 Tablet 3 023 2023 Discontinued Isosorbide Mononitrate ER 30 MG Oral Tablet Extended Release 24 Hour (Imdur)Indication s:Dyslipidemia, goal LDL below 70,HTN, goal below 140/90,S/P angioplasty with stent,Coronary artery disease involving [place] coronary artery of [place] heart without angina pectoris Take 2 Tablets by mouth in the morning. 180 Tablet 3 023 2023 Discontinued amLODIPine Besylate 2.5 MG Oral Tablet (Norvasc) Take 1 Tablet by mouth in the morning. 90 Tablet 11 023 2023 Discontinued(M edication/Dose Changed) Furosemide 40 MG Oral Tablet (Lasix) TAKE 1 TABLET TWICE A DAY 180 Tablet 1 023 2023 Discontinued oxyCODONE HCl 5 MG Oral Tablet (Oxy IR)Indications:Os teoarthrosis, hip,Avascular necrosis (HCC) Take 1 Tablet by mouth every 6 hours as needed for Pain, Breakthrough. 12 Tablet 023 2023 Discontinued(M edication List Clean Up) traMADol HCl 50 MG Oral Tablet (Ultram)Indicatio ns:Osteoarthrosis , hip,Avascular necrosis (HCC) Take 1 Tablet by mouth every 6 hours as needed for Pain, Severe. Alternating with oxy for pain control 30 Tablet 023 2023 Discontinued(P atient preference/dis continuation) Carbidopa-Levodop a ER 50-200 MG Oral Tablet Extended Release (Sinemet CR) TAKE 1 TABLET DAILY 90 Tablet 3 024 2024 Discontinued Carbidopa-Levodop a 25-100 MG Oral Tablet (Sinemet) Take 1 Tablet by mouth in the morning and 1 Tablet at noon and 1 Tablet before bedtime. 270 Tablet 1 024 2023 Discontinued(R efill) Pravastatin Sodium 20 MG Oral Tablet (Pravachol)Indica tions:Dyslipidemi a, goal LDL below 70,HTN, goal below 140/90,S/P angioplasty with stent,Coronary artery disease involving [place] coronary artery of [place] heart without angina pectoris Take 1 Tablet by mouth in the morning. 90 Tablet 3 024 2023 Discontinued(R efill) Raloxifene HCl 60 MG Oral Tablet (Evista)Indicatio ns:Generalized osteoarthritis TAKE 1 TABLET DAILY 90 Tablet 3 024 2023 Discontinued(R efill) Neupro 6 MG/24HR Transdermal Patch 24 Hour (Rotigotine)Indic ations:RLS (restless legs syndrome) APPLY 1 PATCH ONCE DAILY 90 Patch 1 024 2023 Discontinued Nitroglycerin 0.4 MG Sublingual Tablet Sublingual (Nitrostat)Indica tions:S/P angioplasty with stent,Coronary artery disease involving [place] coronary artery of [place] heart without angina pectoris,HTN, goal below 140/[address] 1 TABLET UNDER THE TONGUE AND ALLOW TO DISSOLVE EVERY 5 MINUTES NEEDED FOR PAIN, CHEST. UP TO 3 DOSES IN 15 MINUTES. 100 Tablet 5 024 2023 Discontinued Pantoprazole Sodium 40 MG Oral Tablet Delayed Release (Protonix) TAKE 1 TABLET EVERY MORNINGAND 1 TABLET BEFORE BEDTIME 180 Tablet 1 024 2023 Discontinued(R efill) Hospital, Clinic, or Other Facility Administered Medication Ordered Dose Route Frequency Start Date End Date Status albuterol sulfate (PROVENTIL) (2.5 MG/3ML) 0.083% inhalation solution 2.5 mgIndications:Wheeze,BRIONES (dyspnea on exertion) 2.5 mg NEBULIZER Q4H PRN 03/27/2017 Act anthony documented as of this encounter (statuses as of 05/11/2024) Active Problems Problem Noted Date Diagnosed Date Chronic heart failure with preserved ejection fr action 09/29/2023 ANDRÉS (stress urinary incontinence, female) 2021 Advanced directives, counseling/discussion 10/31 Chronic kidney disease, stage 3a 10/20/2020 Overview: Per CKD protocol Coronary artery disease invo lving n[place] coronary artery of [place] heart without angina pectoris 06/11/2019 S/P angioplasty [...] as of this encounter (statuses as of 05/11/2024) Resolved Problems Problem Noted Date Diagnosed Date Resolved Date Prediabetes 03/23/2021 09/24/2021 Overview: Per Prediabetes protocol Coronary artery disease invo lving n[place] coronary artery of [place] heart with angina pectoris 06/16/2020 05/28/2022 Stage [...] HYPERTENSIVE CEREBROVASC DISEASE NEC 12/08/2004 02/27/2007 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 DYSFUNCT EUSTACHIAN TUBE, BILATERAL 09/22/1999 09/10/2016 HYPERTENSION NOS 03/04/2009 Overview (03/04/2009): Modified per HTN protocol #16. Irritable bowel syndrome 12/2016 documented as of this encounter (statuses as of 05/11/2024) Immunizations Name Administration Dates Next Due COVID-19 [...] Assessment Author No 03/02/2022 5:59 PM EST Sunny, Oj ol J, RN * Do you have serious difficulty [...] documented in this encounter Miscellaneous Notes * Result Encounter Note - Deandra Dennis PA-C - 05/11/2024 12:36 PM EST Hgb improved documented in this encounter Plan of Treatment Upcoming Encounters Date Type Department Care Team (Late st Contact Info) Description 11/05/2024 7:40 AM EDT Office Visit [facility] [address] [facility] [place] [phone] Terrance Craig MD [address] [facility] [place] [address] 11/07/2024 8:30 AM EDT [facility] [address] [place] [address] Lani Ling PA-C [address] [place] [address] 05/02/2025 1:30 PM EST Office Visit Cardiology, [facility] [address] [place] [address] Shan Starks MD [address] [place] [id number] Scheduled Procedures Name Priority Associated Diagnoses Date/Ti [...] Additional history exists CKD PHOS USE SMARTSET 32007 08/02/202407/11, 05/10/2022, 12/11/2019, Additional history exists GFR 10/30/2024 05/02/2024, 08/10, 08/03/2023, Additional history exists CKD HGB USE SMARTSET 66694 05/02/202505/02, 10/07/2023, 08/03/2023, Additional history exists Depression [...] this encounter Medical Devices Implanted Type Area Park Guide Device Identifier Shelf Expiration Date Model / Serial / Lot Yunior Jang [id number] - [id number] Implanted:Qty: 1 on 11/10/2009 at OR [facility] Right: Shoulder [employer] 09/09/2010 [id number] / / [id number] System Anchorsure 2 Sutures - [id number] Implanted:Qty: 1 on 11/07/2018 by Lobo Sweeney DO at OR [facility] N/A: Vagina [employer] 04/12/2020 A-SURE / / [id number] Suture Anchorsure 2pk - [id number] Implanted:Qty: 1 on 11/07/2018 by Lobo Sweeney DO at OR [facility] N/A: Vagina [employer] 06/26/2020 [id number] / / [id number] 8cm X 12cm [place] Dermis Implanted:Qty: 1 on 11/07/2018 by Lobo Sweeney DO at OR [facility] N/A: Vagina [employer]WE[employer] MAY 03/10/2023 [id number] / [id number] / [id number] Sling Desara 1.1cm X 45cm - [id number] Implanted:Qty: 1 on 03/02/2022 by Milagros Olguin MD at [place] [facility] N/A: Urethra [employer] 10/22/2024 [id number]-[id number] / / [id number] Y-Mesh 26 X 4 X 3 Cm - [id number] Implanted:Qty: 1 on 03/02/2022 by Milagros Olguin MD at [place] [facility] N/A: Pelvis [employer] 10/06/2026 [id number] / / [id number] Description:used for sacroco lpopexy documented as of this encounter Procedures Procedure Name Priority Date/Time Associated Diagnosis Comments DIFFERENTIAL, AUTOMATED Routine 08/03/2023 8:03 AM EDT Chronic kidney disease, stage 3a (HCC) Mitral valve disorder TSH WITH FREE T4 IF INDICATED Routine 08/03/2023 8:03 AM EDT Other specified hypothyroidism BASIC METABOLIC PANEL Routine 08/03/2023 8:03 AM EDT Chronic kidney disease, stage 3a (HCC) CBC Routine 08/03/2023 8:03 AM EDT Chronic kidney disease, stage 3a (HCC) Mitral valve disorder PHOSPHORUS Routine 08/03/2023 8:03 AM EDT Chronic kidney disease, stage 3a (HCC) PTH Routine 08/03/2023 8:03 AM EDT Hyperparathyroidism, unspecified (HCC) ALBUMIN / CREATININE RATIO, URINE Routine 08/03/2023 8:03 AM EDT Chronic kidney disease, stage 3a (HCC) CBC Routine 08/03/2023 8:03 AM EDT Chronic kidney disease, stage 3a (HCC) Mitral valve disorder documented in this encounter Results * DIFFERENTIAL, AUTOMATED (08/03/2023 8:03 AM EDT) WBC 8.51 4.00 - 10.80 K/uL 08/03/2023 2:37 PM EDT LAB[facility] Neutrophils % 52.4 40.0 - 75.0 % 08/03/2023 2:37 PM EDT [facility] Lymphocytes % 33.0 18.0 - 42.0 % 08/03/2023 2:37 PM EDT [facility] Monocytes % 9.4 1.0 - 11.0 % 08/03/2023 2:37 PM EDT [facility] Eosinophils % 3.9 0.0 - 6.0 % 08/03/2023 2:37 PM EDT [facility] Basophils % 0.9 0.0 - 2.0 % 08/03/2023 2:37 PM EDT [facility] Immature Granulocytes % 0.4 0.0 - 2.0 % 08/03/2023 2:37 PM EDT [facility] Absolute Neutrophils 4.46 1.80 - 7.70 K/uL 08/03/2023 2:37 PM EDT LAB[facility] Absolute Lymphocytes 2.81 1.00 - 4.80 K/ul 08/03/2023 2:37 PM EDT [facility] Absolute Monocytes 0.80 0.00 - 1.10 K/uL 08/03/2023 2:37 PM EDT [facility] Absolute Eosinophils 0.33 0.00 - 0.70 K/uL 08/03/2023 2:37 PM EDT [facility] Absolute Basophils 0.08 0.00 - 0.20 K/uL 08/03/2023 2:37 PM EDT LAB[facility] Absolute Immature Granulocytes 0.03 0.00 - 0.20 K/uL 08/03/2023 2:37 PM EDT [facility] Blood Venous blood specimen / Unknown Venipuncture / Unknown 08/03/2023 8:03 AM EDT 08/03/2023 8:03 AM EDT us Deandra Dennis PA-C LAB BLOOD ORDERABLES Jerrica l Result [facility] [address] [place] [address] * (ABNORMAL) CBC (08/03/2023 8:03 AM EDT) WBC 8.51 4.00 - 10.80 K/uL 08/03/2023 2:37 PM EDT LAB[facility] RBC 3.44 3.85 - 5.15 M/uL 08/03/2023 2:37 PM EDT LAB[facility] HGB 9.5(L) 12.0 - 15.3 g/dL 08/03/2023 2:37 PM EDT LAB[facility] HCT 31.2(L) 36.0 - 45.2 % 08/03/2023 2:37 PM EDT [facility] MCV 90.7 81.5 - 97.5 fL 08/03/2023 2:37 PM EDT [facility] MCH 27.6 27.0 - 34.0 pg 08/03/2023 2:37 PM EDT [facility] MCHC 30.4 32.0 - 36.0 g/dL 08/03/2023 2:37 PM EDT LAB[facility]ATORY [facility] RDW 14.9 11.5 - 15.5 % 08/03/2023 2:37 PM EDT LABORATORY [facility] PLT 382 140 - 400 K/uL 08/03/2023 2:37 PM EDT LABORATORY [facility] MPV 9.3 6.6 - 11.1 fL 08/03/2023 2:37 PM EDT LABORATORY [facility] nRBCs 0 <=0 /100 WBCs 08/03/2023 2:37 PM EDT LAB[facility]ATORY [facility] Blood Venous blood specimen / Unknown Venipuncture / Unknown 08/03/2023 8:03 AM EDT 08/03/2023 8:03 AM EDT us Deandra A Mingear PA-C LAB BLOOD ORDERABLES Jerrica l Result Performing Organization Address City/[facility]/ZIP Co de Phone Number LABORATORY [facility] [address] [place] [address] * (ABNORMAL) PTH (08/03/2023 8:03 AM EDT) PTH 107(H) 15 - 65 pg/mL 08/03/2023 2:47 PM EDT LAB[facility]ATORY [facility] Blood Venous blood specimen / Unknown Venipuncture / Unknown 08/03/2023 8:03 AM EDT 08/03/2023 8:03 AM EDT Deandra A Mingear PA-C LAB BLOOD ORDERABLES Jerrica l Result LAB[facility]ATORY [facility] [address] [place] [address] * TSH WITH FREE T4 IF INDICATED (08/03/2023 8:03 AM EDT) TSH 1.38 0.27 - 4.20 uIU/mL 08/03/2023 2:47 PM EDT LABORATORY C Blood Venous blood specimen / Unknown Venipuncture / Unknown 08/03/2023 8:03 AM EDT 08/03/2023 8:03 AM EDT us Deandra Terrance Dennis PA-C LAB BLOOD ORDERABLES Jerrica l Result LABORATORY [facility] [address] [place] [address] * (ABNORMAL) BASIC METABOLIC PANEL (08/03/2023 8:03 AM EDT) Pathologist [facility] BUN 21(H) 6 - 20 mg/dL 08/03/2023 2:14 PM EDT LABORATORY [facility] CREATININE 1.0 0.5 - 1.0 mg/dL 08/03/2023 2:14 PM EDT LABORATORY [facility] EGFR 58(L) >=60 mL/min 08/03/2023 2:14 PM EDT LABORATORY C Comment:eGFR is calculated b ased on the CKD-EPI 2020 equation SODIUM 141 135 - 146 mmol/L 08/03/2023 2:14 PM EDT LABORATORY C POTASSIUM 4.5 3.5 - 5.1 mmol/L 08/03/2023 2:14 PM EDT LAB[facility] CHLORIDE 101 98 - 107 mmol/L 08/03/2023 2:14 PM EDT LABORATORY C CO2 28 22 - 32 mmol/L 08/03/2023 2:14 PM EDT LABORATORY C ANION GAP 12 7 - 15 mmol/L 08/03/2023 2:14 PM EDT LABORATORY C GLUCOSE 82 70 - 120 mg/dL 08/03/2023 2:14 PM EDT LABORATORY C CALCIUM 9.0 8.4 - 10.2 mg/dL 08/03/2023 2:14 PM EDT LABORATORY C Blood Venous blood specimen / Unknown Venipuncture / Unknown 08/03/2023 8:03 AM EDT 08/03/2023 8:03 AM EDT us Deandra A Sonny PA-C LAB BLOOD ORDERABLES Jerrica l Result Performing Organization Address City/[facility]/ZIP Co de Phone Number LABORATORY [facility] [address] [place] [address] * PHOSPHORUS (08/03/2023 8:03 AM EDT) Phosphorus 3.9 2.5 - 4.8 mg/dL 08/03/2023 2:14 PM EDT LAB[facility]ATORY [facility] Blood Venous blood specimen / Unknown Venipuncture / Unknown 08/03/2023 8:03 AM EDT 08/03/2023 8:03 AM EDT Deandra A [employer] PA-C LAB BLOOD ORDERABLES Jerrica l Result Performing Organization Address City/[facility] Co de Phone Number LABORATORY [facility] [address] [place] [address] * ALBUMIN / CREATININE RATIO, URINE (08/03/2023 8:03 AM EDT) Albumin, Random Urine <1.20 mg/dL 08/03/2023 3:29 PM EDT LABORATORY [facility] Creatinine, Random Urine 67 mg/dL 08/03/2023 3:29 PM EDT LABORATORY [facility] Albumin / Creatinine Ratio, Urine <18 <30 mg/g Creat 08/03/2023 3:29 PM EDT LABORATORY [facility] Urine Urine specimen obtained by clean catch procedure / Unknown Non-blood Collection / Unknown 08/03/2023 8:03 AM EDT 08/03/2023 8:03 AM EDT Narrative [facility] - 08/03/2023 3:29 PM EDT Normal: <30 mg/g creatinine High: 30-300 mg/g creatinine Very High: >300 mg/g creatinine Nephrotic: >2200 mg/g creatinine Deandra A [employer] PA-C LAB URINE ORDERABLES Jerrica l Result Performing Organization Address City/[facility] Co de Phone Number LABORATORY [address] [address] documented in this encounter Visit Diagnoses Diagnosis Chronic kidney disease, stage 3a (HCC) Other specified hypothyroidism Hyperparathyroidism, unspecified (HCC) Hyperparathyroidism, unspecified Mitral valve disorder Mitral valve disorders documented in this encounter Advance Directives * [...] and were consensually agreed upon. 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
--- OUTSIDE RECORDS SUMMARY | 2024-06-16 12:10 | External Medical Summary ---
Author Name Unknown Address Unknown Organization K01:LABORATORY [facility] [place] - [facility] [address] [place] [address] Laboratory Report Ordering Provider Test Date Status KADE CASILLAS 05/02/2024 13:59:44 Final Observation Date Value Abnormality Reference (Units ) Status WBC, Total 05/02/2024 13:59:44 9.76 4.00-10.80 (K/uL) Final RBC 05/02/2024 13:59:44 4.17 3.85-5.15 (M/uL) Final Hemoglobin 05/02/2024 13:59:44 13.4 12.0-15.3 (g/dL) Final HCT 05/02/2024 13:59:44 42.2 36.0-45.2 (%) Final MCV 05/02/2024 13:59:44 101.2 81.5-97.5 (fL) Final MCH 05/02/2024 13:59:44 32.1 27.0-34.0 (pg) Final MCHC 05/02/2024 13:59:44 31.8 32.0-36.0 (g/dL) Final RDW 05/02/2024 13:59:44 13.3 11.5-15.5 (%) Final Platelets 05/02/2024 13:59:44 292 140-400 (K/uL) Final MPV 05/02/2024 13:59:44 10.0 6.6-11.1 (fL) Final Nucleated erythrocytes/100 leukocytes [Ratio] in Blood by Automated count 05/02/2024 13:59:44 0 <=0 (/100 WBCs) Final Performing Location LABORATORY [facility] - [address] [place] [address]
--- OUTSIDE RECORDS SUMMARY | 2024-06-16 12:10 | External Medical Summary | Summary of Care ---
Author Name Unknown Organization [facility] Address [address] [place] [address] Phone [phone] Care Team Providers Care Employment Counselor Name Role Phone Terrance Craig MD Primary Care Provider [phone]- [phone] Reason for Visit * Reason Comments Edema Bilateral lower extr emity swelling Sore Throat Headache Rash Neck and left should er - red, slightly itchy, raised - lace like pattern Congestion Sinus congestion - m ucus Encounter Details Date Type Department Care Team (Late st Contact Info) Description 04/22/2024 8:15 AM EST Convenient Care Visit [facility] [address] [place] [address] Madeline Robbins CRNP [address] [place] [address] Viral URI*; Rash and nonspecific skin eruption; [...] suspected opioid overdose. Seek immediate medical attention. [email or web address]? [email or web address] 1 Each 3 01/29/20 Active Additional Information [...] 24 Hour (Imdur)Indications :Coronary artery disease involving [place] coronary artery of [place] heart without angina pectoris,Dyslipide jenny, goal LDL below 70,HTN, goal below 140/90,S/P angioplasty with stent Take 3 Tablets by mouth in the morning. 270 Tablet 3 08/26/19 24 Active Spironolactone 25 MG Oral Tablet (Aldactone)Indicat ions:HTN, goal below 140/90,S/P angioplasty with stent,Coronary artery disease involving [place] coronary artery of [place] heart without angina pectoris Take 1 Tablet [...] 140/90,S/P angioplasty with stent,Coronary artery disease involving [place] coronary artery of [place] heart without angina pectoris Take 1 Tablet [...] ions:S/P angioplasty with stent,Coronary artery disease involving [place] coronary artery of [place] heart without angina pectoris,HTN, goal below 140/90 [...] CKD protocol Coronary artery disease invo lving klaw[place] coronary artery of [place] heart without angina pectoris 06/11/2019 S/P angioplasty [...] Prediabetes protocol Coronary artery disease invo lving [place] coronary artery of [place] heart with angina pectoris 06/16/2020 05/28/2022 Stage [...] HYPERTENSIVE CEREBROVASC DISEASE NEC 12/08/2004 02/27/2007 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 CC & HPI: Sylvie Wang is a 78 year old [...] Advanced directives, counseling/discussion Coronary artery disease involving [place] coronary artery of [place] heart without angina pectoris S/P angioplasty with stent Chronic kidney disease, stage 3a (HCC) ANDRÉS (stress urinary incontinence, female) Chronic heart failure with preserved ejection fraction ([facility]) Past Surgical History: Procedure Laterality Date ARTHOHANDYW/ROTATOR CUFF 11/10/2009 ARTHROSCOPY SHOULDER ROTATOR CUFF performed by Nichole LLOYD at OR [facility] COLONOSCOPY 08/11 Normal - repeat 2012. COLONOSCOPY, DIAGNOSTIC (RECTUM) 12/29/2012 COLONOSCOPY FLEXIBLE PROXIMAL DIAGNOSTIC performed by Jose Moe MD at ENDOSCOPY [facility] COLONOSCOPY, DIAGNOSTIC (RECTUM) 01/23/2018 normal, repeat 5 yrs/COLONOSCOPY FLEXIBLE PROXIMAL DIAGNOSTIC performed by Jose Moe MD at ENDOSCOPY [facility] EGD, FLEXIBLE, DIAGNOSTIC 10/09/2014 Mildly tortouous distal esophagus/ESOPHAGOGASTRODUODENOSCOPY (EGD), FLEXIBLE, TRANSORAL, DIAGNOSTICperformed by Rosa Maria Sanchez MD at ENDOSCOPY [facility] EGD, FLEXIBLE, W/BIOPSY 03/23/07 mild stomach [...] by Shiraz Lay, DO [facility] IN[facility] LUMBAR/SACRAL 04/08/2015 INJECTION SPINE LUMBAR OR SACRAL performed by Pennington Martin Lay, DO at OR [facility] LAPAROSCOPY,SURG,COLPOPEXY N/A 03/02/2022 ROBOTIC LAPAROSCOPY SURGICAL COLPOPEXY performed by Milagros Olguin MD at OR [facility] LUMBAR / SACRAL EPIDURAL, SINGLE LEVEL 10/20/2022 INJECTION TRANSFORAMINAL EPIDURAL LUMBAR OR SACRAL performed by Shiraz Lay, DO [facility] LUMBAR / SACRAL EPIDURAL, SINGLE LEVEL 04/22/2023 INJECTION TRANSFORAMINAL EPIDURAL LUMBAR OR SACRAL performed by Cuong Schwarz DO at OR [facility] PARAVAGINAL DEFECT REPAIR, VAGINAL N/A 11/07/2018 PARAVAGINAL DEFECT REPAIR VAGINAL APPROACH performed by Lobo Sweeney DO at OR [facility] PELVIC FLOOR DEFECT RPR,MESH,EACH N/A 11/07/2018 INSERTION OF MESH FOR REPAIR PELVIC FLOOR DEFECT performed by Lobo Sweeney DO at OR [facility] REMOVAL OF APPENDIX REMOVAL OF TONSILS, UNDER AGE 10 AGE 3 REPAIR BLADDER & VAGINA, CYSTOCELE N/A 03/02/2022 ANTERIOR COLPORRAPHY, REPAIR CYSTOCELE, CYSTO performed by Milagros Olguin MD at OR [facility] REPAIR BLADDER DEFECT N/A 03/02/2022 VAGINAL SLING PROCEDURE FOR STRESS INCONTINENCE performed by Milagros Olguin MD at OR [facility] REPAIR OF VAGINA CYSTOCELE AND RECTOCELE REPAIR OF VAGINAL PROLAPSE N/A 11/07/2018 COLPOPEXY VAGINAL EXTRA PERITONEAL APPROACH performed by Lobo Sweeney DO at OR [facility] REPAIR RECTUM & VAGINA, RECTOCELE N/A 11/07/2018 POSTERIOR COLPORRHAPHY performed by Lobo Sweeney DO at OR [facility] SACROILIAC JOINT INJECT W/GUIDANCE 01/27/2022 INJECTION SACROILIAC JOINT performed by Shiraz Lay DO at OR [facility] SHOULDER ARTHROSCOPY SURGERY 11/10/2009 ARTHROSCOPY SHOULDER DISTAL CLAVICLE RESECTION performed by Nichole LLOYD at OR [facility] SHOULDER ARTHROSCOPY/DECOMPRESSION 11/10/2009 ARTHROSCOPY SHOULDER SUBACROMIAL DECOMPRESSION performed by Nichole LLOYD at OR [facility] SPINE SURGERY PROCEDURE NEC 2016 TOTAL HYSTERECTOMY 1969 [facility] Review of patient's allergies indicates: [...] for suspectedopioid overdose. Seek immediate medical attention. [email or web address]?[email or web address] (Patient not taking: Reported on 04/22/2024) 1 [...] Ht 1.626 m (5' 4") | Wt 63.5kg (140 lb) | SpO2 96% | BMI [...] any severe symptoms appear acutely ERNESTO Saldivar [address] [address] documented in this encounter Nursing Notes * [...] Description 05/02/2024 12:00 PM EST [facility] [address] [phone] Terrance Craig MD [address] [address] 05/02/2025 1:30 PM EST Office Visit Cardiology, [facility] [address] [place] [address] Shan Starks MD [address] [place] [address] Pending Results Name Type Priority Associated Diagnoses [...] Additional history exists CKD PHOS USE SMARTSET 09440 08/02/202407/11, 05/10/2022, 12/11/2019, Additional history exists TSH 08/02/2024 08/03/2023, 08/09, 08/18/2021, Additional history exists CKD HGB USE SMARTSET 72480 10/06/202410/06, 08/03/2023, 08/03/2023, Additional history exists Pneumococcal [...] this encounter Medical Devices Implanted Type Area Commercial Leasing Manager Device Identifier Shelf Expiration Date Model / Serial / Lot Yunior Hal Jang [id number] - [id number] Implanted:Qty: 1 on 11/10/2009 at OR [facility] Right: Shoulder [employer] 09/09/2010 AR-1925BF / / [id number] System Anchorsure 2 Sutures - [id number] Implanted:Qty: 1 on 11/07/2018 by Lobo Sweeney DO at OR [facility] N/A: Vagina [employer] 04/12/2020 A-SURE / / [id number] Suture Anchorsure 2pk - [id number] Implanted:Qty: 1 on 11/07/2018 by Lobo Sweeney DO at OR [facility] N/A: Vagina [employer] 06/26/2020 A-SURE02 / / [id number] 8cm X 12cm [place] Dermis Implanted:Qty: 1 on 11/07/2018 by Lobo Sweeney DO at OR [facility] N/A: Vagina COLOPLAST SWEEN MAY 03/10/2023 [id number] / [id number] / [id number] Sling Desara 1.1cm X 45cm - [id number] Implanted:Qty: 1 on 03/02/2022 by Milagros Olguin MD at OR [facility] N/A: Urethra [employer] 10/22/2024 WAYLON-DS01 / / [id number] Y-Mesh 26 X 4 X 3 Cm - [id number] Implanted:Qty: 1 on 03/02/2022 by Milagros Olguin MD at OR [facility] N/A: Pelvis [employer] 10/06/2026 [id number]-[id number] / / [id number] Description:used for [place]roco lpopexy documented as of [...] and were consensually agreed upon. Care Teams Employment Counselor Relationship Specialty Start Date End Date Terrance Craig MD [address] [address] PCP - General Family Medicine 04/12/24 documented as of this encounter
--- OUTSIDE RECORDS SUMMARY | 2024-06-16 12:10 | External Medical Summary | Summary of Care ---
Author Name Unknown Organization [facility] Address [address] [place] [address] Phone [phone] Care Team Providers Care Lead Cargoman Name Role Phone Terrance Craig MD Primary Care Provider +1- [phone] Reason for Visit * Reason Comments eRx-Medication Refill Encounter Details Date Type Department Care Team (Late st Contact Info) Description 05/06/2024 Refill Neurology [facility] [address] [place] [address] Valentina Palmer MD [address] [place] [address] Allergies Active Allergy Reactions Criticality Noted Date [...] as of this encounter (statuses as of 05/07/2024) Medications LABETALOL HCL 200 MG PO TABSIndications:H [...] suspected opioid overdose. Seek immediate medical attention. [email or web address] I 1 Each 3 023 Active Additional [...] 6 mL 3 4 3:14 PM EST 024 Active Furosemide 40 MG Oral Tablet (Lasix) Take 2 tablets in the morning. Take 1 tablet in the afternoon 270 Tablet 3 024 Active Isosorbide Mononitrate ER 30 MG Oral Tablet Extended Release 24 Hour (Imdur)Indication s:Coronary artery disease involving [place] coronary artery of [place] heart without angina pectoris,Dyslipid emia, goal LDL below 70,HTN, goal below 140/90,S/P angioplasty with stent Take 3 Tablets by mouth in the morning. 270 Tablet 3 024 Active Spironolactone 25 MG Oral Tablet (Aldactone)Indica tions:HTN, goal below 140/90,S/P angioplasty with stent,Coronary artery disease involving [place] coronary artery of [place] heart without angina pectoris Take 1 Tablet [...] 140/90,S/P angioplasty with stent,Coronary artery disease involving [place] coronary artery of [place] heart without angina pectoris Take 1 Tablet [...] as needed. 360 Tablet 1 024 Active Gabapentin 300 MG Oral Capsule (Neurontin)Indica tions:RLS (restless legs syndrome) Take 2 Capsules by mouth 2 times a day. Take 600mg at noon and 600mg 90 minutes before bed. 360 Capsule 024 Active Tobramycin 0.3 % Ophthalmic Solution (Aktob)Indication s:Bacterial conjunctivitis of both eyes Use 1 drop each eye 4-6 times throughout the day for at least 5 days. If redness is gone after that may use drops 3x daily for another 2 days then stop. Try to extend drops for 1-2 days past the redness/draina ge going away. 5 mL 024 Active Additional Information Patient not taking.Reported on 05/02/2024 Neupro 6 MG/24HR Transdermal Patch 24 Hour (Rotigotine)Indic ations:RLS (restless legs syndrome) APPLY 1 PATCH ONCE DAILY 90 Patch 1 024 Active Nitroglycerin 0.4 MG Sublingual Tablet Sublingual (Nitrostat)Indica tions:S/P angioplasty with stent,Coronary artery disease involving [place] coronary artery of [place] heart without angina pectoris,HTN, goal below 140/90 [...] 1 tab for 2 days 20 Tablet 025 Active Additional Information Patient not taking.Reported on 05/02/2024 Carbidopa-Levodop a ER 50-200 MG Oral Tablet Extended Release (Sinemet CR) TAKE 1 TABLET DAILY 90 Tablet 1 025 Active Carbidopa-Levodop a ER 50-200 MG Oral [...] as of this encounter (statuses as of 05/07/2024) Active Problems Problem Noted Date Diagnosed Date Chronic heart failure with preserved ejection fr action 09/29/2023 ANDRÉS (stress urinary incontinence, female) 2021 Advanced directives, counseling/discussion 10/31 Chronic kidney disease, stage 3a 10/20/2020 Overview: Per CKD protocol Coronary artery disease invo lving [place] coronary artery of [place] heart without angina pectoris 06/11/2019 S/P angioplasty [...] as of this encounter (statuses as of 05/07/2024) Resolved Problems Problem Noted Date Diagnosed Date Resolved Date Prediabetes 03/23/2021 09/24/2021 Overview: Per Prediabetes protocol Coronary artery disease invo lving [place] coronary artery of [place] heart with angina pectoris 06/16/2020 05/28/2022 Stage [...] HYPERTENSIVE CEREBROVASC DISEASE NEC 12/08/2004 02/27/2007 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 DYSFUNCT EUSTACHIAN TUBE, BILATERAL 09/22/1999 09/10/2016 HYPERTENSION NOS 03/04/2009 Overview (03/04/2009): Modified per HTN protocol #16. Irritable bowel syndrome 12/2016 documented as of this encounter (statuses as of 05/07/2024) Immunizations Name Administration Dates Next Due COVID-19 [...] encounter Miscellaneous Notes * Telephone Encounter - Raul Weinstein RPh - 05/07/2024 2:56 PM ESTSigned Prescriptions: Disp Refills Carbidopa-Levodopa ER 50-200 MG Oral Table*90 Tab*1 Sig: TAKE 1 TABLET DAILYAuthorizing Provider: VALENTINA PALMER User: RAUL WEINSTEIN * Telephone Encounter - Ophelia Falk - 05/06/2024 2:40 PM ESTPending Prescriptions: Disp Refills Carbidopa-Levodopa ER 50-200 MG Oral Table*90 Tab*3 Sig: TAKE 1 TABLET DAILY * Telephone Encounter - Ophelia Falk - 05/06/2024 2:39 PM EST Did you pend patient's preferred pharmacy and medication before forwarding?yes Pharmacy: [id number] Pending Prescriptions: Disp Refills Carbidopa-Levodopa ER 50-200 MG Oral Tabl*90 Tab*3 Sig: TAKE 1 TABLET DAILY Last Visit: 01/05/2024 (in office), Visit date not found (telemedicine) Next Visit: Visit date not found If no future appointments scheduled, and last appointment is greater than a year ago, please schedule patient for a follow-up appointment Last date the medication was ordered: 05/16/2023 Is this request for a controlled substance?No [...] Lab Results Component Value Date/Time CREAT 0.9 05/02/2024 01:59 PM CREAT 1.00 05/10/2022 12:00 AM CREAT 1.0 02/08/2020 11:37 AM POTASSIUM 3.6 05/02/2024 01:59 PM POTASSIUM 3.9 05/10/2022 12:00 AM POTASSIUM 4.1 02/08/2020 11:37 AM TSH 1.46 05/02/2024 01:59 PM TSH 0.27 01/01/2020 04:36 PM LDL 55 09/26/2023 07:51 AM LDL 141 (H) 03/28/2020 10:24 AM LDL NOT APPLICABLE 03/28/2020 10:24 AM LDLCALC 186 09/11/2018 12:00 AM ALT 16 05/02/2024 01:59 PM ALT 13 02/08/2020 11:37 AM HGBA1C 5.5 08/18/2021 08:24 AM documented in this encounter Plan of Treatment Upcoming Encounters Date Type Department Care Team (Late st Contact Info) Description 11/05/2024 7:40 AM EDT Office Visit [facility] [place] [address] [place] [phone] Terrance Craig MD [address] [place] [address] 11/07/2024 8:30 AM EDT Office Visit Cardiology, [facility] [address] [place] [address] Lani Ling PA-C [address] [place] [address] 05/02/2025 1:30 PM EST Office Visit [facility] [address] [place] [address] Shan Starks MD [address] [place] [address] Scheduled Procedures Name Priority Associated Diagnoses Date/Ti [...] Additional history exists CKD PHOS USE SMARTSET 22849 08/02/202407/11, 05/10/2022, 12/11/2019, Additional history exists GFR 10/30/2024 05/02/2024, 08/10, 08/03/2023, Additional history exists CKD HGB USE SMARTSET 94908 05/02/202505/02, 10/07/2023, 08/03/2023, Additional history exists Depression [...] this encounter Medical Devices Implanted Type Area Magazine Filler Device Identifier Shelf Expiration Date Model / Serial / Lot Yunior Jang [id number] X5 - [id number] Implanted:Qty: 1 on 11/10/2009 at OR [facility] Right: Shoulder [employer] 09/09/2010 AR-1925BF / / [id number] System Anchorsure 2 Sutures - [id number] Implanted:Qty: 1 on 11/07/2018 by Lobo Sweeney, DO at OR [facility] N/A: Vagina [employer] 04/12/2020 A-SURE / / [id number] Suture Anchorsure 2pk - [id number] Implanted:Qty: 1 on 11/07/2018 by Lobo Sweeney, DO at OR [facility] N/A: Vagina [employer] 06/26/2020 A-SURE02 / / [id number] 8cm X 12cm [place] Dermis Implanted:Qty: 1 on 11/07/2018 by Lobo Sweeney, DO at OR [facility] N/A: Vagina COLOPLAST SWEEN MAY 03/10/2023 93-9812 / [id number] / [id number] Sling Desara 1.1cm X 45cm - [id number] Implanted:Qty: 1 on 03/02/2022 by Milagros Olguin MD at OR [facility] N/A: Urethra [employer] 10/22/2024 WAYLON-DS01 / / [id number] Y-Mesh 26 X 4 X 3 Cm - [id number] Implanted:Qty: 1 on 03/02/2022 by Milagros Olguin MD at OR [facility] N/A: Pelvis [employer] 10/06/2026 WAYLON-VLY26 [id number] / / [id number] Description:used for [place] lpopexy documented as of [...] and were consensually agreed upon. Care Teams Lead Cargoman Relationship Specialty Start Date End Date Terrance Craig MD [address] [address] PCP - General Family Medicine 04/12/24 documented as of this encounter
--- OUTSIDE RECORDS SUMMARY | 2024-06-16 12:10 | External Medical Summary ---
Author Name Unknown Address Unknown Organization K01[place] [address] [place] [id number] Laboratory Report Ordering Provider Test Date Status KADE CASILLAS 05/02/2024 13:59:44 Final Observation Date Value Abnormality Reference (Units ) Status Erythrocyte sedimentation rate by Photometric method 05/02/2024 13:59:44 5 <30 (mm/hour) Final Performing Location [facility] [place] [address] [place] [id number]
--- NOTE | 2024-06-16 12:15 | CT Scan Report ---
ABDOMEN AND PELVIS CT WITH IV CONTRAST CT DOSE: 531.31 mGy.cm HISTORY: upper gi bleed TECHNIQUE: Multiaxial CT images of the abdomen and pelvis were performed following the IV administrat ion of 90 cc of Optiray, A dose lowering technique was utilized adhering to the principles of ALARA. COMPARISON STUDY: 01/19/2024 FINDINGS: There is a large hiatal hernia. ABDOMEN: Liver, gallbladder, spleen, pancreas, and adrenal glands are unremarkable. Stable atrophy of the left kidney. Kidneys show no hydronephrosis or calculi. There are scattered atherosclerotic calc ifications. No abdominal aortic aneurysm. Pelvis: Urinary bladder is mildly distended. There is mild retained stool. No bowel inflammation or o bstruction. No significant colonic diverticulosis or acute diverticulitis. No free fluid, free air, o r abscess. No enlarged adenopathy. Osseous structures: Stable lumbar scoliosis and degenerative changes. There is instrumented fusion of L5-S1. Stable left hip prosthesis. No acute osseous findings. IMPRESSION: No acute findings. ACT 112: Negative or not required by law. The above report was generated using voice recognition software. It may contain grammatical, syntax o r spelling errors. Electronically signed by: Blake Fuentes M.D. 06/16/2024 12:13 PM
[2024-06-16] MEDS: PANTOprazole 80 MG in DEXTROSE 5% 100 ML IV ONE (12:29)
[2024-06-16] MEDS: PANTOprazole 40 MG in DEXTROSE 5% MINI-B 100 ML IV SCH (13:06)
[2024-06-16] MEDS: PANTOPRAZOLE BOLUS/DRIP IV STA (13:08)
--- NOTE | 2024-06-16 13:11 | History & Physical Report ---
Date of Service June 16, 2024 Assessment & Plan (1) Acute upper gastrointestinal bleeding: (2) CAD (coronary artery disease), [place] coronary artery: (3) GERD (gastroesophageal reflux disease): (4) History of peptic ulcer: (5) HTN (hypertension): (6) Hypothyroidism: (7) Multiple sclerosis: (8) Chronic heart failure with preserved ejection fraction (HFpEF): Plan This is an 78 y/o female with chronic HFpEF, CAD s/p angioplasty/stent, MS, hypothyroid, fibromyalgia, dyslipidemia, HTN, GERD, CKD3a, remote hx PUD, and other history as outlined below who presents to the ED today with black stools that started last night. Associated generalized GI upset but no significant abdominal pain. On exam, mild to moderate epigastric tenderness. Work-up in the ED showed a normal H&H at 12.2/37.0, no acute findings on the CT of the abdomen/pelvis. Pt has a remote history of PUD, hx of GERD, on BID PPI therapy. Takes aspirin daily due to CAD w/ hx stents. #GI bleed - likely upper source, last melanotic stool around 3 am - Admit to PCU - Monitor H&H for stability - Continue PPI gtt started in the ED for now - Clear liquid diet - Consult GI for further evaluation - Hold aspirin for now #CAD s/p multiple stents Chronic, stable Continue outpatient meds other than aspirin, which is on hold as above #Chronic HFpEF Chronic - continue outpatient medications including diuretics #Hypothyroidism Chronic - continue levothyroxine #RLS #Quiescent MS Chronic - continue outpatient regimen including carbidopa-levodopa Pt seen and reviewed with collaborating physician, Dr. Tolbert. Plan of care discussed and as outlined above. Code status: full code DVT prophylaxis: JOMAR stockings, pharmacologic prophylaxis on hold due to GI bleed updated at the bedside - all questions answered. I spent a total of 82 minutes coordinating, documenting, and providing care for this patient excluding time spent in the performance of separately billed servi yenny or time spent by another provider/QHP. Grisel Good PA-C History of Present Illness Chief Complaint: black stools since last night Primary Care Provider: Terrance Craig MD This is an 78 y/o female with chronic HFpEF, CAD s/p angioplasty/stent, MS, hypothyroid, fibromyalgia, dyslipidemia, HTN, GERD, CKD3a, remote hx PUD, and other history as outlined below who presents to the ED today with black stools that started last night. She reports she had a formed black bowel movement last evening, followed by several episodes of black diarrhea with last BM around 3 am today. She denies hematochezia. She denies significant abdominal pain but reports a generally unsettled feeling in her bowels. Denies vomiting. She takes aspirin 81 mg daily but denies use of NSAIDs or higher dose aspirin. She has a remote history of PUD in her 20s. She is on BID PPI therapy for her GERD, which usually works well. Appetite has been at baseline. She denies fevers, chills, dyspnea, syncope, dizziness. She does note an explained bruise on her chest earlier this week - does not recall any trauma to the area. [place] like a lump initially. She also notes occasional pain in lower chest pain that lasts a few minutes at a time. No specific pattern, not exertional. Colonoscopy 01/23/18 - normal EGD 10/09/14 (for dysphagia) - mild tortuous distal esophagus, ring. PPI increased to BID, recommend consider VFSS Colonoscopy 12/29/12 - normal EGD 03/23/07 - normal esophagus, stomach, and examined duodenum Allergies Allergy/AdvReac Type Severity Reaction Status Date / Time bee venom protein (honey bee) Allergy Severe Anaphylaxis Verified 06/16/24 13:38 Penicillins Allergy Severe Anaphylaxis Verified 06/16/24 13:37 Sulfa (Sulfonamide Allergy Severe Anaphylaxis Verified 06/16/24 13:37 Antibiotics) latex Allergy Intermediate Localized Verified 06/16/24 13:37 rash pneumococcal vaccine Allergy Intermediate Rash at Verified 06/16/24 13:37 injection site [id number]-[id number] Reductase Allergy Intermediate muscle Verified 06/16/24 13:37 Inhibitor pain/sick to stomach tetanus toxoid, adsorbed Allergy Intermediate Redness at Verified 06/16/24 13:37 injection site adhesive tape Allergy Mild Redness, Verified 06/16/24 13:37 pruritis atorvastatin AdvReac Intermediate myalgias Verified 06/16/24 13:37 SANIA Inhibitors AdvReac Mild Cough Verified 06/16/24 13:37 aspirin AdvReac Mild GI upset Verified 06/16/24 13:37 salicylates AdvReac Mild nausea/vomi Verified 06/16/24 13:37 tting Home Medications Medication Instructions Recorded Confirmed Type carbidopa 25 mg-levodopa 100 mg 1 tab PO TID 01/16/19 06/16/24 History tablet pantoprazole 40 mg tablet,delayed 40 mg PO BID 01/16/19 06/16/24 History release raloxifene 60 mg tablet (Evista) 60 mg PO QDL 01/16/19 06/16/24 History rotigotine 6 mg/24 hour 1 patch topical HS 01/19/21 06/16/24 History transdermal 24 hour patch (Neupro) carbidopa ER 50 mg-levodopa 200 mg 1 tab PO HS 11/10/21 06/16/24 History tablet,extended release epinephrine 0.3 mg/0.3 mL 0.3 mg IM Q4H PRN Other 11/10/21 06/16/24 History injection, auto-injector (EpiPen) levothyroxine 150 mcg capsule See Rx Instructions .Route .COMPLEX 11/10/21 06/16/24 History nitroglycerin 0.4 mg sublingual 0.4 mg sublingual Q5M PRN Chest 11/10/21 06/16/24 History tablet Pain evolocumab 140 mg/mL subcutaneous 140 mg subcut Q14D 05/25/23 06/16/24 History pen injector (Lenore Alonso) furosemide 40 mg tablet See Rx Instructions .Route 03/28/24 06/16/24 History .COMPLEX #180 tabs spironolactone 25 mg tablet 25 mg PO QAM #90 tabs 03/28/24 06/16/24 Rx labetalol 200 mg tablet 400 mg (2 x 200 mg) PO BID #360 04/24/24 06/16/24 Rx tabs acetaminophen 500 mg tablet 1,000 mg PO TID PRN pain 06/16/24 06/16/24 History (Tylenol Extra Strength) aspirin 81 mg tablet,delayed 81 mg PO QAM 06/16/24 06/16/24 History release (Chepe Low Dose Aspirin) gabapentin 300 mg capsule 600 mg PO BID 06/16/24 06/16/24 History isosorbide mononitrate 30 mg 90 mg PO QAM 06/16/24 06/16/24 History tablet,extended release 24 hr Past Med/Surg History Problem List (Updated 06/16/24 @ 21:14 by Lindy Good PA-C) Chronic heart failure with preserved ejection fraction (HFpEF) Acute upper gastrointestinal bleeding (Acute) Solitary kidney Statin intolerance CAD (coronary artery disease), [place] coronary artery Vitamin D deficiency Chronic kidney disease, stage II (mild) Lumbar stenosis with neurogenic claudication Mild pulmonary hypertension (Chronic) Moderate tricuspid regurgitation (Chronic) moderate-severe tricuspid regurgitation Mild mitral regurgitation (Chronic) Restless legs syndrome (RLS) (Chronic) S/P ureteral stent placement Dyslipidemia (Chronic) Multiple sclerosis (Chronic) Optic neuropathy, stable per pt GERD (gastroesophageal reflux disease) (Chronic) controlled, stable per pt Osteoporosis (Chronic) Fibromyalgia (Chronic) History of peptic ulcer (Chronic) IBS (irritable bowel syndrome) (Chronic) HTN (hypertension) (Chronic) controlled, stable per pt Hypothyroidism (Chronic) Medical History (Updated 06/16/24 @ 21:14 by Lindy Good PA-C) Pelvic floor dysfunction Encounter for pre-operative examination Moderate pulmonary hypertension Allergy to perfume Atrophic kidney, acquired left d/t hypertensive disease Asthma "mild">has not used inhaler in a while Kidney disease, chronic, stage III (GFR 30-59 ml/min) History of kidney stones over 1 yr ago Chronic anemia CAD (coronary artery disease) x 4 stents (05/2019) @ [place], Follows with Dr. Starks-donn never used. Hiatal hernia Spinal stenosis Surgical History (Updated 06/16/24 @ 14:07 by Lindy Good PA-C) H/O esophagogastroduodenoscopy S/P tonsillectomy Status post left hip replacement Status post insertion of drug-eluting stent into left anterior descending (LAD) artery S/P appendectomy S/P STONEY-BSO History of bladder surgery bladder/rectal prolapse repair History of cystoscopy History of colonoscopy History of carpal tunnel release Left S/P epidural steroid injection S/P lumbar spinal fusion Dr Juares S/P arthroscopy of right shoulder S/P shoulder replacement left History of cardiac cath 05/22/19, 05/31/19 ([facility]) History of heart artery stent x 4 stents (05/2019) Family History Sister FHx: colon cancer Uncle FHx: colon cancer Other No family history of adverse response to anesthesia No pertinent family history in first degree relatives Social History Smoking Status: Never smoker Second Hand Exposure: Yes (as a child); Do You Dip or Chew Tobacco: No; Hx Alcohol Use: No Hx Substance Use: No Preferred Language: Polish Communication Ability: Effective Visual Impairment: No Limitations Hearing Ability: Normal 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 Beliefs That Will Affect Care: None marital status: Current Living Situation: Spouse current occupational status: retired current occupation: N/A How many Children do You have: 4 Other Information That Helps Us Care for You: No Feels Safe at Home: Yes Safety Concerns: Feels Safe At This Time Diet: regular caffeine: Yes Physical Activity Frequency: Does not Exercise Seatbelt Use: always Do you think of yourself as: straight/heterosexual Gender Identity: Female Assistive Devices: None Review of Systems Review of Systems: All systems reviewed & are unremarkable except as noted in Subjective Physical Exam Physical Exam: General: awake, alert, NAD HEENT: no scleral icterus, moist oral mucosa Heart: RRR, +murmur Lungs: CTA bilaterally Abdomen: soft, +BS, non-distended, +epigastric tenderness, mild RLQ tenderness, no guarding or rebound Extremities: +bilateral LE edema Skin: warm, dry, no jaundice or cyanosis, +ecchymotic area on mid-anterior chest Neurologic: Ox3, no confusion or dysarthria, moving all extremities, no focal deficits Results & Data Results & Data Vital Signs (Past 12 Hours) Vital Signs Temp Pulse Pulse Resp BP BP Pulse Ox 06/16/24 10:54 68 06/16/24 10:47 77 23 181/81 H 97 06/16/24 10:32 36.2 C L 79 16 193/93 H 98 O2 Del Method 06/16/24 10:54 06/16/24 10:47 Room Air 06/16/24 10:32 Room Air Laboratory Results Lab Results 06/16/24 06/16/24 Range/Units 10:49 11:36 WBC 8.95 (4.8-10.8) K/ul RBC 3.96 L (4.20-5.40) M/uL Hgb 12.2 (12.0-16.0) g/dl Hct 37.0 (37.0-47.0) % MCV 93.4 (80.0-100.0) fL MCH 30.8 (25.0-34.0) pg MCHC 33.0 (32.0-36.0) g/dL RDW Std Deviation 46.1 (36.4-46.3) fL RDW Coeff of Clari 13.6 (11.5-14.5) % Plt Count 250 (130-400) K/uL MPV 9.4 (9.4-12.4) fL Immature Gran % (Auto) 0.4 % Neut % (Auto) 53.1 % Lymph % (Auto) 34.7 % [place] % (Auto) 7.3 % Eos % (Auto) 3.9 % Baso % (Auto) 0.6 % Neut # (Auto) 4.75 (1.40-6.50) K/uL Lymph # (Auto) 3.11 (1.20-3.40) K/uL [place] # (Auto) 0.65 H (0.11-0.59) K/uL Eos # (Auto) 0.35 (0.00-0.50) K/uL Baso # (Auto) 0.05 (0.00-0.20) K/uL Immature Gran # (Auto) 0.04 (0.01-0.20) K/uL PT 10.8 (9.0-12.0) Seconds INR 1.0 (0.9-1.1) APTT 26 (21-31) Seconds PTT Ratio 1.0 Sodium 141 (136-145) mmol/L Potassium 3.5 (3.5-5.1) mmol/L Chloride 106 (98-107) mmol/L Carbon Dioxide 27 (21-32) mmol/L Anion Gap 8 (3-11) BUN 33 H (6-23) mg/dl Creatinine 0.83 (0.6-1.2) mg/dl Est Cr Clr Drug Dosing 42.7 ml/min eGFR 71.22 BUN/Creatinine Ratio 39.8 H (10-20) Glucose 92 (70-99(Fasting)) mg/dl Calcium 9.5 (8.6-10.3) mg/dl Total Bilirubin 1.0 (0.2-1.0) mg/dl AST 19 (13-39) U/L ALT 4 L (7-52) U/L Alkaline Phosphatase 124 H (34-104) U/L Total Protein 6.9 (6.0-8.3) gm/dl Albumin 4.4 (3.4-5.0) gm/dl Globulin 2.5 (2.5-4.0) gm/dl Albumin/Globulin Ratio 1.8 (0.9-2) POC Stool Occult Blood Positive A (Negative) Blood Type B Positive Antibody Screen NEGATIVE Diagnostic Findings Abdomen/Pelvis CT 06/16/24 11:[address] WITH IV CONTRAST CT DOSE: 531.31 mGy.cm HISTORY: upper gi bleed TECHNIQUE: Multiaxial CT images of the abdomen and pelvis were performed following the IV administration of 90 cc of Optiray, A dose lowering technique was utilized adhering to the principles of ALARA. COMPARISON STUDY: 01/19/2024 FINDINGS: There is a large hiatal hernia. ABDOMEN: Liver, gallbladder, spleen, pancreas, and adrenal glands are unremarkable. Stable atrophy of the left kidney. Kidneys show no hydronephrosis or calculi. There are scattered atherosclerotic calcifications. No abdominal aortic aneurysm. Pelvis: Urinary bladder is mildly distended. There is mild retained stool. No bowel inflammation or obstruction. No significant colonic diverticulosis or acute diverticulitis. No free fluid, free air, or abscess. No enlarged adenopathy. Osseous structures: Stable lumbar scoliosis and degenerative changes. There is instrumented fusion of L5-S1. Stable left hip prosthesis. No acute osseous findings. IMPRESSION: No acute findings. ACT 112: Negative or not required by law. The above report was generated using voice recognition software. It may contain grammatical, syntax or spelling errors. Electronically signed by: lBake Fuentes M.D. 06/16/2024 12:13 PM Medications Administered Pantoprazole Sodium 40 mg/ (Dextrose) 100 mls @ 20 mls/hr IV Q5H MELLISSA Stop: 07/16/24 11:59 Last Admin: 06/16/24 13:06 Dose: 8 mg/hr, 20 mls/hr Documented By: BS Discontinued Medications Famotidine (Pepcid 20mg Iv Push) 20 mg in 5 mls @ 2.5 mls/min IV NOW STA Stop: 06/16/24 11:42 Last Admin: 06/16/24 11:46 Dose: 2.5 mls/min Documented By: ENRICO Pantoprazole Sodium 80 mg/ (Dextrose) 120 mls @ 480 mls/hr IV NOW ONE Stop: 06/16/24 11:55 Last Infusion: 06/16/24 13:06 Dose: Infused Documented By: Admin: 06/16/24 12:29 Dose: 480 mls/hr Documented By: ENRICO Ioversol (Optiray 320 100ml) 94 ml IV ONCE ONE Stop: 06/16/24 12:01 Last Admin: 06/16/24 12:00 Dose: 94 ml Documented By: AZAM Pantoprazole Sodium (Pantoprazole Bolus/Drip) 1 each IV NOW STA Stop: 06/16/24 11:42 Last Admin: 06/16/24 13:08 Dose: Not Given Documented By: MICAH Supervising Physician Co-Signing Physician Notes Attending Addendum: Case reviewed with the advanced practitioner. I have personally performed a history and physical examination on the patient. I have reviewed the advanced practitioner's documentation on the date of service referenced in note, and I agree with, and take responsibility for the plan of care. please refer to her notes for full details patient seen and examined, records reviewed by myself as well on exam, patient seen resting in bed, comfortable states she feels fine overall last melena 3am no abdominal pain, nausea, fever no chest pain, dyspnea, palpitations, dizziness no other symptoms VS noted and reviewed oriented x3, not in distress, speaks in sentences with no effort nor accessory muscle use normal rate, regular rhythm, no murmurs clear breath sounds bilaterally non distended, soft, nontender no bipedal edema, erythema, warmth no neuro deficits all labs, imaging noted and reviewed ASSESSMENT AND PLAN> MELENA, UPPER GI BLEED CHRONIC ASPIRIN USE Hemoglobin 12.2 as of 11 AM, repeat every 6 hours Protonix drip, IV fluids, n.p.o. GI consult Hold aspirin other diagnoses and plan of care as per advanced practitioner's notes I spent a total of 35 minutes coordinating, documenting, and providing care for this patient, excluding time spent in the performance of separately billed services or time spent by another provider/QHP. Todd Tolbert MD (2) CAD (coronary artery disease), [place] coronary artery Associated angina: with stable angina [place] vs. transplanted heart: [place] heart Qualified Code(s): I25.118 - Atherosclerotic heart disease of [place] coronary artery with other forms of angina pectoris (3) GERD (gastroesophageal reflux disease) Esophagitis presence: esophagitis presence not specified Qualified Code(s): K21.9 - Gastro-esophageal reflux disease without esophagitis (5) HTN (hypertension) Hypertension type: unspecified Qualified Code(s): I10 - Essential (primary) hypertension (6) Hypothyroidism Hypothyroidism type: unspecified Qualified Code(s): E03.9 - Hypothyroidism, unspecified
[2024-06-16] MEDS: CARBIDOPA/LEVODOPA 25/100MG TAB PO STA (13:23)
--- OUTSIDE RECORDS SUMMARY | 2024-06-16 15:47 | External Medical Summary | Summary of Care ---
Author Name Unknown Organization [facility] Address [address] [place] [address] Phone [phone] Care Team Providers Care Supervisor Tumblers Name Role Phone Terrance Craig MD Primary Care Provider [phone] Reason for Visit * Reason Comments Diarrhea C/o several episodes of black diarrhea from 2100 last night until 0300 this morning, pt tolerating drinking water Encounter Details Date Type Department Care Team (Latest Contact Info) Description 06/16/2024 8:50 AM EST [facility] Visit [facility] [address] [place] [address] Krysten Potter CRNP [address] [place] [address] Black stools*; Abdominal pain, generalized Allergies Active Allergy Reactions Criticality Noted Date Comments Laron Inhibitors Cough 09/04/2009 lisinopril Adhesive Tape Low 05/25/2023 Other Reaction(s): Redness, pruritis Atorvastatin Muscle pain 05/17/2019 Bee Venom High 05/30/2023 Latex Rash Medium 11/07/2018 Penicillins Edema airway,Hives High 01/07/1999 Pneumococcal Polysaccharides Edema Other 08/29/2008 Local swelling at injection site only Rosuvastatin Muscle pain 05/17/2019 Salicylates Nausea/vomiting 01/07/1999 Simvastatin Muscle pain 05/17/2019 Sulfa Antibiotics Hives 01/07/1999 Tetanus Toxoid Edema airway High 09/09/2010 Wound Dressing Adhesive 02/26/2022 Bandaids [place]et Venom 12/08/2020 documented as of this encounter (statuses as of 06/16/2024) Medications LABETALOL HCL 200 MG PO TABSIndications:Hy [...] suspected opioid overdose. Seek immediate medical attention. [email or web address] 1 Each 3 01/29/20 Active Additional Information Patient not taking.Reported on 05/02/2024 Clarithromycin 500 MG Oral Tablet (Biaxin)Indication s:Mitral valve disorder TAKE 1 TABLET 1 HOUR BEFORE DENTIST 3 Tablet 2 02/25/20 Active Additional Information Patient not taking.Reported on 06/16/2024 EPINEPHrine 0.3 MG/0.3ML Injection Solution Auto-injector (Autoinjector) FOR A SEVERE REACTION: PLACE ORANGE END AGAINST THE OUTER THIGH, PRESS FIRMLY, HOLD IN PLACE FOR 10 SECONDS AND GO TO THE EMERGENCY ROOM. 2 Each 2 04/23/19 24 Active Repatha SureClick 140 MG/ML Subcutaneous Solution Auto-injector (evolocumab)Indica tions:Hyperlipemia , mixed Inject 140 mg (1 pen) under the skin every 14 days. 6 mL 3 06/04/2024 12:32 PM EST 07/20/19 24 Active Furosemide 40 MG Oral Tablet (Lasix) Take 2 tablets in the morning. Take 1 tablet in the afternoon 270 Tablet 3 08/26/19 24 Active Isosorbide Mononitrate ER 30 MG Oral Tablet Extended Release 24 Hour (Imdur)Indications :Coronary artery disease involving [place] coronary artery of [place] heart without angina pectoris,Dyslipide jenny, goal LDL below 70,HTN, goal below 140/90,S/P angioplasty with stent Take 3 Tablets by mouth in the morning. 270 Tablet 3 08/26/19 24 Active Spironolactone 25 MG Oral Tablet (Aldactone)Indicat ions:HTN, goal below 140/90,S/P angioplasty with stent,Coronary artery disease involving [place] coronary artery of [place] heart without angina pectoris Take 1 Tablet [...] 140/90,S/P angioplasty with stent,Coronary artery disease involving [place] coronary artery of [place] heart without angina pectoris Take 1 Tablet [...] ions:S/P angioplasty with stent,Coronary artery disease involving [place] coronary artery of [place] heart without angina pectoris,HTN, goal below 140/90 [...] 1 TABLET DAILY 90 Tablet 1 05/07/19 25 Active D3 2000 50 MCG (1999 UT) Oral Capsule (Cholecalciferol) Take 1 Capsule by mouth in the morning. Active Hospital, Clinic, or Other Facility Administered Medication Ordered Dose Route Frequency Start Date End Date Status albuterol sulfate (PROVENTIL) (2.5 MG/3ML) 0.083% inhalation solution 2.5 mgIndications:Wheeze,BRIONES (dyspnea on exertion) 2.5 mg NEBULIZER Q4H PRN 03/27/2017 Act anthony documented as of this encounter (statuses as of 06/16/2024) Active Problems Problem Noted Date Diagnosed Date Chronic heart failure with preserved ejection fr action 09/29/2023 ANDRÉS (stress urinary incontinence, female) 2021 Advanced directives, counseling/discussion 10/31 Chronic kidney disease, stage 3a 10/20/2020 Overview: Per CKD protocol Coronary artery disease invo lving [place] coronary artery of [place] heart without angina pectoris 06/11/2019 S/P angioplasty [...] as of this encounter (statuses as of 06/16/2024) Resolved Problems Problem Noted Date Diagnosed Date Resolved Date Prediabetes 03/23/2021 09/24/2021 Overview: Per Prediabetes protocol Coronary artery disease invo lving [place] coronary artery of [place] heart with angina pectoris 06/16/2020 05/28/2022 Stage [...] HYPERTENSIVE CEREBROVASC DISEASE NEC 12/08/2004 02/27/2007 [employer] NOS 12/08/200402/09 FIBROMYALGIA 09/18/2002 10/03/2016 Mixed dyslipidemia 07/04/2002 Overview (03/26/2009): Per Lipid Taxonomy. DYSFUNCT EUSTACHIAN TUBE, BILATERAL 09/22/1999 09/10/2016 HYPERTENSION NOS 03/04/2009 Overview (03/04/2009): Modified per HTN protocol #16. Irritable bowel syndrome 12/2016 documented as of this encounter (statuses as of 06/16/2024) Immunizations Name Administration Dates Next Due COVID-19 [...] Sign Reading Time Taken Comments Blood Pressure 186/92 06/16/2024 9:19 AM EST Pulse 70 06/16/2024 9:19 AM EST Temperature 36.3 C (97.4 F) 06/16/2024 9:19 AM ES T Respiratory Rate 16 06/16/2024 9:19 AM EST Oxygen Saturation 99% 06/16/2024 9:19 AM EST Inhaled Oxygen Concentration - - Weight 62.1 kg (136 lb 12.8 oz) 06/16/2024 9:19 AM EST Height 162.6 cm (5' 4") 06/16/2024 9:19 AM EST Body Mass Index 23.48 06/16/2024 9:19 AM EST documented in this encounter Functional [...] Oj Carrillo RN documented in this encounter Progress Notes * Krysten Potter CRNP - 06/16/2024 9:39 AM EST [facility] Basic Exam Subjective Abiola Wang is a 78 year old female that presents to the [facility] with black stools since last night around 2100. By 0300 it was watery. Still black, now. Has had spontaneous bruising (to chest without known injury) within the past few days and a lot of bruising on her legs. No DOAC. Daily low dose asa. Significant medical hx and rx list. Did not take rx this morning d/t the stools. Objective BP 186/92 (BP Site: Left Arm, BP Position: Sitting, BP Cuff Size: Regular) | Pulse 70 | Temp 36.3 C (97.4 F) (Tympanic) | Resp 16 | Ht 1.626 m (5' 4") | Wt 62.1 kg (136 lb 12.8 oz) | SpO2 99% | BMI 23.48 kg/m | BSA 1.67 m Body mass index is 23.48 kg/m. Review of Systems Constitutional: Negative. HENT: Negative. Respiratory: Negative. Cardiovascular: Negative. Gastrointestinal: Positive for abdominal pain and blood in stool. Genitourinary: Negative. Musculoskeletal: Negative. Skin: Negative. Neurological: Negative. Physical Exam Vitals and nursing note reviewed. Constitutional: Appearance: Normal appearance. HENT: Head: Normocephalic and atraumatic. Right Ear: External ear normal. Left Ear: External ear normal. Mouth/Throat: Mouth: Mucous membranes are moist. Comments: Observed mucus membranes and lips pink Eyes: Comments: Eyes moist Cardiovascular: Rate and Rhythm: Normal rate. Pulmonary: Effort: Pulmonary effort is normal. Abdominal: General: Bowel sounds are increased. Palpations: Abdomen is soft. Tenderness: There is generalized abdominal tenderness. Comments: Pain worst in epigastric and periumbilical regions. Diffuse tenderness otherwise. Skin: General: Skin is warm and dry. Capillary Refill: Capillary refill takes less than 2 seconds. Neurological: Mental Status: She is alert and oriented to person, place, and time. Past Medical History: Diagnosis Date Chronic kidney disease, stage 3a ([facility]) 10/20/2020 Per CKD protocol Coronary artery disease involving [place] coronary artery of [place] heart with angina pectoris ([facility])06/16/2020 Cystocele, lateral 11/08/2018 Dyslipidemia, goal LDL below 70 09/23/2011 FIBROMYALGIA Generalized osteoarthritis GERD (gastroesophageal reflux disease) HTN, goal to be determined Hyperparathyroidism, unspecified ([facility]) 10/24/2018 Hypothyroidism Irritable bowel syndrome Migraine with aura Multiple sclerosis ([facility]) Optic neuropathy Osteoporosis Other cataract 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 Peptic ulcer Restless leg syndrome 03/24/2012 Patient Active Problem List Diagnosis Chronic allergic rhinitis GENERAL OSTEOARTHROSIS Osteoporosis Hypothyroidism CLASSICAL MIGRAINE WITHOU MENTION OF INTRACTABLE MIGRAINE Esophageal reflux Multiple sclerosis ([facility]) Dyslipidemia, goal LDL below 70 Restless leg syndrome Fibromyalgia Hyperparathyroidism, unspecified ([facility]) HTN, goal below 140/90 Vaginal vault prolapse, posthysterectomy Cystocele, lateral Advanced directives, counseling/discussion Coronary artery disease involving [place] coronary artery of [place] heart without angina pectoris S/P angioplasty with stent Chronic kidney disease, stage 3a ([facility]) ANDRÉS (stress urinary incontinence, female) Chronic heart failure with preserved ejection fraction ([facility]) BP Readings from Last 3 Encounters: 06/16/24 186/92 05/02/24 178/94 04/22/24 158/80 Wt Readings from Last 3 Encounters: 06/16/24 62.1 kg (136 lb 12.8 oz) 05/02/24 63 kg (138 lb 14.4 oz) 04/22/24 63.5 kg (140 lb) Assessment and plan Black stools (Primary) Abdominal pain, generalized Discussed that the best move would be to head to one of the local ERs where they could do prompt turn-around serum labs and likely some abdominal imaging. Her BP is elevated - likely due to not having her am rx because of the diarrhea. No chest pain or dyspnea, no ambulatory dysfunction or dizziness. Color good, VS good other than elevated BP. Ok to go with driving directly over to [place] ER. Report called to nursing staff in the ER as heads up. Follow up To ER Total time today including reviewing chart before the visit, pertinent labs, imaging reports, face to face time, and documentation time was 15 minutes. The above was discussed and understanding was expressed. ERNESTO Hart documented in this encounter Nursing Notes * Veronica Mcguire LPN - 06/16/2024 9:28 AM EST Sylvie Wang is a 78 year old female who presents to walk-in clinic today complaining of Chief Complaint Patient presents with Diarrhea C/o several episodes of black diarrhea from 2100 last night until 0300 this morning, pt tolerating drinking water OTC treatments tried:none Effectiveness: n/a Patient is accompanied by no one for today's visit. documented in this encounter Plan of Treatment Upcoming Encounters Date Type Department Care Team (Late st Contact Info) Description 11/05/2024 7:40 AM EDT [facility] [address] [place] [address] Terrance Craig MD [address] [place] [address] 11/07/2024 8:30 AM EDT Office Visit Cardiology, [facility] [address] [place] [address] Lani Ling PA-C [address] [place] [phone] 05/02/2025 1:30 PM EST Office Visit Cardiology, [facility] [address] [place] [address] Shan Starks MD [address] [place] [phone] Scheduled Procedures Name Priority Associated Diagnoses Date/Ti [...] Additional history exists CKD PHOS USE SMARTSET 18059 08/02/202407/11, 05/10/2022, 12/11/2019, Additional history exists GFR 10/30/2024 05/02/2024, 08/10, 08/03/2023, Additional history exists CKD HGB USE SMARTSET 00724 05/02/202505/02, 10/07/2023, 08/03/2023, Additional history exists Depression [...] this encounter Medical Devices Implanted Type Area Warehouse Receiver Device Identifier Shelf Expiration Date Model / Serial / Lot Yunior Jang [id number] - [id number] Implanted:Qty: 1 on 11/10/2009 at OR [facility] Right: Shoulder [employer] 09/09/2010 [id number] / / [id number] System Anchorsure 2 Sutures - [id number] Implanted:Qty: 1 on 11/07/2018 by Lobo Sweeney DO at OR [facility] N/A: Vagina [employer] 04/12/2020 A-SURE / / [id number] Suture Anchorsure 2pk - [id number] Implanted:Qty: 1 on 11/07/2018 by Lobo Sweeney DO at OR [facility] N/A: Vagina [employer] 06/26/2020 [id number] / / [id number] 8cm X 12cm Mcbrides Dermis Implanted:Qty: 1 on 11/07/2018 by Lobo Sweeney DO at OR [facility] N/A: Vagina [employer] MAY 03/10/2023 [id number] / [id number] / [id number] Sling Desara 1.1cm X 45cm - [id number] Implanted:Qty: 1 on 03/02/2022 by Milagros Olgu[place] [facility]: Urethra [employer] 10/22/2024 [id number] / / [id number] Y-Mesh 26 X 4 X 3 Cm - [id number] Implanted:Qty: 1 on 03/02/2022 by Milagros Olguin MD [place] [facility]/A: Pelvis [employer] 10/06/2026 [id number] / / [id number] Description:used for [place]ro[place] lpopexy documented as of this encounter Visit Diagnoses Diagnosis Black stools- Primary Nonspecific abnormal finding in stool contents Abdominal pain, generalized documented in this encounter Advance Directives * [...] and were consensually agreed upon. Care Teams Supervisor Tumblers Relationship Specialty Start Date End Date Terrance Craig MD [address] [place] [address] PCP - General Family Medicine 04/12/24 documented as of this encounter
[2024-06-16 17:20] LABS: Hematocrit (blood only) 32.5 % (37.0-47.0); Hemoglobin 10.7 g/dl (12.0-16.0)
[2024-06-16] MEDS: FUROSEMIDE 40 MG TAB PO SCH (17:33)
[2024-06-16] MEDS: CARBIDOPA/LEVODOPA 25/100MG TAB PO SCH (20:35)
[2024-06-16] MEDS: LABETALOL HCL 200 MG TAB PO SCH (20:35)
[2024-06-16] MEDS: GABAPENTIN 300 MG CAP PO SCH (20:35)
[2024-06-16] MEDS: CARBIDOPA/LEVODOPA 50/200MG EXT REL TAB PO SCH (20:35)
--- NOTE | 2024-06-16 23:01 | Electrocardiogram Report ---
Test Reason : Blood Pressure : */* mmHG Vent. Rate : 66 BPM Atrial Rate : 66 BPM P-R Int : 168 ms QRS Dur : 96 ms QT Int : 434 ms P-R-T Axes : 49 -24 41 degrees QTcB Int : 454 ms Normal sinus rhythm Cannot rule out Anterior infarct (cited on or before 31-May-2019) Abnormal ECG When compared with ECG of 19-Jan-2024 21:19, Incomplete right bundle branch block is no longer Present Criteria for Inferior infarct are no longer Present Confirmed by Otto Ventura ([id number]) on 06/16/2024 11:01:13 PM Referred By: REFERRED SELF Confirmed By: Otto Ventura
[2024-06-17 01:16] LABS: Hematocrit (blood only) 32.3 % (37.0-47.0); Hemoglobin 10.6 g/dl (12.0-16.0)
[2024-06-17] MEDS: LEVOTHYROXINE SODIUM 75 MCG TABLET PO SCH (05:47)
[2024-06-17 06:26] LABS: Basophils # (auto) 0.06 K/uL (0.00-0.20); Basophils % (auto) 0.7 %; Eosinophils # (auto) 0.37 K/uL (0.00-0.50); Eosinophils % (auto) 4.4 %; Hematocrit (blood only) 32.4 % (37.0-47.0); Hemoglobin 10.9 g/dl (12.0-16.0); Immature Granulocytes # (auto) 0.01 K/uL (0.01-0.20); Immature Granulocytes % (auto) 0.1 %; Lymphocytes # (auto) 3.91 K/uL (1.20-3.40); Mean Corpuscular Hemoglobin 31.3 pg (25.0-34.0); Mean Corpuscular Hgb Conc 33.6 g/dL (32.0-36.0); Mean Corpuscular Volume 93.1 fL (80.0-100.0); Mean Platelet Volume 9.4 fL (9.4-12.4); Monocytes # (auto) 0.68 K/uL (0.11-0.59); Monocytes % (auto) 8.2 %; Neutrophils # (auto) 3.29 K/uL (1.40-6.50); Neutrophils % (auto) 39.6 %; Platelet Count 226 K/uL (130-400); RDW Coefficient of Variation 13.9 % (11.5-14.5); RDW Standard Deviation 47.5 fL (36.4-46.3); Red Blood Count 3.48 M/uL (4.20-5.40); White Blood Count 8.32 K/ul (4.8-10.8)
[2024-06-17 06:47] LABS: BUN Creatinine Ratio 22.5 (10-20); Calcium 8.8 mg/dl (8.6-10.3); Creatinine Clr Calc Pharmacy 45.2 ml/min; Potassium 3.2 mmol/L (3.5-5.1)
[2024-06-17] MEDS: FUROSEMIDE 40 MG TAB PO SCH (09:15)
[2024-06-17] MEDS: POTASSIUM CHLORIDE CRTAB 20 MEQ TABCR PO STA (09:15)
[2024-06-17] MEDS: ISOSORBIDE MONO EXTENDED REL 30 MG TABCR PO SCH (09:16)
[2024-06-17] MEDS: SPIRONOLACTONE 25 MG TAB PO SCH (09:17)
--- NOTE | 2024-06-17 09:18 | Gastrointestinal Consultation ---
Date of Consultation June 17, 2024 Assessment & Plan (1) Melena: Clinical picture consistent with upper GI bleed. Presently hemodynamically stable. Differential diagnosis includes peptic ulcer disease, erosive esophagitis, gastritis as well as neoplasm especially in light of her significant weight loss. Continue PPI will proceed with endoscopy in a.m. History of Present Illness Reason for Consultation: GI bleed Attending Physician: Fabio Scales MD History of Present Illness Patient presents with a 1 day history of melena described as black tarry like stool. She denies any significant abdominal pain nausea vomiting. She has a remote history of peptic ulcer disease and a longstanding history of acid reflux type symptoms. She has had about a 40 pound weight loss over the last year secondary to a decreased appetite. Her last colonoscopy was approximately 5 years ago which was normal. She has had some endoscopies in the past which did reveal a hiatal hernia. She has a history of CAD s/p angioplasty/stent, MS, HTN, GERD, CKD. She denies any NSAID use. Allergies Allergy/AdvReac Type Severity Reaction Status Date / Time bee venom protein (honey bee) Allergy Severe Anaphylaxis Verified 06/16/24 13:38 Penicillins Allergy Severe Anaphylaxis Verified 06/16/24 13:37 Sulfa (Sulfonamide Allergy Severe Anaphylaxis Verified 06/16/24 13:37 Antibiotics) latex Allergy Intermediate Localized Verified 06/16/24 13:37 rash pneumococcal vaccine Allergy Intermediate Rash at Verified 06/16/24 13:37 injection site [id number] Reductase Allergy Intermediate muscle Verified 06/16/24 13:37 Inhibitor pain/sick to stomach tetanus toxoid, adsorbed Allergy Intermediate Redness at Verified 06/16/24 13:37 injection site adhesive tape Allergy Mild Redness, Verified 06/16/24 13:37 pruritis atorvastatin AdvReac Intermediate myalgias Verified 06/16/24 13:37 SANAI Inhibitors AdvReac Mild Cough Verified 06/16/24 13:37 aspirin AdvReac Mild GI upset Verified 06/16/24 13:37 salicylates AdvReac Mild nausea/vomi Verified 06/16/24 13:37 tting Home Medications Medication Instructions Recorded Confirmed Type carbidopa 25 mg-levodopa 100 mg 1 tab PO TID 01/16/19 06/16/24 History tablet pantoprazole 40 mg tablet,delayed 40 mg PO BID 01/16/19 06/16/24 History release raloxifene 60 mg tablet (Evista) 60 mg PO QDL 01/16/19 06/16/24 History rotigotine 6 mg/24 hour 1 patch topical HS 01/19/21 06/16/24 History transdermal 24 hour patch (Neupro) carbidopa ER 50 mg-levodopa 200 mg 1 tab PO HS 11/10/21 06/16/24 History tablet,extended release epinephrine 0.3 mg/0.3 mL 0.3 mg IM Q4H PRN Other 11/10/21 06/16/24 History injection, auto-injector (EpiPen) levothyroxine 150 mcg capsule See Rx Instructions .Route .COMPLEX 11/10/21 06/16/24 History nitroglycerin 0.4 mg sublingual 0.4 mg sublingual Q5M PRN Chest 11/10/21 06/16/24 History tablet Pain evolocumab 140 mg/mL subcutaneous 140 mg subcut Q14D 05/25/23 06/16/24 History pen injector (Lenore Ramirezick) furosemide 40 mg tablet See Rx Instructions .Route 03/28/24 06/16/24 History .COMPLEX #180 tabs spironolactone 25 mg tablet 25 mg PO QAM #90 tabs 03/28/24 06/16/24 Rx labetalol 200 mg tablet 400 mg (2 x 200 mg) PO BID #360 04/24/24 06/16/24 Rx tabs acetaminophen 500 mg tablet 1,000 mg PO TID PRN pain 06/16/24 06/16/24 History (Tylenol Extra Strength) aspirin 81 mg tablet,delayed 81 mg PO QAM 06/16/24 06/16/24 History release (Chepe Low Dose Aspirin) gabapentin 300 mg capsule 600 mg PO BID 06/16/24 06/16/24 History isosorbide mononitrate 30 mg 90 mg PO QAM 06/16/24 06/16/24 History tablet,extended release 24 hr Patient History Medical History (Updated 06/17/24 @ 09:17 by Mio Toro MD) Pelvic floor dysfunction Encounter for pre-operative examination Moderate pulmonary hypertension Allergy to perfume Atrophic kidney, acquired left d/t hypertensive disease Asthma "mild">has not used inhaler in a while Kidney disease, chronic, stage III (GFR 30-59 ml/min) History of kidney stones over 1 yr ago Chronic anemia CAD (coronary artery disease) x 4 stents (05/2019) @ [place], Follows with Dr. tSarks-nitro never used. Hiatal hernia Spinal stenosis Surgical History (Updated 06/16/24 @ 14:07 by Lindy Good PA-C) H/O esophagogastroduodenoscopy S/P tonsillectomy Status post left hip replacement Status post insertion of drug-eluting stent into left anterior descending (LAD) artery S/P appendectomy S/P STONEY-BSO History of bladder surgery bladder/rectal prolapse repair History of cystoscopy History of colonoscopy History of carpal tunnel release Left S/P epidural steroid injection S/P lumbar spinal fusion Dr Juares S/P arthroscopy of right shoulder S/P shoulder replacement left History of cardiac cath 05/22/19, 05/31/19 ([facility]) History of heart artery stent x 4 stents (05/2019) Family History Sister FHx: colon cancer Uncle FHx: colon cancer Other No family history of adverse response to anesthesia No pertinent family history in first degree relatives Social History Smoking Status: Never smoker Second Hand Exposure: Yes (as a child); Do You Dip or Chew Tobacco: No; Hx Alcohol Use: No Hx Substance Use: No Preferred Language: Spanish Communication Ability: Effective Visual Impairment: No Limitations Hearing Ability: Normal General Operations Agent Required: No Beliefs That Will Affect Care: None marital status: Current Living Situation: Spouse current occupational status: retired current occupation: N/A How many Children do You have: 4 Other Information That Helps Us Care for You: No Feels Safe at Home: Yes Safety Concerns: Feels Safe At This Time Diet: regular caffeine: Yes Physical Activity Frequency: Does not Exercise Seatbelt Use: always Do you think of yourself as: straight/heterosexual Gender Identity: Female Assistive Devices: None Review of Systems Review of Systems: No fever No chills No SOB No CP No Abd pain Physical Exam Physical Exam: Eyes; anicteric HENT No masses Chest clear to A Cor S1, S2 physiologic Abd: softer nontender no masses Ext no edema Results & Data Vital Signs (Past 12 Hours) Vital Signs Temp Pulse Pulse Resp BP BP Pulse Ox 06/17/24 07:47 36.5 C 64 18 138/77 97 06/17/24 05:00 36.4 C L 67 16 132/70 99 06/17/24 00:49 36.3 C L 65 16 122/73 98 06/16/24 22:00 68 06/16/24 20:29 36.7 C 73 16 161/79 H 98 O2 Del Method 06/17/24 07:47 Room Air 06/17/24 05:00 Room Air 06/17/24 00:49 Room Air 06/16/24 22:00 06/16/24 20:29 Room Air Laboratory Results Laboratory Results - last 48 hr 06/16/24 06/16/24 06/16/24 10:49 11:36 16:53 WBC 8.95 RBC 3.96 L Hgb 12.2 10.7 L Hct 37.0 32.5 L MCV 93.4 MCH 30.8 MCHC 33.0 RDW Std Deviation 46.1 RDW Coeff of Clari 13.6 Plt Count 250 MPV 9.4 Immature Gran % (Auto) 0.4 Neut % (Auto) 53.1 Lymph % (Auto) 34.7 [place] % (Auto) 7.3 Eos % (Auto) 3.9 Baso % (Auto) 0.6 Neut # (Auto) 4.75 Lymph # (Auto) 3.11 [place] # (Auto) 0.65 H Eos # (Auto) 0.35 Baso # (Auto) 0.05 Immature Gran # (Auto) 0.04 PT 10.8 INR 1.0 APTT 26 PTT Ratio 1.0 Sodium 141 Potassium 3.5 Chloride 106 Carbon Dioxide 27 Anion Gap 8 BUN 33 H Creatinine 0.83 Est Cr Clr Drug Dosing 42.7 eGFR 71.22 BUN/Creatinine Ratio 39.8 H Glucose 92 Calcium 9.5 Total Bilirubin 1.0 AST 19 ALT 4 L Alkaline Phosphatase 124 H Total Protein 6.9 Albumin 4.4 Globulin 2.5 Albumin/Globulin Ratio 1.8 POC Stool Occult Blood Positive A Blood Type B Positive Antibody Screen NEGATIVE 06/17/24 06/17/24 00:52 06:02 WBC 8.32 RBC 3.48 L Hgb 10.6 L 10.9 L Hct 32.3 L 32.4 L MCV 93.1 MCH 31.3 MCHC 33.6 RDW Std Deviation 47.5 H RDW Coeff of Clari 13.9 Plt Count 226 MPV 9.4 Immature Gran % (Auto) 0.1 Neut % (Auto) 39.6 Lymph % (Auto) 47.0 [place] % (Auto) 8.2 Eos % (Auto) 4.4 Baso % (Auto) 0.7 Neut # (Auto) 3.29 Lymph # (Auto) 3.91 H [place] # (Auto) 0.68 H Eos # (Auto) 0.37 Baso # (Auto) 0.06 Immature Gran # (Auto) 0.01 PT INR APTT PTT Ratio Sodium 143 Potassium 3.2 L Chloride 109 H Carbon Dioxide 27 Anion Gap 7 BUN 18 Creatinine 0.80 Est Cr Clr Drug Dosing 45.2 eGFR 74.44 BUN/Creatinine Ratio 22.5 H Glucose 79 Calcium 8.8 Total Bilirubin AST ALT Alkaline Phosphatase Total Protein Albumin Globulin Albumin/Globulin Ratio POC Stool Occult Blood Blood Type Antibody Screen Diagnostic Findings Abdomen/Pelvis CT 06/16/24 11:[address] WITH IV CONTRAST CT DOSE: 531.31 mGy.cm HISTORY: upper gi bleed TECHNIQUE: Multiaxial CT images of the abdomen and pelvis were performed following the IV administration of 90 cc of Optiray, A dose lowering technique was utilized adhering to the principles of ALARA. COMPARISON STUDY: 01/19/2024 FINDINGS: There is a large hiatal hernia. ABDOMEN: Liver, gallbladder, spleen, pancreas, and adrenal glands are unremarkable. Stable atrophy of the left kidney. Kidneys show no hydronephrosis or calculi. There are scattered atherosclerotic calcifications. No abdominal aortic aneurysm. Pelvis: Urinary bladder is mildly distended. There is mild retained stool. No bowel inflammation or obstruction. No significant colonic diverticulosis or acute diverticulitis. No free fluid, free air, or abscess. No enlarged adenopathy. Osseous structures: Stable lumbar scoliosis and degenerative changes. There is instrumented fusion of L5-S1. Stable left hip prosthesis. No acute osseous findings. IMPRESSION: No acute findings. ACT 112: Negative or not required by law. The above report was generated using voice recognition software. It may contain grammatical, syntax or spelling errors. Electronically signed by: Blake Fuentes M.D. 06/16/2024 12:13 PM PG Care Time/CCT Total # of Minutes Spent Total Time Spent with Patient: Total time spent is greater than 50% in coordination of care (as documented) at patient's floor/unit and/or counseling patient: Coding Level of Care Code 99004 INT INP/OBS CARE 2/MIN Diagnoses Melena K92.1
--- NOTE | 2024-06-17 09:40 | Gastroenterology Progress Note ---
Date of Service June 17, 2024 Assessment & Plan (1) Diarrhea: Plan: Still complaining of diarrhea. Was empirically started on steroids. Awaiting C. difficile toxin stool study. I am concerned about his elevated white count which was present on admission no clear explanation as his abdominal exam is very benign. This could be secondary to the colitis what ever the etiology is. I still think mesalamine may be playing a role here as well. Sodium is still low at 120 which needs to be corrected. I recommend getting an abdominal x-ray to get a better understanding of the caliber of his colon, obtain a stool sample for C. difficile, consider full infectious workup including blood cultures urine cultures. We will consider doing a flexible sigmoidoscopy in the a.m. to get a better sense of any evidence of significant colitis. Admission and Anticipated Discharge Date Admission Date: June 16, 2024 Subjective Still with frequent bowel movements. Denies any significant abdominal pain shortness of breath or chest pain. Physical Exam Physical Exam: No acute distress Respiratory rate regular clear to auscultation Cardiac rhythm regular S1-S2 physiologic Abdomen soft nontender masses no rebound no guarding Results & Data Results & Data Vital Signs (Past 12 Hours) Vital Signs Temp Pulse Pulse Resp BP Pulse Ox O2 Del Method 06/17/24 07:47 36.5 C 64 18 138/77 97 Room Air 06/17/24 05:00 36.4 C L 67 16 132/70 99 Room Air 06/17/24 00:49 36.3 C L 65 16 122/73 98 Room Air 06/16/24 22:00 68 Laboratory Results Laboratory Results - last 48 hr 06/16/24 06/16/24 06/16/24 10:49 11:36 16:53 WBC 8.95 RBC 3.96 L Hgb 12.2 10.7 L Hct 37.0 32.5 L MCV 93.4 MCH 30.8 MCHC 33.0 RDW Std Deviation 46.1 RDW Coeff of Clari 13.6 Plt Count 250 MPV 9.4 Immature Gran % (Auto) 0.4 Neut % (Auto) 53.1 Lymph % (Auto) 34.7 [place] % (Auto) 7.3 Eos % (Auto) 3.9 Baso % (Auto) 0.6 Neut # (Auto) 4.75 Lymph # (Auto) 3.11 [place] # (Auto) 0.65 H Eos # (Auto) 0.35 Baso # (Auto) 0.05 Immature Gran # (Auto) 0.04 PT 10.8 INR 1.0 APTT 26 PTT Ratio 1.0 Sodium 141 Potassium 3.5 Chloride 106 Carbon Dioxide 27 Anion Gap 8 BUN 33 H Creatinine 0.83 Est Cr Clr Drug Dosing 42.7 eGFR 71.22 BUN/Creatinine Ratio 39.8 H Glucose 92 Calcium 9.5 Total Bilirubin 1.0 AST 19 ALT 4 L Alkaline Phosphatase 124 H Total Protein 6.9 Albumin 4.4 Globulin 2.5 Albumin/Globulin Ratio 1.8 POC Stool Occult Blood Positive A Blood Type B Positive Antibody Screen NEGATIVE 06/17/24 06/17/24 00:52 06:02 WBC 8.32 RBC 3.48 L Hgb 10.6 L 10.9 L Hct 32.3 L 32.4 L MCV 93.1 MCH 31.3 MCHC 33.6 RDW Std Deviation 47.5 H RDW Coeff of Clari 13.9 Plt Count 226 MPV 9.4 Immature Gran % (Auto) 0.1 Neut % (Auto) 39.6 Lymph % (Auto) 47.0 [place] % (Auto) 8.2 Eos % (Auto) 4.4 Baso % (Auto) 0.7 Neut # (Auto) 3.29 Lymph # (Auto) 3.91 H [place] # (Auto) 0.68 H Eos # (Auto) 0.37 Baso # (Auto) 0.06 Immature Gran # (Auto) 0.01 PT INR APTT PTT Ratio Sodium 143 Potassium 3.2 L Chloride 109 H Carbon Dioxide 27 Anion Gap 7 BUN 18 Creatinine 0.80 Est Cr Clr Drug Dosing 45.2 eGFR 74.44 BUN/Creatinine Ratio 22.5 H Glucose 79 Calcium 8.8 Total Bilirubin AST ALT Alkaline Phosphatase Total Protein Albumin Globulin Albumin/Globulin Ratio POC Stool Occult Blood Blood Type Antibody Screen PG Care Time/CCT Total # of Minutes Spent Total Time Spent with Patient: Total time spent is greater than 50% in coordination of care (as documented) at patient's floor/unit and/or counseling patient: Coding Level of Care Code 88571 SUB INP/OBS CARE 3/50MIN Diagnoses Diarrhea R19.7
[2024-06-17] MEDS: ACETAMINOPHEN 500 MG TAB PO PRN (11:09)
--- NOTE | 2024-06-17 11:47 | Hospitalist Progress Note ---
Date of Service June 17, 2024 Assessment & Plan (1) Acute upper gastrointestinal bleeding: (2) CAD (coronary artery disease), [place] coronary artery: (3) GERD (gastroesophageal reflux disease): (4) History of peptic ulcer: (5) HTN (hypertension): (6) Hypothyroidism: (7) Multiple sclerosis: (8) Chronic heart failure with preserved ejection fraction (HFpEF): Plan 78 y/o female with chronic HFpEF, CAD s/p angioplasty/stent, MS, hypothyroid, fibromyalgia, dyslipidemia, HTN, GERD, CKD3a, remote hx PUD, and other history as outlined below who presents to the ED today with black stools x 1 day a/w generalized GI upset but no significant abdominal pain. On exam, mild to m oderate epigastric tenderness at presentation. Work-up in the ED showed a normal H&H at 12.2/37.0, no acute findings on the CT of the abdomen/pelvis. Pt has a remote history of PUD, hx of GERD, on BID PPI therapy. Takes aspirin daily due to CAD w/ hx stents. 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 - Monitor H&H for stability - Continue PPI gtt started in the ED for now - Clear liquid diet, NPO midnight - GI on board, likely scope torres. - Hold aspirin for now #CAD s/p multiple stents Chronic, stable Continue outpatient meds other than aspirin, which is on hold as above #Chronic HFpEF Chronic - continue outpatient medications including diuretics #Hypothyroidism Chronic - continue levothyroxine #RLS #Quiescent MS Chronic - continue outpatient regimen including carbidopa-levodopa Code status: full code DVT prophylaxis: JOMAR stockings, pharmacologic prophylaxis on hold due to GI bleed Admission and Anticipated Discharge Date Admission Date: June 16, 2024 Subjective Patient was seen and examined at bedside. Patient was sitting up in bed, on room air, NAD, resting comfortably. Patient denies further bowel movement in the hospital, denies sore throat/cough/chest pain. Patient is on clear liquid diet, plan for possible scope tomorrow. N.p.o. midnight Physical Exam Physical Exam: General: awake, alert, NAD HEENT: no scleral icterus, moist oral mucosa Heart: RRR, +murmur Lungs: CTA bilaterally Abdomen: soft, +BS, non-distended, no tenderness, no guarding or rebound Extremities: +bilateral LE edema x trace Skin: warm, dry, no jaundice or cyanosis, +ecchymotic area on mid-anterior chest Neurologic: Ox3, no confusion or dysarthria, moving all extremities, no focal deficits Results & Data Results & Data Vital Signs (Past 12 Hours) Vital Signs Temp Pulse Resp BP Pulse Ox O2 Del Method 06/17/24 07:47 36.5 C 64 18 138/77 97 Room Air 06/17/24 05:00 36.4 C L 67 16 132/70 99 Room Air 06/17/24 00:49 36.3 C L 65 16 122/73 98 Room Air (2) CAD (coronary artery disease), [place] coronary artery [place] vs. transplanted heart: [place] heart Associated angina: with stable angina Qualified Code(s): I25.118 - Atherosclerotic heart disease of [place] coronary artery with other forms of angina pectoris (3) GERD (gastroesophageal reflux disease) Esophagitis presence: esophagitis presence not specified Qualified Code(s): K21.9 - Gastro-esophageal reflux disease without esophagitis (5) HTN (hypertension) Hypertension type: unspecified Qualified Code(s): I10 - Essential (primary) hypertension (6) Hypothyroidism Hypothyroidism type: unspecified Qualified Code(s): E03.9 - Hypothyroidism, unspecified
[2024-06-17] MEDS: RALOXIFENE HCL 60 MG TAB PO SCH (13:35)
[2024-06-17 20:09] LABS: Hemoglobin 9.4 g/dl (12.0-16.0)
[2024-06-17] MEDS: ROTIGOTINE PATCH TD SCH (20:27)
[2024-06-17] MEDS: POTASSIUM CHLORIDE 20 MEQ in D5W AND LACTATED RINGERS 1,000 ML IV ONE (22:51)
[2024-06-18 00:50] LABS: Hematocrit (blood only) 28.1 % (37.0-47.0); Hemoglobin 9.3 g/dl (12.0-16.0)
[2024-06-18] MEDS: LEVOTHYROXINE SODIUM 75 MCG TABLET PO SCH (05:33)
[2024-06-18 06:28] LABS: Hematocrit (blood only) 30.5 % (37.0-47.0); Hemoglobin 10.1 g/dl (12.0-16.0); Mean Corpuscular Hemoglobin 31.4 pg (25.0-34.0); Mean Corpuscular Hgb Conc 33.1 g/dL (32.0-36.0); Mean Corpuscular Volume 94.7 fL (80.0-100.0); Mean Platelet Volume 9.5 fL (9.4-12.4); Platelet Count 223 K/uL (130-400); RDW Coefficient of Variation 13.8 % (11.5-14.5); RDW Standard Deviation 48.3 fL (36.4-46.3); Red Blood Count 3.22 M/uL (4.20-5.40); White Blood Count 8.02 K/ul (4.8-10.8)
[2024-06-18 07:01] LABS: BUN Creatinine Ratio 13.6 (10-20); Calcium 8.8 mg/dl (8.6-10.3); Creatinine Clr Calc Pharmacy 44.6 ml/min; Potassium 3.5 mmol/L (3.5-5.1)
--- NOTE | 2024-06-18 08:52 | Anesthesiology Consultation ---
Date of Service June 18, 2024 Assessment & Plan Chart Review Chart Review: Acceptable Risk for Surgery and Patient NOT seen in Pre Admission Testing Consults Requested none ASA ASA4 Proposed Anesthesia Anesthesia Type: MAC History Surgery Operation Date: 06/18/24 17:50 Proposed Procedures p Esophagogastroduodenoscopy Shelly Bravo MD Height/Weight Height: 4 ft 11 in Weight: 62.6 kg Allergies Allergy/AdvReac Type Severity Reaction Status Date / Time bee venom protein (honey bee) Allergy Severe Anaphylaxis Verified 06/16/24 13:38 Penicillins Allergy Severe Anaphylaxis Verified 06/16/24 13:37 Sulfa (Sulfonamide Allergy Severe Anaphylaxis Verified 06/16/24 13:37 Antibiotics) latex Allergy Intermediate Localized Verified 06/16/24 13:37 rash pneumococcal vaccine Allergy Intermediate Rash at Verified 06/16/24 13:37 injection site [id number] Reductase Allergy Intermediate muscle Verified 06/16/24 13:37 Inhibitor pain/sick to stomach tetanus toxoid, adsorbed Allergy Intermediate Redness at Verified 06/16/24 13:37 injection site adhesive tape Allergy Mild Redness, Verified 06/16/24 13:37 pruritis atorvastatin AdvReac Intermediate myalgias Verified 06/16/24 13:37 SANIA Inhibitors AdvReac Mild Cough Verified 06/16/24 13:37 aspirin AdvReac Mild GI upset Verified 06/16/24 13:37 salicylates AdvReac Mild nausea/vomi Verified 06/16/24 13:37 tting Medications Home Medications Medication Instructions Recorded Confirmed Last Taken carbidopa 25 mg-levodopa 100 mg 1 tab PO TID 01/16/19 06/16/24 06/15/24 tablet pantoprazole 40 mg tablet,delayed 40 mg PO BID 01/16/19 06/16/24 06/15/24 release raloxifene 60 mg tablet (Evista) 60 mg PO QDL 01/16/19 06/16/24 06/15/24 rotigotine 6 mg/24 hour 1 patch topical HS 01/19/21 06/16/24 06/15/24 transdermal 24 hour patch (Neupro) carbidopa ER 50 mg-levodopa 200 mg 1 tab PO HS 11/10/21 06/16/24 06/15/24 tablet,extended release epinephrine 0.3 mg/0.3 mL 0.3 mg IM Q4H PRN Other 11/10/21 06/16/24 Unknown injection, auto-injector (EpiPen) levothyroxine 150 mcg capsule See Rx Instructions .Route .COMPLEX 11/10/21 06/16/24 06/15/24 nitroglycerin 0.4 mg sublingual 0.4 mg sublingual Q5M PRN Chest 11/10/21 06/16/24 Unknown tablet Pain evolocumab 140 mg/mL subcutaneous 140 mg subcut Q14D 05/25/23 06/16/24 06/04/24 pen injector (Lenore Alonso) furosemide 40 mg tablet See Rx Instructions .Route 03/28/24 06/16/24 06/15/24 .COMPLEX #180 tabs spironolactone 25 mg tablet 25 mg PO QAM #90 tabs 03/28/24 06/16/24 06/15/24 labetalol 200 mg tablet 400 mg (2 x 200 mg) PO BID #360 04/24/24 06/16/24 06/15/24 tabs acetaminophen 500 mg tablet 1,000 mg PO TID PRN pain 06/16/24 06/16/24 Unknown (Tylenol Extra Strength) aspirin 81 mg tablet,delayed 81 mg PO QAM 06/16/24 06/16/24 06/15/24 release (Chepe Low Dose Aspirin) gabapentin 300 mg capsule 600 mg PO BID 06/16/24 06/16/24 06/15/24 isosorbide mononitrate 30 mg 90 mg PO QAM 06/16/24 06/16/24 06/15/24 tablet,extended release 24 hr Active Medications Generic Name Dose Route Start Last Admin Trade Name Eladioq PRN Reason Stop Dose Admin Acetaminophen 500 mg 06/17/24 10:47 06/17/24 15:47 Acetaminophen 500 Mg Tab PO 07/17/24 10:46 500 mg Q4H PRN Administration Pain or Fever Carbidopa/Levodopa 1 tab 06/16/24 21:00 06/17/24 20:32 Carbidopa/Levodopa 50/200mg Ext Rel Tab PO 07/16/24 20:59 1 tab HS MELLISSA Administration Carbidopa/Levodopa 1 tab 06/16/24 21:00 06/17/24 20:32 Carbidopa/Levodopa 25/100mg Tab PO 07/16/24 20:59 1 tab TID MELLISSA Administration Furosemide 80 mg 06/17/24 09:00 06/17/24 09:15 Furosemide 40 Mg Tab PO 07/17/24 08:59 80 mg DAILY MELLISSA Administration Furosemide 40 mg 06/16/24 17:00 06/17/24 17:52 Furosemide 40 Mg Tab PO 07/16/24 16:59 Not Given DAILY@1700 MELLISSA Gabapentin 600 mg 06/16/24 21:00 06/17/24 20:31 Gabapentin 300 Mg Cap PO 07/16/24 20:59 600 mg BID MELLISSA Administration Pantoprazole Sodium 40 mg/ 100 mls @ 20 mls/hr 06/16/24 12:00 06/18/24 08:28 Dextrose IV 07/16/24 11:59 8 mg/hr Q5H MELLISSA 20 mls/hr Administration 8 MG/HR Potassium Chloride 20 meq/ 1,010 mls @ 80 mls/hr 06/17/24 22:45 06/17/24 22:51 Dextrose/Lactated Ringer's IV 06/18/24 11:22 80 mls/hr .[id number] Administration Isosorbide Mononitrate 90 mg 06/17/24 09:00 06/17/24 09:16 Isosorbide [place] Extended Rel 30 Mg Tabcr PO 07/17/24 08:59 90 mg QAM MELLISSA Administration Levothyroxine Sodium 75 mcg 06/17/24 06:30 06/17/24 05:47 Levothyroxine Sodium 75 Mcg Tablet PO 07/17/24 06:29 75 mcg Fisher@0630 MELLISSA Administration Levothyroxine Sodium 150 mcg 06/18/24 06:30 06/18/24 05:33 Levothyroxine Sodium 75 Mcg Tablet PO 07/18/24 06:29 150 mcg MoTuWeThFrSa@0630 MELLISSA Administration Miscellaneous 1 each 06/17/24 20:59 06/17/24 20:26 Remove Patch N/A 07/17/24 20:58 1 each DAILY@2058 MELLISSA Administration Raloxifene HCl 60 mg 06/17/24 11:30 06/17/24 13:35 Raloxifene Hcl 60 Mg Tab PO 07/17/24 11:29 60 mg QDL MELLISSA Administration Rotigotine 1 patch 06/17/24 21:00 06/17/24 20:27 Rotigotine Patch TD 07/17/24 20:59 1 patch HS MELLISSA Administration Spironolactone 25 mg 06/17/24 09:00 06/17/24 09:17 Spironolactone 25 Mg Tab PO 07/17/24 08:59 25 mg QAM MELLISSA Administration Past Medical History Medical History Pelvic floor dysfunction Encounter for pre-operative examination Moderate pulmonary hypertension Allergy to perfume Atrophic kidney, acquired left d/t hypertensive disease Asthma "mild">has not used inhaler in a while Kidney disease, chronic, stage III (GFR 30-59 ml/min) History of kidney stones over 1 yr ago Chronic anemia CAD (coronary artery disease) x 4 stents (05/2019) @ [place], Follows with Dr. Starks-nitro never used. Hiatal hernia Spinal stenosis anemia Exercise / Class Metabolic Activity III < 4 Walking/Shop/Light housework Past Family History Family History Sister FHx: colon cancer Uncle FHx: colon cancer Other No family history of adverse response to anesthesia No pertinent family history in first degree relatives Past Surgical History Surgical History H/O esophagogastroduodenoscopy S/P tonsillectomy Status post left hip replacement Status post insertion of drug-eluting stent into left anterior descending (LAD) artery S/P appendectomy S/P STONEY-BSO History of bladder surgery bladder/rectal prolapse repair History of cystoscopy History of colonoscopy History of carpal tunnel release Left S/P epidural steroid injection S/P lumbar spinal fusion Dr Juares S/P arthroscopy of right shoulder S/P shoulder replacement left History of cardiac cath 05/22/19, 05/31/19 ([facility]) History of heart artery stent x 4 stents (05/2019) Past Anesthesia History No Hx of Anesthesia Complications and No Family Hx of Anesthesia Complications History of PONV No Hx of PONV and No Hx of Motion Sickness Social History Smoking Status: Never smoker Do You Dip or Chew Tobacco: No Hx Alcohol Use: No alcohol intake frequency: holidays/special occasions only Hx Substance Use: No substance use type: does not use Physical Exam Vital Signs Last Vital Signs Temp 36.5 C 06/18/24 04:48 Pulse 63 06/18/24 04:48 Resp 16 06/18/24 04:48 BP 132/70 06/18/24 04:48 Pulse Ox 63 L 06/18/24 04:48 O2 Del Method Room Air 06/18/24 04:48 Testing Laboratory Results 06/18/24 05:40 06/18/24 05:40 PT 10.8 Seconds (9.0-12.0) 06/16/24 10:49 INR 1.0 (0.9-1.1) 06/16/24 10:49 APTT 26 Seconds (21-31) 06/16/24 10:49 Blood Type B Positive 06/16/24 10:49 Antibody Screen NEGATIVE 06/16/24 10:49 Electrocardiogram Date: 06/16/24 Findings: + NSR @ (@ 64;? anter. NM ,age ?) Echocardiogram Date: 01/12/23 EF: 60% LV Function: normal RWMA: + none Other Findings: + atrial enlargement (severe LA dilation;mod. RA dilation) and + diastolic dysfunction (Grade 1) Valvular Disease: + MR (moderate) severe TR moderate pulmonary HTN
--- NOTE | 2024-06-18 09:02 | History & Physical Bridge Note ---
Date of Service June 18, 2024 History & Physical Bridge Note I have examined the patient, reviewed the History & Physical and in the interval since the performance of the History & Physical I have noted the following changes of clinical significance: no changes noted. Patient came in with reported melena, she has been NPO. she is on for an EGD today for further evaluation. Supervising Physician Co-Signing Physician Notes I personally saw and examined the patient. I have reviewed the chart and agree with the documentation provided by the CORN HUSK BALER including discussion about the assessment, treatment and plan. Briefly, melena since Tuesday and plan for EGD today she is n.p.o. and she agrees with the risks and benefits of the procedure..
[2024-06-18] MEDS ORDERED: SIMETHICONE (ENDO) IR PRN (09:05)
[2024-06-18 09:09] VITALS: RESP 18; TEMP 98.4
[2024-06-18] MEDS ORDERED: ATROPINE SULFATE 0.1 MG/ML 10ML SYR IV PRN (09:21)
[2024-06-18] MEDS ORDERED: ePHEDrine sulfate 50 MG/ML AMP IV PRN (09:21)
--- NOTE | 2024-06-18 09:36 | GI REPORT ---
[facility] Patient: NUSRAT CASPER : 1945 Sex at : Female Age: 78 Years Procedure: Upper GI endoscopy Date: 06/18/2024 Attending Physician: Florentino Bravo MD Referring MD: Referred Self Indications: - Melena Medications: - Monitored Anesthesia Care Complications: - No immediate complications. Estimated Blood Loss: - Estimated blood loss: None. Procedure: - Prior to the procedure, a History and Physical was performed, and patient medications and allergies were reviewed. The patient's tolerance of previous anesthesia was also reviewed. The risks and benefits of the procedure and the sedation options and risks were discussed with the patient. All questions were answered, and informed consent was obtained. Prior Anticoagulants: The patient has taken no anticoagulant or antiplatelet agents except for aspirin, last dose was 3 days prior to procedure. ASA Grade Assessment: IV - A patient with severe systemic disease that is a constant threat to life. After reviewing the risks and benefits, the patient was deemed in satisfactory condition to undergo the procedure. - The egd scope was introduced through the mouth and advanced to the third part of the duodenum. - The upper GI endoscopy was accomplished without difficulty. - The patient tolerated the procedure well. Findings: - A medium-sized hiatal hernia was present. - The examined esophagus was normal. - Diffuse moderate inflammation characterized by erosions and erythema was found in the entire examined stomach. Biopsies were taken with a cold forceps for Helicobacter pylori testing. - One non-bleeding superficial gastric ulcer with no stigmata of bleeding was found in the gastric fundus. The lesion was 4 mm in largest dimension. Ulcer is a cammerons lesion in hernia sac. - The examined duodenum was normal. Impression: - Medium-sized hiatal hernia. - Normal esophagus. - Acute gastritis, characterized by erosions and erythema. Biopsied. - Non-bleeding gastric ulcer with no stigmata of bleeding. - Ulcer is a cammerons lesion in hernia sac. - Normal examined duodenum. Recommendation: - Discharge patient to home (ambulatory). - Resume previous diet. - Continue present medications. - Await pathology results. - Return to primary care physician as previously scheduled. - Patient has a contact number available for emergencies. The signs and symptoms of potential delayed complications were discussed with the patient. Return to normal activities tomorrow. Written discharge instructions were provided to the patient. - Use Protonix (pantoprazole) 40 mg PO BID for 3 days. - then once daily ppi. - Melena likely from Doron's lesion noted in the hernia sac *(small ulcer). Also noted with gastritis. Follow-up biopsies. Patient can be on PPI twice daily for a few days and then once daily. Start a cardiac diet. GI will sign off please call with any questions. Procedure Code(s): - 54719, Esophagogastroduodenoscopy, flexible, transoral; with biopsy, single or multiple Diagnosis Code(s): - K92.1, Melena (includes Hematochezia) - K44.9, Diaphragmatic hernia without obstruction or gangrene - K29.00, Acute gastritis without bleeding - K25.9, Gastric ulcer, unspecified as acute or chronic, without hemorrhage or perforation CPT(R) - 2023 copyright [employer]. All Rights Reserved. The CPT codes, CCI edits and ICD codes generated are intended as suggestions and were generated based on input data. These codes are preliminary and upon information officer review may be revised to meet current compliance and payer requirements. The provider is responsible for the final determination of appropriate codes, and modifiers. Florentino Bravo MD This document has been electronically signed. Note Initiated:06/18/2024 Note Completed:06/18/2024 9:36 AM [email or web address]\[email or web address]\[id number]
--- NOTE | 2024-06-18 09:42 | Anesthesiology Progress Note ---
Date of Service June 18, 2024 Anesthesia Post Procedure Vital Signs Vital Signs: Temp Pulse Pulse Resp BP BP Pulse Ox 06/18/24 09:07 36.9 C 61 18 188/81 H 98 06/18/24 04:48 36.5 C 63 16 132/70 63 L 06/18/24 00:15 36.5 C 70 16 104/62 95 06/17/24 22:00 67 06/17/24 21:24 93/51 L 06/17/24 20:27 36.6 C 68 16 112/63 96 06/17/24 20:20 68 109/62 06/17/24 16:13 36.3 C L 66 18 103/61 97 06/17/24 15:53 06/17/24 12:08 36.4 C L 67 18 95/57 L 96 O2 Del Method O2 Del Method 06/18/24 09:07 Room Air 06/18/24 04:48 Room Air 06/18/24 00:15 Room Air 06/17/24 22:00 06/17/24 21:24 06/17/24 20:27 Room Air 06/17/24 20:20 06/17/24 16:13 Room Air 06/17/24 15:53 Room Air 06/17/24 12:08 Room Air Transfer of Care Handoff Completed per policy Notes Mental Status: alert / awake / arousable Patient Amnestic to Procedure: Yes Nausea / Vomiting: adequately controlled Pain: adequately controlled Airway Patency, RR, SpO2: stable & adequate BP & HR: stable & adequate Hydration State: stable & adequate Anesthetic Complications: no major complications apparent
[2024-06-18 09:43] VITALS: O2SAT 97
[2024-06-18 10:12] VITALS: BP 179/84; PULSE 69
[2024-06-18] MEDS: LIDOCAINE 2% 2 ML VIAL/AMP(20MG/ML) INFIL ONE (10:42)
[2024-06-18] MEDS: PROPOFOL IV EMULSION 10 MG/ML 20 ML VIAL IV ONE (10:42)
[2024-06-18] MEDS: LABETALOL HCL 100 MG TAB PO SCH (10:46)
--- NOTE | 2024-06-18 10:53 | Discharge Summary ---
Date of Service June 18, 2024 Admission HPI Per Admitting Provider This is an 78 y/o female with chronic HFpEF, CAD s/p angioplasty/stent, MS, hypothyroid, fibromyalgia, dyslipidemia, HTN, GERD, CKD3a, remote hx PUD, and other history as outlined below who presents to the ED today with black stools that started last night. She reports she had a formed black bowel movement last evening, followed by several episodes of black diarrhea with last BM around 3 am today. She denies hematochezia. She denies significant abdominal pain but reports a generally unsettled feeling in her bowels. Denies vomiting. She takes aspirin 81 mg daily but denies use of NSAIDs or higher dose aspirin. She has a remote history of PUD in her 20s. She is on BID PPI therapy for her GERD, which usually works well. Appetite has been at baseline. She denies fevers, chills, dyspnea, syncope, dizziness. She does note an explained bruise on her chest earlier this week - does not recall any trauma to the area. [place] like a lump initially. She also notes occasional pain in lower chest pain that lasts a few m inutes at a time. No specific pattern, not exertional. Colonoscopy 01/23/18 - normal EGD 10/09/14 (for dysphagia) - mild tortuous distal esophagus, ring. PPI increased to BID, recommend consider VFSS Colonoscopy 12/29/12 - normal EGD 03/23/07 - normal esophagus, stomach, and examined duodenum Admission Exam Per Admitting Provider General: awake, alert, NAD HEENT: no scleral icterus, moist oral mucosa Heart: RRR, +murmur Lungs: CTA bilaterally Abdomen: soft, +BS, non-distended, +epigastric tenderness, mild RLQ tenderness, no guarding or rebound Extremities: +bilateral LE edema Skin: warm, dry, no jaundice or cyanosis, +ecchymotic area on mid-anterior chest Neurologic: Ox3, no confusion or dysarthria, moving all extremities, no focal deficits Principal Diagnosis UGI bleed Doron's ulcer Active gastritis Discharge Exam General: awake, alert, NAD HEENT: no scleral icterus, moist oral mucosa Heart: RRR, +murmur Lungs: CTA bilaterally Abdomen: soft, +BS, non-distended, no tenderness, no guarding or rebound Extremities: +bilateral LE edema x trace Skin: warm, dry, no jaundice or cyanosis, +ecchymotic area on mid-anterior chest Neurologic: Ox3, no confusion or dysarthria, moving all extremities, no focal deficits Discharge Data Allergies Allergy/AdvReac Type Severity Reaction Status Date / Time bee venom protein (honey bee) Allergy Severe Anaphylaxis Verified 06/16/24 13:38 Penicillins Allergy Severe Anaphylaxis Verified 06/16/24 13:37 Sulfa (Sulfonamide Allergy Severe Anaphylaxis Verified 06/16/24 13:37 Antibiotics) latex Allergy Intermediate Localized Verified 06/16/24 13:37 rash pneumococcal vaccine Allergy Intermediate Rash at Verified 06/16/24 13:37 injection site [id number] Reductase Allergy Intermediate muscle Verified 06/16/24 13:37 Inhibitor pain/sick to stomach tetanus toxoid, adsorbed Allergy Intermediate Redness at Verified 06/16/24 13:37 injection site adhesive tape Allergy Mild Redness, Verified 06/16/24 13:37 pruritis atorvastatin AdvReac Intermediate myalgias Verified 06/16/24 13:37 SANIA Inhibitors AdvReac Mild Cough Verified 06/16/24 13:37 aspirin AdvReac Mild GI upset Verified 06/16/24 13:37 salicylates AdvReac Mild nausea/vomi Verified 06/16/24 13:37 tting Consultations 06/16/24 13:20 ED Decision to Admit Stat 06/16/24 13:57 Consult Gastroenterology Routine Procedures Performed Operation Date: 06/18/24 17:50 Actual Procedures p EGD Biopsy Cytology - Florentino Bravo MD Ordered Studies 06/16/24 11:41 CT Abd and Pelvis [CT abd pelvis IV con only] Stat Hospital Course (1) Acute upper gastrointestinal bleeding: (2) CAD (coronary artery disease), [place] coronary artery: (3) GERD (gastroesophageal reflux disease): (4) History of peptic ulcer: (5) HTN (hypertension): (6) Hypothyroidism: (7) Multiple sclerosis: (8) Chronic heart failure with preserved ejection fraction (HFpEF): Plan 78 y/o female with chronic HFpEF, CAD s/p angioplasty/stent, MS, hypothyroid, fibromyalgia, dyslipidemia, HTN, GERD, CKD3a, remote hx PUD, and other history as outlined below who presents to the ED today with black stools x 1 day a/w generalized GI upset but no significant abdominal pain. On exam, mild to moderate epigastric tenderness at presentation. Work-up in the ED showed a normal H&H at 12.2/37.0, no acute findings on the CT of the abdomen/pelvis. Pt has a remote history of PUD, hx of GERD, on BID PPI therapy. Takes aspirin daily due to CAD w/ hx stents. 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 - H&H has been stable, c/w PPI as prior. - EGD 06/18 w/ doron's lesion and active gastritis noted. - Diet as tolerated, hold aspirin until further eval at PCP office within a week time. - f/u w/ GI on dc, f/u on biopsy result obtained during EGD scope during visit w/ GI. #CAD s/p multiple stents Chronic, stable Continue outpatient meds other than aspirin, which is on hold as above #Chronic HFpEF Chronic - continue outpatient medications including diuretics #Hypothyroidism Chronic - continue levothyroxine #RLS #Quiescent MS Chronic - continue outpatient regimen including carbidopa-levodopa Code status: full code DVT prophylaxis: JOMAR stockings, pharmacologic prophylaxis on hold due to GI bleed Patient is being discharged home with following instructions at the point of discharge: Follow-up with your primary care physician within a week time and likely you will need labs CBC/CMP/magnesium/phosphorus. You underwent upper scope, you were noted to have small ulcer in the hernia sac and also noted to have active gastritis. You will need to follow-up with GI in 2 to 4 weeks time upon discharge. You will need to follow-up on the final results of biopsy from EGD scope done inpatient, coordinate with your PCP office or GI office to follow-up on the final results. Hold your aspirin until further evaluation at your PCP office within a week time upon discharge. Take your medications as prescribed. Please make sure that you are able to get your medications today by calling your pharmacy before you leave the hospital so that your treatment continuity is not broken. [facility] Attestation I certify that this patient is under my care and that I, or a physicians social human services assistants working with me, had a face to-face encounter that meets the [id number] encounter requirements with this patient. The encounter with the patient was in whole, or in part, for the following medical condition, which is the primary reason for home health care (list medical condition): I certify that, based on my findings, the following services are medically necessary home health services: My clinical findings support the need for the above services because: Further, I certify that my clinical findings support that this patient is homebound (i.e. absences from home require considerable and taxing effort and are for medical reasons or evangelical services or infrequently or of short duration when for other reasons) because: Certification for Home Health Services: Based on the above findings, I certify that this patient is confined to the home and needs intermittent care home care, physical therapy and/or speech therapy or continues to need occupational therapy. The patient is under my care, and I have initiated the establishment of the plan of care. This patient will be followed by a physician who will periodically review the plan of care. Total Time Total Time Spent Total Time Spent (In Minutes): 35 Discharge Plan Discharge Items Patient Disposition: Home - Self-Care Reason For Visit: GI BLEED Discharge Diagnosis: UGI bleed Doron's ulcer Active gastritis Activity: Resume your previous activity Non-emergency contact: Primary Care Provider Call non-emergency contact if: you have any medication questions Follow-up/Referrals: Terrance Craig MD [Primary Care Provider] - Diet: Heart Healthy Addtl Attending Provider Instructions: Follow-up with your primary care physician within a week time and likely you will need labs CBC/CMP/magnesium/phosphorus. You underwent upper scope, you were noted to have small ulcer in the hernia sac and also noted to have active gastritis. You will need to follow-up with GI in 2 to 4 weeks time upon discharge. You will need to follow-up on the final results of biopsy from EGD scope done inpatient, coordinate with your PCP office or GI office to follow-up on the final results. Hold your aspirin until further evaluation at your PCP office within a week time upon discharge. Take your medications as prescribed. Please make sure that you are able to get your medications today by calling your pharmacy before you leave the hospital so that your treatment continuity is not broken. Pending Studies at Discharge: Yes Stand-Alone Forms: [employer], Smoking Cessation Medications and DC Order Prescriptions: Continued labetalol 200 mg tablet 400 mg PO BID Qty: 360 3RF raloxifene [Evista] 60 mg tablet 60 mg PO QDL carbidopa-levodopa 25-100 mg tablet 1 tab PO TID carbidopa-levodopa 50-200 mg tablet extended release 1 tab PO HS levothyroxine 150 mcg capsule See Rx Instructions .ROUTE .COMPLEX Patient Comments: takes Tuesday thr Tuesday, on Tuesday takes 0.5 tablet Rx Instructions: Take 75mcg by mouth on Tuesday and 150mcg by mouth all other days nitroglycerin 0.4 mg tablet, sublingual 0.4 mg sublingual Q5M PRN (Reason: Chest Pain) Rx Instructions: do not exceed 3 doses per episode epinephrine [EpiPen] 0.3 mg/0.3 mL auto-injector 0.3 mg IM Q4H PRN (Reason: Other) furosemide 40 mg tablet See Rx Instructions .ROUTE .COMPLEX Qty: 180 Rx Instructions: Take 80mg by mouth every morning and 40mg by mouth around supper time (5:00pm - 6:00pm) spironolactone 25 mg tablet 25 mg PO QAM Qty: 90 3RF Neupro 6 mg/24 hour patch 24 hour 1 patch topical HS Rx Instructions: changes HS Repatha SureClick 140 mg/mL Pen Injector 140 mg SUBCUT Q14D Patient Comments: every 2 weeks>last took 05/24/23 Rx Instructions: Due Tuesday - gabapentin 300 mg capsule 600 mg PO BID Rx Instructions: Noon and before bedtime isosorbide mononitrate 30 mg tablet extended release 24 hr 90 mg PO QAM acetaminophen [Tylenol Extra Strength] 500 mg tablet 1,000 mg PO TID PRN (Reason: pain) Patient Comments: post op pantoprazole 40 mg tablet,delayed release (DR/EC) 40 mg PO BID Qty: 0 0RF Held aspirin [Chepe Low Dose Aspirin] 81 mg tablet,delayed release (DR/EC) 81 mg PO QAM Hold Instructions: Resume on 06/25/24. Hold until further evaluation by PCP office with in a week time. Patient Comments: post op Rx Instructions: Take to prevent blood clots. Discharge Orders: Discharge Order (Routine); Ordered 06/18/24 Ordered By: Fabio Scales Admission Data Admit Date/Time: 06/16/24 13:59 Attending Provider: Fabio Scales Admit Provider: Todd Tolbert Primary Care Provider: Terrance Craig Other Providers: Todd Tolbert; Mio Toro I Other Interventions: Discharge Summary Assessment (RN) Last Done: 06/18/24 10:09
== END 2024-06-18 13:21 | disposition home or self-care (01) | DRG 378 ==
LOC: ED 10:25 → INTOOBSV 13:59 → 4W 13:59 → SUATTDRO 13:59 → 4W 14:45